=== PATIENT | female | born 2005 | race Two or more races ===

== ENCOUNTER 2024-10-17 16:01 | Observation (INO) | payer OTHER, SELFPAY ==
[2024-10-17 16:23] VITALS: BP 133/71; PULSE 89
--- NOTE | 2024-10-17 17:16 | PC.NURSE ---
Kavitha- RN at bedside updating pt with recent provider orders. Pt states she was finally able to feel movements at this time. Pt given 2 grapes juices and regis crackers.
--- NOTE | 2024-10-17 17:17 | PC.NURSE ---
1639- RN at bedside. Audible movement noted; pt denies feeling movements but acknowledges hearing movements audibly. RN reviews FHR/UC assessment with patient for reassurance. Pt given Count the Kicks handout.
--- NOTE | 2024-10-17 17:31 | US_ITS ---
[address] [address] Patient Name: RONAK LORA MRN: [id number] date: 2005 Sex: F Assigned Patient Location: [facility] Current Patient Location: Accession/Order Number: [id number] Exam Date: 10/17/2024 17:38 Report Date: 10/17/2024 18:49 At the request of: EDIE CURRY Procedure: US OB placenta EXAM: US OB placenta HISTORY: Decreased Movement COMPARISON: None. TECHNIQUE: Grayscale OB ultrasound. FINDINGS: A single alive intrauterine . presentation is transverse. heart rate measures 147 bpm. Multiple gross body movements seen during examination. The amniotic fluid is normal with the largest fluid pocket measures 4.9 cm. SAHIL: 15.8 cm. There is posterior placenta. (Grade 0). JOE: 01/24/2025 US/US OB placenta IMPRESSION: Single alive and active fetus as described above. Electronically authenticated by: EDI DUMONT Date: 10/17/2024 18:49
--- NOTE | 2024-10-17 18:06 | PC.NURSE ---
Per US tech placenta WNLs and movements noted throughout US procedure.
--- NOTE | 2024-10-17 18:08 | PC.NURSE ---
1800-D/C instructions given at this time. Pt verbalizes understanding.
== END 2024-10-17 18:05 | disposition home or self-care (01) ==
PROVIDERS: Admitting Provider Midwife; Visit Provider Midwife
DX: O36.8120 Decreased fetal movements, second trimester, not applicable or unspecified (principal); Z3A.25 25 weeks gestation of pregnancy
CPT/HCPCS: 59025; 76815; G0378; G0379

== ENCOUNTER 2024-12-25 21:39 | Observation (INO) | payer OTHER, SELFPAY ==
--- OUTSIDE RECORDS SUMMARY | 2024-12-25 21:43 | XMS_ITS | CCD ---
Author Organization [facility] Care Team Providers Care Spooling 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 Name Role Phone NO FAMILY, PHYSICIAN Primary Care Provider Unava ilable SANE, . Emergency Provider Unavailable NO FAMILY, PHYSICIAN Primary Care Provider Unava ilable Bullimore, POWER TRUCK DRIVER-BC Felisha E Emergency Provider Jose A Moralez DO Unavailable [phone] AMINAH WRIGHT Attending Unavailable NO PCP, NO PCP Primary Care Unavailable NO FAMILY, PHYSICIAN Primary Care Provider Unava ilable DO Oj Navarrete Emergency Provider [phone] MOUNIKA RICE Attending Unavaila ble NO PCP, NO PCP Primary Care Unavailable NO PCP, NO PCP Primary Care Unavailable JUDAH MCDONOUGH Attending Unavailable JOS LANDIS Attending Unavailable JOS LANDIS Referring Unavailable NO PCP, NO PCP Primary Care Unavailable NO PCP, NO PCP Primary Care Unavailable NISSA WICK Attending Unavailable Unallocated Rosy INGRAM Provider Primary Care Provi jose a UnallocatRosy hart MD Provider Primary Care Provi jose a NO FAMILY, PHYSICIAN Primary Care Provider Unava ilRishabh Agarwal PA-C Emergency Provider [phone] Anali POWER TRUCK DRIVER-BC, Felisha E Emergency Provider Ailyn Murrell Attending Unavailable Provider, None Primary Care Unavailable Monty Lee Attending Unavailable Monty Lee Admitting Unavailable Provider, None Primary Care Unavailable Vee Yang DO Attending Provider Tirso Mancilla MD Attending Provider NO FAMILY, PHYSICIAN Primary Care Provider Unava Rishabh Rain PA-C Emergency Provider [phone] Luciano Cooper MD Attending Provider NO FAMILY, PHYSICIAN Primary Care Unavailable Trey, Vee Attending Unavailable Trey, Vee Admitting Unavailable NO FAMILY, PHYSICIAN Primary Care Unavailable Tirso Mancilla Admitting Unavailable Tirso Mancilla Attending Unavailable NO FAMILY, PHYSICIAN Primary Care Unavailable Luciano Cooper Admitting Unavailable Luciano Cooper Attending Unavailable NO FAMILY, PHYSICIAN Primary Care Unavailable Oj Navarrete M Admitting Unavailable Oj Navarrete M Attending Unavailable NO FAMILY, PHYSICIAN Primary Care Unavailable Rishabh Quinteros Admitting Unavailable Rishabh Quinteros Attending Unavailable NO FAMILY, PHYSICIAN Primary Care Unavailable Bullimore, Felisha E Admitting Unavailable Bullimore, Felisha E Attending Unavailable NO FAMILY, PHYSICIAN Primary Care Unavailable Rishabh Quinteros Admitting Unavailable Rishabh Quinteros Attending Unavailable NO FAMILY, PHYSICIAN Primary Care Unavailable Tudaniel, Oj M Admitting Unavailable Tupa, Oj M Attending Unavailable NO FAMILY, PHYSICIAN Primary Care Unavailable Rinkes, Vee Admitting Unavailable Rinviviane, Vee Attending Unavailable FLORO, EDIE L Attending Unavailable FLORO, EDIE L Referring Unavailable FLORO, EDIE L Attending Unavailable FLORO, EDIE L Attending Unavailable FLORO, EDIE L Referring Unavailable FLORO, EDIE L Attending Unavailable FLORO, EDIE L Attending Unavailable FLORO, EDIE L Referring Unavailable FLORO, EDIE L Attending Unavailable FLORO, EDIE L Attending Unavailable FLORO, EDIE L Attending Unavailable FLORO, EDIE L Referring Unavailable FLORO, EDIE L Attending Unavailable FLORO, EDIE L Attending Unavailable FLORO, EDIE L Attending Unavailable NO FAMILY, PHYSICIAN Primary Care Provider Unava ilable Vee Yang DO Attending Provider Tirso Mancilla MD Attending Provider Rishabh Quinteros PA-C Emergency Provider [phone] Luciano Cooper MD Attending Provider Medications Current Medications Medication Drug Class(es) Dates Sig (Normalized) Sig (Original) docusate sodium 100 mg oral capsule (6 sources) Start: 11-19-2024 End: 02-27-2025 take 1 capsule by mouth in the morning docusate sodium (Colace) 100 MG capsule Indications: Iron deficiency anemia, unspecified iron deficiency anemia type Take 1 capsule (100 mg) by mouth in the morning and 1 capsule (100 mg) before bedtime. 60 capsule 3 11/19/2024 02/27/2025 Active ferrous sulfate 325 mg delayed release oral tablet (6 sources) Start: 11-19-2024 End: 11-19-2025 take 1 tablet by mouth in the morning ferrous sulfate (Fe Tabs) 325 (65 Fe) MG EC tablet Indications: Iron deficiency anemia, unspecified iron deficiency anemia type Take 1 tablet (325 mg) by mouth in the morning and at noon Do not crush, chew, or split. 60 tablet 11 11/19/2024 11/19/2025 Active Mv-Min No.83-Kynkd-Cuk-He rb293 (Alive Daily Support ) 180 mcg-25 mg- 25 mg tablet,chewable (4 sources) Start: 10-07-2024 take 1 tablet by mouth once daily Mv-Min No.47-Jbvht-Mnu-Her b293 (Alive Daily Support ) 180 mcg-25 mg- 25 mg tablet,chewable Active 1 TAB PO Daily October 07, 2024 1:00am Start: 10-07-2024 take 1 tablet by orly th once daily Mv-Min No.66-Akess-Feh-Optq319 (Alive Daily Support ) 180 mcg-25 mg- 25 mg tablet,chewable Active 1 TAB PO Daily October 07, 2024 12:00am Start: 10-07-2024 take 1 tablet by orly th once Mv-Min No.84-Qihli-Hcw-Nmcz625 (Alive Daily Support ) 180 mcg-25 mg- 25 mg tablet,chewable Active TAB PO October 07, 2024 12:00am ondansetron 4 mg disintegrating oral tablet (3 sources) Serotonin-3 Receptor Antagonist Start: 11-18-2024 take 1 tablet by mouth four times daily as needed for nausea and vomiting Ondansetron 4 mg tablet,disintegrating Active 4 MG PO Four times daily as needed for nausea and vomiting November 18, 2024 1:00am MV & Min w/FA-DHA ( Gummies) 0.18-25 MG chewable tablet (11 sources) MV & Mi n w/FA-DHA ( Gummies) 0.18-25 MG chewable tablet Chew Active MV-Min-Fe Fum-FA-DHA ( 1 PO) (17 sources) MV-Min- Fe Fum-FA-DHA ( 1 PO) Take 1 tablet by mouth Daily Active Completed/Discontinued Medications Medication Drug Class(es) Dates Sig (Normalized) Sig (Original) doxycycline monohydrate 100 mg oral tablet (19 sources) Tetracycline-clas s Drug Start: 07-29-2022 End: 05-26-2024 take 1 tablet by mouth twice daily Doxycycline Monohydrate 100 mg tablet Discontinued 100 MG PO Twice daily 14 June 05, 2023 4:27pm May 26, 2024 9:30pm metFORMIN hydrochloride 500 mg oral tablet (11 sources) Biguanide Start: 04-06-2024 End: 04-06-2025 take 1 tablet by mouth twice daily Metformin 500 mg tablet Discontinued 500 MG PO Twice daily May 26, 2024 12:00am October 04, 2024 5:55pm miconazole nitrate 20 mg/ml vaginal cream (5 sources) Azole Antifungal Start: 08-28-2024 End: 10-04-2024 Miconazole Nitrate (Miconazole-7) 2 % cream Discontinued 1 APPLICATOR VAGINAL Daily at bedtime 45 7 August 28, 2024 1:00am October 04, 2024 5:55pm Problems Active Problems Problem Classification Problem Date Documented Date Episodic/Chronic Fever of unknown origin (20 sources) Fever; Translations: [Fever, unspecified] Onset: 04-01-2024 05-30-2021 Episodic Comment on above: Problem List clean-u p per request of Phys. EHR Cmte Hemorrhage during ; abruptio placenta; placenta previa (15 sources) Bleeding from female genital tract during ; Translations: [Antepartum hemorrhage, unspecified, unspecified trimester] Onset: 05-31-2024 05-29-2024 Episodic Menstrual disorders (20 sources) Dysmenorrhea; Translations: [Dysmenorrhea, unspecified] Onset: 04-01-2024 04-01-2024 Chronic Nausea and vomiting (3 sources) Nausea and vomiting; Translations: [Nausea with vomiting, unspecified] 11-18-2024 Episodic Other complications of (4 sources) Finding related to ; Translations: [ related conditions, unspecified, second trimester] 08-12-2024 Episodic Other complications of (6 sources) Complication of , childbirth and/or the puerperium; Translations: [Other specified related conditions, unspecified trimester] 08-24-2024 Episodic Other complications of (1 source) Decreased movements, third trimester, not applicable or unspecified; Translations: [Decreased movements, third trimester, not applicable or unspecified] Onset: 12-03-2024 Episodic Other complications of (1 source) Vomiting of , unspecified; Translations: [Vomiting of , unspecified] Onset: 11-18-2024 Episodic Other complications of (1 source) Decreased movements, second trimester, not applicable or unspecified; Translations: [Decreased movements, second trimester, not applicable or unspecified] Onset: 10-07-2024 Episodic Other complications of (1 source) Decreased movements, unspecified trimester, not applicable or unspecified; Translations: [Decreased movements, unspecified trimester, not applicable or unspecified] Onset: 10-04-2024 Episodic Other ear and sense organ disorders (1 source) Impacted cerumen in right ear; Translations: [Impacted cerumen, right ear] 11-02-2023 Episodic Other female genital disorders (11 sources) Vaginal bleeding; Translations: [Abnormal uterine and vaginal bleeding, unspecified] Onset: 05-31-2024 08-24-2020 Chronic Comment on above: Problem List clean-u p per request of Phys. EHR Cmte Other female genital disorders (20 sources) Vaginal discharge; Translations: [Other specified noninflammatory disorders of vagina] Onset: 04-01-2024 07-29-2022 Episodic Comment on above: Problem List clean-u p per request of Phys. EHR Cmte Other female genital disorders (5 sources) Pruritus of vagina; Translations: [Other specified noninflammatory disorders of vagina] 08-28-2024 Episodic Other injuries and conditions due to external causes (20 sources) Foreign body in upper respiratory tract; Translations: [Food in pharynx causing other injury, initial encounter] Onset: 04-01-2024 05-20-2019 Episodic Comment on above: Problem List clean-u p per request of Phys. EHR Cmte Other and delivery including normal (14 sources) Second trimester ; Translations: [Encounter for supervision of normal first , second trimester] 08-12-2024 Episodic Other screening for suspected conditions (not mental disorders or infectious disease) (4 sources) Patient encounter status; Translations: [Encounter for screening for diseases of the blood and blood-forming organs and certain disorders involving the immune mechanism] 10-28-2024 Episodic Substance-related disorders (20 sources) Nicotine dependence; Translations: [Nicotine dependence, unspecified, uncomplicated] Onset: 04-01-2024 04-01-2024 Chronic Unclassified (1 source) Medical Problem Onset: 05-21-2024 Unclassified (1 source) screening Onset: 05-21-2024 Unclassified (20 sources) OB Reminders Onset: 06-01-2024 06-01-2024 Viral infection (20 sources) Disease caused by 2019-nCoV; Translations: [COVID-19] Onset: 04-01-2024 05-30-2021 Episodic Comment on above: Problem List clean-u p per request of Phys. EHR Cmte Past or Other Problems Problem Classification Problem Date Documented Date Episodic/Chronic Abdominal pain (2 sources) Abdominal pain; Translations: [Unspecified abdominal pain] Onset: 06-29-2024 Episodic Other complications of (1 source) Spotting complicating , first trimester; Translations: [Spotting complicating , first trimester] Onset: 05-28-2024 Episodic Other complications of (1 source) Spotting complicating , unspecified trimester; Translations: [Spotting complicating , unspecified trimester] Onset: 05-26-2024 Episodic Other female genital disorders (1 source) Other specified noninflammatory disorders of vagina; Translations: [Other specified noninflammatory disorders of vagina] Onset: 08-28-2024 Episodic Other nutritional; endocrine; and metabolic disorders (20 sources) Overweight in adulthood with body mass index of 25 or more but less than 30; Translations: [Body mass index (BMI) 27.0-27.9, adult] Onset: 04-01-2024 04-01-2024 Episodic Residual codes; unclassified (2 sources) Less than 8 weeks gestation of ; Translations: [Less than 8 weeks gestation of ] Onset: 05-21-2024 Episodic Results Test Name Value Interpretation Reference Range Facility Amphetamine Screen Ql (U)Ord ered By: HARITHA Cooper on 12-24-2024 Amphetamines Ql (U) Amphetamines screen Negativ e [facility] Appearance of UrineOrdered B y: HARITHA Cooper on 12-24-2024 Appearance (U) Urine appearance Clear [facility] Barbiturates [Presence] in U rine by Screen methodOrdered By: HARITHA Cooper on 12-24-2024 Barbiturates Screen Ql (U) Barbiturates [Presence] in Urine by Screen method Negative [facility] Benzodiazepines Screen Ql (U )Ordered By: HARITHA Cooper on 12-24-2024 Benzodiazepines Ql (U) Benzodiazepines [Presence] in Urine by Screen method Negative [facility] Benzoylecgonine [Presence] i n Urine by Screen methodOrdered By: HARITHA Cooper on 12-24-2024 Benzoylecgonine Screen Ql (U) Benzoylecgonine [Presence] in Urine by Screen method Negative [facility] Bilirubin Test strip Ql (U)O rdered By: HARITHA Cooper on 12-24-2024 Bilirubin Ql (U) Bilirubin.total [Presence] in Urine by Test strip Negative [facility] Color Auto (U)Ordered By: MD MAAME Cooper on 12-24-2024 Color (U) Color of Urine by Auto Yellow [facility] Glucose [Mass/volume] in Uri ne by Test stripOrdered By: HARITHA Cooper on 12-24-2024 Glucose Test strip (U) [Mass/Vol] Glucose [Mass/volume] in Urine by Test strip Normal [facility] Hemoglobin Test strip Ql (U) Ordered By: HARITHA Cooper on 12-24-2024 Hemoglobin Ql (U) Hemoglobin [Presence] in Urine by Test strip Negative [facility] Ketones Test strip Ql (U)Ord ered By: HARITHA Cooper on 12-24-2024 Ketones Ql (U) Ketones [Presence] in Urine by Test strip Negative [facility] Leukocyte esterase [Presence ] in Urine by Test stripOrdered By: HARITHA Cooper on 12-24-2024 Leukocyte esterase Test strip Ql (U) Leukocyte esterase [Presence] in Urine by Test strip Negative [facility] Nitrite Test strip Ql (U)Ord ered By: HARITHA Cooper on 12-24-2024 Nitrite Ql (U) Nitrite [Presence] in Urine by Test strip Negative [facility] Opiates [Presence] in Urine by Screen methodOrdered By: HARITHA Cooper on 12-24-2024 Opiates Screen Ql (U) Opiates [Presence] in Urine by Screen method Negative [facility] Phencyclidine Screen Ql (U)O rdered By: HARITHA Cooper on 12-24-2024 Phencyclidine Ql (U) Phencyclidine [Presence] in Urine by Screen method Negative [facility] Comment on above: These are unconfirme d results and should not be used for legal purposes. Drug Cut-Off Concentration: AMPH 1000 ng/mL NIKOS 200 ng/mL JOSETTE 200 ng/mL COCM 300 ng/mL OP 300 ng/mL PCP 25 ng/mL Protein Test strip (U) [Mass /Vol]Ordered By: HARITHA Cooper on 12-24-2024 Protein (U) [Mass/Vol] Protein [Mass/volume] in Urine by Test strip Negative [facility] Specific gravity Test strip (U) [Rel density]Ordered By: HARITHA Cooper on 12-24-2024 Specific gravity (U) [Rel density] Specific gravity of Urine by Test strip 1.001-1.030 [facility] Urobilinogen Test strip (U) [Mass/Vol]Ordered By: HARITHA Cooper on 12-24-2024 Urobilinogen (U) [Mass/Vol] Urobilinogen [Mass/volume] in Urine by Test strip Normal [facility] pH Test strip (U)Ordered By: HARITHA Cooper on 12-24-2024 pH (U) pH of Urine by Test strip 5.0-9.0 [facility] Appearance of UrineOrdered B y: HARITHA Cooper on 12-03-2024 Appearance (U) Urine appearance Abnormal Clear [facility] Bacteria [Presence] in Urine by AutomatedOrdered By: HARITHA Cooper on 12-03-2024 Bacteria Auto Ql (U) Bacteria [Presence] in Urine by Automated None Seen [facility] Bilirubin Test strip Ql (U)O rdered By: HARITHA Cooper on 12-03-2024 Bilirubin Ql (U) Bilirubin.total [Presence] in Urine by Test strip Negative [facility] Color Auto (U)Ordered By: MD MAAME Cooper on 12-03-2024 Color (U) Color of Urine by Auto Yellow [facility] Dipstick and Microscopicon 0 12-03-2024 Appearance (U) Cloudy Critically abnormal Clear [facility] Comment on above: Order Comment: Name Collection Type:: Clean-Voided Midstream Performed By: #### U HCG, UA #### [facility] [address] [place] [address] [place] Bacteria,Urine Rare Normal None Seen [facility] Comment on above: Order Comment: Name Collection Type:: Clean-Voided Midstream Performed By: #### U HCG, UA #### [facility] [address] [place] [address] [place] Bilirubin,Urine Negative Normal Negative [facility] Comment on above: Order Comment: Name Collection Type:: Clean-Voided Midstream Performed By: #### U HCG, UA #### [facility] [address] [place] [address] [place] Color (U) Light-Yellow Normal Yellow [facility] Comment on above: Order Comment: Name Collection Type:: Clean-Voided Midstream Performed By: #### U HCG, UA #### [facility] [address] [place] [id number] [place] Glucose Ql (U) Normal Normal Normal [facility] Comment on above: Order Comment: Name Collection Type:: Clean-Voided Midstream Performed By: #### U HCG, UA #### [facility] [address] [place] [id number] [place] Hyaline Casts,Urine 0-8 Normal 0-8 [facility] Comment on above: Order Comment: Name Collection Type:: Clean-Voided Midstream Performed By: #### U HCG, UA #### [facility] [address] Ketones Ql (U) Negative Normal Negative [facility] Comment on above: Order Comment: Name Collection Type:: Clean-Voided Midstream Performed By: #### U HCG, UA #### [address] Leukocyte esterase Test strip Ql (U) Negative Normal Negative [facility] Comment on above: Order Comment: Name Collection Type:: Clean-Voided Midstream Performed By: #### U HCG, UA #### [place] [address] [place] Mucus,Urine Rare Normal [facility] Comment on above: Order Comment: Name Collection Type:: Clean-Voided Midstream Result Comment: PERF ORMED BY: [place] [id number] PATHOLOGIST MANAGER PRIVATE CECILIA SHORT M.D. Performed By: #### U HCG, UA #### [place] [address] [place] Nitrite,Urine Negative Normal Negative [facility] Comment on above: Order Comment: Name Collection Type:: Clean-Voided Midstream Performed By: #### U HCG, UA #### [place] [address] [place] Occult Blood,Urine Negative Normal Negative [facility] Comment on above: Order Comment: Name Collection Type:: Clean-Voided Midstream Result Comment: PERF ORMED BY: [place] [address] PATHOLOGIST MANAGER PRIVATE CECILIA SHORT M.D. Performed By: #### U HCG, UA #### [place] [address] [place] pH (U) 6.5 [pH] Normal 5.0-9.0 [facility] Comment on above: Order Comment: Name Collection Type:: Clean-Voided Midstream Performed By: #### U HCG, UA #### [place] [address] [place] Protein,Urine Negative Normal Negative [facility] Comment on above: Order Comment: Name Collection Type:: Clean-Voided Midstream Performed By: #### U HCG, UA #### [place] [address] [place] RBC,Urine 1-2 Normal 0-4 [facility] Comment on above: Order Comment: Name Collection Type:: Clean-Voided Midstream Performed By: #### U HCG, UA #### [place] [address] [place] Specificy [place],Urine 1.011 Normal 1.001-1.030 [facility] Comment on above: Order Comment: Name Collection Type:: Clean-Voided Midstream Performed By: #### U HCG, UA #### [address] Squamous Epithelial Cell,Urine 20-49 High 0-2 [facility] Comment on above: Order Comment: Name Collection Type:: Clean-Voided Midstream Performed By: #### U HCG, UA #### [place] [address] [place] Urobilinogen,Urine Normal Normal Normal [facility] Comment on above: Order Comment: Name Collection Type:: Clean-Voided Midstream Performed By: #### U HCG, UA #### [place] [address] [place] WBC,Urine 3-4 Normal 0-4 [facility] Comment on above: Order Comment: Name Collection Type:: Clean-Voided Midstream Performed By: #### U HCG, UA #### [place] [address] [place] Epithelial cells.squamous [# /area] in Urine sediment by Automated countOrdered By: HARITHA Cooper on 12-03-2024 Epithelial cells.squamous Auto (Urine sed) [#/Area] Epithelial cells.squamous [#/area] in Urine sediment by Automated count High 0-2 [facility] Erythrocytes [#/area] in Uri ne sediment by Automated countOrdered By: HARITHA Cooper on 12-03-2024 RBC Auto (Urine sed) [#/Area] Erythrocytes [#/area] in Urine sediment by Automated count 0-4 [facility] Fibronectinon 12-03-19 25 Fibronectin Negative Normal Negative [facility] Comment on above: Order Comment: Name Collection Type:: Clean-Voided Midstream Result Comment: PERF ORMED BY: [place] [id number] PATHOLOGIST MANAGER PRIVATE CECILIA SHORT M.D. Performed By: #### U HCG, UA #### [address] fibronectin measuremen tOrdered By: HARITHA Cooper on 12-03-2024 Fibronectin. (Vag fld) [Mass/Vol] fibronectin Negative [facility] Fibronectin. Ql (Vag fl d)on 12-03-2024 FIBRONECTIN Negative Negative [facility] Comment patients 22 - 34 6/7 weeks prior to vaginal exam [facility] Glucose [Mass/volume] in Uri ne by Test stripOrdered By: HARITHA Cooper on 12-03-2024 Glucose Test strip (U) [Mass/Vol] Glucose [Mass/volume] in Urine by Test strip Normal [facility] Hemoglobin Test strip Ql (U) Ordered By: HARITHA Cooper on 12-03-2024 Hemoglobin Ql (U) Hemoglobin [Presence] in Urine by Test strip Negative [facility] Hyaline casts [#/area] in Ur ine sediment by Automated countOrdered By: HARITHA Cooper on 12-03-2024 Hyaline casts Auto (Urine sed) [#/Area] Hyaline casts [#/area] in Urine sediment by Automated count 0-8 [facility] Ketones Test strip Ql (U)Ord ered By: HARITHA Cooper on 12-03-2024 Ketones Ql (U) Ketones [Presence] in Urine by Test strip Negative [facility] Leukocyte esterase [Presence ] in Urine by Test stripOrdered By: HARITHA Cooper on 12-03-2024 Leukocyte esterase Test strip Ql (U) Leukocyte esterase [Presence] in Urine by Test strip Negative [facility] Leukocytes [#/area] in Urine sediment by Automated countOrdered By: HARITHA Cooper on 12-03-2024 WBC Auto (Urine sed) [#/Area] Leukocytes [#/area] in Urine sediment by Automated count 0-4 [facility] Mucus [Presence] in Urine by AutomatedOrdered By: HARITHA Cooper on 12-03-2024 Mucus Auto Ql (U) Mucus [Presence] in Urine by Automated [facility] Nitrite Test strip Ql (U)Ord ered By: HARITHA Cooper on 12-03-2024 Nitrite Ql (U) Nitrite [Presence] in Urine by Test strip Negative [facility] Protein Test strip (U) [Mass /Vol]Ordered By: HARITHA Cooper on 12-03-2024 Protein (U) [Mass/Vol] Protein [Mass/volume] in Urine by Test strip Negative [facility] Specific gravity Test strip (U) [Rel density]Ordered By: HARITHA Cooper on 12-03-2024 Specific gravity (U) [Rel density] Specific gravity of Urine by Test strip 1.001-1.030 [facility] US OB biophysical profileon 12-03-2024 US OB biophysical profile [facility] [place] [address] Ultrasound Report Signed Patient: Kisha Lora MR#: [id number] 55 : 2005 Acct:[id number] Age/Sex: 19 / F ADM Date: 12/03/24 Loc: Room: [address] [place] [address] Type: REG CLI Attending Dr: Luciano Cooper MD Ordering Provider: HARITHA Burdick Date of Service: 12/03/24 US/US OB biophysical profile: 32 wks, decreased movement Copies to: HARITHA Burdick Ultrasound of surgical biophysical profile HISTORY: Decreased movement. Failed prior biophysical profile Prior measurement obtained earlier today. There is adequate tone, gross body movement, breathing movement and amniotic fluid volume. heart rate are 4 9 bpm. Fetus in vertex presentation. Amniotic fluid index 12.34 cm. US/US OB biophysical profile IMPRESSION: Adequate ultrasound biophysical profile with score of 8 out of 8. Impression dictated by: Craig Hassan M.D.12/03/2024 3:10 PM Dictation Location: [facility] Tech: Ivette Thomson Transcribed By: WILLOW 12/03/24 1510 Dictated By: Craig Hassan DO 12/03/24 1509 Signed By: 12/03/24 1510 Normal [facility] US OB biophysical profile [facility] [place] [address] Ultrasound Report Signed Patient: Kisha Lora MR#: [id number] 57 : 2005 Acct:[id number] Age/Sex: 19 / F ADM Date: 12/03/24 Loc: Room: 5T9535-6 Type: REG CLI Attending Dr: Luciano Cooper MD Ordering Provider: Luciano Cooper MD-[facility] Date of Service: 12/03/24 US/US OB biophysical profile: Decreased movement Copies to: Luciano Cooper MD-[facility] Ultrasound obstetrical biophysical profile HISTORY: Decreased movement The average gestational age by ultrasound is 32 weeks 6 days. The estimated weight is 4 lbs. 8 oz. There is adequate tone, gross body movement, and amniotic fluid volume. The breathing movement is not adequate. The amniotic fluid index is 11.94 cm. The heart rate 143 bpm. The fetus is in vertex presentation. Suspected right hydrocele US/US OB biophysical profile IMPRESSION: Suboptimal biophysical profile with inadequate breathing movement. Total score 6 out of 8. Amniotic fluid index 11.9 cm. heart rate 143 bpm. Impression dictated by: Craig Hassan M.D.12/03/2024 1:04 PM Dictation Location: [facility] Tech: Jennifer David Transcribed By: WILLOW 12/03/24 1304 Dictated By: Craig Hassan DO 12/03/24 1256 Signed By: 12/03/24 1304 Normal [facility] Urinalysis complete panel (U )on 12-03-2024 Appearance (U) Cloudy Critically abnormal Clear [facility] BILIRUBIN,URINE Negative Negative [facility] Color (U) Light-Yellow Yellow [facility] Glucose Ql (U) Normal Normal [facility] Interpretation and review of laboratory results Abnormal [facility] Ketones Ql (U) Negative Negative [facility] Leukocyte esterase Test strip Ql (U) Negative Negative [facility] NITRITE,URINE Negative Negative [facility] OCCULT BLOOD,URINE Negative Negative [facility] pH (U) 6.5 [pH] 5.0 - 9.0 [facility] PROTEIN,URINE Negative Negative [facility] SPECIFICY GRAVITY,URINE 1.011 1.00 1 - 1.030 [facility] UROBILINOGEN,URINE Normal Normal [facility] Comment c/o urinary symptoms or increased blood pressure Name Collection Type:: Clean-Voided Midstream [facility] Urobilinogen Test strip (U) [Mass/Vol]Ordered By: HARITHA Cooper on 12-03-2024 Urobilinogen (U) [Mass/Vol] Urobilinogen [Mass/volume] in Urine by Test strip Normal [facility] pH Test strip (U)Ordered By: HARITHA Cooper on 12-03-2024 pH (U) pH of Urine by Test strip 5.0-9.0 [facility] US OB FOLLOW UP TRANSABDOMIN AL APPROACHon 11-25-2024 US OB FOLLOW UP TRANSABDOMINAL APPROACH EXAM: OB Ultrasound: REASON FOR EXAM: Routine growth. COMPARISON: 09/08/2024, 06/15/2024, 05/31/2024 TECHNIQUE: Grayscale and M-mode Doppler imaging is performed. FINDINGS: heart rate: 151 bpm SAHIL: 13.5 cm (39%) BPD: 8.1 cm (32.4 wk, 69%) HC: 28.8 cm (31.7 wk, 15%) AC: 27.6 cm (31.7 wk, 50%) FL: 6.2 cm (32.1 wk, 51%) GA for sonogram: 31.6 wk (47%) Cervix length: 5.1 cm JOE: 01/23/2025 Weight Estimate: Weight: 1857 gm / 4 lbs, 1 oz (1586 - 2128 gm) [place] Normal: 1872 gm (1554 - 2191 gm) [place] Wt%: 48% for 31.6 wks Age by LMP: 31w4d Age Prior US: 31w3d Age US Today: 32w0d JOE by LMP: 04/24/2025 JOE Prior US: 01/22/2025 JOE US Today: 01/20/2025 Gestation: Single Position: Cephalic Placental Location: Posterior fundal Placental Grade: I Heart Rate: 151 bpm Somatic Movement: Yes Cervical Length: 5.1 cm No appreciable anatomic abnormality of the observed and maternal structures. IMPRESSION: Single live intrauterine gestation as described, sonographically measuring 32 weeks, 0 days, fairly consistent with prior ultrasound evaluations and gestational age by LMP. No sonographically appreciable abnormality. Findings as detailed. Dictated and transcribed 11/25/2024/tm This report has been electronically signed and approved by the interpreting radiologist. Normal Not Available Alanine aminotransferase [En zymatic activity/volume] in Serum or PlasmaOrdered By: Rishabh Quinteros on 11-18-2024 ALT [Catalytic activity/Vol] Alanine aminotransferase [Enzymatic activity/volume] in Serum or Plasma 7-52 [facility] Albumin [Mass/volume] in Ser um or Plasma by Bromocresol green (BCG) dye binding methoOrdered By: Rishabh Quinteros on 11-18-2024 Albumin BCG dye [Mass/Vol] Albumin [Mass/volume] in Serum or Plasma by Bromocresol green (BCG) dye binding metho Low 3.5-5.7 [facility] Alkaline phosphatase [Enzyma tic activity/volume] in Serum or PlasmaOrdered By: Rishabh Quinteros on 11-18-2024 ALP [Catalytic activity/Vol] Alkaline phosphatase [Enzymatic activity/volume] in Serum or Plasma 34-104 [facility] Appearance of UrineOrdered B y: Rishabh Quinteros on 11-18-2024 Appearance (U) Urine appearance Abnormal Clear [facility] Aspartate aminotransferase [ Enzymatic activity/volume] in Serum or PlasmaOrdered By: Rishabh Quinteros on 11-18-2024 AST [Catalytic activity/Vol] Aspartate aminotransferase [Enzymatic activity/volume] in Serum or Plasma 13-39 [facility] Bacteria [Presence] in Urine by AutomatedOrdered By: Rishabh Quinteros on 11-18-2024 Bacteria Auto Ql (U) Bacteria [Presence] in Urine by Automated High None Seen [facility] Basophils Auto (Bld) [#/Vol] Ordered By: Rishabh Quinteros on 11-18-2024 Basophils (Bld) [#/Vol] Automated basoph il count 0.0-0.2 [facility] Basophils/100 WBC Auto (Bld) Ordered By: Rishabh Quinteros on 11-18-2024 Basophils/100 WBC (Bld) Automated basoph il % . [facility] Bilirubin Test strip Ql (U)O rdered By: Rishabh Quinteros on 11-18-2024 Bilirubin Ql (U) Bilirubin.total [Presence] in Urine by Test strip Negative [facility] Bilirubin.total [Mass/volume ] in Serum or PlasmaOrdered By: Rishabh Quinteros on 11-18-2024 Bilirubin [Mass/Vol] Bilirubin.total [Mass/volume] in Serum or Plasma 0.3-1.0 [facility] COVID Cepheid NegativeOrdere d By: Rishabh Quinteros on 11-18-2024 SARS-CoV-2 (COVID-19) Ab IA Ql COVID Cepheid Negative [facility] Comment on above: This is a duplicate Cepheid Xpert Xpress CoV-2/Flu/RSV Plus RNA by RT-PCR result to be used for statistical tracking purpose only. COVID-19 / Flu A/B / RSV PCR on 11-18-2024 SARS-CoV-2 (COVID-19) RNA ANGELY+probe Ql (Unsp spec) COVID-19 Cepheid Result Negative for SARS-CoV-2 RNA by RT-PCR Flu A Cepheid Result Negative for Flu A RNA by RT-PCR Flu B Cepheid Result Negative for Flu B RNA by RT-PCR RSV Cepheid Result Negative for RSV RNA by RT-PCR COVID19 Blank Space Reference: Negative COVID19 Blank Space Cepheid Disclaimer The Cepheid Xpert Xpress CoV-2/Flu/RSV Plus has Cepheid Disclaimer not been FDA cleared or approved; this test has Cepheid Disclaimer been authorized by FDA under an EUA for use by Cepheid Disclaimer authorized laboratories; this test has been Cepheid Disclaimer authorized only for the simultaneous qualitative Cepheid Disclaimer detection and differentiation of nucleic acids from Cepheid Disclaimer SARS-CoV-2, influenza A, influenza B, and Cepheid Disclaimer respiratory syncytial virus (RSV), and not for any Cepheid Disclaimer other viruses or pathogens; and this test is only Cepheid Disclaimer authorized for the duration of the declaration that Cepheid Disclaimer circumstances exist justifying the authorization of Cepheid Disclaimer emergency use of in vitro diagnostic tests for Cepheid Disclaimer detection and/or diagnosis of COVID-19 under Cepheid Disclaimer Section 564(b)(1) of the Act, 21 U.S.C. 360bbb- Cepheid Disclaimer 3(b)(1), unless the authorization is terminated or Cepheid Disclaimer revoked sooner. PERFORMED BY: [place] [id number] PATHOLOGIST MANAGER PRIVATE CECILIA SHORT M.D. Normal [facility] Comment on above: Performed By: #### U HCG, UA #### [address] Calcium [Mass/volume] in Ser um or PlasmaOrdered By: Rishabh Quinteros on 11-18-2024 Calcium [Mass/Vol] Calcium [Mass/volume] in Serum or Plasma 8.6-10.3 [facility] Carbon dioxide, total [Moles /volume] in Serum or PlasmaOrdered By: Rishabh Quinteros on 11-18-2024 CO2 [Moles/Vol] Carbon dioxide, total [Moles/volume] in Serum or Plasma 21.0-31.0 [facility] Cepheid COVID PCR Negativeon 11-18-2024 SARS-CoV-2 (COVID-19) RNA ANGELY+probe Ql (Unsp spec) Negative Normal Negative [facility] Comment on above: Result Comment: This is a duplicate Cepheid Xpert Xpress CoV-2/Flu/RSV Plus RNA by RT-PCR result to be used for statistical tracking purpose only. PERFORMED BY: [place] [id number] PATHOLOGIST MANAGER PRIVATE CECILIA SHORT M.D. Performed By: #### U HCG, UA #### [address] Chloride [Moles/volume] in S sissy or PlasmaOrdered By: Rishabh Quinteros on 11-18-2024 Chloride [Moles/Vol] Chloride [Moles/volume] in Serum or Plasma 98-107 [facility] Color Auto (U)Ordered By: Bipin Quinteros on 11-18-2024 Color (U) Color of Urine by Auto Yellow [facility] Complete Blood Count Auto Di ffon 11-18-2024 Basophils (Bld) [#/Vol] 0.1 10*3/uL Normal 0.0-0.2 [facility] Comment on above: Result Comment: PERF ORMED BY: [place] [address] PATHOLOGIST MANAGER PRIVATE CECILIA SHORT M.D. Performed By: #### C MP, LIPASE, CBC #### [address] Basophils/100 WBC (Bld) 0.7 % Normal . [place] [facility] Comment on above: Performed By: #### C MP, LIPASE, CBC #### [place] [address] [place] Eosinophils (Bld) [#/Vol] 0.3 10*3/uL Normal 0.0-0.45 [facility] Comment on above: Performed By: #### C MP, LIPASE, CBC #### [address] Eosinophils/100 WBC (Bld) 4.4 % Normal . [facility] Comment on above: Performed By: #### C MP, LIPASE, CBC #### [address] Erythrocyte distribution width (RBC) [Ratio] 13.3 % Normal 11.9-15.3 [facility] Comment on above: Performed By: #### C MP, LIPASE, CBC #### [address] Hematocrit (Bld) [Volume fraction] 30.4 % Low 34.0-46.4 [facility] Comment on above: Performed By: #### C MP, LIPASE, CBC #### [address] Hemoglobin (Bld) [Mass/Vol] 10.3 g/dL Low 11.8-15.4 [facility] Comment on above: Performed By: #### C MP, LIPASE, CBC #### [address] Lymphocytes (Bld) [#/Vol] 1.5 10*3/uL Normal 1.00-4.8 [facility] Comment on above: Performed By: #### C MP, LIPASE, CBC #### [address] Lymphocytes/100 WBC (Bld) 19.3 % Normal . [facility] Comment on above: Performed By: #### C MP, LIPASE, CBC #### [address] MCH (RBC) [Entitic mass] 30.7 pg Normal 24.7-34.3 [facility] Comment on above: Performed By: #### C MP, LIPASE, CBC #### [address] MCV (RBC) [Entitic vol] 90.2 fL Normal 80-100 [facility] Comment on above: Performed By: #### C MP, LIPASE, CBC #### [address] Mean Corpuscular HGB Conc 34.0 g/dL Normal 32.0-35.0 [facility] Comment on above: Performed By: #### C MP, LIPASE, CBC #### [address] Monocytes (Bld) [#/Vol] 0.5 10*3/uL Normal 0.0-0.8 [facility] Comment on above: Performed By: #### C MP, LIPASE, CBC #### [address] Monocytes/100 WBC (Bld) 18.40 % Normal 0.00-20.00 [facility] Comment on above: Performed By: #### C MP, LIPASE, CBC #### [address] Monocytes/100 WBC (Bld) 6.1 % Normal . [facility] Comment on above: Performed By: #### C MP, LIPASE, CBC #### [address] Neutrophils (Bld) [#/Vol] 5.4 10*3/uL Normal 1.8-7.7 [facility] Comment on above: Performed By: #### C MP, LIPASE, CBC #### [address] Neutrophils/100 WBC (Bld) 69.5 % Normal . [facility] Comment on above: Performed By: #### C MP, LIPASE, CBC #### [address] NRBC% 0.1 /100{WBC} Normal 0-0.5 [facility] Comment on above: Performed By: #### C MP, LIPASE, CBC #### [address] Platelet mean volume (Bld) [Entitic vol] 8.4 fL Normal 6.3-10.7 [facility] Comment on above: Performed By: #### C MP, LIPASE, CBC #### [address] Platelets (Bld) [#/Vol] 236 10*3/uL Normal 150-450 [facility] Comment on above: Performed By: #### C MP, LIPASE, CBC #### [address] RBC (Bld) [#/Vol] 3.37 10*6/uL Low 3.60-5.00 [facility] Comment on above: Performed By: #### C MP, LIPASE, CBC #### [address] WBC (Bld) [#/Vol] 7.8 10*3/uL Normal 3.8-11.6 [facility] Comment on above: Performed By: #### C MP, LIPASE, CBC #### [address] Comprehensive Metabolic Pane cali 11-18-2024 Albumin [Mass/Vol] 3.4 g/dL Low 3.5-5.7 [facility] Comment on above: Performed By: #### C MP, LIPASE, CBC #### [address] Albumin/Globulin [Mass ratio] 1.2 {ratio} Normal [facility] Comment on above: Performed By: #### C MP, LIPASE, CBC #### [address] ALP [Catalytic activity/Vol] 97 U/L Normal 34-104 [facility] Comment on above: Performed By: #### C MP, LIPASE, CBC #### [address] ALT [Catalytic activity/Vol] 9 U/L Normal 7-52 [facility] Comment on above: Performed By: #### C MP, LIPASE, CBC #### [address] Anion gap [Moles/Vol] 11.3 mmol/L Normal 6.0-15.0 [facility] Comment on above: Performed By: #### C MP, LIPASE, CBC #### [address] AST [Catalytic activity/Vol] 14 U/L Normal 13-39 [facility] Comment on above: Performed By: #### C MP, LIPASE, CBC #### [address] Bilirubin [Mass/Vol] 0.4 mg/dL Normal 0.3-1.0 [facility] Comment on above: Performed By: #### C MP, LIPASE, CBC #### [address] Calcium [Mass/Vol] 8.8 mg/dL Normal 8.6-10.3 [facility] Comment on above: Performed By: #### C MP, LIPASE, CBC #### [address] Chloride [Moles/Vol] 105 mmol/L Normal 98-107 [facility] Comment on above: Performed By: #### C MP, LIPASE, CBC #### [address] CO2 [Moles/Vol] 22.1 mmol/L Normal 21.0-31.0 [facility] Comment on above: Performed By: #### C MP, LIPASE, CBC #### [address] Creatinine [Mass/Vol] 0.45 mg/dL Low 0.60-1.20 [facility] Comment on above: Performed By: #### C MP, LIPASE, CBC #### [address] Creatinine Clr Calc Pharmacy 250.81 Normal [facility] Comment on above: Performed By: #### C MP, LIPASE, CBC #### [place] [address] [place] GFR/1.73 sq M.predicted MDRD (S/P/Bld) [Vol rate/Area] mL/min/{1.73_m2} Normal [facility] Comment on above: Performed By: #### C MP, LIPASE, CBC #### [address] Globulin (S) [Mass/Vol] 2.9 g/dL Normal [facility] Comment on above: Performed By: #### C MP, LIPASE, CBC #### [address] Glucose [Mass/Vol] 140 mg/dL High 70-100 [facility] Comment on above: Result Comment: [facility] Glucose Reference Range is dependent on time and content of last meal. Glucose of more than 200 mg/dL in a nonstressed, ambulatory subject supports the diagnosis of Diabetes Mellitus. ADA recommended reference range Performed By: #### C MP, LIPASE, CBC #### [address] Potassium [Moles/Vol] 3.4 mmol/L Low 3.5-5.1 [facility] Comment on above: Performed By: #### C MP, LIPASE, CBC #### [address] Protein [Mass/Vol] 6.3 g/dL Low 6.4-8.9 [facility] Comment on above: Performed By: #### C MP, LIPASE, CBC #### [address] Sodium [Moles/Vol] 135 mmol/L Low 136-145 [facility] Comment on above: Performed By: #### C MP, LIPASE, CBC #### [address] Urea nitrogen [Mass/Vol] 3 mg/dL Low 7-25 [facility] Comment on above: Performed By: #### C MP, LIPASE, CBC #### [address] Creatinine [Mass/volume] in Serum or PlasmaOrdered By: Rishabh Quinteros on 11-18-2024 Creatinine [Mass/Vol] Creatinine [Mass/volume] in Serum or Plasma Low 0.60-1.20 [facility] Dipstick and Microscopicon 0 11-18-2024 Appearance (U) Cloudy Critically abnormal Clear [facility] Comment on above: Order Comment: Name Collection Type:: Clean-Voided Midstream Performed By: #### U HCG, UA #### [address] Bacteria,Urine 2+ High None Seen [facility] Comment on above: Order Comment: Name Collection Type:: Clean-Voided Midstream Performed By: #### U HCG, UA #### [facility] [address] [place] [address] [place] Bilirubin,Urine Negative Normal Negative [facility] Comment on above: Order Comment: Name Collection Type:: Clean-Voided Midstream Performed By: #### U HCG, UA #### [facility] [address] [place] [address] [place] Color (U) Light-Yellow Normal Yellow [facility] Comment on above: Order Comment: Name Collection Type:: Clean-Voided Midstream Performed By: #### U HCG, UA #### [address] Glucose Ql (U) 100 mg/dL High Normal [facility] Comment on above: Order Comment: Name Collection Type:: Clean-Voided Midstream Performed By: #### U HCG, UA #### [place] [address] [place] Hyaline Casts,Urine None Normal 0-8 [facility] Comment on above: Order Comment: Name Collection Type:: Clean-Voided Midstream Performed By: #### U HCG, UA #### [place] [address] [place] Ketones Ql (U) Negative Normal Negative [facility] Comment on above: Order Comment: Name Collection Type:: Clean-Voided Midstream Performed By: #### U HCG, UA #### [place] [address] [place] Leukocyte esterase Test strip Ql (U) Negative Normal Negative [facility] Comment on above: Order Comment: Name Collection Type:: Clean-Voided Midstream Performed By: #### U HCG, UA #### [place] [address] [place] Mucus,Urine 1+ Critically abnormal [facility] Comment on above: Order Comment: Name Collection Type:: Clean-Voided Midstream Result Comment: PERF ORMED BY: [place] [address] PATHOLOGIST MANAGER PRIVATE CECILIA SHORT M.D. Performed By: #### U HCG, UA #### [place] [address] [place] Nitrite,Urine Negative Normal Negative [facility] Comment on above: Order Comment: Name Collection Type:: Clean-Voided Midstream Performed By: #### U HCG, UA #### [address] Occult Blood,Urine Negative Normal Negative [facility] Comment on above: Order Comment: Name Collection Type:: Clean-Voided Midstream Result Comment: PERF ORMED BY: [place] [id number] PATHOLOGIST MANAGER PRIVATE CECILIA SHORT M.D. Performed By: #### U HCG, UA #### [address] pH (U) 6.0 [pH] Normal 5.0-9.0 [facility] Comment on above: Order Comment: Name Collection Type:: Clean-Voided Midstream Performed By: #### U HCG, UA #### [place] [address] [place] Protein,Urine Negative Normal Negative [facility] Comment on above: Order Comment: Name Collection Type:: Clean-Voided Midstream Performed By: #### U HCG, UA #### [place] [address] [place] RBC,Urine 1 [HPF] Normal 0-4 [facility] Comment on above: Order Comment: Name Collection Type:: Clean-Voided Midstream Performed By: #### U HCG, UA #### [address] Specificy [place],Urine 1.010 Normal 1.001-1.030 [facility] Comment on above: Order Comment: Name Collection Type:: Clean-Voided Midstream Performed By: #### U HCG, UA #### [facility] [address] Squamous Epithelial Cell,Urine 10 [HPF] High 0-2 [facility] Comment on above: Order Comment: Name Collection Type:: Clean-Voided Midstream Performed By: #### U HCG, UA #### [facility] [address] Urobilinogen,Urine Normal Normal Normal [facility] Comment on above: Order Comment: Name Collection Type:: Clean-Voided Midstream Performed By: #### U HCG, UA #### [facility] [address] WBC,Urine 5 [HPF] High 0-4 [facility] Comment on above: Order Comment: Name Collection Type:: Clean-Voided Midstream Performed By: #### U HCG, UA #### [facility] [address] [place] [address] Eosinophils Auto (Bld) [#/Vo l]Ordered By: Rishabh Quinteros on 11-18-2024 Eosinophils (Bld) [#/Vol] Automated eosinophil count 0.0-0.45 [facility] Eosinophils/100 WBC Auto (Bl d)Ordered By: Rishabh Quinteros on 11-18-2024 Eosinophils/100 WBC (Bld) Automated eosinophil % . [facility] Epithelial cells.squamous [# /area] in Urine sediment by Automated countOrdered By: Rishabh Quinteros on 11-18-2024 Epithelial cells.squamous Auto (Urine sed) [#/Area] Epithelial cells.squamous [#/area] in Urine sediment by Automated count High 0-2 [facility] Erythrocyte distribution wid th Auto (RBC) [Ratio]Ordered By: Rishabh Quinteros on 11-18-2024 Erythrocyte distribution width (RBC) [Ratio] Erythrocyte distribution width [Ratio] by Automated count 11.9-15.3 [facility] Erythrocytes [#/area] in Uri ne sediment by Automated countOrdered By: Rishabh Quinteros on 11-18-2024 RBC Auto (Urine sed) [#/Area] Erythrocytes [#/area] in Urine sediment by Automated count 0-4 [facility] Globulin Calc (S) [Mass/Vol] Ordered By: Rishabh Quinteros on 11-18-2024 Globulin (S) [Mass/Vol] Serum globulin measurement by calculation (mass/volume) [facility] Glucose [Mass/volume] in Ser um or PlasmaOrdered By: Rishabh Quinteros on 11-18-2024 Glucose [Mass/Vol] Glucose [Mass/volume] in Serum or Plasma High 70-100 [facility] Comment on above: ADA recommended refe rence rangeRandom Glucose Reference Range is dependent on time and content of last meal. Glucose of more than 200 mg/dL in a nonstressed, ambulatory subject supports the diagnosis of Diabetes Mellitus. Glucose [Mass/volume] in Uri ne by Test stripOrdered By: Rishabh Quinteros on 11-18-2024 Glucose Test strip (U) [Mass/Vol] Glucose [Mass/volume] in Urine by Test strip High Normal [facility] Hematocrit Auto (Bld) [Volum e fraction]Ordered By: Rishabh Quinteros on 11-18-2024 Hematocrit (Bld) [Volume fraction] Hematocrit [Volume Fraction] of Blood by Automated count Low 34.0-46.4 [facility] Hemoglobin Test strip Ql (U) Ordered By: Rishabh Quinteros on 11-18-2024 Hemoglobin Ql (U) Hemoglobin [Presence] in Urine by Test strip Negative [facility] Hemoglobin [Mass/volume] in BloodOrdered By: Rishabh Quinteros 11-18-2024 Hemoglobin (Bld) [Mass/Vol] Hemoglobin [Mass/volume] in Blood Low 11.8-15.4 [facility] Hyaline casts [#/area] in Ur ine sediment by Automated countOrdered By: Rishabh Quinteros on 11-18-2024 Hyaline casts Auto (Urine sed) [#/Area] Hyaline casts [#/area] in Urine sediment by Automated count 0-8 [facility] Ketones Test strip Ql (U)Ord ered By: Rishabh Quinteros on 11-18-2024 Ketones Ql (U) Ketones [Presence] in Urine by Test strip Negative [facility] [facility] Leukocyte esterase [Presence ] in Urine by Test stripOrdered By: Rishabh Quinteros on 11-18-2024 Leukocyte esterase Test strip Ql (U) Leukocyte esterase [Presence] in Urine by Test strip Negative [facility] Leukocytes [#/area] in Urine sediment by Automated countOrdered By: Rishabh Quinteros on 11-18-2024 WBC Auto (Urine sed) [#/Area] Leukocytes [#/area] in Urine sediment by Automated count High 0-4 [facility] Leukocytes [#/volume] correc alphonso for nucleated erythrocytes in Blood by Automated counOrdered By: Rishabh Quinteros on 11-18-2024 WBC corrected for nucl RBC Auto (Bld) [#/Vol] Leukocytes [#/volume] corrected for nucleated erythrocytes in Blood by Automated coun 3.8-11.6 [facility] Lipaseon 11-18-2024 Lipase [Catalytic activity/Vol] 15.0 U/L Normal 11.0-82.0 [facility] Comment on above: Result Comment: PERF ORMED BY: [place] [id number] PATHOLOGIST MANAGER PRIVATE CECILIA SHORT M.D. Performed By: #### C MP, LIPASE, CBC #### [address] Lipase [Enzymatic activity/v olume] in Serum or PlasmaOrdered By: Rishabh Quinteros on 11-18-2024 Lipase [Catalytic activity/Vol] Lipase [Enzymatic activity/volume] in Serum or Plasma 11.0-82.0 [facility] Lymphocytes Auto (Bld) [#/Vo l]Ordered By: Rishabh Quinteros on 11-18-2024 Lymphocytes (Bld) [#/Vol] Lymphocytes [#/volume] in Blood by Automated count 1.00-4.8 [facility] Lymphocytes/100 WBC Auto (Bl d)Ordered By: Rishabh Quinteros on 11-18-2024 Lymphocytes/100 WBC (Bld) Lymphocytes/100 leukocytes in Blood by Automated count . [facility] MCH Auto (RBC) [Entitic mass ]Ordered By: Rishabh Quinteros on 11-18-2024 MCH (RBC) [Entitic mass] MCH [Entitic ma ss] by Automated count 24.7-34.3 [facility] MCHC Auto (RBC) [Mass/Vol]Or dered By: Rishabh Quinteros on 11-18-2024 MCHC (RBC) [Mass/Vol] MCHC [Mass/volume] by Automated count 32.0-35.0 [facility] MCV Auto (RBC) [Entitic vol] Ordered By: Rishabh Quinteros on 11-18-2024 MCV (RBC) [Entitic vol] MCV [Entitic volume] by Automated count 80-100 [facility] Monocyte distribution width [Entitic volume] in Blood by AutomatedOrdered By: Rishabh Quinteros on 11-18-2024 Monocyte distribution width Auto (Bld) [Entitic vol] Monocyte distribution width [Entitic volume] in Blood by Automated 0.00-20.00 [facility] Monocytes Auto (Bld) [#/Vol] Ordered By: Rishabh Quinteros on 11-18-2024 Monocytes (Bld) [#/Vol] Automated blood monocyte count 0.0-0.8 [facility] Monocytes/100 WBC Auto (Bld) Ordered By: Rishabh Quinteros on 11-18-2024 Monocytes/100 WBC (Bld) Automated monocy te % . [facility] Mucus [Presence] in Urine by AutomatedOrdered By: Rishabh Quinteros on 11-18-2024 Mucus Auto Ql (U) Mucus [Presence] in Urine by Automated Abnormal [facility] Neutrophils Auto (Bld) [#/Vo l]Ordered By: Rishabh Quinteros on 11-18-2024 Neutrophils (Bld) [#/Vol] Neutrophils [#/volume] in Blood by Automated count 1.8-7.7 [facility] Neutrophils/100 WBC Auto (Bl d)Ordered By: Rishabh Quinteros on 11-18-2024 Neutrophils/100 WBC (Bld) Automated neutrophil % . [facility] Nitrite Test strip Ql (U)Ord ered By: Rishabh Quinteros on 11-18-2024 Nitrite Ql (U) Nitrite [Presence] in Urine by Test strip Negative [facility] No Panel InformationOrdered By: Rishabh Quinteros on 11-18-2024 Estimated GFR (CKD-EPI) > 60.0 mL/Min [facility] Creatinine Clearance (Chem 250.81 [facility] Nucleated erythrocytes [Pres ence] in Blood by Automated countOrdered By: Rishabh Quinteros on 11-18-2024 Nucleated RBC Auto Ql (Bld) Nucleated erythrocytes [Presence] in Blood by Automated count 0-0.5 [facility] Platelet mean volume Auto (B ld) [Entitic vol]Ordered By: Rishabh Quinteros on 11-18-2024 Platelet mean volume (Bld) [Entitic vol] Platelet mean volume [Entitic volume] in Blood by Automated count 6.3-10.7 [facility] Platelets Auto (Bld) [#/Vol] Ordered By: Rishabh Quinteros on 11-18-2024 Platelets (Bld) [#/Vol] Platelets [#/volume] in Blood by Automated count 150-450 [facility] Potassium [Moles/volume] in Serum or PlasmaOrdered By: Rishabh Quinteros on 11-18-2024 Potassium [Moles/Vol] Potassium [Moles/volume] in Serum or Plasma Low 3.5-5.1 [facility] Protein Test strip (U) [Mass /Vol]Ordered By: Rishabh Quinteros on 11-18-2024 Protein (U) [Mass/Vol] Protein [Mass/volume] in Urine by Test strip Negative [facility] Protein [Mass/volume] in Ser um or PlasmaOrdered By: Rishabh Quinteros on 11-18-2024 Protein [Mass/Vol] Protein [Mass/volume] in Serum or Plasma Low 6.4-8.9 [facility] RBC Auto (Bld) [#/Vol]Ordere d By: Rishabh Quinteros on 11-18-2024 RBC (Bld) [#/Vol] Erythrocytes [#/volume] in Blood by Automated count Low 3.60-5.00 [facility] Respiratory specimen influen za A virus, influenza B virus, respiratory syncytical virOrdered By: Rishabh Quinteros on 11-18-2024 SARS-CoV-2 (COVID-19) RNA ANGELY+probe Ql (Unsp spec) Respiratory specimen influenza A virus, influenza B virus, respiratory syncytical vir [facility] SARS-CoV-2 (COVID-19) RNA ANGELY+probe Ql (Unsp spec) Respiratory specimen influenza A virus, influenza B virus, respiratory syncytical vir [facility] Serum or plasma albumin/glob ulin mass ratioOrdered By: Rishabh Quinteros on 11-18-2024 Albumin/Globulin [Mass ratio] Serum or plasma albumin/globulin mass ratio [facility] Serum or plasma anion gap de terminationOrdered By: Rishabh Quinteros on 11-18-2024 Anion gap [Moles/Vol] Serum or plasma anion gap determination 6.0-15.0 [facility] Sodium [Moles/volume] in Ser um or PlasmaOrdered By: Rishabh Quinteros on 11-18-2024 Sodium [Moles/Vol] Sodium [Moles/volume] in Serum or Plasma Low 136-145 [facility] Specific gravity Test strip (U) [Rel density]Ordered By: Rishabh Quinteros on 11-18-2024 Specific gravity (U) [Rel density] Specific gravity of Urine by Test strip 1.001-1.030 [facility] Urea nitrogen [Mass/volume] in Serum or PlasmaOrdered By: Rishabh Quinteros on 11-18-2024 Urea nitrogen [Mass/Vol] Urea nitrogen [Mass/volume] in Serum or Plasma Low 7-25 [facility] Urobilinogen Test strip (U) [Mass/Vol]Ordered By: Rishabh Quinteros on 11-18-2024 Urobilinogen (U) [Mass/Vol] Urobilinogen [Mass/volume] in Urine by Test strip Normal [facility] WBC Auto (Bld) [#/Vol]Ordere d By: Rishabh Quinteros on 11-18-2024 WBC (Bld) [#/Vol] Leukocytes [#/volume] in Blood by Automated count 3.8-11.6 [facility] pH Test strip (U)Ordered By: Rishabh Quinteros on 11-18-2024 pH (U) pH of Urine by Test strip 5.0-9.0 [facility] Appearance of UrineOrdered B y: Vee Yang on 11-08-2024 Appearance (U) Urine appearance Clear [facility] Bilirubin Test strip Ql (U)O rdered By: Vee Yang on 11-08-2024 Bilirubin Ql (U) Bilirubin.total [Presence] in Urine by Test strip Negative [facility] Color Auto (U)Ordered By: Salima Yang on 11-08-2024 Color (U) Color of Urine by Auto Yellow [facility] Glucose [Mass/volume] in Uri ne by Test stripOrdered By: Vee Yang on 11-08-2024 Glucose Test strip (U) [Mass/Vol] Glucose [Mass/volume] in Urine by Test strip Normal [facility] Hemoglobin Test strip Ql (U) Ordered By: Vee Yang on 11-08-2024 Hemoglobin Ql (U) Hemoglobin [Presence] in Urine by Test strip Negative [facility] Ketones Test strip Ql (U)Ord ered By: Vee Yang on 11-08-2024 Ketones Ql (U) Ketones [Presence] in Urine by Test strip Negative [facility] Leukocyte esterase [Presence ] in Urine by Test stripOrdered By: Vee Yang on 11-08-2024 Leukocyte esterase Test strip Ql (U) Leukocyte esterase [Presence] in Urine by Test strip Negative [facility] Nitrite Test strip Ql (U)Ord ered By: Vee Yang on 11-08-2024 Nitrite Ql (U) Nitrite [Presence] in Urine by Test strip Negative [facility] Protein Test strip (U) [Mass /Vol]Ordered By: Vee Yang on 11-08-2024 Protein (U) [Mass/Vol] Protein [Mass/volume] in Urine by Test strip Negative [facility] Specific gravity Test strip (U) [Rel density]Ordered By: Vee Yang on 11-08-2024 Specific gravity (U) [Rel density] Specific gravity of Urine by Test strip 1.001-1.030 [facility] Urinalysison 11-08-2024 Appearance (U) Clear Normal Clear [facility] Comment on above: Order Comment: Name Collection Type:: Voided Performed By: #### U A #### [place] [address] [place] Bilirubin,Urine Negative Normal Negative [facility] Comment on above: Order Comment: Name Collection Type:: Voided Performed By: #### U A #### [place] [address] [place] Color (U) Colorless Normal Yellow [facility] Comment on above: Order Comment: Name Collection Type:: Voided Performed By: #### U A #### [place] [address] [place] Glucose Ql (U) Normal Normal Normal [facility] Comment on above: Order Comment: Name Collection Type:: Voided Performed By: #### U A #### [address] Ketones Ql (U) Negative Normal Negative [facility] Comment on above: Order Comment: Name Collection Type:: Voided Performed By: #### U A #### [address] Leukocyte esterase Test strip Ql (U) Negative Normal Negative [facility] Comment on above: Order Comment: Name Collection Type:: Voided Performed By: #### U A #### [place] [address] [place] Nitrite,Urine Negative Normal Negative [facility] Comment on above: Order Comment: Name Collection Type:: Voided Performed By: #### U A #### [address] Occult Blood,Urine Negative Normal Negative [facility] Comment on above: Order Comment: Name Collection Type:: Voided Result Comment: PERF ORMED BY: [place] [address] PATHOLOGIST MANAGER PRIVATE CECILIA SHORT M.D. Performed By: #### U A #### [address] pH (U) 7.0 [pH] Normal 5.0-9.0 [facility] Comment on above: Order Comment: Name Collection Type:: Voided Performed By: #### U A #### [place] [address] [place] Protein,Urine Negative Normal Negative [facility] Comment on above: Order Comment: Name Collection Type:: Voided Performed By: #### U A #### [address] Specificy [place],Urine 1.009 Normal 1.001-1.030 [facility] Comment on above: Order Comment: Name Collection Type:: Voided Performed By: #### U A #### [facility] [address] [id number] [facility] Urobilinogen,Urine Normal Normal Normal [facility] Comment on above: Order Comment: Name Collection Type:: Voided Performed By: #### U A #### [facility] [address] [id number] [facility] Urinalysis, manual onlyon Appearance (U) Clear Clear [facility] BILIRUBIN,URINE Negative Negative [facility] Color (U) Colorless Yellow [facility] Glucose Ql (U) Normal Normal [facility] Ketones Ql (U) Negative Negative [facility] Leukocyte esterase Test strip Ql (U) Negative Negative [facility] NITRITE,URINE Negative Negative [facility] OCCULT BLOOD,URINE Negative Negative [facility] pH (U) 7 [pH] 5.0 - 9.0 [facility] PROTEIN,URINE Negative Negative [facility] SPECIFICY GRAVITY,URINE 1.009 1.00 1 - 1.030 [facility] UROBILINOGEN,URINE Normal Normal [facility] Name Collection Type:: Voided [facility] Urobilinogen Test strip (U) [Mass/Vol]Ordered By: Vee Yang on 11-08-2024 Urobilinogen (U) [Mass/Vol] Urobilinogen [Mass/volume] in Urine by Test strip Normal [facility] pH Test strip (U)Ordered By: Vee Yang on 11-08-2024 pH (U) pH of Urine by Test strip 5.0-9.0 [facility] Coding Summaryon 10-29-2024 Coding Summary HTMLBase 64 DefsewxiRPy1iJd+PGh lYWQ+ED5EEOAtY68nfW TbmL6nJ6XFHWmITzhdE NEWYIyAIjMjsmIgHD2l aXNjZXJu IC8+KT7oPQAhChomyTX zx7P1jAY6X25wyd1eXZ rmmLL2OQAwYtAutzlie 9bgqSc8IBaxCmhhIqGw NPLbyO49CZU1tF69Ur5 9yMRnrHBhf1dnqFt7Pc TuRQZkXVM7iBvyXRuyz 5CmTJAxQ89jeGLqt2N9 IGNvbGxhcHNlOyBlbXB 9oX2tDUzukzahb4bcls gvOrf4ow44aYPjb1B6f RM5F5MsecP5UQQorXLf GsbpsRZAaG4dseabu2f vhnzlBvKtUKTrYBh6JB i9PIVniEcfBcDbVX82L ZK9XKZfgnExE8QkFMNb tAwmOkM2h5B8Jj3QN4I SMdffY3BMPLPWLLeuqZ Q+QY22fw68Q1CsYlyuY fq5RXTbPJP6aFD1xR4x ARCpEJvsx5D1cEM1Z6J dtlQgdy3cr2uvJWApYE agB95qbDZeu5L4RFChk ZD0HNJpdXklNfAdkX19 Oyc+FRCgqElbb4JwHco tp5hkj9xzkFg6OielTC IrbsUfhXuiRUL6m4CnE c6zETFetHF2iGD3mI2y OfDsRuC4EFebQ413LbB mmIBiRqszP10lC7AlqB A+NIXpFnk8LOPsrScrJ Q3fJ5IeHNRvvxstjCDy kEjgZF0fXERmmvrlRJC rdP4uILEwD9m4OkDrXm K0XJyiF0MwUWVoaypaW z26vT2kClClFlN9LTei N3QrkzG8BAWowXPxDGn aYPX3Z04pt9C2OAFnLK TyTVU7mTX6oK7zlLwti jogbGVmdDsgdmVydGlj QVkfWBseE807IAQcdLu nPkNvZGluZyBEYXRlOi AgMDEvMTcvMjAyNTwvd GQ+AITkUEE4cDrgCXZy mMYpPFizRa0krWdwuYe yFW5fQHOrpektKHMgdU 5nNURfaYUefLadKR4nM NOttagfl420KnZlVDG8 EEJpwIUpA0SwmF7cDdJ wUZHeXDPtR6OkuWFcIK voQ330IZptEfZ3KHWaf aNcG2GwXGJubQnoQgA2 g8W7Yg0Gh0SkvgxiF2Q ocHDmXmWbCtmkFCm8E7 RkPjwvdHI+IG81CZYbM C10MVl9MLV8fDpvWRqo JRKpS0LscY8zQbEePKR kZGRkOyc+PHRhYmxlIH dpZHRoPScxMDAlJyBzd MdoAA0xCt5fXKZkSYPk vAadsCMqDvEoo4odBFL gDQhjPD8wbNqiJ0CbtZ S7HHLhb6f3Kb36E21jV 3JvdXA+DFBtuZW8nAJ5 hF8iKoYgSkU9OOoyA72 4PkUibDGjPwhfo0sxp4 xfyWa9WdO5YRYpzpBqk OauLNO7m4BhMj76D17x IHdpZHRoPSIxNSUiIHZ ezCvlqe7ggB4tLk1+PG PhsZR1sLT3aZ8sQfBpP pS8YHjxL661ArLeoWYr Dlzat3llo7uboVo9FrK cXLBkssVjeFdnKEB5b5 QdWg49D9JksCvxb0NmW zu0sf75jRKpt2G3qAU8 R9JcGQHfzabkvCAfhRm oMO7vZMYfcorsPVVhtB 8tYKIsC3r8YzOtCyC0G WucQ6OyckG5UCUrgJHd XDCdwZMMwH8ymnwgu4f begvwJfLlXXXrIHh5IX g4WMXuxLqnBiRsKBG8R wY9OUL0dSIavQ8vcQsl kcejnY7wMsl+JFL7pQC vfWTQLJ7bTaahsPU+PH JmXIQ6iCsqIGwiCMOdy C6hRALgY3y3MsTbTnE0 BOluG9YniwG3BTRlvHJ iHXTrzFLHuR4ojvnnl0 kytfvjGkNvETIaIDy8S Qw1ETBmsLhlKjYdPQO9 ZeO8ZYN3gWZcuL4cbAp hpwwxhZ8sHhy+QmlydG vmRWB6WKb3K1FnUke5O YTjbSfxTV0rhERvZMno Gx4jcMvitZunKF6nPNH nfshjq641AlFdl6rvUD HrpEZmVNaoULF8L72bx 2C2CIEqHCYiJBW1eHQ7 gR3waBcxqzcbzAFjpRh gdmVydGljYWwtYWxpZ2 40GPXkxJdjGnJaNIp9J 2JaJmp2MIOlcCtuOC0a dQBvEMocOf4teXdnkRm uTB6wEIJepzcfv213Vv Hdq1ejVBCvbHJpGWtoT RT9Z11rx9S5ZMJmIEZm IOQ0xZW3vL7vuCtmfsr gbGVmdDsgdmVydGljYW rfPKoyT564TYKicLcsO oIbyOc9G0FvSfx1OEMe iAleSA4zdXFxUZpxSw8 pjPbkeZejQM9hIEZijn aqf538BdXag2gaULXyc VLxRZghSBP1S19eq3U7 RABiYGPdHGN4mAD4xL5 hbGlnbjogbGVmdDsgdm GaeAsvQJbzDXqvD308M HRvcDsnPlBhdGllbnQg OMcxNKf0Y5XhIrxffSJ +MS84BWFhLI15gTJazX Mcz0gnsYd6PyVrWERqU UN0mLiqGXnqt5LqOLMb C12eyECvd0B1JTNwwOl qcKZhLcJvnVH7kY6bWI eheyoms1nvanpgEwkhb 4wyhu36xN35N96nWMdn ZHRoPSIzMCUiIHZhbGl jvc9wqX4iJm1+PGNvbC M1dFD4qE1cCMMiTjO4E SsjW551YyBauSFyMate i3wtq7kycZf5NqY3HXR rwnCmrOysILM0n5WcTj 66U82bKZutSWLdVXLgX JIkQJTemIpmud9guA1x Ii8+VIKzoEO9uEG4jU2 fNiTuIwV2NSfwO360Wg PkuJSgDgtuW42kI7Qtl XA+VMDnLiv1FJHifPkz EO3riLWnSOrkAp6bTQM 7CqAtVyGxHQhzB6WfCU KjqmtvxkywvJG0REGkP MEuzK32Qz3riFuzOWAt cLLDqW8lvhywh3rhfbr oVxNlGVGcYBq6ULm5VY LgkLfhOdRbDXD4AcI8Q AC4fVPfvF5bjOyaclgg jY0aO3ArAWXefvmdBi0 9kR4wUaHsTyL2VZgpJa c+HQUPXYLEOYmlIQ7YD SBMQVJFRTwvdGQ+PHRk TOC2hPehDXqzHAWhkX2 pJMEtA0n8PqTdHvN7PC epF8EcIXVctaqrCo65z I8vXyWkEpV3KVlvD0Ze agU1WSGuiENgSJwcYNE 5O83hu2B1IXVkFUInXT C1iZA6zU6kvWefdgtjr GVmdDsgdmVydGljYWwt YFtfB191ONLpoYxkJkB 3WfX7LlPzWHW0B0MxLa b3DWOskRerMG0auVAkR PkoLf4mkGjpyDliEX7y CYJfsqjiFVJveA4qLSF siUOexSbyDP0bEBMyhn fue090XoTiEOP5MSMmz HXjN4WxrK9wVaEbBMHg CBHzJ9TibBGsQNuhJ51 2HUeaLgK0DWJnbtAdU2 GuUWEfoJxjGaG5t7C0R w2aSCOHQRUknidkyBK+ SMPxLMF5nKjiIGpjEPJ jvJ2sDILeR7s0GnZeUq Z6UVddF2LtPUPtvefiZ x07zT2sCoBkDkA4IImf C5PhwfR7QUPpjGLvMVf fXDZ8J55bv2E5FXViRK RlOJX0xVR8rZ0evIokl jogbGVmdDsgdmVydGlj MQqiPKqzP104GHDrcFw nPkZFTUFMRTwvdGQ+PH CzBZV8zReoPPsnFIVtk G6hFDRyS2o8VyIbGhN9 YDxsU1CtKKAafpvsCr1 7zF0nFbMvTxU9DPviZ3 TdgvQ5YZPsaUPiKSfmD KU1W53te1P5SBAuWGLs GVW6gQI0lQ2ngMdpcrx gbGVmdDsgdmVydGljYW eyKDjcG903DKGnuCvcT aFaNDBuVJ7lsLvliVE+ ZO20ha91T8QjCvidOnl 9VQCiSMJ8xZB9sA0hAO VvVSedz5P0xEK9S2Iof fOyld2or4rdMLUaVAyl A76waTTis2Q4EBDxbQP 8YJJinBfmWcVgaX22El c+KTHwuFpgu2TyAolux 7ied6lzyRb5YwRxKOCx loRrvTatNIB7v1IiMs0 8Z33uYIszXTYbHNFzKT XlAXGxhIrveq8qkL1nW i8+IVQvrLE3gJE3nG2p VtCuHwI9UKboH263CeH zqMBxMflxz2ool8ugkQ w7NiIdQYPllcTapUvuH HS6c5YiAe71F7XqdWrz v0QrKou4nw24aTKms3P 9kKT6O5OgUIAjmoycuY VryUwdRS0mTQKixoizO NCyfE1bVEQeC1u3RiFf GzR2WMyrX3KvsgE8MCC dtXIeLWCxuXQCrS9qub kxe1irwouoMyIuQUUfM Bh7NUd6EWWwpZoyXiOl PLX0CyJ6BEC0bTMdyX0 wbXzhacdleZ9fLyv+UG x0r3vcmLMwKH4sbCI2Y P26VS99eAKmm0H8oTF3 B6GnIBDtqfwuhznseDZ 5IFXsMIEweJ05Xf3rkF hoZr9iHEMzTOQ1VPOcd PWcW5CigQ4vUsVyDQQe HBDmP6BayYGjZIznA52 4SHqoLdX1JKHfeoEpW7 ImVUNdlAicJiT8d9L4T n6GTK04KC92VX33lEJw c5C1vFU0X9HuGLWtwwk icscmiXF0JTZeZDFkaO 67Pg2umIneXg2bXELxO OG7WYYxqDIzS3JvtQ8j HnFtKMLmPKVmG1JdsEY fAHalN083NXqvLjS9DR QosrXnA9JhBAZdsPvtV rJ0h9I9Zb8WWj75LO67 EJ61gMLhj5K3zIX9T6E yMVOmsniqkdfkkIC5HO SjYFNjsQ06Kf0qwQgoQ f8cPGZwJCH3NFOcxELi E2XirE3dOyFcRBVrMWA dE1FytBBpIBtzD178NG tgOxS7UABtewVlH2HkI KDedSyzQlW1k5B3Cw4A SCebazo5A8HyRlzygKQ +UY42GJFeMP61hOBikL Gil4jgtVa1LeSoVBNiX CF3wOkyBOxbm6XdVNEw Y29 (more content not included)... [facility] Consent Formson 10-18-2024 Consent Forms [id number] [email or web address] Clinical Summary [facility] - Emergency Department [address] [place] [address] ED Clinical Summary PERSON INFORMATION Name: KISHA LORA Age: 19 Years Sex: FEMALE : 2005 MRN: Acct#: Visit Reason: Decreased movement; 26 X WEEKS BABY NOT MOVING Arrival: 10/17/2024 13:42:40 Discharge: 10/17/2024 15:10:00 LOS: 000 01:28 Check In: 10/17/2024 13:42:40 Checkout:10/17/2024 15:10:00 Address: [address] [place] [id number] PCP: Provider, None PROVIDER INFORMATION Provider Role Assigned Unassigned Ailyn Murrell MD ED Provider 10/17/2024 13:45:25 Betty RN, Erika Newman ED Nurse 10/17/2024 13:46:23 VITALS INFORMATION Vital Sign Triage Latest Temperature Tympanic Temperature Temporal Artery Pulse Rate O2 Sat 99 % 99 % Respiratory Rate 18 br/min 18 br/min Blood Pressure /66 mmHg /66 mmHg MEDICAL INFORMATION Medications Given: Allergy Information: No known allergies PHYSICIAN DOCUMENTATION DISCHARGE INFORMATION: Discharge Disposition: Discharge/Transfer to Another Hospital Discharge Location: PATIENT EDUCATION INFORMATION Instructions: Follow-Up: With: Address: When: None Provider [address] [place] [address] Within 3 to 5 days DIAGNOSIS: 1:Decreased movement in Patient Understands: Yes - Patient/family/primary care nurse practitioner verbalizes understanding of instructions given Comment: [facility] ED Note-Nursingon 10-17-2024 ED Note-Nursing Patient does not want to wait for transport to be here at 5pm, pt requesting to drive herself to [facility]. Dr. Murrell aware. [facility] ED Note-Nursing [facility] was contacted in regards to transfer for decreased movement. Patients provider is Cassie. Dr. Murrell spoke with her and the transfer was accepted. Arranging for transport currently. [facility] ED Patient Education Noteon 10-17-2024 ED Patient Education Note Education Materials [facility] ED Patient Summaryon 025 ED Patient Summary [facility] - Emergency Department [address] [place] [id number] PATIENT DISCHARGE INSTRUCTIONS Patient Information Name: KISHA LORA Age: 19 Years Date of : 2005 Reason For Visit: Decreased movement; 26 X WEEKS BABY NOT MOVING Arrival Time: 10/17/2024 13:42:40 Primary Care Physician: Provider, None Attending Physician: Ailyn Murrell MD Comment: Visit Diagnosis: Diagnoses This Visit Decreased movement ([id number]) Decreased movement in (O36.8190) The Pharmacy at [facility] is open Friday through Friday from 9A to 6P and Friday and Friday from 9A to 5P Prescription Information: If you have been given a prescription for narcotics, seek immediate medical attention if you have any difficulty breathing or any sudden status changes such as confusion and sleepiness. If you or anyone you know is experiencing suicidal thoughts, mental health, alcohol and/or drug addiction problems; contact the [facility] 05/05 Crisis Hotline -Text 8CIDU rs 937085. If you received any narcotics, sedation, or any other medication that causes drowsiness for the next 24 hours, unless otherwise directed: ? Do not drive a car. ? Do not operate machinery such as power tools, lawn mowers, drills, sewing machines, or stoves ? Avoid alcoholic beverages and drugs for allergies, nerves, or sleep ? Do not make important personal or business decisions or sign any legal documents With: Address: When: None Provider [address] [place] [id number] Within 3 to 5 days Medication Information: The exam and treatment you received today in the [facility] Emergency Department were for an urgent problem and are not intended as complete care. It is important for you to follow up with a doctor, nurse practitioner, or physician?s library serials assistant for ongoing care. If your symptoms become worse or you do not improve as expected and you are unable to reach your usual health care provider, you should return to the Emergency Department, we are available 24 hours a day. For those patients who have received Radiology results, the interpretation of your X-ray as given to you by our Emergency Department physician is only a preliminary report. The Radiologist will review your films and if there is a change in the diagnosis you will be notified by phone. Please make sure you have provided a working phone number so we can reach you if necessary. In the event that you had a lab culture while you were a patient in the Emergency Department, you will be notified by phone if there is a need to change your antibiotic. Please make sure you have provided a working phone number so we can reach you if necessary. [facility] Emergency Department has provided you with a complete list of medications post discharge. Please inform your pilot teacher/provider of your visit and for further instruction on these medications. Any specific questions regarding your chronic medications and dosages should be discussed with your primary care physician(s) and/or pharmacist. Medications to Continue That Have Not Changed Other Medications metFORMIN (metFORMIN 500 mg oral tablet) 1 tab(s) Oral (given by mouth) 2 times per day. Visit Information Allergies: Substance Reaction Symptoms Type Comments No known allergies Drug Vital Signs: Vitals and Measurements this Visit (last charted value for your 10/17/2024 visit) Vital Signs This Visit Temperature Oral: 36.9 DegC Heart Rate Monitored: 86 bpm Respiratory Rate: 18 br/min Systolic Blood Pressure: 127 mmHg Diastolic Blood Pressure: 66 mmHg SpO2: 99 % Oxygen Therapy: Room air Measurements This Visit Height/Length Measured: 175.2 cm Weight Measured: 82.0 kg Weight Dosin.000 kg Body Mass Index: 26.71 kg/m2 Problems List: Problem Onset Comments No Problems found Patient Education Viruses or Bacteria What?s got you sick? Antibiotics only treat bacterial infections. Viral illnesses cannot be treated with antibiotics. When an antibiotic is not prescribed, ask your healthcare professional for tips on how to relieve symptoms and feel better. Usual Cause Illness Viruses Bacteria Antibiotic Needed Cold/Runny Nose ? NO Bronchitis/Chest Cold (in otherwise healthy children and adults) ? NO Whooping Cough ? Yes Flu ? NO Strep Throat ? Yes Sore Throat (except strep) ? NO Fluid in the middle ear (otitis media with effusion) ? NO Urinary Tract Infection ? Yes Antibiotics Aren?t Always the Answer www.cdc.gov/getsmar t GET SMART Know When Antibiotics Work U.[place] Department of Health and Human Services Centers for Disease Control and Prevention June 2014 [facility] Transfer Noteon 10-17-2024 Transfer Note 1423 called melter supervisor open hearth furnace 1429 spoke with L&D triage charge nurse. Dr. Mortensen is available to see pt 1511 pt departed by private care [Electronically Signed on: 10/17/2024 15:46 EST] __ Brisendiamond Michaela P ER Hassan Cler [Verified on: 10/17/2024 15:46 EST] __ BrisenMichaela fields ER Hassan Cler [facility] US OB 14+ WEEKS ANATOMY SCAN on 09-08-2024 US OB 14+ WEEKS ANATOMY SCAN TITLE OF EXAM: US OB 14+ WEEKS ANATOMY SCAN REASON FOR EXAM: Anatomy scan TECHNIQUE: Grayscale, color, and spectral Doppler ultrasound evaluation of the pelvis. COMPARISON: Obstetric ultrasound 06/15/2024, 05/31/2024 FINDINGS: Measurements: Biparietal diameter 4.9 cm (20 weeks, 5 days) Head circumference 17.8 cm (20 weeks, 2 days) Abdominal circumference 15.1 cm (20 weeks, 2 days) Femur length 3.3 cm (20 weeks, 3 days) weight 349 g, 0 pounds 12 ounces (41%) heart rate 139 bpm Amniotic fluid index 13.9 cm (46%) Quadrants: 4.2 cm, 3.6 cm, 2.6 cm, and 3.5 cm Cervical length 5.7 cm Single live intrauterine male gestation in breech position, sonographic age 20 weeks, 3 days. Normal-appearing structures on the provided images including the brain, orbits, heart, stomach, kidneys, urinary bladder, extremity bones, diaphragm, and spine. movement was observed during image acquisition. Three-vessel umbilical cord without appreciable insertional abnormality. Posteriorly positioned placenta without appreciable previa on the provided images. IMPRESSION: 1. Single live intrauterine gestation sonographically 20 weeks, 3 days (age by LMP 20 weeks, 3 days). 2. No appreciable abnormality of the evaluated and maternal structures. DICTATED ON: 09/08/2024 10:38 AM This report has been electronically signed and approved by the interpreting radiologist. Normal Not Available Appearance of UrineOrdered B y: Felishatutu Briones on 08-28-2024 Appearance (U) Urine appearance Clear [facility] Bacteria [Presence] in Urine by AutomatedOrdered By: [facility] on 08-28-2024 Bacteria Auto Ql (U) Bacteria [Presence] in Urine by Automated None Seen [facility] Bilirubin Test strip Ql (U)O rdered By: [facility] on 08-28-2024 Bilirubin Ql (U) Bilirubin.total [Presence] in Urine by Test strip Negative [facility] Chlamydia trachomatis DNA [P resence] in Specimen by ANGELY with probe detectionOrdered By: [facility] on 08-28-2024 C. trachomatis DNA ANGELY+probe Ql (Unsp spec) Chlamydia trachomatis DNA [Presence] in Specimen by ANGELY with probe detection Negative [facility] Chlamydia/GC/Trich NAAon Chlamydia Trachomotis, ANGELY Negative Normal Negative [facility] Comment on above: Order Comment: Name Collection Type:: Clean-Voided Midstream Performed By: #### U HCG, UA #### [facility] [address] Neisseria Gonorrhoeae, ANGELY Negative Normal Negative [facility] Comment on above: Order Comment: Name Collection Type:: Clean-Voided Midstream Performed By: #### U HCG, UA #### [facility] [address] [place] [address] [place] Trichomonas ANGELY Negative Normal Negative [facility] Comment on above: Order Comment: Name Collection Type:: Clean-Voided Midstream Result Comment: Perf ormed at: =G - [facility] [address] [id number] Writing Center Director: Evie Luther MD, Phone: [phone] PERFORMED BY: [place] [id number] PATHOLOGIST MANAGER PRIVATE CECILIA SHORT M.D. Performed By: #### U HCG, UA #### [address] Color Auto (U)Ordered By: Samia Briones on 08-28-2024 Color (U) Color of Urine by Auto Yellow [facility] Dipstick and Microscopicon 1 10-28-2023 Appearance (U) Clear Normal Clear [facility] Comment on above: Order Comment: Name Collection Type:: Clean-Voided Midstream Performed By: #### A DDONUAPLUS #### [address] Bacteria,Urine Rare Normal None Seen [facility] Comment on above: Order Comment: Name Collection Type:: Clean-Voided Midstream Performed By: #### A DDONUAPLUS #### [place] [address] [place] Bilirubin,Urine Negative Normal Negative [facility] Comment on above: Order Comment: Name Collection Type:: Clean-Voided Midstream Performed By: #### A DDONUAPLUS #### [address] Color (U) Light-Yellow Normal Yellow [facility] Comment on above: Order Comment: Name Collection Type:: Clean-Voided Midstream Performed By: #### A DDONUAPLUS #### [place] [address] [place] Glucose Ql (U) 200 mg/dL High Normal [facility] Comment on above: Order Comment: Name Collection Type:: Clean-Voided Midstream Performed By: #### A DDONUAPLUS #### [place] [address] [place] Hyaline Casts,Urine None Normal 0-8 [facility] Comment on above: Order Comment: Name Collection Type:: Clean-Voided Midstream Performed By: #### A DDONUAPLUS #### [place] [address] [place] Ketones Ql (U) Negative Normal Negative [facility] Comment on above: Order Comment: Name Collection Type:: Clean-Voided Midstream Performed By: #### A DDONUAPLUS #### [address] Leukocyte esterase Test strip Ql (U) 1+ High Negative [facility] Comment on above: Order Comment: Name Collection Type:: Clean-Voided Midstream Performed By: #### A DDONUAPLUS #### [address] Mucus,Urine 1+ Critically abnormal [facility] Comment on above: Order Comment: Name Collection Type:: Clean-Voided Midstream Result Comment: PERF ORMED BY: [place] [address] PATHOLOGIST MANAGER PRIVATE CECILIA SHORT M.D. Performed By: #### A DDONUAPLUS #### [address] Nitrite,Urine Negative Normal Negative [facility] Comment on above: Order Comment: Name Collection Type:: Clean-Voided Midstream Performed By: #### A DDONUAPLUS #### [address] Occult Blood,Urine Negative Normal Negative [facility] Comment on above: Order Comment: Name Collection Type:: Clean-Voided Midstream Result Comment: PERF ORMED BY: [place] [address] PATHOLOGIST MANAGER PRIVATE CECILIA SHORT M.D. Performed By: #### A DDONUAPLUS #### [place] [address] [place] pH (U) 6.0 [pH] Normal 5.0-9.0 [facility] Comment on above: Order Comment: Name Collection Type:: Clean-Voided Midstream Performed By: #### A DDONUAPLUS #### [place] [address] [place] Protein,Urine Negative Normal Negative [facility] Comment on above: Order Comment: Name Collection Type:: Clean-Voided Midstream Performed By: #### A DDONUAPLUS #### [address] RBC,Urine 1 [HPF] Normal 0-4 [facility] Comment on above: Order Comment: Name Collection Type:: Clean-Voided Midstream Performed By: #### A DDONUAPLUS #### [address] Specificy [place],Urine 1.013 Normal 1.001-1.030 [facility] Comment on above: Order Comment: Name Collection Type:: Clean-Voided Midstream Performed By: #### A DDONUAPLUS #### [address] Squamous Epithelial Cell,Urine 5 [HPF] High 0-2 [facility] Comment on above: Order Comment: Name Collection Type:: Clean-Voided Midstream Performed By: #### A DDONUAPLUS #### [address] Urobilinogen,Urine Normal Normal Normal [facility] Comment on above: Order Comment: Name Collection Type:: Clean-Voided Midstream Performed By: #### A DDONUAPLUS #### [address] WBC,Urine 3 [HPF] Normal 0-4 [facility] Comment on above: Order Comment: Name Collection Type:: Clean-Voided Midstream Performed By: #### A DDONUAPLUS #### [place] [address] [place] Epithelial cells.squamous [# /area] in Urine sediment by Automated countOrdered By: Felisha Briones on 08-28-2024 Epithelial cells.squamous Auto (Urine sed) [#/Area] Epithelial cells.squamous [#/area] in Urine sediment by Automated count High 0-2 [facility] Erythrocytes [#/area] in Uri ne sediment by Automated countOrdered By: Felisha Briones on 08-28-2024 RBC Auto (Urine sed) [#/Area] Erythrocytes [#/area] in Urine sediment by Automated count 0-4 [facility] Fungal Smearon 08-28-2024 Fungal Smear Fungus Smear Results No Fungal Like Elements Seen Trichomonas Screen No Trichomonas Seen Trich Reference Reference range = None Seen PERFORMED BY: [place] [address] PATHOLOGIST MANAGER PRIVATE CECILIA SHORT M.D. Normal [facility] Comment on above: Performed By: #### U HCG, UA #### [address] Fungal smearOrdered By: Russel er Bullimore on 08-28-2024 Fungus identified Fungus stain Nom (Unsp spec) Fungal smear [facility] Glucose [Mass/volume] in Uri ne by Test stripOrdered By: Felisha Bullimore on 08-28-2024 Glucose Test strip (U) [Mass/Vol] Glucose [Mass/volume] in Urine by Test strip High Normal [facility] Hemoglobin Test strip Ql (U) Ordered By: Felisha Bullimore on 08-28-2024 Hemoglobin Ql (U) Hemoglobin [Presence] in Urine by Test strip Negative [facility] Hyaline casts [#/area] in Ur ine sediment by Automated countOrdered By: Felisha Bullimore on 08-28-2024 Hyaline casts Auto (Urine sed) [#/Area] Hyaline casts [#/area] in Urine sediment by Automated count 0-8 [facility] Ketones Test strip Ql (U)Ord ered By: Felisha Bullimore on 08-28-2024 Ketones Ql (U) Ketones [Presence] in Urine by Test strip Negative [facility] Leukocyte esterase [Presence ] in Urine by Test stripOrdered By: Felisha Bullimore on 08-28-2024 Leukocyte esterase Test strip Ql (U) Leukocyte esterase [Presence] in Urine by Test strip High Negative [facility] Leukocytes [#/area] in Urine sediment by Automated countOrdered By: Felisha Briones on 08-28-2024 WBC Auto (Urine sed) [#/Area] Leukocytes [#/area] in Urine sediment by Automated count 0-4 [facility] Mucus [Presence] in Urine by AutomatedOrdered By: Felisha Briones on 08-28-2024 Mucus Auto Ql (U) Mucus [Presence] in Urine by Automated Abnormal [facility] Neisseria gonorrhoeae DNA [P resence] in Specimen by ANGELY with probe detectionOrdered By: Felisha Briones on 08-28-2024 N. gonorrhoeae DNA ANGELY+probe Ql (Unsp spec) Neisseria gonorrhoeae DNA [Presence] in Specimen by ANGELY with probe detection Negative [facility] Nitrite Test strip Ql (U)Ord ered By: Felisha Briones on 08-28-2024 Nitrite Ql (U) Nitrite [Presence] in Urine by Test strip Negative [facility] Protein Test strip (U) [Mass /Vol]Ordered By: Felisha Briones on 08-28-2024 Protein (U) [Mass/Vol] Protein [Mass/volume] in Urine by Test strip Negative [facility] Specific gravity Test strip (U) [Rel density]Ordered By: Felisha Briones on 08-28-2024 Specific gravity (U) [Rel density] Specific gravity of Urine by Test strip 1.001-1.030 [facility] Trichomonas vaginalis DNA [P resence] in Specimen by ANGELY with probe detectionOrdered By: Felisha Briones on 08-28-2024 T. vaginalis DNA ANGELY+probe Ql (Unsp spec) Trichomonas vaginalis DNA [Presence] in Specimen by ANGELY with probe detection Negative [facility] Comment on above: Performed at: =[address] [id number] Director: Evie Luther MD, Phone: [phone] Trichomonas vaginalis detect ion by wet preparationOrdered By: Felisha Briones on 08-28-2024 T. vaginalis Wet prep Ql (Unsp spec) Trichomonas vaginalis detection by wet preparation [facility] Urobilinogen Test strip (U) [Mass/Vol]Ordered By: Felisha Briones on 08-28-2024 Urobilinogen (U) [Mass/Vol] Urobilinogen [Mass/volume] in Urine by Test strip Normal [facility] pH Test strip (U)Ordered By: Felisha Briones on 08-28-2024 pH (U) pH of Urine by Test strip 5.0-9.0 [facility] Appearance of UrineOrdered B y: Rishabh Quinteros on 08-24-2024 Appearance (U) Urine appearance Clear [facility] Bilirubin Test strip Ql (U)O rdered By: Rishabh Quinteros on 08-24-2024 Bilirubin Ql (U) Bilirubin.total [Presence] in Urine by Test strip Negative [facility] Color Auto (U)Ordered By: Bipin Quinteros on 08-24-2024 Color (U) Color of Urine by Auto Yellow [facility] Glucose [Mass/volume] in Uri ne by Test stripOrdered By: Rishabh Quinteros on 08-24-2024 Glucose Test strip (U) [Mass/Vol] Glucose [Mass/volume] in Urine by Test strip High Normal [facility] Hemoglobin Test strip Ql (U) Ordered By: Rishabh Quinteros on 08-24-2024 Hemoglobin Ql (U) Hemoglobin [Presence] in Urine by Test strip Negative [facility] Ketones Test strip Ql (U)Ord ered By: Rishabh Quinteros on 08-24-2024 Ketones Ql (U) Ketones [Presence] in Urine by Test strip Negative [facility] Leukocyte esterase [Presence ] in Urine by Test stripOrdered By: Rishabh Quinteros on 08-24-2024 Leukocyte esterase Test strip Ql (U) Leukocyte esterase [Presence] in Urine by Test strip Negative [facility] Nitrite Test strip Ql (U)Ord ered By: Rishabh Quinteros on 08-24-2024 Nitrite Ql (U) Nitrite [Presence] in Urine by Test strip Negative [facility] Protein Test strip (U) [Mass /Vol]Ordered By: Rishabh Quinteros on 08-24-2024 Protein (U) [Mass/Vol] Protein [Mass/volume] in Urine by Test strip Negative [facility] Specific gravity Test strip (U) [Rel density]Ordered By: Rishabh Quinteros on 08-24-2024 Specific gravity (U) [Rel density] Specific gravity of Urine by Test strip 1.001-1.030 [facility] Urinalysison 08-24-2024 Appearance (U) Clear Normal Clear [facility] Comment on above: Order Comment: Name Collection Type:: Clean-Voided Midstream Performed By: #### U A #### [place] [address] [place] Bilirubin,Urine Negative Normal Negative [facility] Comment on above: Order Comment: Name Collection Type:: Clean-Voided Midstream Performed By: #### U A #### [place] [address] [place] Color (U) Light-Yellow Normal Yellow [facility] Comment on above: Order Comment: Name Collection Type:: Clean-Voided Midstream Performed By: #### U A #### [place] [address] [place] Glucose Ql (U) 200 mg/dL High Normal [facility] Comment on above: Order Comment: Name Collection Type:: Clean-Voided Midstream Performed By: #### U A #### [place] [address] [place] Ketones Ql (U) Negative Normal Negative [facility] Comment on above: Order Comment: Name Collection Type:: Clean-Voided Midstream Performed By: #### U A #### [place] [address] [place] Leukocyte esterase Test strip Ql (U) Negative Normal Negative [facility] Comment on above: Order Comment: Name Collection Type:: Clean-Voided Midstream Performed By: #### U A #### [place] [address] [place] Nitrite,Urine Negative Normal Negative [facility] Comment on above: Order Comment: Name Collection Type:: Clean-Voided Midstream Performed By: #### U A #### [place] [id number] [place] Occult Blood,Urine Negative Normal Negative [facility] Comment on above: Order Comment: Name Collection Type:: Clean-Voided Midstream Result Comment: PERF ORMED BY: [place] [address] PATHOLOGIST MANAGER PRIVATE DALE DUMONT M.D. Performed By: #### U A #### [address] pH (U) 6.0 [pH] Normal 5.0-9.0 [facility] Comment on above: Order Comment: Name Collection Type:: Clean-Voided Midstream Performed By: #### U A #### [address] Protein,Urine Negative Normal Negative [facility] Comment on above: Order Comment: Name Collection Type:: Clean-Voided Midstream Performed By: #### U A #### [address] Specificy [place],Urine 1.015 Normal 1.001-1.030 [facility] Comment on above: Order Comment: Name Collection Type:: Clean-Voided Midstream Performed By: #### U A #### [address] Urobilinogen,Urine Normal Normal Normal [facility] Comment on above: Order Comment: Name Collection Type:: Clean-Voided Midstream Performed By: #### U A #### [address] Urobilinogen Test strip (U) [Mass/Vol]Ordered By: Rishabh Quinteros on 08-24-2024 Urobilinogen (U) [Mass/Vol] Urobilinogen [Mass/volume] in Urine by Test strip Normal [facility] pH Test strip (U)Ordered By: Rishabh Quinteros on 08-24-2024 pH (U) pH of Urine by Test strip 5.0-9.0 [facility] HCG ( test) Ql (U)o n 06-30-2024 Beta HCG ( test) Ql (U) Positive Abnormal NEG [facility] Comment on above: Performed By: #### 2 106-3 #### [facility] ([id number]) [address] [place] [address] URN MACROSCOPIC NURon 2023 BILIRUBIN MICHAEL Negative Normal NEG [facility] Comment on above: Performed By: #### N UM #### [facility] ([id number]) [address] [place] [address] [place] [address] BLOOD/HGB MICHAEL Negative Normal NEG [facility] Comment on above: Performed By: #### N UM #### [facility] ([id number]) [address] [place] [address] GLUCOSE MICHAEL Negative Normal NEG [facility] Comment on above: Performed By: #### N UM #### [facility] ([id number]) [address] [place] [address] [place] [address] KETONES MICHAEL Negative Normal NEG [facility] Comment on above: Performed By: #### N UM #### [facility] ([id number]) [address] [place] [address] [place] [address] LEUKOCYTE ESTERASE MICHAEL Negative Normal NEG [facility] Comment on above: Performed By: #### N UM #### [facility] ([id number]) [address] [place] [address] [place] [address] NITRITE MICHAEL Negative Normal NEG [facility] Comment on above: Performed By: #### N UM #### [facility] ([id number]) [address] [place] [address] PH MICHAEL 7.0 Normal 5.0-8.5 [facility] Comment on above: Performed By: #### N UM #### [facility] ([id number]) [address] [place] [address] PROTEIN MICHAEL Negative Normal NEG [facility] Comment on above: Performed By: #### N UM #### [facility] ([id number]) [address] [place] [address] SPECIFIC GRAVITY MICHAEL 1.020 Normal 1.003-1.035 [facility] Comment on above: Performed By: #### N UM #### [facility] ([id number]) [address] [place] [address] UROBILINOGEN MICHAEL 0.2 eu/dL Normal <1.1 [facility] Comment on above: Performed By: #### N UM #### [facility] ([id number]) [address] [place] [address] US OB < 14 WEEKS EARLYon US OB < 14 WEEKS EARLY TITLE OF EXAM: OB Ultrasound: REASON FOR EXAM: Dating. TECHNIQUE: Grayscale imaging is performed. Measurements: heart rate: 179 bpm Sac: 4.3 cm CRL: 1.9 cm GA for sonogram: 8.4 wk (07.8-09.1) Cervix Length: 4.2 cm JOE: 01/23/2025 CLINICAL SUMMARY: A single intrauterine is noted. heart is observed with a heart rate of 179 BPM. Tech notes: Question resolving bleed 3.3 x 1.6 x 0.5 cm IMPRESSION: 1. LMP is accurate. Single living IUP age 8.3 weeks. 2. Small anterior subchorionic hemorrhage. Dictated and transcribed 06/16/24/dpd This report has been electronically signed and approved by the interpreting radiologist. Electronically Signed Ashutosh Chavis M.D. 2024-06-16 21:54:52 Normal Not Available Coding Summaryon 06-03-2024 Coding Summary HTMLBase 64 VabljjhqWZh2bQf+PGh lYWQ+RA5HRTZeD89gjB AliA3aS3VOXWyFKriyP FNMTGhEKpIraaIiRE5p aXNjZXJu IC8+SG0dIVVvMndvlHU zh1G2xMN0R48dlf3zVO pxrMY6UIMlWtNkkrulg 6nmnFg5VNreZrwkYfYz DUUnvA31NAJ6uO02Zu2 3gWUexUFbe0lpxZf6Kh TgOCXlDQS0zVrmPCplc 5KdXUGqD96lqZRuv4F1 IGNvbGxhcHNlOyBlbXB 5vC8dJQbwjjgyo5pguk gzWce8sy96sGXda7T7m SN3W3ZqkoQ7KUQldTRq CmruiVQZaY1frlfyd7b lrzfuUwZwGUMpTBh4NN n8OKFzmXwfPhCpMW70D BN1ORNzrpTdN6BpVMDp hGpcXvY5u6J6Hn6ZW9E JHlrhY0JLKQQQQIshcZ Q+WB34kh20T5HpFnaaV dm1BAJzVJW4tTA9uM9o KDVjKRizl1R5bLV6E5N qlyPjsr2wy1uaDJTzSP whJ53hjBCnq4S9UFPlu QS3VCVbjOlsXvQveG58 Oyc+TNAwxIqjt8WdZmp nt8qgl7qqlHd3IxzqHL AcfzYpiWzpJVE5j1MzG z6mEKFznIL7nDD3wO0i BcQfIrM3IAreW473PrQ ngJDmWigyV10mZ2BguB A+WHWcQox5LMRloUgxD K9wI8RtBDMagujmuCMr jLgcMA3hKCHdotlpDVO zrC0kBDSoN5b1PaKzXx U0VHqsV6OjNIKcigzjE g82yB3kOsDoKjU3QNfj C5DmljK5CJLjdAVfPSm wPDM4L95ka0T0WLNdZV QsYZU2xRN9lG7mnJeff jogbGVmdDsgdmVydGlj KDmqCPluA696WHSzhIb nPkNvZGluZyBEYXRlOi AgMDgvMjIvMjAyNDwvd GQ+FQDuSMT5fVpoYWSe dGTfIKflZr3glHmbbDd hFC4sURKuhldkZWAmiI 2pZSYwbKWmqCurSA6dK CMjhnoqt275WgQrEXC5 RIGzyWQoY5NrxH9qRyA lCDCpFAYaG1VdfGWcIX eoT166OOfxWwJ5RNOgm zZtF7XcZYVhcIpqIoB1 q6M2Ja1Gn3GbpbgyB0Q jlMQiJmKiJhpyMJz2X5 RkPjwvdHI+NT08GKUxK E24OYe0NCN4kQruJAyb WBKlU8EbdQ5mKhToJBP kZGRkOyc+PHRhYmxlIH dpZHRoPScxMDAlJyBzd XrkMW4dNa5nQJKcZLKj iVvbbIGyVdHxx6dlMDU yHXkcES3lvIjbA3LzqQ S6OUFly4w7Al89U51kJ 3JvdXA+GBNkaKD0gMG5 yK2uHkYsBoX7ZSooG15 5PoUjsFMxKcgms6ira6 mitXh6FdI7ULYxpsZqx CxeGKH8n8XxWa76K56y IHdpZHRoPSIxNSUiIHZ ghTxugm6jzL3hYj4+PG EfyZD4hRH1pU0tIzEcJ lK5OPlxG202GpLvaUYh Joxmr7ijf2pvgFu6QqR jUPVazkCxgAwvQKB1b7 YuPx59J9WlgBjpz8DeN vy3iv11gMYod1V4nBE6 J0JrNYHwezwjhAMqiZj tYC6fCQOyhvhbZCMveH 0wQHNjN1k7YiVjUgY1B RleY8TfsiN8HMBjkREo IHPkcSUGhK3rmocae7h hkicqXxPjSRDaGMh7CF w1HFWsfAgnWoNzHBO6D jY5MQB9wQQqmZ9qwPxe gmgipC8zTlh+YFD6qUY yeTSOLL8gRyrjkVZ+PH TtTUJ4fZbiNAxnGOUbj Z1lAWTuZ5r7PdPfVdM4 QRbyL8KhnuL1MSXroXH fUFLjcHSTkM4dkbwli3 uxffufVhWvHKLrBUh9O Xt7MPPuxLynHsRpBRK4 HhR4XPZ3iJQdeF6xsUy rupoznM8gHlg+QmlydG scHHN5JRv6B8LsDyb3B LXmwEqaKR8fgCIvDPkv Rm5jbMcthIpnOG3mHRL fcczlr913IqFfl2lhHW XtyJWvWQmrGDL1L69xb 9K8NGQbJQOcMKV1wBM7 zP7jcQkubnogyNWvsSg gdmVydGljYWwtYWxpZ2 69EAGopVjiVzXdIWw5I 5ZhJqw1IQYdiCewGM3k tUHfXVhiIy2kiQmhpWc gMY8rBNKlwffwj385Hl Ker1nnUHTjxVVnKTgfV SR3T77of3F2CBYlUSMw WOZ5hJE6sG1tkVeziyj gbGVmdDsgdmVydGljYW zqRPqhJ571TWPdoXueT aIuhOf2C9UqMva0NGPx lPfxFT9roIUfVHvzZn1 ifKtknWyvTO7wAWNlnm vvd726ElPqa4wbDAVak RTjHOplJLB7O71we4J2 BABeFGItTPU4uIH6qE4 hbGlnbjogbGVmdDsgdm GppRepXUwgRMdpR677M HRvcDsnPlBhdGllbnQg AMrfVMc1G8MdVstynHK +WG68EAImJU95hPCliR Rvw7hfwIa4ZqSxGVFxE PI1kDpfKHzwq9MhEAKu I55baHCsh8M5NEFvbKj ktXMoSdMmrPU5oV6cED vfmdsut8olkrlqArhpv 9dvpz07qH84Z22pEKgn ZHRoPSIzMCUiIHZhbGl uiy2spV4sAq7+PGNvbC X0uSV3tY4nLMCiOjN3V VkvN957GsJjkFCfTktx q0sgy5rixGv9MtM2JDU vpkYayDlpAEG5q4DyCz 85O94kQQooSJMrHDTpA AAqYACxcQuucj0nqC6x Ii8+IRYxgFE0sRG1nB0 aGkFpBuW8EApnY990Pq GbaTHrAcpkC84qN6Mge XA+DYHcGyl7SRUfjMxk GC6suMOuRNigWv5jKJK 5OzFaKxKxNCipO4VkTS JgzmfcooqhqSC6XOTfR HIqhA92Dt8gtCndHFXb kUHHfH0tcdhfo2ehmyy xFmSnKIDsTMc3BWq5KW DnzMsiFhTeGOH3KsC2C PZ7oGEvaB1orElowrfr mX1sX0TmEUPhqxsqIz6 8uJ5nUaIuCgR9QUsbTr c+VBHSEFNHVOamUD7AJ SBMQVJFRTwvdGQ+PHRk PYK1wZlzURjfUNSnbL2 aMIZrJ3i6ZlEvHaM0XL gjK3HiNNAzggyhDl87q O3tGcLtCkN5SMlcX2Kw eoF2MEPxxAQpVNblREV 0K28gh7S6QMFjVTIgKU F1rPR3aR1vgJruyclyi GVmdDsgdmVydGljYWwt MTzsA172CANhmOzkCeO 0LnQ9EpWlJSA4X4KwCk n8IGSapHppOO9vxYFbF PpvWr9ofPfigStoBB9a YUXvjeqcUUIzuG9iEAO hrNHoaGxiDY3eGUQxtp jzr340JqLdNQC1ZAIfw ZAvM1HvwB5oXhRvWIOq FYTcF9YedMMmOHhaJ89 8DYelRgQ6QFUlytLnJ5 VhXFYjhCshOoL7v9J8B h9xAXETHFPajhaufRM+ KQNmESQ8kVdxLRodSXE giV9lHQMlT9e0ToFeZb M0NVvvW8ZiGKEmnyqmS s15tB6rAsZgEhG5EDdk P9PxngI1CWMocIFdZWd cDPJ1E40ul0N6ICIcGO FwRUV1eQH8qD6nuIsso jogbGVmdDsgdmVydGlj IQemEFspD885NGWkpIf nPkZFTUFMRTwvdGQ+PH IpWJL6nJthEDmzJZWal H7kOROhC9h8IsRgYjW0 KUiiV3KpUDIwvfbqHv5 6kO8vBnVyRmM4PNebX6 EawzO0RDBdbPJyPYjgM HD8L67yl4G0LMYiWEXi NPQ3yLC7zL8pcUzqchf gbGVmdDsgdmVydGljYW teDBroT854MQCcnGseH uUqNAHtPC7boLnoxLQ+ PI10ge83X4EqOeafHhm 6RMRsLNY1oOR5pO1lTD SyLIqat6V2oXK9C3Alw kKesm1ob2yxOXUkIDdj I18bdRZmp2S7FYPtwRG 1FBTuhCzhMvZouG56Ni c+PYYtzFtqg6FvKhvpy 1foi5desIb8ZfKiNAHm vxZxhFkgPMI6y7PmFf4 5V72kXBhtWANqCWAaOR JoACJmxCtwdy1phM9sM i8+GDQigTO5lLG8kQ6v EtAySvC5MFdcK468HgD ttZWfOimco2ker7tkyE q5YvKvVKCjuhUgbYuaJ TY4w7VcUa40T2YnzSxh l3JlRbc9ju08tNIbj5B 6fXQ1I7NaCFKxrgiynZ AtxRfyVZ5tDARdiugjH EQmaP7yTLGcJ5t3XwWr HvU7TDziV2YsqaT8MBF ekPXnERFwoUTNfP2zgq xah4jtfkmyFhPyJGHhR Cz5CRw5WEBgcJqcLeYs LWZ8HdV4OBI2sIGdmN3 lsKpbyflnqF0jFnn+UG d0i7vfkMKfIK3swBP9L M98FF14bNKwq0L0tIZ1 G1GuVCWtuyhbuaweiLO 0WAInIDXewC98Fe7xzP jhDg1qZQRcTGY9TSRdm BIkA2ObuW7iJaRqIZWi YPMaE1AikVKmEVypZ83 5JTbyKyT1SOQyiiFhL3 OyAHFezVhfXvC8r7H2W i7MSY48BH75PX38pRAg c3P8kBU2X3LnNWYirkp fxikkeSN3EFQePBIhrF 60Np2vkAfqCr9vGIPmZ QR8JRObqNRrI1CtpB3f NlErBBYqKSKgM3DhjBI zQYgtJ507HBswTuN9WU XhuiWxU1TuWGGqfNcfK yN6t5T1Nq5LOo66IU22 AX97sIPol0L5bBJ6A8T rGNJyluwxogulnXY0HC LyWKHwaB82Du8vyFyuY b6mXEWrABW7TGKmjMIr J4IdxS6sVhAnUHAgMJX aG6JygTYoAWipK927GD cyRcU6BOZmuyAkQ5BlZ PIbgDerAaD7r4G6Bb8K DXgkqvp1G4FdLhsloRY +GJ45WEInMS76lDKsvY Zln0cguTm7HnHvVWKoO WY8dNjdBRwpl8GvWUEc Y29 (more content not included)... [facility] CBC AND AUTO DIFFon 08-19-20 24 ABSOLUTE BASOPHIL 0.0 X10E9/L Normal 0.0-0.2 [facility] Comment on above: Performed By: #### Valentín VALLES, #### [facility] ([id number]) [address] [place] [address] 23864 ABSOLUTE NEUTROPHIL 5.1 X10E9/L Normal 1.5-6.6 [facility] Comment on above: Performed By: #### Valentín VALLES, #### [facility] ([id number]) [address] [place] [address] 29480 Basophils/100 WBC (Bld) 0.6 % Normal [facility] Comment on above: Performed By: #### Valentín VALLES, #### [facility] ([id number]) [address] [place] [address] 99225 Eosinophils (Bld) [#/Vol] 0.2 10*3/uL Normal 0.0-0.4 [facility] Comment on above: Performed By: #### Valentín VALLES, #### [facility] ([id number]) [address] [place] [address] 82095 Eosinophils/100 WBC (Bld) 2.0 % Normal [facility] Comment on above: Performed By: #### Valentín VALLES, #### [facility] ([id number]) [address] [place] [address] 89476 Erythrocyte distribution width (RBC) [Ratio] 12.3 % Normal 11.5-15.0 [facility] Comment on above: Performed By: #### Valentín VALLES, #### [facility] ([id number]) [address] [place] [address] 48557 Hematocrit (Bld) [Volume fraction] 39.2 % Normal 35-47 [facility] Comment on above: Performed By: #### Valentín VALLES, #### [facility] ([id number]) [address] [place] [address] 77698 Hemoglobin (Bld) [Mass/Vol] 13.8 g/dL Normal 11.7-15.5 [facility] Comment on above: Performed By: #### Valentín VALLES, #### [facility] ([id number]) [address] [place] [address] 94763 Lymphocytes (Bld) [#/Vol] 2.0 10*3/uL Normal 1.0-3.5 [facility] Comment on above: Performed By: #### Valentín VALLES, #### [facility] ([id number]) [address] [place] [address] 38787 Lymphocytes/100 WBC (Bld) 25.9 % Normal [facility] Comment on above: Performed By: #### Valentín VALLES, #### [facility] ([id number]) [address] [place] [address] 95131 MCH (RBC) [Entitic mass] 32.6 pg Normal 27-34 [facility] Comment on above: Performed By: #### Valentín VALLES, #### [facility] ([id number]) [address] [place] [address] 18361 MCHC (RBC) [Mass/Vol] 35.3 g/dL Normal 32-36 [facility] Comment on above: Performed By: #### Valentín VALLES, #### [facility] ([id number]) [address] [place] [address] 72410 MCV (RBC) [Entitic vol] 93 fL Normal 80-100 [facility] Comment on above: Performed By: #### Valentín VALLES, #### [facility] ([id number]) [address] [place] [address] 82600 Monocytes (Bld) [#/Vol] 0.5 10*3/uL Normal 0-0.9 [facility] Comment on above: Performed By: #### Valentín VALLES, #### [facility] ([id number]) [address] [place] [address] 53785 Monocytes/100 WBC (Bld) 6.0 % Normal [facility] Comment on above: Performed By: #### Valentín VALLES, #### [facility] ([id number]) [address] [place] [address] 37566 Neutrophils/100 WBC (Bld) 65.5 % Normal [facility] Comment on above: Performed By: #### Valentín VALLES, #### [facility] ([id number]) [address] [place] [address] 68126 Platelet mean volume (Bld) [Entitic vol] 8.1 fL Normal 7-12 [facility] Comment on above: Performed By: #### Valentín VALLES, #### [facility] ([id number]) [address] [place] [address] 86702 Platelets (Bld) [#/Vol] 304 10*3/uL Normal 150-450 [facility] Comment on above: Performed By: #### Valentín VALLES, #### [facility] ([id number]) [address] [place] [address] [place] [address] RBC COUNT 4.23 X10E12/L Normal 3.80-5.20 [facility] Comment on above: Performed By: #### Valentín VALLES, #### [facility] ([id number]) [address] [place] [address] 90168 WBC (Bld) [#/Vol] 7.8 10*3/uL Normal 4.0-11.0 [facility] Comment on above: Performed By: #### Valentín VALLES, 28977-5 #### [facility] ([id number]) [address] [place] [address] 64062 HCG.beta subunit IA 3rd IS Q non 05-31-2024 [place] [address] m[IU]/mL Normal P [facility] Comment on above: Result Comment: NEW REFERENCE RANGE WEEKS (SINCE LMP) MIU/mL 3 WEEKS 5 - 50 4 WEEKS 5 - 426 5 WEEKS 18 - 7,340 6 WEEKS 1,080 - 56,500 7-8 WEEKS 7,650 - 229,000 9-12 WEEKS 25,700 - 288,000 13-16 WEEKS 13,300 - 254,000 17-24 WEEKS 4,060 - 165,400 25-40 WEEKS 3,640 - 117,000 MALES AND NON- FEMALES - <5 MIU/mL This test has been FDA approved for use in only. Elevated levels are not necessarily diagnostic for trophoblastic or nontrophoblastic neoplasms. Performed By: #### C REENA, 59411-0 #### [facility] ([id number]) [address] [place] [address] 77528 US PREG LESS THAN 14 WKS WIT H TRANSVAGINALon 05-31-2024 US PREG LESS THAN 14 WKS WITH TRANSVAGINAL US PREG LESS THAN 14 WKS WITH TRANSVAGINAL US PREG LESS THAN 14 WKS WITH TRANSVAGINAL CLINICAL INDICATION: Vaginal bleeding FINDINGS: Transvaginal and limited transabdominal ultrasound of the pelvis. UTERUS AND GESTATIONAL SAC: Intrauterine gestation: Single. Gestational sac: Intrauterine. Yolk sac: 0.3 cm Cumings-rump length (CRL): 0.4 cm heart motion: 125 bpm. Subchorionic hemorrhage: 3.6 cm, less than one third circumference of the gestational sac. OVARIES: Normal morphology. Right ovary: 4.1 x 2.5 x 3.0 cm. Normal color flow. Left ovary: 2.5 x 3.0 x 4.2 cm. Normal color flow. FREE FLUID: Small volume simple appearing free fluid. IMPRESSION: Single, live intrauterine with estimated gestational age 6 weeks 1 days, JOE 01/23/2025. heart rate measures 125bpm. Subchorionic hemorrhage, less than one third circumference of the gestational sac. Normal sonographic appearance of the ovaries. 5 Finalized by Elias Rojas on 05/31/2024 3:24 PM Normal [facility] Chlamydia/GC Amplificationon 05-29-2024 Chlamydia Trachomotis, ANGELY Negative Normal Negative [facility] Comment on above: Order Comment: SOURC E OF SPECIMEN: Genital Performed By: #### H CGQNT #### [address] Neisseria Gonorrhoeae, ANGELY Negative Normal Negative [facility] Comment on above: Order Comment: SOURC E OF SPECIMEN: Genital Result Comment: Perf ormed at: =G - [facility] [address] [id number] Writing Center Director: Evie Luther MD, Phone: [phone] PERFORMED BY: [place] [address] PATHOLOGIST MANAGER PRIVATE DALE DUMONT M.D. Performed By: #### H CGQNT #### [place] [id number] [facility] Fungal Smearon 05-29-2024 Fungal Smear Fungus Smear Results No Yeast Like Elements Seen Trichomonas Screen No Trichomonas Seen Trich Reference Reference range = None Seen PERFORMED BY: [place] [address] PATHOLOGIST MANAGER PRIVATE DALE DUMONT M.D. Normal [facility] Comment on above: Performed By: #### H CGQNT #### [place] [id number] [facility] Genital Cultureon 05-29-2024 Genital Culture Genital Results Light Normal Urogenital Kassidy 2 Days No More GC Specimen not tested for Neisseria gonorrheae PERFORMED BY: [place] [address] PATHOLOGIST MANAGER PRIVATE DALE Wahl [facility] Comment on above: Performed By: #### H CGQNT #### [address] Trichomonas vaginalis detect ion by wet preparationOrdered By: Oj Navarrete on 05-29-2024 T. vaginalis Wet prep Ql (Unsp spec) [facility] US OB transvaginalon 024 OB transvaginal [facility] [place] [address] [place] [address] Ultrasound Report Signed Patient: Kisha Lora MR#: [id number] 57 : 2005 Acct:[id number] Age/Sex: 19 / F ADM Date: 05/28/24 Loc: ER Room: Type: [facility] ER Attending Dr: Ordering Provider: Oj Navarrete DO Date of Service: 05/28/24 US/US OB <= 14 weeks fetus: OB/Uterine Contractions ([id number]) US/US OB transvaginal: spotting Copies to: Oj Navarrete DO US OB <= 14 weeks fetus, US OB transvaginal 05/28/2024 11:14 PM SIGNS AND SYMPTOMS: Increased spotting COMPARISON: None. TECHNIQUE: Limited pelvic ultrasound using transvesical sonography. FINDINGS: An early intrauterine is identified. The visualized yolk sac measures 0.21 cm. The visualized pole has an estimated gestational age of 5 weeks and 6 days by crown-rump length which measures 2.15 mm . A heart rate is identified at 146 bpm. A normal amount of amniotic fluid is present. There is a anechoic collection adjacent to the gestational sac measuring 0.7 x 0.4 x 1.2 cm in greatest dimension. This may represent subchorionic or implantation hemorrhage. Pelvic survey reveals no gross abnormalities. US/US OB <= 14 weeks fetus IMPRESSION: Single live IUP with an estimated gestational age of 5 weeks and 6 days with an estimated date of delivery of 01/22/2025 and normal heart rate. There is a anechoic collection adjacent to the gestational sac measuring 0.7 x 0.4 x 1.2 cm in greatest dimension. This may represent subchorionic or implantation hemorrhage. Impression dictated by: Blake Montague M.D.05/29/2024 6:48 PM Dictation Location: [place] [address] Tech: Emily Kessler Transcribed By: WILLOW 05/29/241847 Dictated By: Blake Montague II, MD 05/29/241845 Signed By: 05/29/241847 Normal [facility] Bacteria [Presence] in Urine by AutomatedOrdered By: Oj Navarrete on 05-28-2024 Bacteria Auto Ql (U) Rare [HPF] None Seen [facility] Bilirubin Test strip Ql (U)O rdered By: Oj Navarrete on 05-28-2024 Bilirubin Ql (U) Negative Negative [facility] Choriogonadotropin.beta subu nit [Units/volume] in Serum or PlasmaOrdered By: Oj Navarrete on 05-28-2024 [place] [address].00 m[IU]/mL [facility] Comment on above: Approximate Approxim ate hCG Gestational Age Range (mIU/ml) (weeks)0.2-1 5-50 1-2 50-500 2-3 100-5,000 3-4 500-10,000 4-5 1,000-50,000 5-6 10,000-100,000 6-8 15,000-200,000 8-12 10,000-100,000 Color of Urine by AutoOrdere d By: Oj Navarrete on 05-28-2024 Color (U) Colorless Normal Yellow [facility] Comment on above: Order Comment: Name Collection Type:: Clean-Voided Midstream Performed By: #### A DDONUAPLUS #### [address] Dipstick and Microscopicon 0 05-28-2024 Bacteria,Urine Rare Normal None Seen [facility] Comment on above: Order Comment: Name Collection Type:: Clean-Voided Midstream Performed By: #### A DDONUAPLUS #### [facility] [address] [place] [address] [place] Bilirubin,Urine Negative Normal Negative [facility] Comment on above: Order Comment: Name Collection Type:: Clean-Voided Midstream Performed By: #### A DDONUAPLUS #### [facility] [address] [place] [id number] [place] Glucose Ql (U) Normal Normal Normal [facility] Comment on above: Order Comment: Name Collection Type:: Clean-Voided Midstream Performed By: #### A DDONUAPLUS #### [facility] [address] [place] [address] [place] Hyaline Casts,Urine None Normal 0-8 [facility] Comment on above: Order Comment: Name Collection Type:: Clean-Voided Midstream Performed By: #### A DDONUAPLUS #### [place] [address] [place] Mucus,Urine Rare Normal [facility] Comment on above: Order Comment: Name Collection Type:: Clean-Voided Midstream Result Comment: PERF ORMED BY: [place] [address] PATHOLOGIST MANAGER PRIVATE DALE DUMONT M.D. Performed By: #### A DDONUAPLUS #### [place] [id number] [place] Nitrite,Urine Negative Normal Negative [facility] Comment on above: Order Comment: Name Collection Type:: Clean-Voided Midstream Performed By: #### A DDONUAPLUS #### [place] [id number] [place] Occult Blood,Urine 2+ High Negative [facility] Comment on above: Order Comment: Name Collection Type:: Clean-Voided Midstream Result Comment: PERF ORMED BY: [place] [address] PATHOLOGIST MANAGER PRIVATE DALE DUMONT M.D. Performed By: #### A DDONUAPLUS #### [place] [id number] [place] Protein,Urine Negative Normal Negative [facility] Comment on above: Order Comment: Name Collection Type:: Clean-Voided Midstream Performed By: #### A DDONUAPLUS #### [place] [address] [place] RBC,Urine 3-4 Normal 0-4 [facility] Comment on above: Order Comment: Name Collection Type:: Clean-Voided Midstream Performed By: #### A DDONUAPLUS #### [address] Specificy [place],Urine 1.009 Normal 1.001-1.030 [facility] Comment on above: Order Comment: Name Collection Type:: Clean-Voided Midstream Performed By: #### A DDONUAPLUS #### [address] Squamous Epithelial Cell,Urine 1-2 Normal 0-2 [facility] Comment on above: Order Comment: Name Collection Type:: Clean-Voided Midstream Performed By: #### A DDONUAPLUS #### [address] Urobilinogen,Urine Normal Normal Normal [facility] Comment on above: Order Comment: Name Collection Type:: Clean-Voided Midstream Performed By: #### A DDONUAPLUS #### [place] [address] [place] WBC,Urine 1-2 Normal 0-4 [facility] Comment on above: Order Comment: Name Collection Type:: Clean-Voided Midstream Performed By: #### A DDONUAPLUS #### [address] Epithelial cells.squamous [# /area] in Urine sediment by Automated countOrdered By: Oj Navarrete on 05-28-2024 Epithelial cells.squamous Auto (Urine sed) [#/Area] 1-2 [HPF] 0-2 [facility] Erythrocytes [#/area] in Uri ne sediment by Automated countOrdered By: Oj Navarrete on 05-28-2024 RBC Auto (Urine sed) [#/Area] 3-4 [HPF] 0-4 [facility] Glucose [Mass/volume] in Uri ne by Test stripOrdered By: Oj Navarrete on 05-28-2024 Glucose Test strip (U) [Mass/Vol] Normal mg/dL Normal [facility] HCG,Quantitativeon HCG,Quantitative 87944.00 m[iU]/mL Normal T [facility] Comment on above: Result Comment: Appr oximate Approximate hCG Gestational Age Range (mIU/ml) (weeks) 0.2-1 5-50 1-2 50-500 2-3 100-5,000 3-4 500-10,000 4-5 1,000-50,000 5-6 10,000-100,000 6-8 15,000-200,000 8-12 10,000-100,000 PERFORMED BY: [place] [address] PATHOLOGIST MANAGER PRIVATE DALE DUMONT M.D. Performed By: #### H CGQNT #### [facility] [address] [place] [address] Hemoglobin Test strip Ql (U) Ordered By: Oj Navarrete on 05-28-2024 Hemoglobin Ql (U) 2+ High Negative [facility] Hyaline casts [#/area] in Ur ine sediment by Automated countOrdered By: Oj Navarrete on 05-28-2024 Hyaline casts Auto (Urine sed) [#/Area] None [LPF] 0-8 [facility] Ketones [Presence] in Urine by Test stripOrdered By: Oj Navarrete on 05-28-2024 Ketones Ql (U) Trace High Negative [facility] Comment on above: Order Comment: Name Collection Type:: Clean-Voided Midstream Performed By: #### A DDONUAPLUS #### [facility] [address] [place] [address] [place] Leukocyte esterase [Presence ] in Urine by Test stripOrdered By: Oj Navarrete on 05-28-2024 Leukocyte esterase Test strip Ql (U) Negative Normal Negative [facility] Comment on above: Order Comment: Name Collection Type:: Clean-Voided Midstream Performed By: #### A DDONUAPLUS #### [facility] [address] [place] [address] Leukocytes [#/area] in Urine sediment by Automated countOrdered By: Oj Navarrete on 05-28-2024 WBC Auto (Urine sed) [#/Area] 1-2 [HPF] 0-4 [facility] Mucus [Presence] in Urine by AutomatedOrdered By: Oj Navarrete on 05-28-2024 Mucus Auto Ql (U) Rare [LPF] [facility] Nitrite Test strip Ql (U)Ord ered By: Oj Navarrete on 05-28-2024 Nitrite Ql (U) Negative Negative [facility] Protein Test strip (U) [Mass /Vol]Ordered By: Oj Navarrete on 05-28-2024 Protein (U) [Mass/Vol] Negative Negative [facility] Specific gravity Test strip (U) [Rel density]Ordered By: Oj Navarrete on 05-28-2024 Specific gravity (U) [Rel density] 1.009 1.001-1.030 [facility] Urine appearanceOrdered By: Oj Navarrete on 05-28-2024 Appearance (U) Clear Normal Clear [facility] Comment on above: Order Comment: Name Collection Type:: Clean-Voided Midstream Performed By: #### A DDONUAPLUS #### [address] Urobilinogen Test strip (U) [Mass/Vol]Ordered By: Oj Navarrete on 05-28-2024 Urobilinogen (U) [Mass/Vol] Normal mg/dL Normal [facility] pH of Urine by Test stripOrd ered By: Oj Navarrete on 05-28-2024 pH (U) 5.5 [pH] Normal 5.0-9.0 [facility] Comment on above: Order Comment: Name Collection Type:: Clean-Voided Midstream Performed By: #### A DDONUAPLUS #### [address] ABORhon 05-27-2024 ABO and Rh group Nom (Bld) Hx Check: Not Found Anti-A: 0 Anti-B: 0 Anti-D: 4+ DCon: NT A1: 4+ B: 4+ ABORh Interp: O POS Invalid Interpretation Code [facility] Comment on above: Performed By: #### 1 [id number], [id number], [id number] ####[facility] (DEFAULT)[address] [place] [id number] ABORh Retypeon 05-27-2024 ABO and Rh group Nom (Bld) Ordered by Discern. Anti-A: 0 Anti-B: 0 Anti-D: 4+ DCon: NT A1: 4+ B: 4+ ABORh Retype: O POS Invalid Interpretation Code [facility] Comment on above: Performed By: #### 1 [id number], [id number], [id number] ####[facility] (DEFAULT)[address] [place] [address] 34708 Discharge Noteon 05-27-2024 Discharge Note Patient given discharge instructions and verbalized understanding. Pt informed to call JUNIOR BRAND MANAGER regarding repeat labs. Pt ambulated out of unit. [Electronically Signed on: 05/27/2024 01:54 EDT] __ Asia Martinez RN [Verified on: 05/27/2024 01:54 EDT] __ Asia Martinez RN Normal [facility] ED Clinical Summaryon 2023 ED Clinical Summary [facility] - Emergency Department [address] [place] [address] ED Clinical Summary PERSON INFORMATION Name: KISHA LORA Age: 19 Years Sex: FEMALE : 2005 MRN: Acct#: Visit Reason: Vaginal bleeding - < 20 wks ; VAGINAL BLEEDING/6 WEEKS PREGNAT Arrival: 05/27/2024 00:19:45 Discharge: 05/27/2024 01:52:00 LOS: 000 01:33 Check In: 05/27/2024 00:19:45 Checkout:05/27/2024 01:52:00 Address: [address] [place], [place] [id number] PCP: Provider, None PROVIDER INFORMATION Provider Role Assigned Unassigned Emilie Connelly DENTAL BILLER Nurse 05/27/2024 00:29:18 Monty Lee MD ED Provider 05/27/2024 01:37:17 VITALS INFORMATION Vital Sign Triage Latest Temperature Tympanic Temperature Temporal Artery Pulse Rate 78 bpm 78 bpm O2 Sat 98 % 98 % Respiratory Rate 16 br/min 16 br/min Blood Pressure /84 mmHg /84 mmHg MEDICAL INFORMATION Medications Given: Allergy Information: No known allergies PHYSICIAN DOCUMENTATION DISCHARGE INFORMATION: Discharge Disposition: Home Discharge Location: Home PATIENT EDUCATION INFORMATION Instructions: Vaginal Bleeding During , First Trimester Follow-Up: With: Address: When: Follow up with specialist Within 3 to 5 days Comments: Follow-up with your JUNIOR BRAND MANAGER for repeat quantitative beta hCG and further evaluation of your threatened miscarriage DIAGNOSIS: 1:Threatened miscarriage Patient Understands: Yes - Patient/family/primary care nurse practitioner verbalizes understanding of instructions given Comment: Normal [facility] ED Patient Summaryon 024 ED Patient Summary [facility] - Emergency Department [address] [place] [address] PATIENT DISCHARGE INSTRUCTIONS Patient Information Name: KISHA LORA Age: 19 Years Date of : 2005 Reason For Visit: Vaginal bleeding - < 20 wks ; VAGINAL BLEEDING/6 WEEKS PREGNAT Arrival Time: 05/27/2024 00:19:45 Primary Care Physician: Provider, None Attending Physician: Monty Lee MD Comment: Visit Diagnosis: Diagnoses This Visit Threatened miscarriage (O20.0) Vaginal bleeding - < 20 wks ([id number]) The Pharmacy at [facility] is open Friday through Friday from 9A to 6P and Friday and Friday from 9A to 5P Prescription Information: If you have been given a prescription for narcotics, seek immediate medical attention if you have any difficulty breathing or any sudden status changes such as confusion and sleepiness. If you or anyone you know is experiencing suicidal thoughts, mental health, alcohol and/or drug addiction problems; contact the [facility] 05/05 Crisis Hotline -Text 4HRRE ax 605458. If you received any narcotics, sedation, or any other medication that causes drowsiness for the next 24 hours, unless otherwise directed: ? Do not drive a car. ? Do not operate machinery such as power tools, lawn mowers, drills, sewing machines, or stoves ? Avoid alcoholic beverages and drugs for allergies, nerves, or sleep ? Do not make important personal or business decisions or sign any legal documents With: Address: When: Follow up with specialist Within 3 to 5 days Comments: Follow-up with your JUNIOR BRAND MANAGER for repeat quantitative beta hCG and further evaluation of your threatened miscarriage Medication Information: The exam and treatment you received today in the [facility] Emergency Department were for an urgent problem and are not intended as complete care. It is important for you to follow up with a doctor, nurse practitioner, or physician?s library serials assistant for ongoing care. If your symptoms become worse or you do not improve as expected and you are unable to reach your usual health care provider, you should return to the Emergency Department, we are available 24 hours a day. For those patients who have received Radiology results, the interpretation of your X-ray as given to you by our Emergency Department physician is only a preliminary report. The Radiologist will review your films and if there is a change in the diagnosis you will be notified by phone. Please make sure you have provided a working phone number so we can reach you if necessary. In the event that you had a lab culture while you were a patient in the Emergency Department, you will be notified by phone if there is a need to change your antibiotic. Please make sure you have provided a working phone number so we can reach you if necessary. [facility] Emergency Department has provided you with a complete list of medications post discharge. Please inform your pilot teacher/provider of your visit and for further instruction on these medications. Any specific questions regarding your chronic medications and dosages should be discussed with your primary care physician(s) and/or pharmacist. Additional medications on your home medication list not specifically addressed. Please contact the ordering physician if you have questions about these medications. metFORMIN (metFORMIN 500 mg oral tablet) 1 tab(s) Oral (given by mouth) 2 times per day. Visit Information Allergies: Substance Reaction Symptoms Type Comments No known allergies Drug Vital Signs: Vitals and Measurements this Visit (last charted value for your 05/27/2024 visit) Vital Signs This Visit Temperature Oral: 36.8 DegC Peripheral Pulse Rate: 78 bpm Respiratory Rate: 16 br/min Systolic Blood Pressure: 134 mmHg Diastolic Blood Pressure: 84 mmHg SpO2: 98 % Oxygen Therapy: Room air Measurements This Visit Height/Length Measured: 172.72 cm Weight Measured: 81.65 kg Weight Dosin.650 kg Body Mass Index: 27.37 kg/m2 Problems List: Problem Onset Comments No Problems found Patient Education Vaginal Bleeding During , First Trimester Follow-up with your JUNIOR BRAND MANAGER for further evaluation of your threatened miscarriage. Return to the emergency department for any worsening symptoms A small amount of bleeding from the vagina, or spotting, is common during early . Some bleeding may be related to the , and some may not. In many cases, the bleeding is normal and is not a problem. However, bleeding can also be a sign of something serious. Normal things that may cause bleeding during the first trimester: ? Implantation of the fertilized egg in the lining of the uterus. ? Rapid changes in blood vessels. This is caused by changes that are happening to the body during . ? Sex. ? Pelvic exams. (more content not included)... Normal [facility] Extra Ehsan 05-27-2024 Tube Collected Yes Invalid Interpretation Code [facility] Comment on above: Performed By: #### 1 [id number], [id number] ####[facility] (DEFAULT)[address] [place] [address] Test Urine 1on U Preg Positive Normal [facility] Comment on above: Performed By: #### 3 [id number] #### [facility] (DEFAULT) [address] [place] [address] U Preg Internal Control Pass [facility] Comment on above: Performed By: #### 3 [id number] #### [facility] (DEFAULT) [address] [place] [address] 66946 RhIG.on 05-27-2024 RhIG. No. Vials RhI RhIG Candidate?: No Date to Give: [id number] RhIG Status: NA [facility] Comment on above: Performed By: #### 1 [id number], [id number] ####[facility] (DEFAULT)[address] [place] [address] UA Cyfxz7vt 05-27-2024 UA Amorph. Few [facility] Comment on above: Order Comment: Urina lysis Microscopic order added on by Discern Expert Rules system. Performed By: #### 1 [id number], [id number] ####[facility] (DEFAULT)[address] [place] [address] UA Bacteria None [facility] Comment on above: Order Comment: Urina lysis Microscopic order added on by K[employer] Expert Rules system. Performed By: #### 1 [id number], [id number] ####[facility] (DEFAULT)[address] [place] [address] UA Mucous Trace [facility] Comment on above: Order Comment: Urina lysis Microscopic order added on by [employer] Expert Rules system. Performed By: #### 1 [id number], [id number] ####[facility] (DEFAULT)[address] [place] [address] UA RBC None Seen [facility] Comment on above: Order Comment: Urina lysis Microscopic order added on by [employer] Expert Rules system. Performed By: #### 1 [id number], [id number] ####[facility] (DEFAULT)[address] [place] [address] UA Squam Epi Few [facility] Comment on above: Order Comment: Urina lysis Microscopic order added on by [employer] Expert Rules system. Performed By: #### 1 [id number], [id number] ####[facility] (DEFAULT)[address] [place] [address] UA WBC 0-2 [facility] Comment on above: Order Comment: Urina lysis Microscopic order added on by [employer] Expert Rules system. Performed By: #### 1 [id number], [id number] ####[facility] (DEFAULT)[address] [place] [address] 18973 UA w Culture if Ind Standard on 05-27-2024 Breakpoint UA [facility] Comment on above: Performed By: #### 1 [id number], [id number] ####[facility] (DEFAULT)[address] [place] [address]30 Color (U) Yellow [facility] Comment on above: Performed By: #### 1 [id number], [id number] ####[facility] (DEFAULT)[address] [place] [address] 58257 Culture? Not Indicated Invalid Interpretation Code [facility] Comment on above: Result Comment: Resu lt created by rule GL_MAGR_ADD_UA_CULT Result created by rule GL_MAGR_ADD_UA_CULT Result created by rule GL_MAGR_ADD_UA_CULT1 Performed By: #### 1 [id number], [id number] ####[facility] (DEFAULT)[address] [place] [address] 86403 Glucose (U) [Mass/Vol] Negative [facility] Comment on above: Performed By: #### 1 [id number], [id number] ####[facility] (DEFAULT)[address] [place] [address] 88829 Ketones Ql (U) Negative [facility] Comment on above: Performed By: #### 1 [id number], [id number] ####[facility] (DEFAULT)[address] [place] [address] 12284 Micro? Indicated Invalid Interpretation Code [facility] Comment on above: Result Comment: Resu lt created by rule GL_MAGR_ADD_UA_MICRO Performed By: #### 1 [id number], [id number] ####[facility] (DEFAULT)[address] [place] [address] 76072 UA Bilirubin Negative [facility] Comment on above: Performed By: #### 1 [id number], [id number] ####[facility] (DEFAULT)[address] [place] [address] 75069 UA Blood Negative Normal [facility] Comment on above: Performed By: #### 1 [id number], [id number] ####[facility] (DEFAULT)[address] [place] [address] 26954 UA Clarity SL CLOUDY Abnormal CLEAR [facility] Comment on above: Performed By: #### 1 [id number], [id number] ####[facility] (DEFAULT)[address] [place] [address] 38455 UA Leuk Est Negative Normal NEGATIVE [facility] Comment on above: Performed By: #### 1 [id number], [id number] ####[facility] (DEFAULT)[address] [place] [address] 87743 UA Nitrite Negative Normal NEGATIVE [facility] Comment on above: Performed By: #### 1 [id number], [id number] ####[facility] (DEFAULT)[address] [place] [address] UA pH 7.0 Normal 5-[address] [facility] Comment on above: Performed By: #### 1 [id number], [id number] ####[facility] (DEFAULT)[address] [place] [address] UA Protein Negative Normal NEGATIVE [facility] Comment on above: Performed By: #### 1 [id number], [id number] ####[facility] (DEFAULT)[address] [place] [address] UA Spec Grav 1.020 Normal 1.001-1.[address] [facility] Comment on above: Performed By: #### 1 [id number], [id number] ####[facility] (DEFAULT)[address] [place] [address] 77838 UA Urobilinogen 0.2 mg/dL Normal 0.2-1.[address] [facility] Comment on above: Performed By: #### 1 [id number], [id number] ####[facility] (DEFAULT)[address] [place] [address] Urine Source Clean Catch Normal [facility] Comment on above: Performed By: #### 1 [id number], [id number] ####[facility] (DEFAULT)[address] [place] [address] hCG Quantitativeon 4 hCG Quantitative 58406.0 mIU/mL High 0.0-0.6 [facility] Comment on above: Result Comment: Post -Menopausal Reference Range is: 0.1-11.6 mIU/mL Performed By: #### 1 [id number], [id number] ####[facility] (DEFAULT)[address] [place] [address] Bilirubin Test strip Ql (U)O rdered By: PROVIDER TEMP on 05-26-2024 Bilirubin Ql (U) Negative Negative [facility] Color of Urine by AutoOrdere d By: PROVIDER TEMP on 05-26-2024 Color (U) Colorless Normal Yellow [facility] Comment on above: Order Comment: Name Collection Type:: Clean-Voided Midstream Performed By: #### U HCG, UA #### [facility] [address] [id number] [place] Glucose [Mass/volume] in Uri ne by Test stripOrdered By: PROVIDER TEMP on 05-26-2024 Glucose Test strip (U) [Mass/Vol] Normal mg/dL Normal [facility] HCG ( test) IA.rapi d Ql (U)Ordered By: PROVIDER TEMP on 05-26-2024 HCG ( test) Ql (U) Positive [facility] HCG,Urineon 05-26-2024 Beta HCG ( test) Ql (U) Positive High [facility] Comment on above: Order Comment: Name Collection Type:: Clean-Voided Midstream Result Comment: PERF ORMED BY: [facility] [address] [place] [address] PATHOLOGIST MANAGER PRIVATE DALE DUMONT M.D. Performed By: #### U HCG, UA #### [facility] [address] [place] [address] [place] Hemoglobin Test strip Ql (U) Ordered By: PROVIDER TEMP on 05-26-2024 Hemoglobin Ql (U) Negative Negative [facility] Ketones [Presence] in Urine by Test stripOrdered By: PROVIDER TEMP on 05-26-2024 Ketones Ql (U) Negative Normal Negative [facility] Comment on above: Order Comment: Name Collection Type:: Clean-Voided Midstream Performed By: #### U HCG, UA #### [facility] [address] [place] [address] [place] Leukocyte esterase [Presence ] in Urine by Test stripOrdered By: PROVIDER TEMP on 05-26-2024 Leukocyte esterase Test strip Ql (U) Negative Normal Negative [facility] Comment on above: Order Comment: Name Collection Type:: Clean-Voided Midstream Performed By: #### U HCG, UA #### [facility] [address] [place] [address] [place] Nitrite Test strip Ql (U)Ord ered By: PROVIDER TEMP on 05-26-2024 Nitrite Ql (U) Negative Negative [facility] Protein Test strip (U) [Mass /Vol]Ordered By: PROVIDER TEMP on 05-26-2024 Protein (U) [Mass/Vol] Negative Negative [facility] Specific gravity Test strip (U) [Rel density]Ordered By: PROVIDER TEMP on 05-26-2024 Specific gravity (U) [Rel density] 1.005 1.001-1.030 [facility] Urinalysison 05-26-2024 Bilirubin,Urine Negative Normal Negative [facility] Comment on above: Order Comment: Name Collection Type:: Clean-Voided Midstream Performed By: #### U HCG, UA #### [place] [address] [place] Glucose Ql (U) Normal Normal Normal [facility] Comment on above: Order Comment: Name Collection Type:: Clean-Voided Midstream Performed By: #### U HCG, UA #### [place] [id number] [place] Nitrite,Urine Negative Normal Negative [facility] Comment on above: Order Comment: Name Collection Type:: Clean-Voided Midstream Performed By: #### U HCG, UA #### [place] [id number] [place] Occult Blood,Urine Negative Normal Negative [facility] Comment on above: Order Comment: Name Collection Type:: Clean-Voided Midstream Performed By: #### U HCG, UA #### [place] [id number] [place] Protein,Urine Negative Normal Negative [facility] Comment on above: Order Comment: Name Collection Type:: Clean-Voided Midstream Performed By: #### U HCG, UA #### [address] Specificy [place],Urine 1.005 Normal 1.001-1.030 [facility] Comment on above: Order Comment: Name Collection Type:: Clean-Voided Midstream Performed By: #### U HCG, UA #### [address] Urobilinogen,Urine Normal Normal Normal [facility] Comment on above: Order Comment: Name Collection Type:: Clean-Voided Midstream Performed By: #### U HCG, UA #### [address] Urine appearanceOrdered By: PROVIDER TEMP on 05-26-2024 Appearance (U) Clear Normal Clear [facility] Comment on above: Order Comment: Name Collection Type:: Clean-Voided Midstream Performed By: #### U HCG, UA #### [address] Urobilinogen Test strip (U) [Mass/Vol]Ordered By: PROVIDER TEMP on 05-26-2024 Urobilinogen (U) [Mass/Vol] Normal mg/dL Normal [facility] pH of Urine by Test stripOrd ered By: PROVIDER TEMP on 05-26-2024 pH (U) 5.5 [pH] Normal 5.0-9.0 [facility] Comment on above: Order Comment: Name Collection Type:: Clean-Voided Midstream Performed By: #### U HCG, UA #### [address] US PELVIS TRANSVAGINALon US PELVIS TRANSVAGINAL FINDINGS: Transvaginal sonographic examination performed. Anteverted uterus identified measuring 6.3 x 4.5 x 3.2 cm, and is normal in size, shape, and echogenicity. Endometrium normal measuring 4.4 mm. Right ovary normal in size, shape, and echogenicity measuring 3.4 x 2.3 x 2.2 cm, containing several follicles, largest measuring 9 x 7 x 6 mm. Left ovary normal in size, shape, and echogenicity measuring 3.4 x 3.3 x 3.2 cm, containing several follicles, largest measuring 1.6 x 1.4 x 1.0 cm. No free fluid. No adnexal masses. IMPRESSION: Negative pelvic ultrasound. ELECTRONICALLY SIGNED BY: Zeb Orozco MD Normal Not Available Automated erythrocytes count in urine sediment (number/area)Ordered By: Felisha Briones on 06-05-2023 RBC Auto (Urine sed) [#/Area] 0-1 [HPF] 0-4 [facility] Automated leukocytes count i n urine sediment (number/area)Ordered By: Felisha Briones on 06-05-2023 WBC Auto (Urine sed) [#/Area] 5-9 [HPF] 0-4 [facility] Automated urine hyaline cast s count (number/volume)Ordered By: Felisha Briones on 06-05-2023 Hyaline casts Auto (U) [#/Vol] None seen [LPF] 0-1 [facility] Bilirubin Test strip Ql (U)O rdered By: Felisha Briones on 06-05-2023 Bilirubin Ql (U) Negative Negative [facility] Casts typing in urine sedime nt by light microscopyOrdered By: Felisha Briones on 06-05-2023 Casts LM Nom (Urine sed) None seen [LPF] None S een [facility] Color Auto (U)Ordered By: Samia Briones on 06-05-2023 Color (U) Yellow Yellow [facility] Fungal cultureOrdered By: Samia Briones on 06-05-2023 Fungus identified Cx Nom (Unsp spec) [facility] HCG ( test) IA.rapi d Ql (U)Ordered By: Felisha Briones on 06-05-2023 HCG ( test) Ql (U) Negative [facility] Ketones Auto test strip (U) [Mass/Vol]Ordered By: Felisha Briones on 06-05-2023 Ketones (U) [Mass/Vol] Trace [facility] Nitrite Test strip Ql (U)Ord ered By: Felisha Briones on 06-05-2023 Nitrite Ql (U) Negative Negative [facility] Protein Auto test strip (U) [Mass/Vol]Ordered By: Felisha Briones on 06-05-2023 Protein (U) [Mass/Vol] 30 mg/dL Negative [facility] Specific gravity Auto test s trip (U) [Rel density]Ordered By: Felisha Briones on 06-05-2023 Specific gravity (U) [Rel density] 1.030 1.001-1.030 [facility] Squamous epithelial cells de tection in urine sediment by light microscopyOrdered By: Felisha Briones on 06-05-2023 Epithelial cells.squamous LM Ql (Urine sed) 10-19 [HPF] 0-2 [facility] Trichomonas vaginalis detect ion by wet preparationOrdered By: Felisha Briones on 06-05-2023 T. vaginalis Wet prep Ql (Unsp spec) [facility] Urine bacteria detection by automated methodOrdered By: Felisha Briones on 06-05-2023 Bacteria Auto Ql (U) 1+ None Seen [facility] Urine clarity by refractomet ry automatedOrdered By: Felisha Briones on 06-05-2023 Clarity Refractometry automated (U) Cloudy Clear [facility] Urine glucose measurement by automated test strip (mass/volume)Ordered By: Felisha Briones on 06-05-2023 Glucose Auto test strip (U) [Mass/Vol] Normal mg/dL Normal [facility] Urine hemoglobin detection b y automated test stripOrdered By: Felisha Briones on 06-05-2023 Hemoglobin Auto test strip Ql (U) Negative Negative [facility] Urine leukocyte esterase det ection by automated test stripOrdered By: Felisha Briones on 06-05-2023 Leukocyte esterase Auto test strip Ql (U) Negative Negative [facility] Urobilinogen Auto test strip (U) [Mass/Vol]Ordered By: Felisha Briones on 06-05-2023 Urobilinogen (U) [Mass/Vol] Normal mg/dL Normal [facility] pH Auto test strip (U)Ordere d By: Felisha Briones on 06-05-2023 pH (U) 6.0 [pH] 5.0-9.0 [facility] Consultation Noteon 05-31-20 Consultation Note [id number] E#1.00CD:127 [facility] Formson 11-03-2020 Forms [id number] 81#1.00CD:127 Normal [facility] Consenton 10-26-2020 Consent [id number] 322#1.00CD:127 [facility] Registrationon 10-26-2020 Registration [id number] 569#1.00CD:127 [facility] ED Note-Physicianon 08-24-20 ED Note-Physician [id number] F5#1.00CD:127 [facility] Formson 07-21-2020 Forms [id number] 09#1.00CD:127 [facility] Consenton 06-09-2020 Consent [id number] 8#1.00CD:127 [facility] Family Medicine Office/Clini c Noteon 06-09-2020 Family Medicine Office/Clinic Note Chief Complaint physical/ well child HPI Staff Kisha is a 15 year old female who presents for a physical/ well child exam. She has no chronic medical conditions and takes no daily medications. She has no concerns. She is due for meningitis vaccine today. History of Present Illness I have reviewed and verified the staff HPI to be accurate for this encounter. Review of Systems PHQ Score Initial Depression Screen Score: 0 Constitutional: no fever, no chills, no sweats, no weakness Respiratory: no shortness of breath, no cough, no orthopnea, no wheezing Cardiovascular: no chest pain, no palpitations, no edema Additional ROS info: Except as noted in the above Review of Systems and in the History of Present Illness all other systems have been reviewed and are negative or noncontributory. Physical Exam Vitals & Measurements T: 36.4 ?C (Temporal Artery) HR: 76(Peripheral) BP: 122/78 SpO2: 98% HT: 172 cm HT: 172.0 cm WT: 73.3 kg WT: 73.3 kg BMI: 24.78 General: alert, no acute distress Skin: warm, dry Head: no trauma, normocephalic Neck: Trachea midline, no adenopathy, no tenderness Eye: normal conjunctiva, sclera clear ENMT: TM's clear, oral mucosa moist, no pharyngeal erythema or exudate Cardiovascular: regular rate and rhythm, normal peripheral perfusion Respiratory: Lungs CTA, respirations non labored Chest wall: no deformity. Gastrointestinal: soft, non distended, no tenderness, no guarding. Back: No tenderness, Normal ROM, Normal alignment. Mild lumbar scoliosis Extremities: no deformity, no trauma Neurological: oriented x 4, LOC appropriate for age, CN II-XII intact, motor strength equal & normal bilaterally, sensation equal & normal bilaterally, speech normal Psychiatric: cooperative, affect appropriate for age, normal judgement, normal psychiatric thoughts. Assessment/Plan 1. Well child check (Z00.129: Encounter for routine child health examination without abnormal findings) Follow-up With When Contact Information Soto MARINELLI DO In 1 [address] [place] [address]- Additional Instructions: Problem List/Past Medical History Ongoing Well child check Historical No qualifying data Medications No active medications Allergies No Known Allergies Social History Alcohol - Denies Alcohol Use, 06/28/2019 Substance Abuse - Denies Substance Abuse, 06/28/2019 Tobacco Never (less than 100 in lifetime) Tobacco Use:. Never Smokeless Tobacco Use:., 06/28/2019 Family History Family history is negative Normal [facility] Comment on above: Result Comment: Elec tronically Signed By: Soto MARINELLI DO\.br\Date and Time Signed: 06/09/20 11:23 EDT Vital Signs Date Time Vital Sign Value Performing Clinician Facility 12-24-2024 15:18-0400 Respiratory rate 18 /min PHYSICIAN NO [facility] 12-24-2024 14:48-0400 Diastolic blood pressure 60 mm[Hg] PHYSICIAN NO [facility] 12-24-2024 14:48-0400 Heart rate 79 /min PHYSICIAN NO [facility] 12-24-2024 14:48-0400 Systolic blood pressure 123 mm[Hg] PHYSICIAN NO [facility] 12-24-2024 14:47-0400 SaO2% (BldA) [Mass fraction] 97 % PHYSICIAN NO [facility] 12-24-2024 14:08-0400 Body temperature 97.2 [degF] PHYSICIAN NO [facility] 12-24-2024 14:06-0400 Body height 172.72 cm PHYSICIAN NO [facility] 12-24-2024 14:06-0400 Body weight 102.51 kg PHYSICIAN NO [facility] 12-03-2024 15:24-0500 Diastolic blood pressure 60 mm[Hg] PHYSICIAN NO [facility] 12-03-2024 15:24-0500 Systolic blood pressure 125 mm[Hg] PHYSICIAN NO [facility] 12-03-2024 10:45-0500 Body temperature 97.6 [degF] PHYSICIAN NO [facility] 12-03-2024 10:45-0500 Respiratory rate 16 /min PHYSICIAN NO [facility] 12-03-2024 10:10-0500 Body height 172.72 cm PHYSICIAN NO [facility] 12-03-2024 10:10-0500 Body weight 90.71 kg PHYSICIAN NO [facility] 11-25-2024 13:24-0500 Body mass index (BMI) [Ratio] 35.54 kg/m2 Edie Mays CN Work Phone: [facility] 11-25-2024 13:24-0500 Body weight 105.23 kg Edie Taylorsavita CN Work Phone: [facility] 11-25-2024 13:24-0500 Diastolic blood pressure 80 mm[Hg] Edie Taylorsavita CNM Work Phone: [facility] 11-25-2024 13:24-0500 Systolic blood pressure 120 mm[Hg] Edie Mays CNM Work Phone: [facility] 11-18-2024 15:54-0500 Diastolic blood pressure 57 mm[Hg] PHYSICIAN NO [facility] 11-18-2024 15:54-0500 Heart rate 94 /min [facility] [facility] 11-18-2024 15:54-0500 Respiratory rate 18 /min PHYSICIAN NO [facility] 11-18-2024 15:54-0500 SaO2% (BldA) [Mass fraction] 99 % PHYSICIAN NO [facility] 11-18-2024 15:54-0500 Systolic blood pressure 121 mm[Hg] PHYSICIAN NO [facility] 11-18-2024 14:18-0500 Body height 172.72 cm PHYSICIAN NO [facility] 11-18-2024 14:18-0500 Body temperature 97.7 [degF] PHYSICIAN NO [facility] 11-18-2024 14:18-0500 Body weight 105 kg PHYSICIAN NO [facility] 11-08-2024 15:35-0500 Diastolic blood pressure 61 mm[Hg] PHYSICIAN NO [facility] 11-08-2024 15:35-0500 Heart rate 91 /min PHYSICIAN NO [facility] 11-08-2024 15:35-0500 Respiratory rate 16 /min PHYSICIAN NO [facility] 11-08-2024 15:35-0500 SaO2% (BldA) [Mass fraction] 97 % PHYSICIAN NO [facility] 11-08-2024 15:35-0500 Systolic blood pressure 131 mm[Hg] PHYSICIAN NO [facility] 11-08-2024 15:08-0500 Body height 172.72 cm PHYSICIAN NO [facility] 11-08-2024 15:08-0500 Body weight 99.79 kg PHYSICIAN NO [facility] 10-28-2024 13:41-0500 Body mass index (BMI) [Ratio] 33.7 kg/m2 Edie Mays CNM Work Phone: [facility] 10-28-2024 13:41-0500 Body weight 99.79 kg Edie Mays CNM Work Phone: [facility] 10-28-2024 13:41-0500 Diastolic blood pressure 80 mm[Hg] Edie Mays CNM Work Phone: [facility] 10-28-2024 13:41-0500 Systolic blood pressure 120 mm[Hg] Edie Mays CNM Work Phone: [facility] 10-07-2024 12:29-0500 Body height 172.72 cm PHYSICIAN NO [facility] 10-07-2024 12:29-0500 Body weight 93.44 kg PHYSICIAN NO [facility] 10-07-2024 12:27-0500 Body temperature 97.2 [degF] PHYSICIAN NO [facility] 10-07-2024 12:27-0500 Diastolic blood pressure 75 mm[Hg] PHYSICIAN NO [facility] 10-07-2024 12:27-0500 Heart rate 97 /min PHYSICIAN NO [facility] 10-07-2024 12:27-0500 Respiratory rate 18 /min PHYSICIAN NO [facility] 10-07-2024 12:27-0500 SaO2% (BldA) [Mass fraction] 98 % PHYSICIAN NO [facility] 10-07-2024 12:27-0500 Systolic blood pressure 134 mm[Hg] PHYSICIAN NO [facility] 10-04-2024 17:00-0500 Body height 172.72 cm PHYSICIAN NO [facility] 10-04-2024 17:00-0500 Body weight 93.44 kg PHYSICIAN NO [facility] 10-04-2024 16:30-0500 Body temperature 97.3 [degF] PHYSICIAN NO [facility] 10-04-2024 16:30-0500 Respiratory rate 18 /min PHYSICIAN NO [facility] 10-04-2024 16:30-0500 SaO2% (BldA) [Mass fraction] 96 % PHYSICIAN NO [facility] 09-30-2024 13:10-0500 Body mass index (BMI) [Ratio] 31.4 kg/m2 Edie Mays CNM Work Phone: [facility] 09-30-2024 13:10-0500 Body weight 92.99 kg Edie Mays CNM Work Phone: [facility] 09-30-2024 13:10-0500 Diastolic blood pressure 70 mm[Hg] Edie Tayloro CNM Work Phone: [facility] 09-30-2024 13:10-0500 Systolic blood pressure 120 mm[Hg] Edie Mays CNM Work Phone: [facility] 09-08-2024 10:48-0500 Diastolic blood pressure 80 mm[Hg] Edie Mays CNM Work Phone: [facility] 09-08-2024 10:48-0500 Systolic blood pressure 120 mm[Hg] Edie Tayloro CNM Work Phone: [facility] 08-28-2024 15:12-0500 Body height 20.32 cm PHYSICIAN NO [facility] 08-28-2024 15:12-0500 Body temperature 98.3 [degF] PHYSICIAN NO [facility] 08-28-2024 15:12-0500 Body weight 88.85 kg PHYSICIAN NO [facility] 08-28-2024 15:12-0500 Diastolic blood pressure 75 mm[Hg] PHYSICIAN NO [facility] 08-28-2024 15:12-0500 Heart rate 89 /min PHYSICIAN NO [facility] 08-28-2024 15:12-0500 Respiratory rate 20 /min PHYSICIAN NO [facility] 08-28-2024 15:12-0500 SaO2% (BldA) [Mass fraction] 98 % PHYSICIAN NO [facility] 08-28-2024 15:12-0500 Systolic blood pressure 136 mm[Hg] PHYSICIAN NO [facility] 08-24-2024 16:47-0500 Body height 172.72 cm PHYSICIAN NO [facility] 08-24-2024 16:47-0500 Body temperature 98.4 [degF] PHYSICIAN NO [facility] 08-24-2024 16:47-0500 Body weight 87 kg PHYSICIAN NO [facility] 08-24-2024 16:47-0500 Diastolic blood pressure 78 mm[Hg] PHYSICIAN NO [facility] 08-24-2024 16:47-0500 Heart rate 92 /min PHYSICIAN NO [facility] 08-24-2024 16:47-0500 Respiratory rate 16 /min PHYSICIAN NO [facility] 08-24-2024 16:47-0500 SaO2% (BldA) [Mass fraction] 98 % PHYSICIAN NO [facility] 08-24-2024 16:47-0500 Systolic blood pressure 140 mm[Hg] PHYSICIAN NO [facility] 08-12-2024 09:49-0400 Body mass index (BMI) [Ratio] 28.03 kg/m2 Edie Tayloro CNM Work Phone: [facility] 08-12-2024 09:49-0400 Body weight 83.01 kg Edie Tayloro CNM Work Phone: [facility] 08-12-2024 09:49-0400 Diastolic blood pressure 80 mm[Hg] Edie Josselino CNM Work Phone: [facility] 08-12-2024 09:49-0400 Systolic blood pressure 120 mm[Hg] Edie Floro CNM Work Phone: [facility] 07-13-2024 09:32-0400 Body mass index (BMI) [Ratio] 27.26 kg/m2 Edie Josselino CNM Work Phone: [facility] 07-13-2024 09:32-0400 Body weight 80.74 kg Edie Tayloro CNM Work Phone: [facility] 07-13-2024 09:32-0400 Diastolic blood pressure 70 mm[Hg] Edie Josselino CNM Work Phone: [facility] 07-13-2024 09:32-0400 Systolic blood pressure 112 mm[Hg] Edie Floro CNM Work Phone: [facility] 06-15-2024 09:29-0400 Body mass index (BMI) [Ratio] 27.57 kg/m2 Edie Floro CNM Work Phone: [facility] 06-15-2024 09:29-0400 Body weight 81.65 kg Edie Floro CNM Work Phone: [facility] 06-15-2024 09:29-0400 Diastolic blood pressure 70 mm[Hg] Edie Floro CNM Work Phone: [facility] 06-15-2024 09:29-0400 Systolic blood pressure 112 mm[Hg] Edie Floro CNM Work Phone: [facility] 06-01-2024 14:09-0400 Body mass index (BMI) [Ratio] 26.81 kg/m2 Edie Floro CNM Work Phone: [facility] 06-01-2024 14:09-0400 Body weight 79.38 kg Edie Floro CNM Work Phone: [facility] 06-01-2024 14:09-0400 Diastolic blood pressure 80 mm[Hg] Edie Floro CNM Work Phone: [facility] 06-01-2024 14:09-0400 Systolic blood pressure 120 mm[Hg] Edie Floro CNM Work Phone: [facility] 05-29-2024 02:39-0400 Diastolic blood pressure 57 mm[Hg] PHYSICIAN NO [facility] 05-29-2024 02:39-0400 Heart rate 70 /min PHYSICIAN NO [facility] 05-29-2024 02:39-0400 Respiratory rate 18 /min PHYSICIAN NO [facility] 05-29-2024 02:39-0400 SaO2% (BldA) [Mass fraction] 98 % PHYSICIAN NO [facility] 05-29-2024 02:39-0400 Systolic blood pressure 107 mm[Hg] PHYSICIAN NO [facility] 05-28-2024 21:43-0400 Body temperature 98.8 [degF] PHYSICIAN NO [facility] 05-28-2024 21:38-0400 Body height 172.72 cm PHYSICIAN NO [facility] 05-28-2024 21:38-0400 Body weight 80 kg PHYSICIAN NO [facility] 05-26-2024 21:36-0400 Body height 172.72 cm PHYSICIAN NO [facility] 05-26-2024 21:36-0400 Body temperature 99 [degF] PHYSICIAN NO [facility] 05-26-2024 21:36-0400 Body weight 81.5 kg PHYSICIAN NO [facility] 05-26-2024 21:36-0400 Diastolic blood pressure 81 mm[Hg] PHYSICIAN NO [facility] 05-26-2024 21:36-0400 Heart rate 86 /min PHYSICIAN NO [facility] 05-26-2024 21:36-0400 Respiratory rate 18 /min PHYSICIAN NO [facility] 05-26-2024 21:36-0400 SaO2% (BldA) [Mass fraction] 99 % PHYSICIAN NO [facility] 05-26-2024 21:36-0400 Systolic blood pressure 135 mm[Hg] PHYSICIAN NO [facility] 11-02-2023 11:12-0500 Body mass index (BMI) [Ratio] 27.3 kg/m2 Maria Luisa Kiepert DATABASE DEVELOPER Work Phone: [facility] 11-02-2023 11:12-0500 Body temperature 97.39 [degF] Maria Luisa Kiepert DATABASE DEVELOPER Work Phone: [facility] 11-02-2023 11:12-0500 Body weight 80.83 kg Maria Luisa Kiepert DATABASE DEVELOPER Work Phone: [facility] 11-02-2023 11:12-0500 Diastolic blood pressure 68 mm[Hg] Maria Luisa Kiepert DATABASE DEVELOPER Work Phone: [facility] 01-21-2024 11:12-0500 Heart rate 86 /min Maria Luisa Kiepert DATABASE DEVELOPER Work Phone: [facility] 11-02-2023 11:12-0500 Respiratory rate 18 /min Maria Luisa Kiepert DATABASE DEVELOPER Work Phone: [facility] 11-02-2023 11:12-0500 SaO2% (BldA) [Mass fraction] 98 % Maria Luisa Kiepert DATABASE DEVELOPER Work Phone: [facility] 11-02-2023 11:12-0500 Systolic blood pressure 112 mm[Hg] Maria Luisa Kiepert DATABASE DEVELOPER Work Phone: [facility] 06-05-2023 13:27-0400 Body height 175.26 cm PHYSICIAN NO [facility] 06-05-2023 13:27-0400 Body temperature 98.2 [degF] PHYSICIAN NO [facility] 06-05-2023 13:27-0400 Body weight 78.4 kg PHYSICIAN NO [facility] 06-05-2023 13:27-0400 Diastolic blood pressure 77 mm[Hg] PHYSICIAN NO [facility] 06-05-2023 13:27-0400 Heart rate 73 /min PHYSICIAN NO [facility] 06-05-2023 13:27-0400 Respiratory rate 18 /min PHYSICIAN NO [facility] 06-05-2023 13:27-0400 SaO2% (BldA) [Mass fraction] 97 % PHYSICIAN NO [facility] 06-05-2023 13:27-0400 Systolic blood pressure 124 mm[Hg] PHYSICIAN NO [facility] 11-12-2022 10:49-0500 Body height 172.72 cm PHYSICIAN NO [facility] 11-12-2022 10:49-0500 Body temperature 98.3 [degF] PHYSICIAN NO [facility] 11-12-2022 10:49-0500 Body weight 76.2 kg PHYSICIAN NO [facility] 11-12-2022 10:49-0500 Diastolic blood pressure 98 mm[Hg] PHYSICIAN NO [facility] 11-12-2022 10:49-0500 Heart rate 85 /min PHYSICIAN NO [facility] 11-12-2022 10:49-0500 Respiratory rate 18 /min PHYSICIAN NO [facility] 11-12-2022 10:49-0500 SaO2% (BldA) [Mass fraction] 99 % PHYSICIAN NO [facility] 11-12-2022 10:49-0500 Systolic blood pressure 144 mm[Hg] PHYSICIAN NO [facility] Encounters Encounter Date Encounter Type Care Provider Facility Start: 12-24-2024 End: 12-24-2024 ambulatory PHYSICIAN NO [facility] Work Phone: Start: 12-24-2024 End: 12-24-2024 Patient encounter procedure PHYSICIAN NO [facility] Labor - O/P Start: 12-09-2024 End: 12-09-2024 Bamboo flowsheet Edie L Floro CNM Work Phone: [facility] Start: 12-09-2024 End: 12-09-2024 Bamboo flowsheet Edie L Floro CNM Work Phone: [facility] Start: 12-09-2024 End: 12-09-2024 ambulatory EDIE L FLORO Not Available Start: 12-03-2024 End: 12-03-2024 External Result Encounter Luciano Cooper MD Work Phone: [facility] Unsolicited Start: 12-03-2024 End: 12-03-2024 External Result Encounter Luciano Cooper MD Work Phone: [facility] Unsolicited Start: 12-03-2024 End: 12-03-2024 Patient encounter procedure PHYSICIAN NO [facility] Labor - O/P Start: 12-03-2024 End: 12-03-2024 ambulatory PHYSICIAN NO [facility] Work Phone: Start: 11-25-2024 End: 11-25-2024 Bamboo flowsheet Edie L Floro CNM Work Phone: [facility] Start: 11-25-2024 End: 11-25-2024 Bamboo flowsheet Edie L Floro CNM Work Phone: [facility] Start: 11-25-2024 End: 11-25-2024 Office outpatient visit 15 minutes Edie Clarissa Tayloro CNM Work Phone: [facility] Comment on above: Encounter for prenat al care of first , third trimester (Primary Dx) Start: 11-25-2024 End: 11-25-2024 ambulatory EDIE Clarissa TAYLORO Not Available Start: 11-18-2024 End: 11-18-2024 Emergency department patient visit PHYSICIAN NO [facility] Work Phone: Start: 11-08-2024 End: 11-08-2024 Patient encounter procedure PHYSICIAN NO [facility] - O/P Start: 11-08-2024 End: 11-08-2024 ambulatory PHYSICIAN NO [facility] Work Phone: Start: 11-08-2024 End: 11-08-2024 External Result Encounter Vee E Rinkes DO Work Phone: [facility] Unsolicited Start: 11-08-2024 End: 11-08-2024 External Result Encounter Vee E Rinkes DO Work Phone: [facility] Unsolicited Start: 11-03-2024 End: 11-03-2024 Telephone encounter Edie Tayloro CNM Work Phone: [facility] Start: 10-29-2024 End: 10-29-2024 Telephone encounter [facility] Provider Unallocated Work Phone: [facility] Start: 10-28-2024 End: 10-28-2024 Bamboo flowsheet Edie L Floro CNM Work Phone: [facility] Start: 10-28-2024 End: 10-28-2024 Bamboo flowsheet Edie L Floro CNM Work Phone: [facility] Start: 10-28-2024 End: 10-28-2024 ambulatory EDIE L FLORO Not Available Start: 10-28-2024 End: 10-28-2024 Office outpatient visit 15 minutes Edie L Floro CNM Work Phone: [facility] Comment on above: Encounter for prenat al care of first , third trimester (Primary Dx); Screening for iron deficiency anemia; Screening for diabetes mellitus (DM); related condition in third trimester Start: 10-17-2024 Emergency department patient visit Ailyn Jocelyne [facility] Facility:[facility] Start: 10-07-2024 End: 10-07-2024 ambulatory PHYSICIAN NO FAMILY Facility:[facility] Start: 10-07-2024 End: 10-07-2024 Patient encounter procedure PHYSICIAN NO [facility] Labor - O/P Start: 10-04-2024 End: 10-04-2024 Patient encounter procedure PHYSICIAN NO [facility] Labor - O/P Start: 10-04-2024 End: 10-04-2024 ambulatory PHYSICIAN NO FAMILY Facility:[facility] Start: 09-30-2024 End: 09-30-2024 Bamboo flowsheet Edie L Floro CNM Work Phone: [facility] Start: 09-30-2024 End: 09-30-2024 Bamboo flowsheet Edie L Floro CNM Work Phone: [facility] Start: 09-30-2024 End: 09-30-2024 Office outpatient visit 15 minutes Edie L Floro CNM Work Phone: [facility] Comment on above: Encounter for prenat al care of first , second trimester (Primary Dx) Start: 09-30-2024 End: 09-30-2024 ambulatory EDIE L FLORO Not Available Start: 09-08-2024 End: 09-08-2024 Office outpatient visit 15 minutes Edie L Floro CNM Work Phone: [facility] Comment on above: Encounter for prenat al care of first , second trimester (Primary Dx) Start: 09-08-2024 End: 09-08-2024 ambulatory EDIE L FLORO Not Available Start: 08-28-2024 End: 08-28-2024 Emergency department patient visit PHYSICIAN NO [facility] Work Phone: Start: 08-24-2024 End: 08-24-2024 Emergency department patient visit PHYSICIAN NO [facility] Work Phone: Start: 08-19-2024 End: 08-19-2024 Telephone encounter Edie L Floro CNM Work Phone: [facility] Start: 08-12-2024 End: 08-12-2024 Bamboo flowsheet Edie L Floro CNM Work Phone: [facility] Start: 08-12-2024 End: 08-12-2024 Bamboo flowsheet Edie L Floro CNM Work Phone: [facility] Start: 08-12-2024 End: 08-12-2024 Office outpatient visit 15 minutes Edie L Floro CNM Work Phone: [facility] Comment on above: Encounter for prenat al care of first , second trimester (Primary Dx); related condition in second trimester Start: 08-12-2024 End: 08-12-2024 ambulatory EDIE L FLORO Not Available Start: 07-13-2024 End: 07-13-2024 Bamboo flowsheet Edie L Floro CNM Work Phone: [facility] Start: 07-13-2024 End: 07-13-2024 Bamboo flowsheet Edie L Floro CNM Work Phone: [facility] Start: 07-13-2024 End: 07-13-2024 ambulatory EDIE L FLORO Not Available Start: 07-13-2024 End: 07-13-2024 Office outpatient visit 15 minutes Edie L Floro CNM Work Phone: [facility] Comment on above: Encounter for prenat al care of first , first trimester (Primary Dx) Start: 06-29-2024 End: 06-30-2024 Emergency department patient visit NO PCP NO PCP [facility] Start: 06-15-2024 End: 06-15-2024 Office outpatient visit 15 minutes Edie L Floro CNM Work Phone: [facility] Comment on above: GA: 8w1d Start: 06-15-2024 End: 06-15-2024 ambulatory EDIE L FLORO Not Available Start: 06-01-2024 End: 06-01-2024 Bamboo flowsheet Edie L Floro CNM Work Phone: [facility] Start: 06-01-2024 End: 06-01-2024 Bamboo flowsheet Edie L Floro CNM Work Phone: [facility] Start: 06-01-2024 End: 06-01-2024 Office outpatient visit 15 minutes Edie L Floro CNM Work Phone: [facility] Comment on above: GA: 6w1d Start: 06-01-2024 End: 06-01-2024 ambulatory EDIE L FLORO Not Available Start: 05-31-2024 End: 06-01-2024 Emergency department patient visit JOS LANDIS [facility] Start: 05-28-2024 End: 05-29-2024 Emergency department patient visit PHYSICIAN NO [facility] Work Phone: Start: 05-27-2024 End: 05-27-2024 Emergency department patient visit Monty [facility] Facility:[facility] Start: 05-26-2024 End: 05-26-2024 Emergency department patient visit PHYSICIAN NO [facility] Work Phone: Start: 05-25-2024 ambulatory [facility] Start: 05-21-2024 End: 05-21-2024 Emergency department patient visit MOUNIKA RICE [facility] Start: 04-01-2024 End: 04-01-2024 ambulatory EDIE L FLORO Not Available Start: 12-19-2023 End: 12-19-2023 ambulatory EDIE L FLORO Not Available Start: 12-17-2023 End: 12-17-2023 ambulatory EDIE L FLORO Not Available Start: 11-02-2023 End: 11-02-2023 Office outpatient visit 25 minutes Maria Luisa Naranjo NP Work Phone: [facility] Comment on above: Impacted cerumen of right ear (Primary Dx) Start: 06-05-2023 End: 06-05-2023 Emergency department patient visit PHYSICIAN NO [facility] Work Phone: Start: 11-12-2022 End: 11-12-2022 Emergency department patient visit PHYSICIAN NO [facility] Work Phone: Procedures Date Procedure Procedure Detail Performing Clinician Start: 12-03-2024 Ultrasonography for antepartum monitoring of fetus PHYSICIAN NO FAMILY Start: 12-03-2024 Ultrasonography for antepartum monitoring of fetus PHYSICIAN NO FAMILY Start: 12-03-2024 Ftl fibronectin cerv icovag secretions semi-soo Luciano Cooper MD Work Phone: Start: 12-03-2024 Urnls dip stick/tabl et rgnt auto w/o microscopy Luciano Cooper MD Work Phone: Start: 11-18-2024 Viral nucleic acid assay PHYSICIAN NO FAMILY Start: 11-08-2024 Urnls dip stick/tabl et rgnt non-auto w/o micrscp Vee Yang DO Work Phone: Start: 08-28-2024 Determination of kimberly wth of fungi PHYSICIAN NO FAMILY Start: 08-28-2024 Trichomonas vaginali s detection PHYSICIAN NO FAMILY Start: 05-29-2024 Trichomonas vaginali s detection PHYSICIAN NO FAMILY Start: 06-05-2023 Mycology culture PHYSIC EDDIE NO FAMILY Start: 06-05-2023 Trichomonas vaginali s detection PHYSICIAN NO FAMILY Plan of Treatment Date Care Activity Detail Author Start: 12-24-2024 [facility] Start: 12-24-2024 Hospital admission [facility] Start: 12-24-2024 [facility] Start: 12-09-2024 End: 12-09-2024 Patient encounter procedure 12/09/2024 1:30 PM EST Routine [facility] [address] [place] [address] Edie Mays, CNM [address] [place] [address] [facility] Start: 12-03-2024 Hospital admission [facility] Start: 11-25-2024 End: 11-25-2024 Professional / ancillary services management 11/25/2024 2:00 PM EST Ancillary Procedure [facility] [address] [id number] [facility] Start: 11-25-2024 End: 11-25-2024 Patient encounter procedure [facility] Comment on above: Arrived Start: 11-08-2024 [facility] Start: 11-08-2024 Hospital admission [facility] Start: 10-28-2024 End: 10-28-2025 CBC panel - Blood by Automated count CBC Lab Routine Screening for iron deficiency anemia Expected: 10/28/2024 (Approximate), Expires: 10/28/2025 [facility] Comment on above: Expected: 10/28/2024 (Approximate), Expires: 10/28/2025 Start: 10-28-2024 End: 10-28-2025 GLUCOSE, GESTATIONAL SCREEN (50G)-135 CUTOFF GLUCOSE, GESTATIONAL SCREEN (50G)-135 CUTOFF Lab Routine Screening for diabetes mellitus (DM) Expected: 10/28/2024 (Approximate), Expires: 10/28/2025 [facility] Work Phone: Comment on above: Expected: 10/28/2024 (Approximate), Expires: 10/28/2025 Start: 10-28-2024 End: 10-28-2025 US for US OB follow up transabdominal approach Imaging Routine related condition in third trimester Expected: 10/28/2024, Expires: 10/28/2025 [facility] Comment on above: Expected: 10/28/2024 , Expires: 10/28/2025 Start: 10-28-2024 End: 10-28-2024 Patient encounter procedure 10/28/2024 1:30 PM EST Routine [facility] [address] [facility] [place] [id number] Edie Mays, CNM [address] [facility] [address] [facility] Start: 10-07-2024 [facility] Start: 10-04-2024 [facility] Start: 10-04-2024 Hospital admission [facility] Start: 09-30-2024 End: 09-30-2024 Patient encounter procedure 09/30/2024 1:30 PM EST Routine [facility] [address] [facility] [place] [address] Edie Mays, CNM [address] [place] [address] Arrived [facility] Comment on above: Arrived Start: 09-08-2024 End: 09-08-2024 Patient encounter procedure 09/08/2024 10:30 AM EST Routine [facility] [address] [facility] [place] [id number] Edie Mays, CNM [address] [facility] [address] [facility] Start: 09-08-2024 End: 09-08-2024 Professional / ancillary services management 09/08/2024 10:00 AM EST Ancillary Procedure [facility] [address] [place] [address] [facility] Start: 08-28-2024 [facility] Start: 08-12-2024 End: 08-12-2025 US for US OB 14+ weeks anatomy scan Imaging Routine related condition in second trimester Expected: 08/12/2024, Expires: 08/12/2025 [facility] Work Phone: Comment on above: Expected: 08/12/2024 , Expires: 08/12/2025 Start: 08-12-2024 End: 08-12-2024 Patient encounter procedure 08/12/2024 9:45 AM EDT Routine [facility] [address] [facility] [place] [id number] Edie Mays, CN [address] [facility] [place] [address] Arrived [facility] Comment on above: Arrived Start: 07-13-2024 End: 07-13-2024 Patient encounter procedure 07/13/2024 9:30 AM EDT Routine [facility] [address] [facility] [place] [id number] Edie Mays, CNM [address] [facility] [place] [address] [facility] Start: 07-06-2024 End: 07-06-2024 Patient encounter procedure 07/06/2024 1:30 PM EDT Office Visit [facility] [address] [facility] [place] [id number] Edie Mays, CN [address] [place] [address] [facility] Start: 06-15-2024 End: 06-15-2025 Bacteria identified in Urine by Culture Urine culture Microbiology Routine Encounter for care of first , first trimester Expected: 06/15/2024 (Approximate), Expires: 06/15/2025 [facility] Comment on above: Expected: 06/15/2024 (Approximate), Expires: 06/15/2025 Start: 06-15-2024 End: 06-15-2025 DRUG TOX MONITORIGN 6 W/ CONF,URINE DRUG TOX MONITORIGN 6 W/ CONF,URINE Lab Routine Encounter for care of first , first trimester Expected: 06/15/2024 (Approximate), Expires: 06/15/2025 [facility] Comment on above: Expected: 06/15/2024 (Approximate), Expires: 06/15/2025 Start: 06-15-2024 End: 06-15-2025 Neisseria gonorrhoeae DNA [Presence] in Cervical mucus by ANGELY with probe detection C. trachomatis / N. gonorrhoeae, DNA probe Lab Routine Encounter for care of first , first trimester Expected: 06/15/2024 (Approximate), Expires: 06/15/2025 [facility] Comment on above: Expected: 06/15/2024 (Approximate), Expires: 06/15/2025 Start: 06-15-2024 End: 06-15-2025 TSH W/REFLEX TO FT4 TSH W/REFLEX TO FT4 Lab Routine Encounter for care of first , first trimester Expected: 06/15/2024 (Approximate), Expires: 06/15/2025 [facility] Comment on above: Expected: 06/15/2024 (Approximate), Expires: 06/15/2025 Start: 06-15-2024 End: 06-15-2025 URINALYSIS MICROSCOPIC URINALYSIS MICROSCOPIC Lab Routine Encounter for care of first , first trimester Expected: 06/15/2024 (Approximate), Expires: 06/15/2025 [facility] Comment on above: Expected: 06/15/2024 (Approximate), Expires: 06/15/2025 Start: 06-15-2024 End: 06-15-2024 Professional / ancillary services management 06/15/2024 9:45 AM EDT Ancillary Procedure [facility] [address] [address] [facility] Start: 06-15-2024 End: 06-15-2024 ambulatory 06/15/2024 9:30 AM EDT Initial [facility] [address] [place] [address] Edie Mays, CN [address] [place] [address] [facility] Start: 06-13-2024 Influenza vaccination Influenza Vacc ine (#1) [facility] Start: 06-01-2024 End: 06-01-2024 ambulatory 06/01/2024 2:00 PM EDT Initial [facility] [address] [place] [id number] Edie Mays, CN [address] [place] [address] Arrived [facility] Comment on above: Arrived Start: 05-29-2024 Genital Culture Genital Culture [facility] Start: 05-29-2024 [facility] Start: 05-28-2024 Diagnostic ultrasoun d of gravid uterus [facility] Start: 05-28-2024 Transvaginal obstetr ic ultrasonography [facility] Start: 05-26-2024 [facility] Start: 11-27-2023 End: 11-27-2023 Patient encounter procedure 11/27/2023 10:15 AM EST Office Visit [facility] [address] [facility] [address] [place] [id number] Luciano Cooper MD [address] [place] [address] [facility] Start: 06-13-2023 Influenza vaccination Influenza Vacc ine (#1) [facility] Start: 06-05-2023 [facility] ABO/Rh ABO/Rh Lab Routi ne Encounter for care of first , first trimester Ordered: 06/15/2024 [facility] Comment on above: Ordered: 06/15/2024 Anion gap measurement [facility] Antibody screen Antibody screen Lab Routine Encounter for care of first , first trimester Ordered: 06/15/2024 [facility] Comment on above: Ordered: 06/15/2024 Bacteria identified in Genital specimen by Aerobe culture [facility] Basophils [#/volume] in Blood by Automated count [facility] Basophils/100 leukoc ytes in Blood by Automated count [facility] CBC panel - Blood by Automated count CBC Lab Routine Encounter for care of first , first trimester Ordered: 06/15/2024 [facility] Comment on above: Ordered: 06/15/2024 Chlamydia trachomati s DNA [Presence] in Unspecified specimen by ANGELY with probe detection [facility] Ear cerumen removal Ear cerumen removal Procedures Routine Impacted cerumen of right ear Ordered: 11/02/2023 [facility] Work Phone: Comment on above: Ordered: 11/02/2023 Eosinophils/100 leukocytes in Blood by Automated count [facility] Erythrocyte distribu tion width [Ratio] by Automated count [facility] Erythrocytes [#/volu me] in Blood [facility] Hematocrit [Volume Fraction] of Blood [facility] Hemoglobin [Mass/vol ume] in Blood [facility] Hemoglobin A1c/Hemoglobin.total in Blood Hemoglobin A1c Lab Routine Encounter for care of first , first trimester Ordered: 06/15/2024 [facility] Comment on above: Ordered: 06/15/2024 Hepatitis B virus burch rface Ag [Presence] in Serum or Plasma by Immunoassay Hepatitis B surface antigen Lab Routine Encounter for care of first , first trimester Ordered: 06/15/2024 [facility] Work Phone: Comment on above: Ordered: 06/15/2024 Hepatitis C virus Ab [Presence] in Serum or Plasma by Immunoassay Hepatitis C antibody Lab Routine Encounter for care of first , first trimester Ordered: 06/15/2024 [facility] Comment on above: Ordered: 06/15/2024 HIV-1/HIV-2 antigen/antibody combination immunoassay HIV-1 and HIV-2 antibodies Lab Routine Encounter for care of first , first trimester Ordered: 06/15/2024 [facility] Comment on above: Ordered: 06/15/2024 Leukocytes [#/volume ] corrected for nucleated erythrocytes in Blood by Automated coun [facility] Leukocytes [#/volume ] in Blood [facility] Lymphocytes [#/volum e] in Blood by Automated count [facility] Lymphocytes/100 leukocytes in Blood by Automated count [facility] MCH [Entitic mass] b y Automated count [facility] MCHC [Mass/volume] b y Automated count [facility] MCV [Entitic volume] by Automated count [facility] Monocytes [#/volume] in Blood by Automated count [facility] Monocytes/100 leukoc ytes in Blood by Automated count [facility] Neisseria gonorrhoea e DNA [Presence] in Unspecified specimen by ANGELY with probe detection [facility] Neutrophils [#/volum e] in Blood by Automated count [facility] Neutrophils/100 leukocytes in Blood by Automated count [facility] Nucleated erythrocyt es [Presence] in Blood by Automated count [facility] Patient Education [facility] Work Phone: Patient referral [facility] Work Phone: Platelet mean volume [Entitic volume] in Blood by Automated count [facility] Platelets [#/volume] in Blood [facility] Reagin Ab [Presence] in Serum by RPR RPR Lab Routine Encounter for care of first , first trimester Ordered: 06/15/2024 [facility] Comment on above: Ordered: 06/15/2024 Rubella antibody, IgG Rubella an tibody, IgG Lab Routine Encounter for care of first , first trimester Ordered: 06/15/2024 [facility] Comment on above: Ordered: 06/15/2024 Trichomonas vaginali s DNA [Presence] in Unspecified specimen by ANGELY with probe detection [facility] Payers Date Payer Category Payer Self-pay [id number] 2023 Medicaid [facility] MEDICAID [place] [id number] 2023-Present [address] [place] [address] [id number] 2023 Medicaid (Managed Care) [facility] [employer] [id number] 2023 Medicaid [id number] 2022 Medicaid [id number] 2003 Unknown [id number] 2.16840.1.403783.3.579.2. 1285 2003 Unknown [id number] 2.16840.1.002072.3.579.2. 1285 2003 Unknown [id number] 2.16840.1.733132.3.579.2. 1285 2003 Unknown [id number] 2.16840.1.858400.3.579.2. 1285 2003 Unknown [id number] 2.16840.1.147333.3.579.2. 1285 2003 Unknown [id number] 2.16840.1.624631.3.579.2. 2003 Unknown [id number] 2.16.840.1.690004.3.579.2. 2003 Unknown [id number] 2.16840.1.712531.3.579.2. 1258 2003 Unknown [id number] 2.16.840.1.389906.3.579.2. 1258 2003 Unknown [id number] 2.16.840.1.656543.3.579.2. 1258 2003 Unknown [id number] 2.16.840.1.929582.3.579.2. 1258 2003 Unknown [id number] 2.16.840.1.167336.3.579.2. 1258 2003 Unknown [id number] 2.16.840.1.475786.3.579.2. 1258 2003 Unknown [id number] 2.16.840.1.573062.3.579.2. 1258 2003 Unknown [id number] 2.16.840.1.976618.3.579.2. 1258 2003 Unknown [id number] 2.16.840.1.205109.3.579.2. 1258 2003 Unknown [id number] 2.16.840.1.711392.3.579.2. 1258 2003 Unknown [id number] 2.16.840.1.390807.3.579.2. 1258 2003 Unknown [id number] 2.16.840.1.806428.3.579.2. 1258 2003 Unknown [id number] 2.16.840.1.116203.3.579.2. 1258 2003 Unknown [id number] 2.16.840.1.356769.3.579.2. 1258 2003 Unknown [id number] 2.16.840.1.637819.3.579.2. 1258 Medicaid [id number] Medicaid [place] Medicaid [id number] Medicaid [facility] [id number] Unknown MMO [id number] Unknown [place] BC/BS [id number] Unknown Safe Program [id number] Unknown [id number] 2.16.840.1.251667.3.579.2. 531 Unknown [id number] 2.16.840.1.934831.3.579.2. 531 Unknown [id number] 2.16.840.1.948413.3.579.2. 531 Unknown [id number] 2.16.840.1.402744.3.579.2. 531 Unknown [id number] 2.16.840.1.232131.3.579.2. 531 Unknown [id number] 2.16.840.1.190009.3.579.2. 531 Unknown [id number] 2.16.840.1.317236.3.579.2. 531 Unknown [id number] 2.16.840.1.721224.3.579.2. 531 Unknown [id number] 2.16.840.1.429598.3.579.2. 531 Social History Date Type Detail Facility Start: 11-12-2022 End: 05-28-2024 Tobacco smoking status MNIS Smoker (finding) [facility] Start: 2005 Sex Assigned At Female F [facility] Start: 11-02-2023 End: 08-24-2024 Tobacco smoking status MNIS Never smoked tobacco [facility] Start: 11-02-2023 Tobacco use and exposure Smokeless tobacco non-user [facility] Start: 11-02-2023 End: 04-01-2024 Alcohol intake Lifetime non-drinker (finding) [facility] Start: 11-02-2023 End: 06-15-2024 History of Social function [facility] Start: 11-02-2023 End: 06-15-2024 Tobacco use panel [facility] Start: 2005 Sex Assigned At Not on file [facility] Start: 05-03-2024 [facility] Start: 06-01-2024 End: 06-15-2024 Alcoholic beverage intake Ex-drinker (finding) [facility] Start: 04-01-2024 Alcohol Comment caffeine: 3-4 cups caffine [facility] Start: 08-24-2024 End: 12-24-2024 Sex Female (finding) [facility] Start: 08-28-2024 End: 11-18-2024 Tobacco smoking status NHIS Ex-smoker (finding) [facility] Goals Date Patient Goal Desired Activity /State Personal health goal Clinical Notes 11-02-2023 to 12-03-2024 Edie Clarissa Mays CNM - 11/25/2024 1:30 PM ESTTelephone Encounter - Simona Martinez - 11/03/2024 12:22 PM ESTTelephone Encounter - Simona Martinez - 11/03/2024 12:22 PM EST Note Date & Type Note Facility 12-03-2024 Radiology Diagnostic study note [facility] [place] [address] Ultrasound Report Signed Patient: Kisha Lora MR#: [id number] : 2005 Acct:[id number] Age/Sex: 19 / F ADM Date: 5 Loc: Room: [address] [place] [address] Type: [facility] CL Attending Dr: Luciano Cooper MD Ordering Provider: HARITHA Burdick Date of Service: 12/03/24 US/US OB biophysical profile: 32 wks, decreased fetalmovement Copies to: Luciano Cooper MD-MARIA ES~ Ultrasound of surgical biophysical profile HISTORY: Decreased movement. Failed prior biophysical profile Prior measurement obtained earlier today. There is adequate tone, gross body movement, breathing movement and amniotic fluid volume. heart rate are 4 9 bpm. Fetus in vertex presentation. Amniotic fluid index 12.34 cm. US/US OB biophysical profile IMPRESSION: Adequate ultrasound biophysical profile with score of 8 out of 8. Impression dictated by: Craig Hassan M.D.12/03/2024 3:10 PM Dictation Location: [facility] Tech: Ivette Thomson Transcribed By: WILLOW 12/03/24 1510 Dictated By: Craig Hassan DO 12/03/24 1509 Signed By: 12/03/24 1510 [facility] 12-03-2024 Radiology Diagnostic study note [facility] Main [place] [id number] Ultrasound Report Signed Patient: Kisha Lora MR#: [id number] : 2005 Acct:[id number] Age/Sex: 19 / F ADM Date: 5 Loc: Room: [address] [place] [address] Type: REG CLI Attending Dr: Luciano Cooper MD Ordering Provider: Luciano Cooper MD-[facility] Date of Service: 12/03/24 US/US OB biophysical profile: Decreased movement Copies to: Luciano Cooper MD-[facility]~ Ultrasound obstetrical biophysical profile HISTORY: Decreased movement The average gestational age by ultrasound is 32 weeks 6 days. The estimated weight is 4 lbs. 8 oz. There is adequate tone, gross body movement,and amniotic fluid volume. The breathing movement is not adequate. The amniotic fluid index is 11.94 cm. The heart rate 143 bpm. The fetus is in vertex presentation. Suspected right hydrocele US/US OB biophysical profile IMPRESSION: Suboptimal biophysical profile with inadequate breathing movement. Total score 6 out of 8. Amniotic fluid index 11.9 cm. heart rate 143 bpm. Impression dictated by: Craig Hassan M.D.12/03/2024 1:04 PM Dictation Location: [place] [address] Tech: Jennifer David Transcribed By: WILLOW 12/03/24 1304 Dictated By: Craig Hassan DO 12/03/24 1256 Signed By: 12/03/24 1304 [facility] 11-25-2024 History of Presen t illness Narrative Subjective No chief complaint on file. Kisha Lora is a 19 y.o. at 31w3d with a working estimated date of delivery of 01/24/2025, by Last Menstrual Period who presents for a routine visit. She denies vaginal bleeding, leakage of fluid, decreased movements, or contractions. OB History Para Term AB Living 2 0 0 0 1 0 SAB IAB Ectopic Multiple Live Births 1 0 0 0 0 # Outcome Date GA Lbr Juan R/2nd Weight Sex Type Anes PTL Lv 2 Current 1 SAB 09/03/20 Her is complicated by: Objective Physical Exam weight: 232 lb Expected Total Weight Gain: 15 lb-25 lb Pregravid BMI: 26.80 BP: 120/80 Urine protein-negative Urine glucose-negative Assessment/Plan Diagnoses and all orders for this visit: Encounter for care of first , third trimester Continue vitamin. Labs reviewed. Expected mode of delivery Follow up in 1 week for a routine visit. documented in this encounter [facility] 11-03-2024 Telephone encounter Note Pt had a 1hour glucose test about a week ago and still has questions, please return call to [phone] [facility] 11-03-2024 Miscellaneous Notes Pt had a 1hour glucose test about a week ago and still has questions, please return call to [phone] documented in this encounter [facility] 10-29-2024 Telephone encounter Note Patient called and inquired about the lab results. Please give her a call back. [facility] 10-29-2024 Miscellaneous Notes Patient called and inquired about the lab results. Please give her a call back. documented in this encounter [facility] 10-28-2024 History of Presen t illness Narrative Subjective No chief complaint on file. Kisha Lora is a 19 y.o. at 27w3d with a working estimated date of delivery of 01/24/2025, by Last Menstrual Period who presents for a routine visit. She denies vaginal bleeding, leakage of fluid, decreased movements, or contractions. OB History Para Term AB Living 2 0 0 0 1 0 SAB IAB Ectopic Multiple Live Births 1 0 0 0 0 # Outcome Date GA Lbr Juan R/2nd Weight Sex Type Anes PTL Lv 2 Current 1 SAB 09/03/20 Her is complicated by: The following portions of the chart were reviewed this encounter and updated as appropriate: Objective Physical Exam weight: 220 lb Expected Total Weight Gain: 15 lb-25 lb Pregravid BMI: 26.80 Urine protein-negative Urine glucose-negative Labs: reviewed Imaging Assessment/Plan Diagnoses and all orders for this visit: Encounter for care of first , third trimester Screening for iron deficiency anemia - CBC; Future Screening for diabetes mellitus (DM) - GLUCOSE, GESTATIONAL SCREEN (50G)-135 CUTOFF; Future related condition in third trimester - US OB follow up transabdominal approach; Future Continue vitamin. Labs reviewed. Rhogam GTT done today Follow up in 2 weeks for a routine visit. documented in this encounter [facility] 09-30-2024 History of Presen t illness Narrative Subjective No chief complaint on file. Kisha Lora is a 19 y.o. at 23w3d with a working estimated date of delivery of 01/24/2025, by Last Menstrual Period who presents for a routine visit. She denies vaginal bleeding, leakage of fluid, decreased movements, or contractions. OB History Para Term AB Living 2 0 0 0 1 0 SAB IAB Ectopic Multiple Live Births 1 0 0 0 0 # Outcome Date GA Lbr Juan R/2nd Weight Sex Type Anes PTL Lv 2 Current 1 SAB 09/03/20 Her is complicated by: marijuana use The following portions of the chart were reviewed this encounter and updated as appropriate: Objective Physical Exam weight: 205 lb Expected Total Weight Gain: 15 lb-25 lb Pregravid BMI: 26.80 BP: 120/70 Urine protein-negative Urine glucose-negative Labs: reviewed Imaging Assessment/Plan Continue vitamin. Labs reviewed. Rhogam GTT . Follow up in 2 weeks for a routine visit. documented in this encounter [facility] 09-08-2024 History of Presen t illness Narrative Subjective No chief complaint on file. Kisha Lora is a 19 y.o. at 20w2d with a working estimated date of delivery of 01/24/2025, by Last Menstrual Period who presents for a routine visit. She denies vaginal bleeding, leakage of fluid, decreased movements, or contractions. OB History Para Term AB Living 2 0 0 0 1 0 SAB IAB Ectopic Multiple Live Births 1 0 0 0 0 # Outcome Date GA Lbr Juan R/2nd Weight Sex Type Anes PTL Lv 2 Current 1 SAB 09/03/20 Her is complicated by: The following portions of the chart were reviewed this encounter and updated as appropriate: Objective Physical Exam Expected Total Weight Gain: 15 lb-25 lb Pregravid BMI: 26.80 BP: 120/80 Urine protein-negative Urine glucose-negative Labs: reviewed Imaging Assessment/Plan Continue vitamin. Labs reviewed. Rhogam GTT . Follow up in 2 weeks for a routine visit. documented in this encounter [facility] 08-19-2024 Telephone encounter Note Yesterday patient started to have cramping and wondered if the baby was growning or kicking. She almost went to ER but did not. Pt left vm today and was afraid of it not being answered and called back. Pt would like to discuss this with Cassie or Marge to see what she should do. She is currently 17 weeks. The cramping was worse when she stood up and it started to go into her back, Pain lasted about a good 20 minutes stopping and going. No pains today. She hasn't had any bleeding or anything. [phone] [facility] 08-19-2024 Miscellaneous Notes Yesterday patient started to have cramping and wondered if the baby was growning or kicking. She almost went to ER but did not. Pt left vm today and was afraid of it not being answered and called back. Pt would like to discuss this with Cassie or Marge to see what she should do. She is currently 17 weeks. The cramping was worse when she stood up and it started to go into her back, Pain lasted about a good 20 minutes stopping and going. No pains today. She hasn't had any bleeding or anything. [phone] documented in this encounter [facility] 08-12-2024 History of Presen t illness Narrative Subjective No chief complaint on file. Kisha Lora is a 19 y.o. at 16w3d with a working estimated date of delivery of 01/24/2025, by Last Menstrual Period who presents for a routine visit. She denies vaginal bleeding, leakage of fluid, decreased movements, or contractions. OB History Para Term AB Living 2 0 0 0 1 0 SAB IAB Ectopic Multiple Live Births 1 0 0 0 0 # Outcome Date GA Lbr Juan R/2nd Weight Sex Type Anes PTL Lv 2 Current 1 SAB 09/03/20 Her is complicated by: situational stress with father of baby's mother The following portions of the chart were reviewed this encounter and updated as appropriate: Objective Physical Exam weight: 183 lb Expected Total Weight Gain: 15 lb-25 lb Pregravid BMI: 26.80 BP: 120/80 Urine protein Urine glucose Labs: reviewed Imaging Assessment/Plan Diagnoses and all orders for this visit: Encounter for care of first , second trimester related condition in second trimester - US OB 14+ weeks anatomy scan; Future Discussion with patient about the stress with her boyfriend's mother. She has told patient she is worthless, will never be anything, and her son should leave herl patient tearful. Discussion on this and offered counseling and at this time she denies. We discussed safe boundaries and reaction to nasty comments and how to handle them. Patient feels better talking about it and receiving positive feedback. Her boyfriend said he doesn't want her to worry about it. Continue vitamin. Labs reviewed. Rhogam GTT at 28 weeks Follow up in 2 weeks for a routine visit. documented in this encounter [facility] 07-13-2024 History of Presen t illness Narrative Subjective No chief complaint on file. Kisha Lora is a 19 y.o. at 12w1d with a working estimated date of delivery of 01/24/2025, by Last Menstrual Period who presents for a routine visit. She denies vaginal bleeding, leakage of fluid, decreased movements, and contractions. OB History Para Term AB Living 2 0 0 0 1 0 SAB IAB Ectopic Multiple Live Births 1 0 0 0 0 # Outcome Date GA Lbr Juan R/2nd Weight Sex Type Anes PTL Lv 2 Current 1 SAB 09/03/20 Her is complicated by: The following portions of the chart were reviewed this encounter and updated as appropriate: Objective Physical Exam weight: 178 lb, Pregravid BMI: 26.80 Expected Total Weight Gain: 15 lb-25 lb BP: 112/70 Labs Imaging Assessment/Plan Diagnoses and all orders for this visit: Encounter for care of first , first trimester Urine protein-negative Urine glucose-negative Discussion with patient regarding frequent trips to the ER. She is 12 weeks and has been to the ER 5 times. We did discuss the ER is for emergent reasons. I did eduate her to always call the office for reasons and I can help triage her, I can see her, and if it's after hours the answering service can help her or connect her with me if needed. She states I'm just nervous and need to make sure ever Continue vitamin. Labs reviewed. Order placed for anatomy scan at 20 weeks. Follow up in 4 weeks for a routine visit. documented in this encounter [facility] 06-15-2024 History of Presen t illness Narrative Subjective No chief complaint on file. Kisha Lora is a 19 y.o. at 8w1d with a working estimated date of delivery of 01/24/2025, by Last Menstrual Period who presents for a routine visit. She denies vaginal bleeding, leakage of fluid, decreased movements, and contractions. OB History Para Term AB Living 2 0 0 0 1 0 SAB IAB Ectopic Multiple Live Births 1 0 0 0 0 # Outcome Date GA Lbr Juan R/2nd Weight Sex Type Anes PTL Lv 2 Current 1 SAB 09/03/20 Her is complicated by: threatened ab, early bleeding The following portions of the chart were reviewed this encounter and updated as appropriate: Objective Physical Exam weight: 180 lb, Pregravid BMI: 26.80 Expected Total Weight Gain: 15 lb-25 lb Labs Imaging Assessment/Plan Diagnoses and all orders for this visit: Encounter for care of first , first trimester - Hepatitis B surface antigen - Rubella antibody, IgG - CBC - Antibody screen - RPR - Hemoglobin A1c - TSH W/REFLEX TO FT4; Future - HIV-1 and HIV-2 antibodies - ABO/Rh - DRUG TOX MONITORIGN 6 W/ CONF,URINE; Future - Hepatitis C antibody - Urine culture; Future - URINALYSIS MICROSCOPIC; Future - C. trachomatis / N. gonorrhoeae, DNA probe; Future Threatened First trimester bleeding Urine protein Urine glucose Continue vitamin. Labs reviewed. Order placed for anatomy scan at 20 weeks. Follow up in 4 weeks for a routine visit. documented in this encounter [facility] 06-01-2024 History of Presen t illness Narrative Subjective Kisha Lora is a 19 y.o. at 6w1d with a working estimated date of delivery of 01/24/2025, by Last Menstrual Period who presents for an initial visit. This is planned. Patient Care Team: [facility] Provider MD Kerry as PCP - General (Family Medicine) Jose A Moralez DO as PCP - [facility] OB History Para Term AB Living 2 0 0 0 1 0 SAB IAB Ectopic Multiple Live Births 1 0 0 0 0 # Outcome Date GA Lbr Juan R/2nd Weight Sex Type Anes PTL Lv 2 Current 1 SAB 09/03/20 Her is complicated by: threatened , early bleeding, subchorionic hemorrhage. Patient referred by Gynecology History Last Pap The following portions of the chart were reviewed this encounter and updated as appropriate: Review of Systems Objective Physical Exam weight: 175 lb Expected Total Weight Gain: Could not be calculated Pregravid BMI: Could not be calculated Urine protein Urine glucose Labs Assessment/Plan Diagnoses and all orders for this visit: Threatened in first trimester Patient states she is no longer having bright red bleeding, does notice a scant amount of dark brown blood. I called [facility] and got verbal report from RN in ER that patient's US showed HR 125 and no active bleeding noted. Will follow up with me in 2 weeks for repeat US and labs . documented in this encounter [facility] 05-27-2024 Note Education Materials Obstetrics and Gynecology Vaginal Bleeding During , First Trimester Follow-up with your JUNIOR BRAND MANAGER for further evaluation of your threatened miscarriage. Return to the emergency department for any worsening symptoms A small amount of bleeding from the vagina, or spotting, is common during early . Some bleeding may be related to the , and some may not. In many cases, the bleeding is normal and is not a problem. However, bleeding can also be a sign of something serious. Normal things that may cause bleeding during the first trimester: ? Implantation of the fertilized egg in the lining of the uterus. ? Rapid changes in blood vessels. This is caused by changes that are happening to the body during . ? Sex. ? Pelvic exams. Abnormal things that may cause bleeding during the first trimester include: ? Infection or inflammation of the cervix. ? Growths or polyps on the cervix. ? Miscarriage or threatened miscarriage. ? that is growing outside of the uterus (ectopic ). ? A fertilized egg that becomes a mass of tissue (molar ). Tell your health care provider right away if there is any bleeding from your vagina. Follow these instructions at home: Monitoring your bleeding Monitor your bleeding. ? Pay attention to any changes in your symptoms. Let your health care provider know about any concerns. ? Try to understand when the bleeding occurs. Does the bleeding start on its own, or does it start after something is done, such as sex or a pelvic exam? ? Use a diary to record the things you see about your bleeding, including: ? The kind of bleeding you are having. Does the bleeding start and stop irregularly, or is it a constant flow? ? The severity of your bleeding. Is the bleeding heavy or light? ? The number of pads you use each day, how often you change them, and how soaked they are. ? Tell your health care provider if you pass tissue. He or she may want to see it. Activity ? Follow instructions from your health care provider about limiting your activity. Ask what activities are safe for you. ? Do not have sex until your health care provider says that this is safe. ? If needed, make plans for someone to help with your regular activities. General instructions ? Take [id number] and prescription medicines only as told by your health care provider. ? Do not take aspirin because it can cause bleeding. ? Do not use tampons or douche. ? Keep all follow-up visits. This is important. Contact a health care provider if: ? You have vaginal bleeding during any part of your . ? You have cramps or labor pains. ? You have a fever or chills. Get help right away if: ? You have severe cramps in your back or abdomen. ? You pass large clots or a large amount of tissue from your vagina. ? Your bleeding increases. ? You feel light-headed or weak, or you faint. ? You are leaking fluid or have a gush of fluid from your vagina. Summary ? A small amount of bleeding from the vagina is common during early . ? Be sure to tell your health care provider about any vaginal bleeding right away. ? Try to understand when bleeding occurs. Does bleeding occur on its own, or does it occur after something is done, such as sex or pelvic exams? ? Keep all follow-up visits. This is important. This information is not intended to replace advice given to you by your health care provider. Make sure you discuss any questions you have with your health care provider. Document Revised: 06/21/2021 Document Reviewed: 06/21/2021 Elsevier Patient Education ? 2022 [employer] [facility] 11-02-2023 History of Presen t illness Narrative HPI: Historian of HPI: patient Kisha Lora is a 18 y.o. female who presents today to the Urgent Care with the following complaints and denials which have been present for 3 day(s) Its been clogged for a week but its gotten worse in the past 3 days. Its not painful its just a lot of pressure. Denies fever or chills C/O Denies Symptom Comments [] [x] Runny Nose [] [x] Difficulty Swallowing [] [x] Sore Throat [] [x] Cough [x] [] Ear pressure Right ear [] [x] Fever [] [x] Chills [] [x] Nasal Congestion [] [x] Myalgia [] [x] Sinus Pain [] [x] Sinus Pressure Additional Comments: pt has not taken any OTC medications ROS: A complete system ROS was performed and negative aside from the pertinent positives noted in the HPI and PE. Physical Exam Vitals and nursing note reviewed. Constitutional: Appearance: Normal appearance. HENT: Head: Normocephalic and atraumatic. Right Ear: There is impacted cerumen. Nose: Nose normal. Mouth/Throat: Mouth: Mucous membranes are moist. Eyes: Conjunctiva/sclera: Conjunctivae normal. Cardiovascular: Rate and Rhythm: Normal rate and regular rhythm. Pulses: Normal pulses. Heart sounds: Normal heart sounds. Pulmonary: Effort: Pulmonary effort is normal. Abdominal: General: Bowel sounds are normal. Palpations: Abdomen is soft. Musculoskeletal: Cervical back: Neck supple. Skin: General: Skin is warm and dry. Capillary Refill: Capillary refill takes less than 2 seconds. Neurological: Mental Status: She is alert. Psychiatric: Mood and Affect: Mood normal. 1. Impacted cerumen of right ear Ear lavaged successfully. Return to clinic as neededPatient ID: Kisha Lora is a 18 y.o. female. Patient ID: Kisha Lora is a 18 y.o. female. Procedures Right ear lavage successful. Warm water and peroxide used. Ear curette used. Pt tolerated well. documented in this encounter [facility] Healthcare Evaluation note No assessment inform ation available [facility] Work Phone: Evaluation note Diagnosis Impacted cerumen of right ear- Primary Impacted cerumen documented in this encounter [facility] HealthcareEvaluation note* Diagnosis Encounter for care of first , second trimester- Primary related condition in second trimester documented in this encounter [facility] HealthcareEvaluation note* Diagnosis Encounter for care of first , first trimester- Primary documented in this encounter [facility] HealthcareEvaluation note* Diagnosis Threatened in first trimester- Primary Threatened , unspecified as to episode of care documented in this encounter [facility] HealthcareEvaluation note* Diagnosis Encounter for care of first , first trimester- Primary Threatened First trimester bleeding Unspecified hemorrhage in early , antepartum documented in this encounter [facility] HealthcareEvaluation note* Diagnosis Encounter for care of first , second trimester- Primary documented in this encounter [facility] HealthcareEvaluation note* Diagnosis Encounter for care of first , third trimester- Primary Screening for iron deficiency anemia Screening for diabetes mellitus (DM) Screening for diabetes mellitus related condition in third trimester documented in this encounter [facility] HealthcareEvaluation note* Diagnosis Encounter for care of first , third trimester- Primary documented in this encounter [facility] HealthcareHospital Discharge instructions Additional Instructions Take the doxycycline twice a day for 7 days take with food and take until completely gone Your culture results should be back 3 to 4 days we usually call you with results but if you do not receive a call after for 5 days you may call [phone] for results No sexual activity for 2 weeks Always use a condom [facility] Discharge instructions Additional Instructions Apply the miconazole every night for 7 nights for the vaginal itching If your cultures come back positive we will call you to arrange treatment Follow-up with your JUNIOR BRAND MANAGER Return to the ER for abdominal pain cramping bleeding or any other concerns [facility] Work Phone: Summary Purpose Family History Relationship Condition Age at Onset Recorded Date/T issac Not Specified No pertinent family history Unknown Advance Directives Advance Directive Response Recorded Date/ Time Advance Directives No November 07, 2018 10:09pm Advance Directive Response Recorded Date/ Time Advance Directives No November 07, 2018 11:09pm Chief Complaint and Reason for Visit Chief Complaint personal Chief Complaint std check Chief Complaint 5wks; vag b leeding Chief Complaint 5wks; vag b leeding 6 weeks preg, spotting Chief Complaint Admit Date 18 wks IUP, cramps August 24, 2024 4:38pm Chief Complaint Admit Date 18 wks IUP, cramps August 24, 2024 4:38pm std check August 28, 2024 2:42pm Chief Complaint Admit Date 18 wks IUP, cramps August 24, 2024 4:38pm std check August 28, 2024 2:42pm 24 wks decreased movement October 04, 2024 3:59pm 26 wks, fell on stomach October 07, 2 024 11:34am 29 weeks preg November 08, 2024 2 :37pm Chief Complaint Admit Date 18 wks IUP, cramps August 24, 2024 4:38pm std check August 28, 2024 2:42pm 24 wks decreased movement October 04, 2024 3:59pm 26 wks, fell on stomach October 07, 2 024 11:34am 29 weeks preg November 08, 2024 2 :37pm vomiting, 30 wks preg November 18, 2024 2:14pm Chief Complaint Admit Date 24 wks decreased movement October 04, 2024 3:59pm 26 wks, fell on stomach October 07, 2 024 11:34am 29 weeks preg November 08, 2024 2 :37pm vomiting, 30 wks preg November 18, 2024 2:14pm IUP (Intrauterine ) December 032024 9:48am Chief Complaint Admit Date 24 wks decreased movement October 04, 2024 3:59pm 26 wks, fell on stomach October 07, 2 024 11:34am 29 weeks preg November 08, 2024 2 :37pm vomiting, 30 wks preg November 18, 2024 2:14pm IUP (Intrauterine ) December 032024 9:48am 35 weeks iup, cramping, nausea December 1:49pm Additional Source Comments INFORMATION SOURCE (unrecogn ized section and content) DATE CREATED AUTHOR 06/02/[address] [facility] DATE CREATED AUTHOR AUTHOR'S ORGANIZ ATION 05/26/2024 [facility] DATE CREATED AUTHOR AUTHOR'S ORGANIZ ATION 07/01/2024 [facility] DATE CREATED AUTHOR AUTHOR'S ORGANIZ ATION 11/01/2024 [facility] DATE CREATED AUTHOR AUTHOR'S ORGANIZ ATION 12/09/2024 [facility] DATE CREATED AUTHOR AUTHOR'S ORGANIZ ATION 12/13/2024 [facility] EPIC Care Teams (unrecognized sec tion and content) Team Status: Inactive Member Role Status Dates PHYSICIAN NO FAMILY Primary Care Provider Active . 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 Start Date End Date Jose A Moralez DO [address] [place] [address] [place] [id number] [facility] 04/12/23 Team Status: Inactive Member Role Status Dates PHYSICIAN NO FAMILY Primary Care Provider Active Start: May 26, 2024 End: May 26, 2024 Oj Navarrete DO Emergency Provider Active St art: May 26, 2024 End: May 26, 2024 Team Status: Inactive Member Role Status Dates PHYSICIAN NO FAMILY Primary Care Provider Active Start: May 28, 2024 End: May 29, 2024 Oj Navarrete DO Emergency Provider Active St art: May 28, 2024 End: May 29, 2024 Spooling 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 Relationship Specialty Start Date End Date Jose A Moralez DO [address] [place] [address] [place] [address] [facility] 04/12/23 Unallocated, Rosy Prince MD [address] [facility] [place] [address] PCP - General Family Medicine 11/27/23 Spooling 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 Relationship Specialty Start Date End Date Jose A Moralez DO [address] [address] PCP - [facility] 04/12/23 Unallocated, Rosy ProviderMD [address] [address] PCP - General Family Medicine 11/27/23 Spooling 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 Relationship Specialty Start Date End Date Jose A Moralez DO [address] [address] PCP - [facility] 04/12/23 Unallocated, Rosy ProviderMD [address] [place] [address] PCP - General Family Medicine 11/27/23 Spooling 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 Relationship Specialty Start Date End Date Jose A Moralez DO [address] [address] PCP - [facility] 04/12/23 Unallocated, Rosy ProviderMD [address] [place] [address] PCP - General Family Medicine 11/27/23 Team Status: Inactive Member Role Status Dates PHYSICIAN NO FAMILY Primary Care Provider Active Start: August 24, 2024 End: August 24, 2024 Rishabh Quinteros PA-C Emergency Provider Active Start: August 24, 2024 End: August 24, 2024 Team Status: Inactive Member Role Status Dates PHYSICIAN NO FAMILY Primary Care Provider Active Start: August 28, 2024 End: August 28, 2024 AVINASH Smith- Emergency Provider Active Start: August 28, 2024 End: August 28, 2024 Spooling 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 Relationship Specialty Start Date End Date Jose A Moralez DO [address] [place] [address] [place] [address] PCP - [facility] 04/12/23 Unallocated, Noms ProviderMD [address] [place] [address] PCP - General Family Medicine 11/27/23 Spooling 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 Relationship Specialty Start Date End Date Jose A Moralez DO [address] [place] [address] [place] [address] PCP - [facility] 04/12/23 Unallocated, Noms ProviderMD [address] [address] PCP - General Family Medicine 11/27/23 Spooling 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 Relationship Specialty Start Date End Date Jose A Moralez DO [address] [place] [address] [place] [address] PCP - [facility] 04/12/23 Unallocated, Noms ProviderMD [address] [place] [address] PCP - General Family Medicine 11/27/23 Spooling 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 Relationship Specialty Start Date End Date Jose A Moralez DO [address] [place] [address] [place] [address] PCP - [facility] 04/12/23 Unallocated, Noms ProviderMD [address] [address] PCP - General Family Medicine 11/27/23 Spooling 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 Relationship Specialty Start Date End Date Jose A Moralez DO [address] [place] [address] [place] [address] PCP - [facility] 04/12/23 Unallocated, Maria Es [place] [address] PCP - General Family Medicine 11/27/23 Spooling 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 Relationship Specialty Start Date End Date Jose A Moralez DO [address] [place] [address] PCP - [facility] 04/12/23 Unallocated, Maria Es [place] [address] PCP - General Family Medicine 11/27/23 Spooling 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 Relationship Specialty Start Date End Date Jose A Moralez DO [address] [place] [address] [place] [address] PCP - [facility] 04/12/23 Unallocated, MD Chapo [facility] [place] [address] PCP - General Family Medicine 11/27/23 Team Status: Inactive Member Role Status Dates PHYSICIAN NO FAMILY Primary Care Provider Active Start: October 04, 2024 End: October 04, 2024 Vee Yang DO Attending Provider Active S tart: October 04, 2024 End: October 04, 2024 Team Status: Inactive Member Role Status Dates PHYSICIAN NO FAMILY Primary Care Provider Active Start: October 07, 2024 End: October 07, 2024 Tirso Mancilla MD Attending Provider Active Star t: October 07, 2024 End: October 07, 2024 Team Status: Inactive Member Role Status Dates PHYSICIAN NO FAMILY Primary Care Provider Active Start: November 08, 2024 End: November 08, 2024 Vee Yang DO Attending Provider Active S tart: November 08, 2024 End: November 08, 2024 Team Status: Inactive Member Role Status Dates PHYSICIAN NO FAMILY Primary Care Provider Active Start: November 18, 2024 End: November 18, 2024 Rishabh Quinteros PA-C Emergency Provider Active Start: November 18, 2024 End: November 18, 2024 Spooling 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 Relationship Specialty Start Date End Date Jose A Moralez DO [address] [place] [address] [place] [address] PCP - [facility] 04/12/23 Unallocated, Noms Provider, [address] [place] [address] PCP - General [facility] 11/27/23 Spooling 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 Relationship Specialty Start Date End Date Jose A Moralez DO [address] [facility] [address] [place] [address] PCP - [facility] 04/12/23 Unallocated, Noms Provider, [address] [place] [address] PCP - General Family Medicine 11/27/23 Team Status: Inactive Member Role Status Dates PHYSICIAN NO FAMILY Primary Care Provider Active Start: December 03, 2024 End: December 03, 2024 Luciano Cooper MD Attending Provider Active St art: December 03, 2024 End: December 03, 2024 Team Status: Inactive Member Role Status Dates PHYSICIAN NO FAMILY Primary Care Provider Active Start: December 24, 2024 End: December 24, 2024 Luciano Cooper MD Attending Provider Active St art: December 24, 2024 End: December 24, 2024 Goals (unrecognized section and content) Goals may be documented in a n alternate sectionGoals may be documented in an alternate sectionGoals may be documented in an alternate sectionGoals may be documented in an alternate sectionGoals may be documented in an alternate sectionGoals may be documented in an alternate sectionGoals may be documented in an alternate sectionGoals may be documented in an alternate sectionGoals may be documented in an alternate sectionGoals may be documented in an alternate section FOR RECORDS PERTAINING TO PATIENTS WHO ARE OR HAVE BEEN ENROLLED IN A CHEMICAL DEPENDENCY/SUBSTANCEABUSE PROGRAM, SOME INFORMATION MAY BE OMITTED. This clinical summary was aggregated from multiple sources. Caution should be exercised in using it in the provision of clinical care. This summary normalizes information from multiple sources, and as a consequence, information in this document may materially change the coding, format and clinical context of patient data. In addition, data may be omitted in some cases. CLINICAL DECISIONS SHOULD BE BASED ON THE PRIMARY CLINICAL RECORDS. [facility] provides no warranty or guarantee of the accuracy or completeness of information in this document.
[2024-12-25 21:52] VITALS: BP 124/85; PULSE 100
[2024-12-25 22:06] LABS: Bilirubin Urine NEGATIVE (NEGATIVE); Blood Urine NEGATIVE (NEGATIVE); Clarity Urine CLEAR (CLEAR); Color Urine LT. YELLOW (YELLOW); Glucose Urine UA NEGATIVE (NEGATIVE); Ketones Urine TRACE mg/dL (NEGATIVE); Leukocyte Esterase Urine NEGATIVE (NEGATIVE); Nitrite Urine NEGATIVE (NEGATIVE); Protein Urine NEGATIVE (NEG/TRACE); Urine Microscopic Indicated NO; Urobilinogen Urine 0.2 EU/dL (0.2-1.0)
== END 2024-12-25 22:54 | disposition home or self-care (01) ==
PROVIDERS: Admitting Provider Obstetrics & Gynecology Gynecology; Visit Provider Obstetrics & Gynecology Gynecology
DX: O47.03 False labor before 37 completed weeks of gestation, third trimester (principal); Z3A.35 35 weeks gestation of pregnancy
CPT/HCPCS: 59025; 81003; G0378; G0379

== ENCOUNTER 2025-01-10 19:32 | Observation (INO) | payer OTHER, SELFPAY ==
[2025-01-10] VITALS (7 sets, daily range): BP systolic 113–145; BP diastolic 70–86; PULSE 69–84
--- OUTSIDE RECORDS SUMMARY | 2025-01-10 19:48 | XMS_ITS | CCD ---
Author Organization [facility] Care Team Providers Care Inverform 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 Name Role Phone NO FAMILY, PHYSICIAN Primary Care Provider Unava ilable SANE, . Emergency Provider Unavailable NO FAMILY, PHYSICIAN Primary Care Provider Unava ilable Bullimore, REHABILITATION PSYCHOLOGIST-BC Felisha E Emergency Provider Jose A Moralez DO Unavailable AMINAH WRIGHT Attending Unavailable NO PCP, NO PCP Primary Care Unavailable NO FAMILY, PHYSICIAN Primary Care Provider Unava ilable DO Oj Navarrete Emergency Provider [phone] MOUNIKA RICE Attending Unavaila ble NO PCP, NO PCP Primary Care Unavailable NO PCP, NO PCP Primary Care Unavailable JUDAH MCDONOUGH Attending Unavailable JOS LANDIS Attending Unavailable JOS LANDIS Referring Unavailable NO PCP, NO PCP Primary Care Unavailable NO PCP, NO PCP Primary Care Unavailable NISSA WICK Attending Unavailable Unallocated , Rosy Provider Primary Care Provi jose a UnallocatRosy hart MD Provider Primary Care Provi jose a NO FAMILY, PHYSICIAN Primary Care Provider Unava ilRishabh Agarwal PA-C Emergency Provider Bulldanilo REHABILITATION PSYCHOLOGIST-BC, Felisha E Emergency Provider Ailyn Murrell Attending Unavailable Provider, None Primary Care Unavailable Monty Lee Attending Unavailable Monty Lee Admitting Unavailable Provider, None Primary Care Unavailable Vee Yang DO Attending Provider Tirso Mancilla MD Attending Provider [phone] NO FAMILY, PHYSICIAN Primary Care Provider Unava ilRishabh Agarwal PA-C Emergency Provider [phone] Luciano Cooper MD Attending Provider [phone] NO FAMILY, PHYSICIAN Primary Care Provider Unava ilable Vee Yang DO Attending Provider Tirso Mancilla MD Attending Provider [phone] Rishabh Quinteros PA-C Emergency Provider Luciano Cooper MD Attending Provider Vee Yang Attending Unavailable Vee Yang Admitting Unavailable NO FAMILY, PHYSICIAN Primary Care Unavailable NO FAMILY, PHYSICIAN Primary Care Unavailable Rishabh Quinteros Admitting Unavailable Rishabh Quinteros Attending Unavailable NO FAMILY, PHYSICIAN Primary Care Unavailable Bulldanilo Felisha E Admitting Unavailable Russel Brioneser E Attending Unavailable NO FAMILY, PHYSICIAN Primary Care Unavailable Rishabh Quinteros Admitting Unavailable Rishabh Quinteros Attending Unavailable NO FAMILY, PHYSICIAN Primary Care Unavailable Oj Navarrete Admitting Unavailable Oj Navarrete Attending Unavailable NO FAMILY, PHYSICIAN Primary Care Unavailable Oj Navarrete M Admitting Unavailable Oj Navarrete Attending Unavailable Vee Yang Admitting Unavailable Vee Yang Attending Unavailable NO FAMILY, PHYSICIAN Primary Care Unavailable Tirso Mancilla Admitting Unavailable Tirso Mancilla Attending Unavailable NO FAMILY, PHYSICIAN Primary Care Unavailable NO FAMILY, PHYSICIAN Primary Care Unavailable Cooper, Penola P Admitting Unavailable CooperDavidola P Attending Unavailable NO FAMILY, PHYSICIAN Primary Care Unavailable Cooper, Penola P Admitting Unavailable Cooper, Penola P Attending Unavailable EDIE MAYS Attending Unavailable FLOROARIELE Clarissa Referring Unavailable FLORO, EDIE Romo Attending Unavailable FLOROEDITHEDIE Clarissa Referring Unavailable FLORO, EDIE Clarissa Attending Unavailable FLORO, EDIE Clarissa Attending Unavailable FLORO, EDIE L Attending Unavailable FLORO, EDIE L Referring Unavailable FLORO, EDIE Clarissa Attending Unavailable FLORO, EDIE L Attending Unavailable FLORO, EDIE L Attending Unavailable FLORO, EDIE L Referring Unavailable FLORO, EDIE L Attending Unavailable FLORO, EDIE Clarissa Attending Unavailable FLOROEDIE Attending Unavailable Medications Current Medications Medication Drug Class(es) Dates Sig (Normalized) Sig (Original) docusate sodium 100 mg oral capsule (12 sources) Start: 11-19-2024 End: 02-27-2025 take 1 capsule by mouth in the morning docusate sodium (Colace) 100 MG capsule Indications: Iron deficiency anemia, unspecified iron deficiency anemia type Take 1 capsule (100 mg) by mouth in the morning and 1 capsule (100 mg) before bedtime. 60 capsule 3 11/19/2024 02/27/2025 Active ferrous sulfate 325 mg delayed release oral tablet (12 sources) Start: 11-19-2024 End: 11-19-2025 take 1 tablet by mouth in the morning ferrous sulfate (Fe Tabs) 325 (65 Fe) MG EC tablet Indications: Iron deficiency anemia, unspecified iron deficiency anemia type Take 1 tablet (325 mg) by mouth in the morning and at noon Do not crush, chew, or split. 60 tablet 11 11/19/2024 11/19/2025 Active Mv-Min No.39-Mbkrs-Mjq-He [id number] (Alive Daily Support ) 180 mcg-25 mg- 25 mg tablet,chewable (4 sources) Start: 10-07-2024 take 1 tablet by mouth once daily Mv-Min No.63-Fikbs-Bsd-Her b293 (Alive Daily Support ) 180 mcg-25 mg- 25 mg tablet,chewable Active 1 TAB PO Daily October 07, 2024 1:00am Start: 10-07-2024 take 1 tablet by orly th once daily Mv-Min No.75-Iqyvl-Lqy-Sceg111 (Alive Daily Support ) 180 mcg-25 mg- 25 mg tablet,chewable Active 1 TAB PO Daily October 07, 2024 12:00am Start: 10-07-2024 take 1 tablet by orly th once Mv-Min No.63-Riyiw-Iqh-[id number] (Alive Daily Support ) 180 mcg-25 mg- [...] Chew Active MV-Min-Fe Fum-FA-DHA ( 1 PO) (20 sources) MV-Min- Fe Fum-FA-DHA ( 1 PO) [...] Problem Classification Problem Date Documented Date Episodic/Chronic Hemorrhage during ; abruptio placenta; placenta previa (17 sources) Bleeding from female genital tract during ; Translations: [Antepartum hemorrhage, unspecified, unspecified trimester] Onset: 05-31-2024 05-29-2024 Episodic Hypertension complicating ; childbirth and the puerperium (2 sources) Hypertension complicating ; Translations: [Unspecified maternal hypertension, third trimester] 01-10-2025 Chronic Menstrual disorders (20 sources) Dysmenorrhea; Translations: [Dysmenorrhea, unspecified] Onset: 04-01-2024 04-01-2024 Chronic Nausea and vomiting (3 sources) Nausea and vomiting; Translations: [Nausea with vomiting, unspecified] 11-18-2024 Episodic Other complications of (6 sources) Finding related to ; Translations: [ [...] noninflammatory disorders of vagina] 08-28-2024 Episodic Other and delivery including normal (16 sources) Second trimester ; Translations: [Encounter for [...] (20 sources) OB Reminders Onset: 06-01-2024 06-01-2024 Past or Other Problems Problem Classification Problem Date Documented Date Episodic/Chronic Abdominal pain (2 sources) Abdominal pain; Translations: [Unspecified abdominal pain] Onset: 06-29-2024 Episodic Fever of unknown origin (20 sources) Fever; Translations: [Fever, unspecified] Onset: 04-01-2024 05-30-2021 Episodic Comment on above: Problem List clean-u p per request of Phys. EHR Cmte Other complications of (1 source) Spotting complicating , first trimester; Translations: [Spotting complicating , first trimester] Onset: 05-28-2024 Episodic Other complications of (1 source) Spotting complicating , unspecified trimester; Translations: [Spotting complicating , unspecified trimester] Onset: 05-26-2024 Episodic Other female genital disorders (20 sources) Vaginal discharge; Translations: [Other specified noninflammatory disorders of vagina] Onset: 04-01-2024 07-29-2022 Episodic Comment on above: Problem List clean-u p per request of Phys. EHR Cmte Other female genital disorders (1 source) Other specified noninflammatory disorders of vagina; Translations: [Other specified noninflammatory disorders of vagina] Onset: 08-28-2024 Episodic Other injuries and conditions due to external causes (20 sources) Foreign body in upper respiratory tract; Translations: [Food in pharynx causing other injury, initial encounter] Onset: 04-01-2024 05-20-2019 Episodic Comment on above: Problem List clean-u p per request of Phys. EHR Cmte Other nutritional; endocrine; and metabolic disorders (20 sources) Overweight in adulthood with body mass index of 25 or more but less than 30; Translations: [Body mass index (BMI) 27.0-27.9, adult] Onset: 04-01-2024 04-01-2024 Episodic Residual codes; unclassified (2 sources) Less than 8 weeks gestation of ; Translations: [Less than 8 weeks gestation of ] Onset: 05-21-2024 Episodic Viral infection (20 sources) Disease caused by 2019-nCoV; Translations: [COVID-19] Onset: 04-01-2024 05-30-2021 Episodic Comment on above: Problem List clean-u p per request of Phys. EHR Cmte Results Test Name Value Interpretation Reference Range Facility US OB LIMITED 1+ FETUSESon 0 12-30-2024 US OB LIMITED 1+ FETUSES TITLE OF EXAM: OB Ultrasound: REASON FOR EXAM: Decreased movement. COMPARISON: 11/25/2024, 09/08/2024 TECHNIQUE: Grayscale and M-mode Doppler imaging is performed. FINDINGS: Measurements: heart rate: 136 bpm SAHIL: 12.2 cm (7.6-24.6) Cervix Length: 4.9 cm JOE: 01/23/2025 LMP: 04/18/2024 Age by LMP: 36 w 4 d JOE by LMP: 01/23/2025 Gestation: Single Position: Cephalic Placental Location: Fundal, left Placental Grade: 3 Heart Rate: 136 bpm Somatic Movement: Yes Cervical Length: 4.94 cm IMPRESSION: Limited exam for SHAIL and heart rate. measurements not obtained. Dictated and transcribed 12/31/24/dpd This report has been electronically signed and approved by the interpreting radiologist. Normal Not Available Amphetamine Screen Ql (U)Ord ered By: HARITHA Cooper on 12-24-2024 Amphetamines Ql (U) Amphetamines screen Negativ e [facility] Appearance of UrineOrdered B y: HARITHA Cooper on 12-24-2024 Appearance (U) Urine appearance Clear [facility] Barbiturates [Presence] in U rine by Screen methodOrdered By: HARITHA Cooper on 12-24-2024 Barbiturates Screen Ql (U) Barbiturates [Presence] in Urine by Screen method Negative [facility] Benzodiazepines Screen Ql (U )Ordered By: HARITHA Cooper on 12-24-2024 Benzodiazepines Ql (U) Benzodiazepines [Presence] in Urine by Screen method Negative [facility] Benzoylecgonine [Presence] i n Urine by Screen methodOrdered By: HARITHA Cooper on 12-24-2024 Benzoylecgonine Screen Ql (U) Benzoylecgonine [Presence] in Urine by Screen method Negative [facility] Bilirubin Test strip Ql (U)O rdered By: HARITHA Cooper on 12-24-2024 Bilirubin Ql (U) Bilirubin.total [Presence] in Urine by Test strip Negative [facility] Color Auto (U)Ordered By: MD MAAME Cooper on 12-24-2024 Color (U) Color of Urine by Auto Yellow [facility] Glucose [Mass/volume] in Uri ne by Test stripOrdered By: HARITHA Cooper on 12-24-2024 Glucose Test strip (U) [Mass/Vol] Glucose [Mass/volume] in Urine by Test strip Normal [facility] Hemoglobin Test strip Ql (U) Ordered By: HARITHA Cooper on 12-24-2024 Hemoglobin Ql (U) Hemoglobin [Presence] in Urine by Test strip Negative [facility] Ketones Test strip Ql (U)Ord ered By: HARITHA Cooper on 12-24-2024 Ketones Ql (U) Ketones [Presence] in Urine by Test strip Negative [facility] Leukocyte esterase [Presence ] in Urine by Test stripOrdered By: HARITHA Cooper on 12-24-2024 Leukocyte esterase Test strip Ql (U) Leukocyte esterase [Presence] in Urine by Test strip Negative [facility] Nitrite Test strip Ql (U)Ord ered By: HARITHA Cooper on 12-24-2024 Nitrite Ql (U) Nitrite [Presence] in Urine by Test strip Negative [facility] OB Urine Drug Screen (NO THC )on 12-24-2024 Amphetamine Screen,Urine Negative Normal Negative [facility] Comment on above: Order Comment: Comme nt s/s of acute impairment Performed By: #### O BUDS, UA #### [facility] [address] [place] [address] [place] Barbiturate Screen,Urine Negative Normal Negative [facility] Comment on above: Order Comment: Comme nt s/s of acute impairment Performed By: #### O BUDS, UA #### [facility] [address] [place] [address] [place] Benzodiazepines Screen,Urine Negative Normal Negative [facility] Comment on above: Order Comment: Comme nt s/s of acute impairment Performed By: #### O BUDS, UA #### [facility] [address] [place] [address] [place] Cocaine Screen,Urine Negative Normal Negative [facility] Comment on above: Order Comment: Comme nt s/s of acute impairment Performed By: #### O BUDS, UA #### [facility] [address] [place] [address] [place] Opiate Screen,Urine Negative Normal Negative [facility] Comment on above: Order Comment: Comme nt s/s of acute impairment Performed By: #### O BUDS, UA #### [facility] [address] [place] [address] [place] Phencyclidine Screen, Urine Negative Normal Negative [facility] Comment on above: Order Comment: Comme nt s/s of acute impairment Result Comment: Thes e are unconfirmed results and should not be used for legal purposes. Drug Cut-Off Concentration: AMPH 1000 ng/mL NIKOS 200 ng/mL JOSETTE 200 ng/mL COCM 300 ng/mL OP 300 ng/mL PCP 25 ng/mL PERFORMED BY: [place] [address] PATHOLOGIST FINANCIAL AID DIRECTOR CECILIA SHORT M.D. Performed By: #### O BUDS, UA #### [facility] [address] Opiates [Presence] in Urine by Screen methodOrdered By: HARITHA Cooper on 12-24-2024 Opiates Screen Ql (U) Opiates [Presence] in Urine by Screen method Negative [facility] Phencyclidine Screen Ql (U)O rdered By: HARITHA Cooper on 12-24-2024 Phencyclidine Ql (U) Phencyclidine [Presence] in Urine by Screen method Negative [facility] Comment on above: These are unconfirme d results and should not be used for legal purposes. Drug Cut-Off Concentration: AMPH 1000 ng/mL NIKOS 200 ng/mL JOSETTE 200 ng/mL COCM 300 ng/mL OP 300 ng/mL PCP 25 ng/mL Protein Test strip (U) [Mass /Vol]Ordered By: HARITHA Cooper on 12-24-2024 Protein (U) [Mass/Vol] Protein [Mass/volume] in Urine by Test strip Negative [facility] Specific gravity Test strip (U) [Rel density]Ordered By: HARITHA Cooper on 12-24-2024 Specific gravity (U) [Rel density] Specific gravity of Urine by Test strip 1.001-1.030 [facility] Urinalysison 12-24-2024 Appearance (U) Clear Normal Clear [facility] Comment on above: Order Comment: Comme nt c/o urinary symptoms or increased blood pressure Name Collection Type:: Clean-Voided Midstream Performed By: #### O BUDS, UA #### [place] [address] [place] Bilirubin,Urine Negative Normal Negative [facility] Comment on above: Order Comment: Comme nt c/o urinary symptoms or increased blood pressure Name Collection Type:: Clean-Voided Midstream Performed By: #### O BUDS, UA #### [place] [address] [place] Color (U) Light-Yellow Normal Yellow [facility] Comment on above: Order Comment: Comme nt c/o urinary symptoms or increased blood pressure Name Collection Type:: Clean-Voided Midstream Performed By: #### O BUDS, UA #### [place] [address] [place] Glucose Ql (U) Normal Normal Normal [facility] Comment on above: Order Comment: Comme nt c/o urinary symptoms or increased blood pressure Name Collection Type:: Clean-Voided Midstream Performed By: #### O BUDS, UA #### [place] [address] [place] Ketones Ql (U) Negative Normal Negative [facility] Comment on above: Order Comment: Comme nt c/o urinary symptoms or increased blood pressure Name Collection Type:: Clean-Voided Midstream Performed By: #### O BUDS, UA #### [place] [address] [place] Leukocyte esterase Test strip Ql (U) Negative Normal Negative [facility] Comment on above: Order Comment: Comme nt c/o urinary symptoms or increased blood pressure Name Collection Type:: Clean-Voided Midstream Performed By: #### O BUDS, UA #### [place] [address] [place] Nitrite,Urine Negative Normal Negative [facility] Comment on above: Order Comment: Comme nt c/o urinary symptoms or increased blood pressure Name Collection Type:: Clean-Voided Midstream Performed By: #### O BUDS, UA #### [place] [address] [place] Occult Blood,Urine Negative Normal Negative [facility] Comment on above: Order Comment: Comme nt c/o urinary symptoms or increased blood pressure Name Collection Type:: Clean-Voided Midstream Result Comment: PERF ORMED BY: [place] [address] PATHOLOGIST FINANCIAL AID DIRECTOR CECILIA SHORT M.D. Performed By: #### O BUDS, UA #### [place] [address] [place] pH (U) 7.0 [pH] Normal 5.0-9.0 [facility] Comment on above: Order Comment: Comme nt c/o urinary symptoms or increased blood pressure Name Collection Type:: Clean-Voided Midstream Performed By: #### O BUDS, UA #### [place] [address] [place] Protein,Urine Negative Normal Negative [facility] Comment on above: Order Comment: Comme nt c/o urinary symptoms or increased blood pressure Name Collection Type:: Clean-Voided Midstream Performed By: #### O BUDS, UA #### [place] [address] [place] Specificy [place],Urine 1.007 Normal 1.001-1.030 [facility] Comment on above: Order Comment: Comme nt c/o urinary symptoms or increased blood pressure Name Collection Type:: Clean-Voided Midstream Performed By: #### O BUDS, UA #### [address] [address] [place] Urobilinogen,Urine Normal Normal Normal [facility] Comment on above: Order Comment: Comme nt c/o urinary symptoms or increased blood pressure Name Collection Type:: Clean-Voided Midstream Performed By: #### O BUDS, UA #### [facility] [address] Urobilinogen Test strip (U) [Mass/Vol]Ordered By: HARITHA Cooper on 12-24-2024 Urobilinogen (U) [Mass/Vol] Urobilinogen [Mass/volume] in Urine by Test strip Normal [facility] pH Test strip (U)Ordered By: HARITHA Cooper on 12-24-2024 pH (U) pH of Urine by Test strip 5.0-9.0 [facility] Appearance of UrineOrdered B y: HARITHA Cooper on 12-03-2024 Appearance (U) Urine appearance Abnormal Clear [facility] Bacteria [Presence] in Urine by AutomatedOrdered By: HARITHA Cooper on 12-03-2024 Bacteria Auto Ql (U) Bacteria [Presence] in Urine by Automated None Seen [facility] Bilirubin Test strip Ql (U)O rdered By: HARITHA Cooper on 12-03-2024 Bilirubin Ql (U) Bilirubin.total [Presence] in Urine by Test strip Negative [facility] Color Auto (U)Ordered By: MD MAAME Cooper on 12-03-2024 Color (U) Color of Urine by Auto Yellow [facility] Dipstick and Microscopicon 0 12-03-2024 Appearance (U) Cloudy Critically abnormal Clear [facility] Comment on above: Order Comment: Comme nt c/o urinary symptoms or increased blood pressure Name Collection Type:: Clean-Voided Midstream Performed By: #### C MP, LIPASE, CBC #### [facility] [address] [place] [address] Bacteria,Urine Rare Normal None Seen [facility] Comment on above: Order Comment: Comme nt c/o urinary symptoms or increased blood pressure Name Collection Type:: Clean-Voided Midstream Performed By: #### C MP, LIPASE, CBC #### [facility] [address] [place] [address] [place] Bilirubin,Urine Negative Normal Negative [facility] Comment on above: Order Comment: Comme nt c/o urinary symptoms or increased blood pressure Name Collection Type:: Clean-Voided Midstream Performed By: #### C MP, LIPASE, CBC #### [facility] [address] [place] [address] [place] Color (U) Light-Yellow Normal Yellow [facility] Comment on above: Order Comment: Comme nt c/o urinary symptoms or increased blood pressure Name Collection Type:: Clean-Voided Midstream Performed By: #### C MP, LIPASE, CBC #### [address] Glucose Ql (U) Normal Normal Normal [facility] Comment on above: Order Comment: Comme nt c/o urinary symptoms or increased blood pressure Name Collection Type:: Clean-Voided Midstream Performed By: #### C MP, LIPASE, CBC #### [place] [address] [place] Hyaline Casts,Urine 0-8 Normal 0-8 [facility] Comment on above: Order Comment: Comme nt c/o urinary symptoms or increased blood pressure Name Collection Type:: Clean-Voided Midstream Performed By: #### C MP, LIPASE, CBC #### [address] Ketones Ql (U) Negative Normal Negative [facility] Comment on above: Order Comment: Comme nt c/o urinary symptoms or increased blood pressure Name Collection Type:: Clean-Voided Midstream Performed By: #### C MP, LIPASE, CBC #### [place] [address] [place] Leukocyte esterase Test strip Ql (U) Negative Normal Negative [facility] Comment on above: Order Comment: Comme nt c/o urinary symptoms or increased blood pressure Name Collection Type:: Clean-Voided Midstream Performed By: #### C MP, LIPASE, CBC #### [place] [id number] [place] Mucus,Urine Rare Normal [facility] Comment on above: Order Comment: Comme nt c/o urinary symptoms or increased blood pressure Name Collection Type:: Clean-Voided Midstream Result Comment: PERF ORMED BY: [place] [address] PATHOLOGIST FINANCIAL AID DIRECTOR CECILIA SHORT M.D. Performed By: #### C MP, LIPASE, CBC #### [address] Nitrite,Urine Negative Normal Negative [facility] Comment on above: Order Comment: Comme nt c/o urinary symptoms or increased blood pressure Name Collection Type:: Clean-Voided Midstream Performed By: #### C MP, LIPASE, CBC #### [address] Occult Blood,Urine Negative Normal Negative [facility] Comment on above: Order Comment: Comme nt c/o urinary symptoms or increased blood pressure Name Collection Type:: Clean-Voided Midstream Result Comment: PERF ORMED BY: [place] [address] PATHOLOGIST FINANCIAL AID DIRECTOR CECILIA SHORT M.D. Performed By: #### C MP, LIPASE, CBC #### [address] pH (U) 6.5 [pH] Normal 5.0-9.0 [facility] Comment on above: Order Comment: Comme nt c/o urinary symptoms or increased blood pressure Name Collection Type:: Clean-Voided Midstream Performed By: #### C MP, LIPASE, CBC #### [place] [address] [place] Protein,Urine Negative Normal Negative [facility] Comment on above: Order Comment: Comme nt c/o urinary symptoms or increased blood pressure Name Collection Type:: Clean-Voided Midstream Performed By: #### C MP, LIPASE, CBC #### [place] [address] [place] RBC,Urine 1-2 Normal 0-4 [facility] Comment on above: Order Comment: Comme nt c/o urinary symptoms or increased blood pressure Name Collection Type:: Clean-Voided Midstream Performed By: #### C MP, LIPASE, CBC #### [address] Specificy [place],Urine 1.011 Normal 1.001-1.030 [facility] Comment on above: Order Comment: Comme nt c/o urinary symptoms or increased blood pressure Name Collection Type:: Clean-Voided Midstream Performed By: #### C MP, LIPASE, CBC #### [address] Squamous Epithelial Cell,Urine 20-49 High 0-2 [facility] Comment on above: Order Comment: Comme nt c/o urinary symptoms or increased blood pressure Name Collection Type:: Clean-Voided Midstream Performed By: #### C MP, LIPASE, CBC #### [address] Urobilinogen,Urine Normal Normal Normal [facility] Comment on above: Order Comment: Comme nt c/o urinary symptoms or increased blood pressure Name Collection Type:: Clean-Voided Midstream Performed By: #### C MP, LIPASE, CBC #### [address] WBC,Urine 3-4 Normal 0-4 [facility] Comment on above: Order Comment: Comme nt c/o urinary symptoms or increased blood pressure Name Collection Type:: Clean-Voided Midstream Performed By: #### C MP, LIPASE, CBC #### [address] Epithelial cells.squamous [# /area] in Urine sediment by Automated countOrdered By: HARITHA Cooper on 12-03-2024 Epithelial cells.squamous Auto (Urine sed) [#/Area] Epithelial cells.squamous [#/area] in Urine sediment by Automated count High 0-2 [facility] Erythrocytes [#/area] in Uri ne sediment by Automated countOrdered By: HARITHA Cooper on 12-03-2024 RBC Auto (Urine sed) [#/Area] Erythrocytes [#/area] in Urine sediment by Automated count 0-4 [facility] Fibronectinon 12-03-19 25 Fibronectin Negative Normal Negative [facility] Comment on above: Order Comment: Comme nt patients 22 - 34 6/7 weeks prior to vaginal exam Result Comment: PERF ORMED BY: [place] [address] PATHOLOGIST FINANCIAL AID DIRECTOR CECILIA SHORT M.D. Performed By: #### C MP, LIPASE, CBC #### [address] fibronectin measuremen tOrdered By: HARITHA Cooper on 12-03-2024 Fibronectin. (Vag fld) [Mass/Vol] fibronectin Negative [facility] Fibronectin. Ql (Vag fl d)on 12-03-2024 FIBRONECTIN Negative Negative [facility] Comment patients 22 - 34 6/7 weeks prior to vaginal exam [facility] Glucose [Mass/volume] in Uri ne by Test stripOrdered By: HARITHA Cooper on 12-03-2024 Glucose Test strip (U) [Mass/Vol] Glucose [Mass/volume] in Urine by Test strip Normal [facility] Hemoglobin Test strip Ql (U) Ordered By: HARITHA Cooper on 12-03-2024 Hemoglobin Ql (U) Hemoglobin [Presence] in Urine by Test strip Negative [facility] Hyaline casts [#/area] in Ur ine sediment by Automated countOrdered By: HARITHA Cooper on 12-03-2024 Hyaline casts Auto (Urine sed) [#/Area] Hyaline casts [#/area] in Urine sediment by Automated count 0-8 [facility] Ketones Test strip Ql (U)Ord ered By: HARITHA Cooper on 12-03-2024 Ketones Ql (U) Ketones [Presence] in Urine by Test strip Negative [facility] Leukocyte esterase [Presence ] in Urine by Test stripOrdered By: HARITHA Cooper on 12-03-2024 Leukocyte esterase Test strip Ql (U) Leukocyte esterase [Presence] in Urine by Test strip Negative [facility] Leukocytes [#/area] in Urine sediment by Automated countOrdered By: HARITHA Cooper on 12-03-2024 WBC Auto (Urine sed) [#/Area] Leukocytes [#/area] in Urine sediment by Automated count 0-4 [facility] Mucus [Presence] in Urine by AutomatedOrdered By: HARITHA Cooper on 12-03-2024 Mucus Auto Ql (U) Mucus [Presence] in Urine by Automated [facility] Nitrite Test strip Ql (U)Ord ered By: HARITHA Cooper on 12-03-2024 Nitrite Ql (U) Nitrite [Presence] in Urine by Test strip Negative [facility] Protein Test strip (U) [Mass /Vol]Ordered By: HARITHA Cooper on 12-03-2024 Protein (U) [Mass/Vol] Protein [Mass/volume] in Urine by Test strip Negative [facility] Specific gravity Test strip (U) [Rel density]Ordered By: HARITHA Cooper on 12-03-2024 Specific gravity (U) [Rel density] Specific gravity of Urine by Test strip 1.001-1.030 [facility] US OB biophysical profileon 12-03-2024 US OB biophysical profile [facility] [place] [address] Ultrasound Report Signed Patient: Kisha Lora MR#: [id number] 55 : 2005 Acct:[id number] Age/Sex: 19 / F ADM Date: 12/03/24 Loc: Room: [address] [place] [address] Type: REG CLI Attending Dr: Luciano Cooper [...] Craig Hassan M.D.12/03/2024 3:10 PM Dictation Location: [employer] Tech: Ivette Thomson Transcribed By: WILLOW 12/03/24 1510 Dictated By: Craig Hassan DO 12/03/24 1509 Signed By: 12/03/24 1510 Normal [facility] US OB biophysical profile [facility] [place] [address] [address] Ultrasound Report Signed Patient: Kisha Lora MR#: [id number] 55 : 2005 Acct:[id number] Age/Sex: 19 / F ADM Date: 12/03/24 Loc: Room: [address] [place] [address] Type: REG CLI Attending Dr: Luciano Cooper [...] Craig Hassan M.D.12/03/2024 1:04 PM Dictation Location: [employer] Tech: Jennifer David Transcribed By: WILLOW 12/03/24 1304 Dictated By: Craig Hassan DO 12/03/24 1256 Signed By: 12/03/24 1304 Normal [facility] Urinalysis complete panel (U )on 12-03-2024 Appearance (U) Cloudy Critically abnormal Clear [facility] BILIRUBIN,URINE Negative Negative [facility] Color (U) Light-Yellow Yellow [facility] Glucose Ql (U) Normal Normal [facility] [...] blood pressure Name Collection Type:: Clean-Voided Midstream [facility] Urobilinogen Test strip (U) [Mass/Vol]Ordered By: HARITHA Cooper on 12-03-2024 Urobilinogen (U) [Mass/Vol] Urobilinogen [Mass/volume] in Urine by Test strip Normal [facility] pH Test strip (U)Ordered By: HARITHA Cooper on 12-03-2024 pH (U) pH of Urine by Test strip 5.0-9.0 [facility] US OB FOLLOW UP TRANSABDOMIN AL APPROACHon [...] [Enzymatic activity/volume] in Serum or Plasma 7-52 [facility] Albumin [Mass/volume] in Ser um or Plasma by Bromocresol green (BCG) dye binding methoOrdered By: Rishabh Quinteros on 11-18-2024 Albumin BCG dye [Mass/Vol] Albumin [Mass/volume] in Serum or Plasma by Bromocresol green (BCG) dye binding metho Low 3.5-5.7 [facility] Alkaline phosphatase [Enzyma tic activity/volume] in Serum or PlasmaOrdered By: Rishabh Quinteros on 11-18-2024 ALP [Catalytic activity/Vol] Alkaline phosphatase [Enzymatic activity/volume] in Serum or Plasma 34-104 [facility] Appearance of UrineOrdered B y: Rishabh Quinteros on 11-18-2024 Appearance (U) Urine appearance Abnormal Clear [facility] Aspartate aminotransferase [ Enzymatic activity/volume] in Serum or PlasmaOrdered By: Rishabh Quinteros on 11-18-2024 AST [Catalytic activity/Vol] Aspartate aminotransferase [Enzymatic activity/volume] in Serum or Plasma 13-39 [facility] Bacteria [Presence] in Urine by AutomatedOrdered By: Rishabh Quinteros on 11-18-2024 Bacteria Auto Ql (U) Bacteria [Presence] in Urine by Automated High None Seen [facility] Basophils Auto (Bld) [#/Vol] Ordered By: Rishabh Quinteros on 11-18-2024 Basophils (Bld) [#/Vol] Automated basoph il count 0.0-0.2 [facility] Basophils/100 WBC Auto (Bld) Ordered By: Rishabh Quinterso on 11-18-2024 Basophils/100 WBC (Bld) Automated basoph il % . [facility] Bilirubin Test strip Ql (U)O rdered By: Rishabh Quinteros on 11-18-2024 Bilirubin Ql (U) Bilirubin.total [Presence] in Urine by Test strip Negative [facility] Bilirubin.total [Mass/volume ] in Serum or PlasmaOrdered By: Rishabh Quinteros on 11-18-2024 Bilirubin [Mass/Vol] Bilirubin.total [Mass/volume] in Serum or Plasma 0.3-1.0 [facility] COVID Cepheid NegativeOrdere d By: Rishabh Quinteros on 11-18-2024 SARS-CoV-2 (COVID-19) Ab IA Ql COVID Cepheid Negative [facility] Comment on above: This is a duplicate [...] or Cepheid Disclaimer revoked sooner. PERFORMED BY: [place] [address] PATHOLOGIST FINANCIAL AID DIRECTOR CECILIA SHORT M.D. Normal [facility] Comment on above: Performed By: #### C MP, LIPASE, CBC #### [address] Calcium [Mass/volume] in Ser um or PlasmaOrdered By: Rishabh Quinteros on 11-18-2024 Calcium [Mass/Vol] Calcium [Mass/volume] in Serum or Plasma 8.6-10.3 [facility] Carbon dioxide, total [Moles /volume] in Serum or PlasmaOrdered By: Rishabh Quinteros on 11-18-2024 CO2 [Moles/Vol] Carbon dioxide, total [Moles/volume] in Serum or Plasma 21.0-31.0 [facility] Cepheid COVID PCR Negativeon 11-18-2024 SARS-CoV-2 (COVID-19) RNA ANGELY+probe Ql (Unsp spec) Negative Normal Negative [facility] Comment on above: Result Comment: This is a duplicate Cepheid Xpert Xpress CoV-2/Flu/RSV Plus RNA by RT-PCR result to be used for statistical tracking purpose only. PERFORMED BY: [place] [address] PATHOLOGIST FINANCIAL AID DIRECTOR CECILIA SHORT M.D. Performed By: #### C MP, LIPASE, CBC #### [address] Chloride [Moles/volume] in S sissy or PlasmaOrdered By: Rishabh Quinteros on 11-18-2024 Chloride [Moles/Vol] Chloride [Moles/volume] in Serum or Plasma 98-107 [facility] Color Auto (U)Ordered By: Bipin Quinteros on 11-18-2024 Color (U) Color of Urine by Auto Yellow [facility] Complete Blood Count Auto Di ffon 11-18-2024 Basophils (Bld) [#/Vol] 0.1 10*3/uL Normal 0.0-0.2 [facility] Comment on above: Result Comment: PERF ORMED BY: [place] [address] PATHOLOGIST FINANCIAL AID DIRECTOR CECILIA SHORT M.D. Performed By: #### C MP, LIPASE, CBC #### [address] Basophils/100 WBC (Bld) 0.7 % Normal . [facility] [place] [facility] Comment on above: Performed By: #### C MP, LIPASE, CBC #### [address] Eosinophils (Bld) [#/Vol] 0.3 10*3/uL Normal 0.0-0.45 [facility] Comment on above: Performed By: #### C MP, LIPASE, CBC #### [address] Eosinophils/100 WBC (Bld) 4.4 % Normal . [facility] Comment on above: Performed By: #### C MP, LIPASE, CBC #### [address] Erythrocyte distribution width (RBC) [Ratio] 13.3 % Normal 11.9-15.3 [facility] Comment on above: Performed By: #### C MP, LIPASE, CBC #### [address] Hematocrit (Bld) [Volume fraction] 30.4 % Low 34.0-46.4 [facility] Comment on above: Performed By: #### C MP, LIPASE, CBC #### [address] Hemoglobin (Bld) [Mass/Vol] 10.3 g/dL Low 11.8-15.4 [facility] Comment on above: Performed By: #### C MP, LIPASE, CBC #### [address] Lymphocytes (Bld) [#/Vol] 1.5 10*3/uL Normal 1.00-4.8 [facility] Comment on above: Performed By: #### C MP, LIPASE, CBC #### [address] Lymphocytes/100 WBC (Bld) 19.3 % Normal . [facility] Comment on above: Performed By: #### C MP, LIPASE, CBC #### [address] MCH (RBC) [Entitic mass] 30.7 pg Normal 24.7-34.3 [facility] Comment on above: Performed By: #### C MP, LIPASE, CBC #### [address] MCV (RBC) [Entitic vol] 90.2 fL Normal 80-100 [facility] Comment on above: Performed By: #### C MP, LIPASE, CBC #### [address] Mean Corpuscular HGB Conc 34.0 g/dL Normal 32.0-35.0 [facility] Comment on above: Performed By: #### C MP, LIPASE, CBC #### [address] [place] [address] [place] Monocytes (Bld) [#/Vol] 0.5 10*3/uL Normal 0.0-0.8 [facility] Comment on above: Performed By: #### C MP, LIPASE, CBC #### [facility] [address] [place] [address] [place] Monocytes/100 WBC (Bld) 18.40 % Normal 0.00-20.00 [facility] Comment on above: Performed By: #### C MP, LIPASE, CBC #### [facility] [address] [place] [address] [place] Monocytes/100 WBC (Bld) 6.1 % Normal . [facility] Comment on above: Performed By: #### C MP, LIPASE, CBC #### [facility] [address] [place] [address] [place] Neutrophils (Bld) [#/Vol] 5.4 10*3/uL Normal 1.8-7.7 [facility] Comment on above: Performed By: #### C MP, LIPASE, CBC #### [facility] [address] [place] [address] [place] Neutrophils/100 WBC (Bld) 69.5 % Normal . [facility] Comment on above: Performed By: #### C MP, LIPASE, CBC #### [facility] [address] [place] [address] [place] NRBC% 0.1 /100{WBC} Normal 0-0.5 [facility] Comment on above: Performed By: #### C MP, LIPASE, CBC #### [facility] [address] [place] [address] [place] Platelet mean volume (Bld) [Entitic vol] 8.4 fL Normal 6.3-10.7 [facility] Comment on above: Performed By: #### C MP, LIPASE, CBC #### [facility] [address] [place] [address] [place] Platelets (Bld) [#/Vol] 236 10*3/uL Normal 150-450 [facility] Comment on above: Performed By: #### C MP, LIPASE, CBC #### [address] RBC (Bld) [#/Vol] 3.37 10*6/uL Low 3.60-5.00 [facility] Comment on above: Performed By: #### C MP, LIPASE, CBC #### [address] WBC (Bld) [#/Vol] 7.8 10*3/uL Normal 3.8-11.6 [facility] Comment on above: Performed By: #### C MP, LIPASE, CBC #### [address] Comprehensive Metabolic Pane cali 11-18-2024 Albumin [Mass/Vol] 3.4 g/dL Low 3.5-5.7 [facility] Comment on above: Performed By: #### C MP, LIPASE, CBC #### [address] Albumin/Globulin [Mass ratio] 1.2 {ratio} Normal [facility] Comment on above: Performed By: #### C MP, LIPASE, CBC #### [address] ALP [Catalytic activity/Vol] 97 U/L Normal 34-104 [facility] Comment on above: Performed By: #### C MP, LIPASE, CBC #### [address] ALT [Catalytic activity/Vol] 9 U/L Normal 7-52 [facility] Comment on above: Performed By: #### C MP, LIPASE, CBC #### [address] Anion gap [Moles/Vol] 11.3 mmol/L Normal 6.0-15.0 [facility] Comment on above: Performed By: #### C MP, LIPASE, CBC #### [address] AST [Catalytic activity/Vol] 14 U/L Normal 13-39 [facility] Comment on above: Performed By: #### C MP, LIPASE, CBC #### [facility] [address] Bilirubin [Mass/Vol] 0.4 mg/dL Normal 0.3-1.0 [facility] Comment on above: Performed By: #### C MP, LIPASE, CBC #### [facility] [address] Calcium [Mass/Vol] 8.8 mg/dL Normal 8.6-10.3 [facility] Comment on above: Performed By: #### C MP, LIPASE, CBC #### [facility] [address] Chloride [Moles/Vol] 105 mmol/L Normal 98-107 [facility] Comment on above: Performed By: #### C MP, LIPASE, CBC #### [facility] [address] CO2 [Moles/Vol] 22.1 mmol/L Normal 21.0-31.0 [facility] Comment on above: Performed By: #### C MP, LIPASE, CBC #### [facility] [address] [place] [address] [place] Creatinine [Mass/Vol] 0.45 mg/dL Low 0.60-1.20 [facility] Comment on above: Performed By: #### C MP, LIPASE, CBC #### [facility] [address] [place] [address] [place] Creatinine Clr Calc Pharmacy 250.81 Normal [facility] Comment on above: Performed By: #### C MP, LIPASE, CBC #### [facility] [address] [place] [address] [place] GFR/1.73 sq M.predicted MDRD (S/P/Bld) [Vol rate/Area] mL/min/{1.73_m2} Normal [facility] Comment on above: Performed By: #### C MP, LIPASE, CBC #### [facility] [address] [place] [address] [place] Globulin (S) [Mass/Vol] 2.9 g/dL Normal [facility] Comment on above: Performed By: #### C MP, LIPASE, CBC #### [address] Glucose [Mass/Vol] 140 mg/dL High 70-100 [facility] Comment on above: Result Comment: [place] Glucose Reference Range is dependent on time and content of last meal. Glucose of more than 200 mg/dL in a nonstressed, ambulatory subject supports the diagnosis of Diabetes Mellitus. ADA recommended reference range Performed By: #### C MP, LIPASE, CBC #### [address] Potassium [Moles/Vol] 3.4 mmol/L Low 3.5-5.1 [facility] Comment on above: Performed By: #### C MP, LIPASE, CBC #### [address] Protein [Mass/Vol] 6.3 g/dL Low 6.4-8.9 [facility] Comment on above: Performed By: #### C MP, LIPASE, CBC #### [address] Sodium [Moles/Vol] 135 mmol/L Low 136-145 [facility] Comment on above: Performed By: #### C MP, LIPASE, CBC #### [address] Urea nitrogen [Mass/Vol] 3 mg/dL Low 7-25 [facility] Comment on above: Performed By: #### C MP, LIPASE, CBC #### [place] [address] [place] Creatinine [Mass/volume] in Serum or PlasmaOrdered By: Rishabh Quinteros on 11-18-2024 Creatinine [Mass/Vol] Creatinine [Mass/volume] in Serum or Plasma Low 0.60-1.20 [facility] Dipstick and Microscopicon 0 11-18-2024 Appearance (U) Cloudy Critically abnormal Clear [facility] Comment on above: Order Comment: Name Collection Type:: Clean-Voided Midstream Performed By: #### C MP, LIPASE, CBC #### [address] Bacteria,Urine 2+ High None Seen [facility] Comment on above: Order Comment: Name Collection Type:: Clean-Voided Midstream Performed By: #### C MP, LIPASE, CBC #### [address] Bilirubin,Urine Negative Normal Negative [facility] Comment on above: Order Comment: Name Collection Type:: Clean-Voided Midstream Performed By: #### C MP, LIPASE, CBC #### [address] Color (U) Light-Yellow Normal Yellow [facility] Comment on above: Order Comment: Name Collection Type:: Clean-Voided Midstream Performed By: #### C MP, LIPASE, CBC #### [address] Glucose Ql (U) 100 mg/dL High Normal [facility] Comment on above: Order Comment: Name Collection Type:: Clean-Voided Midstream Performed By: #### C MP, LIPASE, CBC #### [address] Hyaline Casts,Urine None Normal 0-8 [facility] Comment on above: Order Comment: Name Collection Type:: Clean-Voided Midstream Performed By: #### C MP, LIPASE, CBC #### [address] Ketones Ql (U) Negative Normal Negative [facility] Comment on above: Order Comment: Name Collection Type:: Clean-Voided Midstream Performed By: #### C MP, LIPASE, CBC #### [address] Leukocyte esterase Test strip Ql (U) Negative Normal Negative [facility] Comment on above: Order Comment: Name Collection Type:: Clean-Voided Midstream Performed By: #### C MP, LIPASE, CBC #### [address] Mucus,Urine 1+ Critically abnormal [facility] Comment on above: Order Comment: Name Collection Type:: Clean-Voided Midstream Result Comment: PERF ORMED BY: [place] [address] PATHOLOGIST FINANCIAL AID DIRECTOR CECILIA SHORT M.D. Performed By: #### C MP, LIPASE, CBC #### [place] [address] [place] Nitrite,Urine Negative Normal Negative [facility] Comment on above: Order Comment: Name Collection Type:: Clean-Voided Midstream Performed By: #### C MP, LIPASE, CBC #### [address] Occult Blood,Urine Negative Normal Negative [facility] Comment on above: Order Comment: Name Collection Type:: Clean-Voided Midstream Result Comment: PERF ORMED BY: [place] [address] PATHOLOGIST FINANCIAL AID DIRECTOR CECILIA SHORT M.D. Performed By: #### C MP, LIPASE, CBC #### [place] [address] [place] pH (U) 6.0 [pH] Normal 5.0-9.0 [facility] Comment on above: Order Comment: Name Collection Type:: Clean-Voided Midstream Performed By: #### C MP, LIPASE, CBC #### [place] [address] [place] Protein,Urine Negative Normal Negative [facility] Comment on above: Order Comment: Name Collection Type:: Clean-Voided Midstream Performed By: #### C MP, LIPASE, CBC #### [place] [address] [place] RBC,Urine 1 [HPF] Normal 0-4 [facility] Comment on above: Order Comment: Name Collection Type:: Clean-Voided Midstream Performed By: #### C MP, LIPASE, CBC #### [place] [address] [place] Specificy [place],Urine 1.010 Normal 1.001-1.030 [facility] Comment on above: Order Comment: Name Collection Type:: Clean-Voided Midstream Performed By: #### C MP, LIPASE, CBC #### [address] Squamous Epithelial Cell,Urine 10 [HPF] High 0-2 [facility] Comment on above: Order Comment: Name Collection Type:: Clean-Voided Midstream Performed By: #### C MP, LIPASE, CBC #### [address] Urobilinogen,Urine Normal Normal Normal [facility] Comment on above: Order Comment: Name Collection Type:: Clean-Voided Midstream Performed By: #### C MP, LIPASE, CBC #### [address] WBC,Urine 5 [HPF] High 0-4 [facility] Comment on above: Order Comment: Name Collection Type:: Clean-Voided Midstream Performed By: #### C MP, LIPASE, CBC #### [address] Eosinophils Auto (Bld) [#/Vo l]Ordered By: Rishabh Quinteros on 11-18-2024 Eosinophils (Bld) [#/Vol] Automated eosinophil count 0.0-0.45 [facility] Eosinophils/100 WBC Auto (Bl d)Ordered By: Rishabh Quinteros on 11-18-2024 Eosinophils/100 WBC (Bld) Automated eosinophil % . [facility] Epithelial cells.squamous [# /area] in Urine sediment by Automated countOrdered By: Rishabh Quinteros on 11-18-2024 Epithelial cells.squamous Auto (Urine sed) [#/Area] Epithelial cells.squamous [#/area] in Urine sediment by Automated count High 0-2 [facility] Erythrocyte distribution wid th Auto (RBC) [Ratio]Ordered By: Rishabh Quinteros on 11-18-2024 Erythrocyte distribution width (RBC) [Ratio] Erythrocyte distribution width [Ratio] by Automated count 11.9-15.3 [facility] Erythrocytes [#/area] in Uri ne sediment by Automated countOrdered By: Rishabh Quinteros on 11-18-2024 RBC Auto (Urine sed) [#/Area] Erythrocytes [#/area] in Urine sediment by Automated count 0-4 [facility] Globulin Calc (S) [Mass/Vol] Ordered By: Rishabh Quinteros on 11-18-2024 Globulin (S) [Mass/Vol] Serum globulin measurement by calculation (mass/volume) [facility] Glucose [Mass/volume] in Ser um or PlasmaOrdered By: Rishabh Quinteros on 11-18-2024 Glucose [Mass/Vol] Glucose [Mass/volume] in Serum or Plasma High 70-100 [facility] Comment on above: ADA recommended refe rence [...] in Urine by Test strip High Normal [facility] Hematocrit Auto (Bld) [Volum e fraction]Ordered By: Rishabh Quinteros on 11-18-2024 Hematocrit (Bld) [Volume fraction] Hematocrit [Volume Fraction] of Blood by Automated count Low 34.0-46.4 [facility] Hemoglobin Test strip Ql (U) Ordered By: Rishabh Quinteros on 11-18-2024 Hemoglobin Ql (U) Hemoglobin [Presence] in Urine by Test strip Negative [facility] Hemoglobin [Mass/volume] in BloodOrdered By: Rishabh Quinteros on 11-18-2024 Hemoglobin (Bld) [Mass/Vol] Hemoglobin [Mass/volume] in Blood Low 11.8-15.4 [facility] Hyaline casts [#/area] in Ur ine sediment by Automated countOrdered By: Rishabh Quinteros on 11-18-2024 Hyaline casts Auto (Urine sed) [#/Area] Hyaline casts [#/area] in Urine sediment by Automated count 0-8 [facility] Ketones Test strip Ql (U)Ord ered By: Rishabh Quinteros on 11-18-2024 Ketones Ql (U) Ketones [Presence] in Urine by Test strip Negative [facility] Leukocyte esterase [Presence ] in Urine by Test stripOrdered By: Rishabh Quinteros on 11-18-2024 Leukocyte esterase Test strip Ql (U) Leukocyte esterase [Presence] in Urine by Test strip Negative [facility] Leukocytes [#/area] in Urine sediment by Automated countOrdered By: Rishabh Quinteros on 11-18-2024 WBC Auto (Urine sed) [#/Area] Leukocytes [#/area] in Urine sediment by Automated count High 0-4 [facility] Leukocytes [#/volume] correc alphonso for nucleated erythrocytes in Blood by Automated counOrdered By: Rishabh Quinteros on 11-18-2024 WBC corrected for nucl RBC Auto (Bld) [#/Vol] Leukocytes [#/volume] corrected for nucleated erythrocytes in Blood by Automated coun 3.8-11.6 [facility] Lipaseon 11-18-2024 Lipase [Catalytic activity/Vol] 15.0 U/L Normal 11.0-82.0 [facility] Comment on above: Result Comment: PERF ORMED BY: [place] [address] PATHOLOGIST FINANCIAL AID DIRECTOR CECILIA SHORT M.D. Performed By: #### C MP, LIPASE, CBC #### [address] Lipase [Enzymatic activity/v olume] in Serum or PlasmaOrdered By: Rishabh Quinteros on 11-18-2024 Lipase [Catalytic activity/Vol] Lipase [Enzymatic activity/volume] in Serum or Plasma 11.0-82.0 [facility] Lymphocytes Auto (Bld) [#/Vo l]Ordered By: Rishabh Quinteros on 11-18-2024 Lymphocytes (Bld) [#/Vol] Lymphocytes [#/volume] in Blood by Automated count 1.00-4.8 [facility] Lymphocytes/100 WBC Auto (Bl d)Ordered By: Rishabh Quinteros on 11-18-2024 Lymphocytes/100 WBC (Bld) Lymphocytes/100 leukocytes in Blood by Automated count . [facility] MCH Auto (RBC) [Entitic mass ]Ordered By: Rishabh Quinteros on 11-18-2024 MCH (RBC) [Entitic mass] MCH [Entitic ma ss] by Automated count 24.7-34.3 [facility] MCHC Auto (RBC) [Mass/Vol]Or dered By: Rishabh Quinteros on 11-18-2024 MCHC (RBC) [Mass/Vol] MCHC [Mass/volume] by Automated count 32.0-35.0 [facility] MCV Auto (RBC) [Entitic vol] Ordered By: Rishabh Quinteros on 11-18-2024 MCV (RBC) [Entitic vol] MCV [Entitic volume] by Automated count 80-100 [facility] Monocyte distribution width [Entitic volume] in Blood by AutomatedOrdered By: Rishabh Quinteros on 11-18-2024 Monocyte distribution width Auto (Bld) [Entitic vol] Monocyte distribution width [Entitic volume] in Blood by Automated 0.00-20.00 [facility] Monocytes Auto (Bld) [#/Vol] Ordered By: Rishabh Quinteros on 11-18-2024 Monocytes (Bld) [#/Vol] Automated blood monocyte count 0.0-0.8 [facility] Monocytes/100 WBC Auto (Bld) Ordered By: Rishabh Quinteros on 11-18-2024 Monocytes/100 WBC (Bld) Automated monocy te % . [facility] Mucus [Presence] in Urine by AutomatedOrdered By: Rishabh Quinteros on 11-18-2024 Mucus Auto Ql (U) Mucus [Presence] in Urine by Automated Abnormal [facility] Neutrophils Auto (Bld) [#/Vo l]Ordered By: Rishabh Quinteros on 11-18-2024 Neutrophils (Bld) [#/Vol] Neutrophils [#/volume] in Blood by Automated count 1.8-7.7 [facility] Neutrophils/100 WBC Auto (Bl d)Ordered By: Rishabh Quinteros on 11-18-2024 Neutrophils/100 WBC (Bld) Automated neutrophil % . [facility] Nitrite Test strip Ql (U)Ord ered By: Rishabh Quinteros on 11-18-2024 Nitrite Ql (U) Nitrite [Presence] in Urine by Test strip Negative [facility] No Panel InformationOrdered By: Rishabh Quinteros on 11-18-2024 Estimated GFR (CKD-EPI) > 60.0 mL/Min [facility] Creatinine Clearance (Chem 250.81 [facility] Nucleated erythrocytes [Pres ence] in Blood by Automated countOrdered By: Rishabh Quinteros on 11-18-2024 Nucleated RBC Auto Ql (Bld) Nucleated erythrocytes [Presence] in Blood by Automated count 0-0.5 [facility] Platelet mean volume Auto (B ld) [Entitic vol]Ordered By: Rishabh Quinteros on 11-18-2024 Platelet mean volume (Bld) [Entitic vol] Platelet mean volume [Entitic volume] in Blood by Automated count 6.3-10.7 [facility] Platelets Auto (Bld) [#/Vol] Ordered By: Rishabh Quinteros on 11-18-2024 Platelets (Bld) [#/Vol] Platelets [#/volume] in Blood by Automated count 150-450 [facility] Potassium [Moles/volume] in Serum or PlasmaOrdered By: Rishabh Quinteros on 11-18-2024 Potassium [Moles/Vol] Potassium [Moles/volume] in Serum or Plasma Low 3.5-5.1 [facility] Protein Test strip (U) [Mass /Vol]Ordered By: Rishabh Quinteros on 11-18-2024 Protein (U) [Mass/Vol] Protein [Mass/volume] in Urine by Test strip Negative [facility] Protein [Mass/volume] in Ser um or PlasmaOrdered By: Rishabh Quinteros on 11-18-2024 Protein [Mass/Vol] Protein [Mass/volume] in Serum or Plasma Low 6.4-8.9 [facility] RBC Auto (Bld) [#/Vol]Ordere d By: Rishabh Quinteros on 11-18-2024 RBC (Bld) [#/Vol] Erythrocytes [#/volume] in Blood by Automated count Low 3.60-5.00 [facility] Respiratory specimen influen za A virus, influenza B virus, respiratory syncytical virOrdered By: Rishabh Quinteros on 11-18-2024 SARS-CoV-2 (COVID-19) RNA ANGELY+probe Ql (Unsp spec) Respiratory specimen influenza A virus, influenza B virus, respiratory syncytical vir [facility] SARS-CoV-2 (COVID-19) RNA ANGELY+probe Ql (Unsp spec) Respiratory specimen influenza A virus, influenza B virus, respiratory syncytical vir [facility] Serum or plasma albumin/glob ulin mass ratioOrdered By: Rishabh Quinteros on 11-18-2024 Albumin/Globulin [Mass ratio] Serum or plasma albumin/globulin mass ratio [facility] Serum or plasma anion gap de terminationOrdered By: Rishabh Quinteros on 11-18-2024 Anion gap [Moles/Vol] Serum or plasma anion gap determination 6.0-15.0 [facility] Sodium [Moles/volume] in Ser um or PlasmaOrdered By: Rishabh Quinteros on 11-18-2024 Sodium [Moles/Vol] Sodium [Moles/volume] in Serum or Plasma Low 136-145 [facility] Specific gravity Test strip (U) [Rel density]Ordered By: Rishabh Quinteros on 11-18-2024 Specific gravity (U) [Rel density] Specific gravity of Urine by Test strip 1.001-1.030 [facility] Urea nitrogen [Mass/volume] in Serum or PlasmaOrdered By: Rishabh Quinteros on 11-18-2024 Urea nitrogen [Mass/Vol] Urea nitrogen [Mass/volume] in Serum or Plasma Low 7-25 [facility] Urobilinogen Test strip (U) [Mass/Vol]Ordered By: Rishabh Quinteros on 11-18-2024 Urobilinogen (U) [Mass/Vol] Urobilinogen [Mass/volume] in Urine by Test strip Normal [facility] WBC Auto (Bld) [#/Vol]Ordere d By: Rishabh Quinteros on 11-18-2024 WBC (Bld) [#/Vol] Leukocytes [#/volume] in Blood by Automated count 3.8-11.6 [facility] pH Test strip (U)Ordered By: Rishabh Quinteros on 11-18-2024 pH (U) pH of Urine by Test strip 5.0-9.0 [facility] Appearance of UrineOrdered B y: Vee Yang on 11-08-2024 Appearance (U) Urine appearance Clear [facility] Bilirubin Test strip Ql (U)O rdered By: Vee Yang on 11-08-2024 Bilirubin Ql (U) Bilirubin.total [Presence] in Urine by Test strip Negative [facility] Color Auto (U)Ordered By: Salima casiano Trey on 11-08-2024 Color (U) Color of Urine by Auto Yellow [facility] Glucose [Mass/volume] in Uri ne by Test stripOrdered By: Vee Yang on 11-08-2024 Glucose Test strip (U) [Mass/Vol] Glucose [Mass/volume] in Urine by Test strip Normal [facility] Hemoglobin Test strip Ql (U) Ordered By: Vee Yang on 11-08-2024 Hemoglobin Ql (U) Hemoglobin [Presence] in Urine by Test strip Negative [facility] Ketones Test strip Ql (U)Ord ered By: Vee Yang on 11-08-2024 Ketones Ql (U) Ketones [Presence] in Urine by Test strip Negative [facility] Leukocyte esterase [Presence ] in Urine by Test stripOrdered By: Vee Yang on 11-08-2024 Leukocyte esterase Test strip Ql (U) Leukocyte esterase [Presence] in Urine by Test strip Negative [facility] Nitrite Test strip Ql (U)Ord ered By: Vee Yang on 11-08-2024 Nitrite Ql (U) Nitrite [Presence] in Urine by Test strip Negative [facility] Protein Test strip (U) [Mass /Vol]Ordered By: Vee Yang on 11-08-2024 Protein (U) [Mass/Vol] Protein [Mass/volume] in Urine by Test strip Negative [facility] Specific gravity Test strip (U) [Rel density]Ordered By: Vee Yang on 11-08-2024 Specific gravity (U) [Rel density] Specific gravity of Urine by Test strip 1.001-1.030 [facility] Urinalysison 11-08-2024 Appearance (U) Clear Normal Clear [facility] Comment on above: Order Comment: Name Collection Type:: Voided Performed By: #### C MP, LIPASE, CBC #### [facility] [address] [place] [address] [facility] Bilirubin,Urine Negative Normal Negative [facility] Comment on above: Order Comment: Name Collection Type:: Voided Performed By: #### C MP, LIPASE, CBC #### [facility] [address] [place] [address] Color (U) Colorless Normal Yellow [facility] Comment on above: Order Comment: Name Collection Type:: Voided Performed By: #### C MP, LIPASE, CBC #### [address] Glucose Ql (U) Normal Normal Normal [facility] Comment on above: Order Comment: Name Collection Type:: Voided Performed By: #### C MP, LIPASE, CBC #### [address] Ketones Ql (U) Negative Normal Negative [facility] Comment on above: Order Comment: Name Collection Type:: Voided Performed By: #### C MP, LIPASE, CBC #### [address] Leukocyte esterase Test strip Ql (U) Negative Normal Negative [facility] Comment on above: Order Comment: Name Collection Type:: Voided Performed By: #### C MP, LIPASE, CBC #### [address] Nitrite,Urine Negative Normal Negative [facility] Comment on above: Order Comment: Name Collection Type:: Voided Performed By: #### C MP, LIPASE, CBC #### [address] Occult Blood,Urine Negative Normal Negative [facility] Comment on above: Order Comment: Name Collection Type:: Voided Result Comment: PERF ORMED BY: [place] [address] PATHOLOGIST FINANCIAL AID DIRECTOR CECILIA SHORT M.D. Performed By: #### C MP, LIPASE, CBC #### [address] pH (U) 7.0 [pH] Normal 5.0-9.0 [facility] Comment on above: Order Comment: Name Collection Type:: Voided Performed By: #### C MP, LIPASE, CBC #### [place] [address] [place] Protein,Urine Negative Normal Negative [facility] Comment on above: Order Comment: Name Collection Type:: Voided Performed By: #### C MP, LIPASE, CBC #### [facility] [address] Specificy [place],Urine 1.009 Normal 1.001-1.030 [facility] Comment on above: Order Comment: Name Collection Type:: Voided Performed By: #### C MP, LIPASE, CBC #### [facility] [address] Urobilinogen,Urine Normal Normal Normal [facility] Comment on above: Order Comment: Name Collection Type:: Voided Performed By: #### C MP, LIPASE, CBC #### [facility] [address] Urinalysis, manual onlyon Appearance (U) Clear Clear [facility] BILIRUBIN,URINE Negative Negative [facility] Color (U) Colorless Yellow [facility] Glucose Ql (U) Normal Normal [facility] Healthcare Ketones Ql (U) Negative Negative [facility] Leukocyte esterase Test strip Ql (U) Negative Negative [facility] NITRITE,URINE Negative Negative [facility] OCCULT BLOOD,URINE Negative Negative [facility] pH (U) 7 [pH] 5.0 - 9.0 [facility] PROTEIN,URINE Negative Negative [facility] SPECIFICY GRAVITY,URINE 1.009 1.00 1 - 1.030 [facility] UROBILINOGEN,URINE Normal Normal [facility] Healthcare Name Collection Type:: Voided [facility] Urobilinogen Test strip (U) [Mass/Vol]Ordered By: Vee Yang on 11-08-2024 Urobilinogen (U) [Mass/Vol] Urobilinogen [Mass/volume] in Urine by Test strip Normal [facility] pH Test strip (U)Ordered By: Vee Yang on 11-08-2024 pH (U) pH of Urine by Test strip 5.0-9.0 [facility] Coding Summaryon 10-29-2024 Coding Summary HTMLBase 64 QltgobthFDe9oDc+PGh lYWQ+KQ7NYHHfF52tqY OhqM2gS3VTMBrJFoudC HPAKYuVImVmtxKeSL9f aXNjZXJu IC8+MK8lFQYmWgryfRB ph3F1aAK1L88dwx1hCU krfBJ3LDOwVkZyikfff 3pzxBn1RSypUcpaUyTx DNMjlI13UNV3rW86Kc2 3eGLgtKPhy4twuDp0Kh YoDHAnFSV8hRizTXxkr 3XkIVBfQ84cnRDwu9N0 IGNvbGxhcHNlOyBlbXB 8wZ2nSVnlrgtxf3efzd gzDgg0kh45vEPjl2H3x NL2V9WmwcK3WPKlkENy DvupmDLOwN0xlbzvc2k lcxpvHhLeTCRhGWg1GI n0WCUefTduEvCqKU03S BN0YPQsivQyM4UrEYFb dXazZaM3e0E9Ka3RR5P QBbkjT9MDOJIDESxyxI Q+LQ31ne79K0MfUexvX cn1WNUgNQK4jBP0tK2a IYGsYSawc3J0wBL1P3Z xcgEmoe6rg5uqNBHqFF fpD14sbYHqf2F2ZUUtc US0NCWckLlqMqZvpY01 Oyc+SFBwvPxjo1BfIcn rr1udx5ndgTa4PtfbYN HqzvXgtRlwCEU9h9RwN s7oQXFntHB9uUP1lF3l SpEoLkU8RVutG396NhR fcBAnEsubJ34sS6ThnC A+CZPwRwr8OWJhuNnzB G4vP8PfQZLewexcpDEb xHcaNO4iRBZoozomJJG xsC0rIBAqZ9n9NyBvMb F0XJekP7AiIYHivpigA m38rS8wGzJhIoB5JMwz J7FpjwW2WSHonEBcYHa dSIM8N33py0A5QNWxOH DfVFV4dTO2pM7xdMaid jogbGVmdDsgdmVydGlj FQzeLFliH539JPJyeEx nPkNvZGluZyBEYXRlOi AgMDEvMTcvMjAyNTwvd GQ+IYIcEOQ2mQtkPHGt aFOtDRawVs9zcWerpCe cIT0vBRSocyiuXIJscV 4sSXXpyCAyaTkaLU7lS VIgxynro224XaLzMKC9 MOMuuPOpH7IciB7tRyZ uUDAlJDXyM4MzwQGoPU suM794GAjfOdD6IRLlv rMyY9JrBUWgcYisSgP3 y2F7He9If8FiwltfM5G rxMQyFsHhEtgpZNo0X3 RkPjwvdHI+TI30CKHvA X06PKb3GMF1mMckUBhw YFZdR0MxjN0jTxIuHPY kZGRkOyc+PHRhYmxlIH dpZHRoPScxMDAlJyBzd FpqFY7fEy1fBXEvRTHp gGoseFHeKlBck0ueCQM kUYhtRE5qwWykH0XwzI J4OXRaw1d5Qs90L45yW 3JvdXA+GVWjqVW0lTA7 bI9sLzAxIuL9JJqwN60 2XtCfhDHvHolqm7ggo8 bjtEq7YuN2GRAikdFmo EnsRXP7l4HxHh00L73x IHdpZHRoPSIxNSUiIHZ hnAfzjf2jcB1ePu0+PG EnfKB9iFG5cO5fBcIzB eK8UDmnB359PuLjtAJr Rwttx6baz2jjsZy2BpB dKGEirdOtyNmkYNN7m2 JbPi68D1WmxWwch4KnU xq0nn23cPPsl8S5wET8 B3OrJUSeabypkBWooQy oGW4fKYDojwfbMGBuzA 1lACSiV9d6LfRlYxH1X RtrL1LucaY2NJGjrFTx UNWdbTEMnN1vwzirh8r znonuPpOqFYDpKJd5NX c2ILQzqAxlWwIvAHD1B cL2VAK5cXKxuM6zcWfl ermoiU1eJci+VKK4gRM ffXEZHM2zLlhdgON+PH LmTXH2mXqrZGcsEDFql F2iRZLzS9u8GmQrJqP1 BTnoD9UesiC7EMWlzZT iUDEwcYCVaI1lnodub2 dxkitsZyHfFDJpGRk2Y Ll0WWGchIixTbUgCMC9 IuY8NXT5aIXvuZ4zkBe wdiysiC9aJxo+QmlydG twZPP8XSx9O9VeExa9I NXvmYxtNY5pyAScIGxk Jx9kpKgleVyrKO7gOTQ rczhwl876EiSsk5eaHS DqrLBrXShsCBC0S19ut 3J2OKLhFCUbZXW9eZS7 gG7apVpqouirnXHndNn gdmVydGljYWwtYWxpZ2 00RZYstWahTrCqCJy8J 2EuSac2AHNqpYnsIL2n nSUyZQzxUw8avRqyrXa nTX1dVMTzqzhqu272Yx Jxw9vnAUEwyMKqEVcsZ EG7K50be1F4ZYPcTJPh XPY4gVF7jJ2shVnqean gbGVmdDsgdmVydGljYW ceNYvfD017MEIogOroZ tSppHk5Y5ChSyd0LIXm oGsrVN8ruCIdRPigYa1 wjGukgTxaKZ2hZMWmxz nin455GvLup1zsANUfv LMjFXdnFBK8K05hd3V7 EZPyFMKxXSJ4cUV3oI4 hbGlnbjogbGVmdDsgdm ZvmLudQVpsCOshT969M HRvcDsnPlBhdGllbnQg TEccIYe5E4UhIjlavSP +KO67AKDpPK58zGAnyH Xbq3ckbWc5EhOeWLSoT NA3xTosSIirb5YwJMKd A76nzRIiw4J3IQJqoQo wqRMlWbFmpGG8dA1vKT pxziqss1jdpghoVxgjd 2ridj19cT44C95oOTvb ZHRoPSIzMCUiIHZhbGl knq9gyO5mBw8+PGNvbC S6xZV5fU3vTZDdOxF2K VdeG339DsAtdJSnMboq f6cad9cywMh4QoJ1HKC pufDctVjoPMD8d5HgJp 72L06oHWfeTIDpIHTyX NFkTIGbdPpkna8phR2q Ii8+WFHliRB7aJC5fU2 mUgRsFbD4TXwhM351Bh RrlTEhJkbuN70zQ1Lig XA+TEYnQix9UPUiiTua FZ3rgKAzERsjRr3yAMY 7YpQxXaXePWgoR0VuAW HagmmjkbepuPZ1PYBdP KQawZ06Gi5ulWmaYJDz kHPZkO3vjdstf7dqbma sAfObDPSkGFg1TTr9FK PbfFiaWbDvKWA6YvV0R SJ3wQXfjH0ayYbzgevu rA4rR2NsRIPlmqvfEc7 2gW7uNcWxVzH2CNspNq c+FSVAZOPHSRceKB7OT SBMQVJFRTwvdGQ+PHRk FGJ1zBbcOHcjWVBvxK9 qRQIgH3h5SpOqIvU2BS uuY7GpTGSkilibJo19u J2aGvPjFqY2YYwqO6Jz jpK2TCLijDNlIQgsAES 3J72ce3G1GWOaMLLxRA W6jQJ5jO7ubSedjovje GVmdDsgdmVydGljYWwt EOjbO639NDEewKgwXrT 0QwI9CwUhQMC5H2PeKz v7PXNbaOpjEG7kbIJwA ZocIv5urHskaCeiSL1o RSPszcofVKVjjT8pZSL apSKpwKmxQY1pOSLdzc ttq883AyStQLI4KQOmd SHxL4GrkX4kGqLoNZDc BINkE0FmmBGnVSseR97 1NBlpNyC1XRJovcAjO1 CcRDUtrOtrQcA8f9N2Y j1hWGNAEVObonvsgOD+ CJEbWWV7kIaeFFybTUD fnC2nDQLqZ6a7PxWzFz F4GYagS0FnVOXenkktS g52yF1tPvVvTtA1EFnk A9IbzvF2FWLctUQqGCn fZPX9L26wx6N7GMSvEC FfFNO0oYZ1cI9feIwui jogbGVmdDsgdmVydGlj DCwhINvcL299VVBxeFv nPkZFTUFMRTwvdGQ+PH EkWTH8pWzcETyzCLYyv W0qPPKtP8u9JsGxTfC8 HAhyU8MbDZZdafsnDd9 2cB1kLqGyWkJ8TYtxX6 RvqeL5JWHglGXqJAdqJ BO0G75rr7S1VETwBYBp QXF2yDN2vL1daCdsxqt gbGVmdDsgdmVydGljYW xjHGrgZ748CVHriYisI vXoLRXgQS5zqKngfHW+ EX89sa57L9TySgemKen 6WOTzYON1pDZ3hD2oHN CkWLtzr1E0iFW8E7Lvw eFjdz2xk5mcOBHcUYad G35bkEWhw9S9BSShrKJ 5ZISrjIdfZjNlzZ19Us c+OLEmbEytz0TgIlmye 3eft6vvmXi1UmKwTDDp crZzkLzvALV7h8IuRw7 7Q90eYOpoFMSwUJMsGL IiAOCgiZmiji5myC7iL i8+OWPpoYR0eJG6dI3b OaXnRdH8VCxpS659OcU fnQVrVttjo0dqh1fjbC u0IqKsTQOzvxVisLltH OQ0s8MmJc60M0AanKiv g2BuWqv8rk44dQAzp0S 5wDD3F3IzLJWwcurjgB XhtGfySV1kNPIxfnmvI HZkuL6kKUFbN1i9AgTa ChW2MApxW7EspfX6KZN jyFJqRZWtdBZNjS9emk nqx0wiyzsxDdMwFLSjP Br2ZEo5IUJdqQysUjWe KPZ0CxI4SIY2sSCbtV9 giYozibrhfU2rQpe+UG y7k1ugtVTkFJ8roKI7Z Q69WP95kRVqe6P1yKX9 T2EbFVHmclgnqrdjfVH 3KWZgOIXyjO43Vz4kzX cmJv3qDVMwOHC9HNQnx XJiF5AfgT6zQxUhVGMe LZCzS7MaxZBnAVxhC41 9ZEveIdN7GIFeafKpF1 FzMVKjpGueEvP0o5P1U k2XNS90HX91QA30vGRo n6N7iAI6F6HaLJHxjnw mlmgpdUT2LXXnUZUuwM 80Oo4geDgoUd5hSGPhZ BB7XQEesUIvH0ZbrA6g MzSaDUSrJJDfY1SvfDB wNCqnZ511XNajWxJ9FZ BzdiReB1JrKSYzjOpzC fU7g5Y5Po5MRb74NV61 MI07xWExs2V0zUF8H8I aKWAeyucmbjacfOA1ON SlMTUdwT68Jk3nlCeeP x8iIFTqVFS4WCQamIWc X9RszD2bEzGwFQEqTEI oJ7DdfDWmSVvyU243TY bpMjG1QCPfgqLuX6AgK MLlyQlwNbD3w0P8Jf5B HQhpbon4N6DsKqnejNU +PN43JIYkUU10yKCukT Hgq2hwiOb9KdIiKZLfV QA3aNleJErrc5NsGUNk Y29 (more content not included)... [facility] Consent Formson 10-18-2024 Consent Forms [id number] [facility] ED Clinical Summaryon 2024 ED Clinical Summary [facility] - Emergency Department [address] [place] [address] ED Clinical Summary PERSON INFORMATION Name: KISHA LORA Age: 19 Years Sex: FEMALE : 2005 MRN: Acct#: Visit Reason: Decreased movement; 26 X WEEKS BABY NOT MOVING Arrival: 10/17/2024 13:42:40 Discharge: 10/17/2024 15:10:00 LOS: 000 01:28 Check In: 10/17/2024 13:42:40 Checkout:10/17/2024 15:10:00 Address: [address] [place] [address] PCP: Provider, None PROVIDER INFORMATION Provider Role [...] Instructions: Follow-Up: With: Address: When: None Provider [address] [place] [address] Within 3 to 5 days DIAGNOSIS: 1:Decreased movement in Patient Understands: Yes - Patient/family/animal caretaker verbalizes understanding of instructions given Comment: [facility] ED Note-Nursingon 10-17-2024 ED Note-Nursing Patient does not want to wait for transport to be here at 5pm, pt requesting to drive herself to [facility]. Dr. Murrell aware. [facility] ED Note-Nursing [facility] was contacted in regards to transfer for decreased movement. Patients provider is Edith. Dr. Murrell spoke with her and the transfer was accepted. Arranging for transport currently. [facility] ED Patient Education Noteon 10-17-2024 ED Patient Education Note Education Materials [facility] ED Patient Summaryon 025 ED Patient Summary [facility] - Emergency Department [address] [place] [address] PATIENT DISCHARGE INSTRUCTIONS Patient Information Name: KISHA LORA Age: 19 Years Date of : 2005 Reason For Visit: Decreased movement; 26 X WEEKS BABY NOT MOVING Arrival Time: 10/17/2024 13:42:40 Primary Care Physician: Provider, None Attending Physician: Ailyn Murrell MD Comment: Visit Diagnosis: Diagnoses This Visit Decreased movement ([id number]) Decreased movement in (O36.8190) The Pharmacy at [facility] is open Friday through Friday from 9A [...] alcohol and/or drug addiction problems; contact the [facility] 05/05 Crisis Hotline -Text 1BEJM nl [phone]. If you received any narcotics, sedation, or [...] legal documents With: Address: When: None Provider [address] [place] [address] Within 3 to 5 days Medication Information: The exam and treatment you received today in the [facility] Emergency Department were for an urgent problem and are not intended as complete care. It is important for you to follow up with a doctor, nurse practitioner, or physician?s circulation assistant for ongoing care. If your symptoms [...] so we can reach you if necessary. [facility] Emergency Department has provided you with a complete list of medications post discharge. Please inform your primary care sales representative/provider of your visit and for further instruction [...] for Disease Control and Prevention June 2014 [facility] Transfer Noteon 10-17-2024 Transfer Note 1423 called supervisor harvesting 1429 spoke with L&D triage charge nurse. Dr. Mortensen is available to see pt 1511 pt departed by private care [Electronically Signed on: 10/17/2024 15:46 EST] __ Michaela Venegas ER Hassan Cler [Verified on: 10/17/2024 15:46 EST] __ Michaela Venegas ER Hassan Cler [facility] US OB 14+ WEEKS ANATOMY SCAN on [...] Not Available Appearance of UrineOrdered B y: Felisha Briones on 08-28-2024 Appearance (U) Urine appearance Clear [facility] Bacteria [Presence] in Urine by AutomatedOrdered By: Felishatutu Aguirrekenya on 08-28-2024 Bacteria Auto Ql (U) Bacteria [Presence] in Urine by Automated None Seen [facility] Bilirubin Test strip Ql (U)O rdered By: Felishatutu Briones on 08-28-2024 Bilirubin Ql (U) Bilirubin.total [Presence] in Urine by Test strip Negative [facility] Chlamydia trachomatis DNA [P resence] in Specimen by ANGELY with probe detectionOrdered By: Felisha Anali on 08-28-2024 C. trachomatis DNA ANGELY+probe Ql (Unsp spec) Chlamydia trachomatis DNA [Presence] in Specimen by ANGELY with probe detection Negative [facility] Chlamydia/GC/Trich NAAon Chlamydia Trachomotis, ANGELY Negative Normal Negative [facility] Comment on above: Order Comment: SOURC E OF SPECIMEN: self swab Performed By: #### F S #### [address] #### [id number] #### [facility] , Neisseria Gonorrhoeae, ANGELY Negative Normal Negative [facility] Comment on above: Order Comment: SOURC E OF SPECIMEN: self swab Performed By: #### F S #### [place] [address] [place] #### GCCHLAMTRI #### [facility] , Trichomonas ANGELY Negative Normal Negative [facility] Comment on above: Order Comment: SOURC E OF SPECIMEN: self swab Result Comment: Perf ormed at: =G - [facility] [address] [id number] Lead Sql Developer: Evie Luther MD, Phone: [phone] PERFORMED BY: [place] [address] PATHOLOGIST FINANCIAL AID DIRECTOR CECILIA SHORT M.D. Performed By: #### F S #### [address] #### GCCHLAMTRI #### [facility] , Color Auto (U)Ordered By: Samia Briones on 08-28-2024 Color (U) Color of Urine by Auto Yellow [facility] Dipstick and Microscopicon 1 10-28-2023 Appearance (U) Clear Normal Clear [facility] Comment on above: Order Comment: Name Collection Type:: Clean-Voided Midstream Performed By: #### A DDONUAPLUS #### [address] Bacteria,Urine Rare Normal None Seen [facility] Comment on above: Order Comment: Name Collection Type:: Clean-Voided Midstream Performed By: #### A DDONUAPLUS #### [place] [address] [place] Bilirubin,Urine Negative Normal Negative [facility] Comment on above: Order Comment: Name Collection Type:: Clean-Voided Midstream Performed By: #### A DDONUAPLUS #### [address] Color (U) Light-Yellow Normal Yellow [facility] Comment on above: Order Comment: Name Collection Type:: Clean-Voided Midstream Performed By: #### A DDONUAPLUS #### [facility] [address] Glucose Ql (U) 200 mg/dL High Normal [facility] Comment on above: Order Comment: Name Collection Type:: Clean-Voided Midstream Performed By: #### A DDONUAPLUS #### [facility] [address] [place] [address] [place] Hyaline Casts,Urine None Normal 0-8 [facility] Comment on above: Order Comment: Name Collection Type:: Clean-Voided Midstream Performed By: #### A DDONUAPLUS #### [place] [address] [place] Ketones Ql (U) Negative Normal Negative [facility] Comment on above: Order Comment: Name Collection Type:: Clean-Voided Midstream Performed By: #### A DDONUAPLUS #### [place] [address] [place] Leukocyte esterase Test strip Ql (U) 1+ High Negative [facility] Comment on above: Order Comment: Name Collection Type:: Clean-Voided Midstream Performed By: #### A DDONUAPLUS #### [place] [address] [place] Mucus,Urine 1+ Critically abnormal [facility] Comment on above: Order Comment: Name Collection Type:: Clean-Voided Midstream Result Comment: PERF ORMED BY: [place] [address] PATHOLOGIST FINANCIAL AID DIRECTOR CECILIA SHORT M.D. Performed By: #### A DDONUAPLUS #### [place] [address] [place] Nitrite,Urine Negative Normal Negative [facility] Comment on above: Order Comment: Name Collection Type:: Clean-Voided Midstream Performed By: #### A DDONUAPLUS #### [place] [address] [place] Occult Blood,Urine Negative Normal Negative [facility] Comment on above: Order Comment: Name Collection Type:: Clean-Voided Midstream Result Comment: PERF ORMED BY: [place] [address] PATHOLOGIST FINANCIAL AID DIRECTOR CECILIA SHORT M.D. Performed By: #### A DDONUAPLUS #### [address] pH (U) 6.0 [pH] Normal 5.0-9.0 [facility] Comment on above: Order Comment: Name Collection Type:: Clean-Voided Midstream Performed By: #### A DDONUAPLUS #### [place] [address] [place] Protein,Urine Negative Normal Negative [facility] Comment on above: Order Comment: Name Collection Type:: Clean-Voided Midstream Performed By: #### A DDONUAPLUS #### [address] RBC,Urine 1 [HPF] Normal 0-4 [facility] Comment on above: Order Comment: Name Collection Type:: Clean-Voided Midstream Performed By: #### A DDONUAPLUS #### [place] [address] [place] Specificy [place],Urine 1.013 Normal 1.001-1.030 [facility] Comment on above: Order Comment: Name Collection Type:: Clean-Voided Midstream Performed By: #### A DDONUAPLUS #### [place] [address] [place] Squamous Epithelial Cell,Urine 5 [HPF] High 0-2 [facility] Comment on above: Order Comment: Name Collection Type:: Clean-Voided Midstream Performed By: #### A DDONUAPLUS #### [place] [address] [place] Urobilinogen,Urine Normal Normal Normal [facility] Comment on above: Order Comment: Name Collection Type:: Clean-Voided Midstream Performed By: #### A DDONUAPLUS #### [address] WBC,Urine 3 [HPF] Normal 0-4 [facility] Comment on above: Order Comment: Name Collection Type:: Clean-Voided Midstream Performed By: #### A DDONUAPLUS #### [address] Epithelial cells.squamous [# /area] in Urine sediment by Automated countOrdered By: Felisha Bullimore on 08-28-2024 Epithelial cells.squamous Auto (Urine sed) [#/Area] Epithelial cells.squamous [#/area] in Urine sediment by Automated count High 0-2 [facility] Erythrocytes [#/area] in Uri ne sediment by Automated countOrdered By: Felisha Bullimore on 08-28-2024 RBC Auto (Urine sed) [#/Area] Erythrocytes [#/area] in Urine sediment by Automated count 0-4 [facility] Fungal Smearon 08-28-2024 Fungal Smear Fungus Smear Results No Fungal Like Elements Seen Trichomonas Screen No Trichomonas Seen Trich Reference Reference range = None Seen PERFORMED BY: [place] [address] PATHOLOGIST FINANCIAL AID DIRECTOR CECILIA SHORT M.D. Normal [facility] Comment on above: Performed By: #### F S #### [facility] [address] [place] [address] #### GCCHLAMTRI #### [facility] , Fungal smearOrdered By: Russel er Bullimkenya on 08-28-2024 Fungus identified Fungus stain Nom (Unsp spec) Fungal smear [facility] Glucose [Mass/volume] in Uri ne by Test stripOrdered By: Felisha Bullimkenya on 08-28-2024 Glucose Test strip (U) [Mass/Vol] Glucose [Mass/volume] in Urine by Test strip High Normal [facility] Hemoglobin Test strip Ql (U) Ordered By: Felisha Bullimore on 08-28-2024 Hemoglobin Ql (U) Hemoglobin [Presence] in Urine by Test strip Negative [facility] Hyaline casts [#/area] in Ur ine sediment by Automated countOrdered By: Felisha Terezaore on 08-28-2024 Hyaline casts Auto (Urine sed) [#/Area] Hyaline casts [#/area] in Urine sediment by Automated count 0-8 [facility] Ketones Test strip Ql (U)Ord ered By: Felisha Timothyimore on 08-28-2024 Ketones Ql (U) Ketones [Presence] in Urine by Test strip Negative [facility] Leukocyte esterase [Presence ] in Urine by Test stripOrdered By: Felisha Briones on 08-28-2024 Leukocyte esterase Test strip Ql (U) Leukocyte esterase [Presence] in Urine by Test strip High Negative [facility] Leukocytes [#/area] in Urine sediment by Automated countOrdered By: Felisha Briones on 08-28-2024 WBC Auto (Urine sed) [#/Area] Leukocytes [#/area] in Urine sediment by Automated count 0-4 [facility] Mucus [Presence] in Urine by AutomatedOrdered By: Felisha Briones on 08-28-2024 Mucus Auto Ql (U) Mucus [Presence] in Urine by Automated Abnormal [facility] Neisseria gonorrhoeae DNA [P resence] in Specimen by ANGELY with probe detectionOrdered By: Felisha Aguirredanilo on 08-28-2024 N. gonorrhoeae DNA ANGELY+probe Ql (Unsp spec) Neisseria gonorrhoeae DNA [Presence] in Specimen by ANGELY with probe detection Negative [facility] Nitrite Test strip Ql (U)Ord ered By: Felisha Aguirredanilo on 08-28-2024 Nitrite Ql (U) Nitrite [Presence] in Urine by Test strip Negative [facility] Protein Test strip (U) [Mass /Vol]Ordered By: Felisha Starksore on 08-28-2024 Protein (U) [Mass/Vol] Protein [Mass/volume] in Urine by Test strip Negative [facility] Specific gravity Test strip (U) [Rel density]Ordered By: Felishatutu Aguirrevannaore on 08-28-2024 Specific gravity (U) [Rel density] Specific gravity of Urine by Test strip 1.001-1.030 [facility] Trichomonas vaginalis DNA [P resence] in Specimen by ANGELY with probe detectionOrdered By: Felisha Briones on 08-28-2024 T. vaginalis DNA ANGELY+probe Ql (Unsp spec) Trichomonas vaginalis DNA [Presence] in Specimen by ANGELY with probe detection Negative [facility] Comment on above: Performed at: =[address] [id number] Director: Evie Luther MD, Phone: [phone] Trichomonas vaginalis detect ion by wet preparationOrdered By: Felisha Briones on 08-28-2024 T. vaginalis Wet prep Ql (Unsp spec) Trichomonas vaginalis detection by wet preparation [facility] Urobilinogen Test strip (U) [Mass/Vol]Ordered By: Felisha Briones on 08-28-2024 Urobilinogen (U) [Mass/Vol] Urobilinogen [Mass/volume] in Urine by Test strip Normal [facility] pH Test strip (U)Ordered By: Felisha Briones on 08-28-2024 pH (U) pH of Urine by Test strip 5.0-9.0 [facility] Appearance of UrineOrdered B y: Rishabh Quinteros on 08-24-2024 Appearance (U) Urine appearance Clear [facility] Bilirubin Test strip Ql (U)O rdered By: Rishabh Quinteros on 08-24-2024 Bilirubin Ql (U) Bilirubin.total [Presence] in Urine by Test strip Negative [facility] Color Auto (U)Ordered By: Bipin Quinteros on 08-24-2024 Color (U) Color of Urine by Auto Yellow [facility] Glucose [Mass/volume] in Uri ne by Test stripOrdered By: Rishabh Quinteros on 08-24-2024 Glucose Test strip (U) [Mass/Vol] Glucose [Mass/volume] in Urine by Test strip High Normal [facility] Hemoglobin Test strip Ql (U) Ordered By: Rishabh Quinteros on 08-24-2024 Hemoglobin Ql (U) Hemoglobin [Presence] in Urine by Test strip Negative [facility] Ketones Test strip Ql (U)Ord ered By: Rishabh Quinteros on 08-24-2024 Ketones Ql (U) Ketones [Presence] in Urine by Test strip Negative [facility] Leukocyte esterase [Presence ] in Urine by Test stripOrdered By: Rishabh Quinteros on 08-24-2024 Leukocyte esterase Test strip Ql (U) Leukocyte esterase [Presence] in Urine by Test strip Negative [facility] Nitrite Test strip Ql (U)Ord ered By: Rishabh Quinteros on 08-24-2024 Nitrite Ql (U) Nitrite [Presence] in Urine by Test strip Negative [facility] Protein Test strip (U) [Mass /Vol]Ordered By: Rishabh Quinteros on 08-24-2024 Protein (U) [Mass/Vol] Protein [Mass/volume] in Urine by Test strip Negative [facility] Specific gravity Test strip (U) [Rel density]Ordered By: Rishabh Quinteros on 08-24-2024 Specific gravity (U) [Rel density] Specific gravity of Urine by Test strip 1.001-1.030 [facility] Urinalysison 08-24-2024 Appearance (U) Clear Normal Clear [facility] Comment on above: Order Comment: Name Collection Type:: Clean-Voided Midstream Performed By: #### U A #### [facility] [address] [place] [address] [place] Bilirubin,Urine Negative Normal Negative [facility] Comment on above: Order Comment: Name Collection Type:: Clean-Voided Midstream Performed By: #### U A #### [facility] [address] [place] [id number] [place] Color (U) Light-Yellow Normal Yellow [facility] Comment on above: Order Comment: Name Collection Type:: Clean-Voided Midstream Performed By: #### U A #### [facility] [address] [place] [id number] [place] Glucose Ql (U) 200 mg/dL High Normal [facility] Comment on above: Order Comment: Name Collection Type:: Clean-Voided Midstream Performed By: #### U A #### [facility] [address] [place] [id number] [place] Ketones Ql (U) Negative Normal Negative [facility] Comment on above: Order Comment: Name Collection Type:: Clean-Voided Midstream Performed By: #### U A #### [address] Leukocyte esterase Test strip Ql (U) Negative Normal Negative [facility] Comment on above: Order Comment: Name Collection Type:: Clean-Voided Midstream Performed By: #### U A #### [address] Nitrite,Urine Negative Normal Negative [facility] Comment on above: Order Comment: Name Collection Type:: Clean-Voided Midstream Performed By: #### U A #### [address] Occult Blood,Urine Negative Normal Negative [facility] Comment on above: Order Comment: Name Collection Type:: Clean-Voided Midstream Result Comment: PERF ORMED BY: [place] [address] PATHOLOGIST FINANCIAL AID DIRECTOR DALE DUMONT M.D. Performed By: #### U A #### [address] pH (U) 6.0 [pH] Normal 5.0-9.0 [facility] Comment on above: Order Comment: Name Collection Type:: Clean-Voided Midstream Performed By: #### U A #### [address] Protein,Urine Negative Normal Negative [facility] Comment on above: Order Comment: Name Collection Type:: Clean-Voided Midstream Performed By: #### U A #### [place] [address] [place] Specificy [place],Urine 1.015 Normal 1.001-1.030 [facility] Comment on above: Order Comment: Name Collection Type:: Clean-Voided Midstream Performed By: #### U A #### [address] Urobilinogen,Urine Normal Normal Normal [facility] Comment on above: Order Comment: Name Collection Type:: Clean-Voided Midstream Performed By: #### U A #### [facility] [address] Urobilinogen Test strip (U) [Mass/Vol]Ordered By: Rishabh Quinteros on 08-24-2024 Urobilinogen (U) [Mass/Vol] Urobilinogen [Mass/volume] in Urine by Test strip Normal [facility] pH Test strip (U)Ordered By: Rishabh Quinteros on 08-24-2024 pH (U) pH of Urine by Test strip 5.0-9.0 [facility] HCG ( test) Ql (U)o n 06-30-2024 Beta HCG ( test) Ql (U) Positive Abnormal NEG [facility] Comment on above: Performed By: #### 2 106-3 #### [facility] ([id number]) [address] [place] [address] URN MACROSCOPIC NURon 2023 BILIRUBIN MICHAEL Negative Normal [facility] Comment on above: Performed By: #### N UM #### [facility] ([id number]) [address] [place] [address] BLOOD/HGB MICHAEL Negative Normal NEG [facility] Comment on above: Performed By: #### N UM #### [facility] ([id number]) [address] [place] [address] GLUCOSE MICHAEL Negative Normal NEG [facility] Comment on above: Performed By: #### N UM #### [facility] ([id number]) [address] [place] [address] KETONES MICHAEL Negative Normal NEG [facility] Comment on above: Performed By: #### N UM #### [facility] ([id number]) [address] [place] [address] [place] [address] LEUKOCYTE ESTERASE MICHAEL Negative Normal NEG [facility] Comment on above: Performed By: #### N UM #### [facility] ([id number]) [address] [place] [address] NITRITE MICHAEL Negative Normal NEG [facility] Comment on above: Performed By: #### N UM #### [facility] ([id number]) [address] [place] [address] PH MICHAEL 7.0 Normal 5.0-8.5 [facility] Comment on above: Performed By: #### N UM #### [facility] ([id number]) [address] [place] [address] 29675 PROTEIN MICHAEL Negative Normal NEG [facility] Comment on above: Performed By: #### N UM #### [facility] ([id number]) [address] [place] [address] SPECIFIC GRAVITY MICHAEL 1.020 Normal 1.003-1.035 [facility] Comment on above: Performed By: #### N UM #### [facility] ([id number]) [address] [place] [address] UROBILINOGEN MICHAEL 0.2 eu/dL Normal <1.1 [facility] Comment on above: Performed By: #### N UM #### [facility] ([id number]) [address] [place] [address] 36887 US OB < 14 WEEKS EARLYon US [...] Small anterior subchorionic hemorrhage. Dictated and transcribed 06/16/24/ramya This report has been electronically signed and approved by the interpreting radiologist. Electronically Signed Ashutosh Chavis M.D. 2024-06-16 21:54:52 Normal Not Available Coding Summaryon 06-03-2024 Coding Summary HTMLBase 64 ZqdjgetkARq6oSy+PGh lYWQ+QI5NFOHtI34vhD MwzO3cT7KWJXeSNagyW TANJIgRKiZymlPcEV1b aXNjZXJu IC8+CY8dNDGaJisotMD bk4D2kRT1M46swn1yCY zlpPU0IYFePqQmcdxlk 4wphPb4FUfcZhxhSkXp LIVlnX89UPU1sE05Ky6 4xVZbkAAiz6nwsKt4On WkMZXpTKP6bMvbYJmji 5RrKVFmO95daCYhn8D1 IGNvbGxhcHNlOyBlbXB 6jR0rYJurukcny9mpfx uzWij3cz47lYSjs2Q0c WZ8H0HokdH3LKXdkILp RiyqcLHKfF3qbftlt7p mebbiJuPmVYCfHYo8HQ k0RSOlbLabIwTbPM55E PS3ZBRaigGtY8OkZOAn cPtlDyU3v5A5Pb4DQ9V ZOzmcR6JDMWQTCUhaeM Q+UJ71ql54O4JeQzuxH an3PCIqOUL7oHV9hE2t HTZtJJhdc2P4lGX0C7V bmzKphk9ld7jcQJTtEF qlC76qhNIpu8T8MSPvu FI3WEJkaNhqIiLekX41 Oyc+GHHadMrfn9XaVct bk9bxf7wwwWn4DanqEL KztrHmbOpbLUZ0o7SfL f7kUVGimXY9sIC8pA1f YeKjLkZ3HXlsZ655LiG lwAZvTzpeQ86wQ7QqfK A+ORTwCvk9TVRtqRozK W4vL3IaYJOrepmttBGl lJueYJ1gSOCruqkkARP dpV7tETFoH5y4OiWdCz G8ZUvrB0FcGNVkzxvgG c95nQ7hMhYoAbN9JPhm E7AhygR8LVZbzUGhTOb oYOQ5I69rm0P7BGCqSN JrVIC7cLX4hY8rvLjas jogbGVmdDsgdmVydGlj PRwwIVjdO738RQOkiWf nPkNvZGluZyBEYXRlOi AgMDgvMjIvMjAyNDwvd GQ+IEUtZFS7oNqcVRQl jXNiBSlfZy3jsDpksOs oFP5wRPVrcnfbDJNqzB 5jPXVboDXklBdzHM8hI WXphqltu682WrCtOEV8 TXQdfURnS4OtqK9hQgD fJVGzNTLaP4ZjqBTqLM raX708XRabYvL4UEQby uVvA6EyKVWbnLjhPpG9 e8G4La0Mz9ItvjtmV7V abNQfMcInBcstRWt2O6 RkPjwvdHI+FX01EGIzK H12HKo3AMQ3aGdsFFxn FBFcE5UqpH0wRkMjCWA kZGRkOyc+PHRhYmxlIH dpZHRoPScxMDAlJyBzd TuwGM6nFw6pLGAlIEOb lEggpJBxTcDhp5gkBBD wTZuqOA1cxAwgB1PkmB X7CQBnz5j8Te05K83aG 3JvdXA+GUWplBP6fPT1 fT1dPnMvFdW2KPdxX64 0AoTaiVMwUumug1bve2 czvLp7UdA6FEJthfVrn RhhBXR5j0WaWv48X33j IHdpZHRoPSIxNSUiIHZ ktMyhye1xfB6oCf9+PG KfjMU7lNT2cT3uWoSrB kV8APevV687ErLyzJDg Gosbx8qno1ldlWp5KiZ xBBIhacLnsHtfRXN2h7 ZhMm76V8IdyZojm9CgJ br6ui33iDLln7G3cZH4 B7TrFWWxuikzuONmgPv qHM9fCFBodxlkDRMdeN 1oLEWyX3g5XnDqZkD0I GmuS4FsodL8VBGsaPTy CGFyiQGFiZ6xzsxsv7x pjpxaLsWiVSViTBu9WP b8AYWwiHoxPrDoRNQ2J eY1MSQ3cSJivQ2suTdr cqeavU0rLup+SWU1gHE ddLSXVH5iSaqtfBU+PH YdALC1hVwbSIraEPRmv E3iQEViW2u3DwDyDdA0 HGfpF6EkaoK2SVWnvZO fRWFusNPMaJ6qsikea8 vhsfusUpPlULEjGTg1C Xb8LZXlpPczYwYmNHS0 AeW9FBF1wDAgyH7lmCr mkeecbX4hCbg+QmlydG boSCP1QVi7H8JgFub3A RThaAvsEM5piHBgAGvh Br8pbHocaSmfQU8lZAP stplts018WsYbu8dzPS DxjDOkUPhhWVN9S44wg 5Z8DFLwCAInESX6oWB4 uS5qkBqrfkcjnLOqgOv gdmVydGljYWwtYWxpZ2 23AFUruYptCeCtEZx5F 0ReTqo8PCQmrXxbNJ8g nJXbUMbjAm2jzXhxcXg sBT4tWUZhnjqyo453Kz Qdy8jrMIAuzDUfTUzxJ EJ8N95rj0J6LSLbGAUf YFH5dCP5sS6dbXoyqyc gbGVmdDsgdmVydGljYW utIIzwE752FQKwmVdcM jOnvPf9Z4XgHqs3JSWp fFbtDT2xpFIeYPvfFm2 kuUsyqLnxLP6rBLRbxg gbi336EzFfn7hjYCTqf VHfYZcoNWX1G42ap5X1 IWSlLJUqEUY7kZE3yG1 hbGlnbjogbGVmdDsgdm DzsKbzTTadZTfaJ981K HRvcDsnPlBhdGllbnQg EAnbTIn1F8TdRohbwKU +JS26OZFnUO05iWYnkV Nyr8bzxKk5HvSeJEEuR TO6uZobXArww1VkLPBt S80qaOXpp7U1SFSewYr khCHhDzWaoKI8hK3fUW nttahoa2efxnbgYrvct 9umdh51rY11B22eDWzz ZHRoPSIzMCUiIHZhbGl gat6joT8eGt1+PGNvbC I8pPQ4uL3aEGGoPeB1Q UmtD535QyXwwGWjXnje g6svb4oupJi2BxD7WVQ pgzPyqSmjLAN2c5VtSu 03D55lRPctSPWuLASqV VMoYVAepLtclw9xgM1b Ii8+VIVxpLD8cBM5tU0 eRlVgBaA8EOlbW866Nw GfrYXxAxmfQ31xO4Fwd XA+UUWgVsa6LBWdkZqo NU7xpLAbCIflHn1lKSN 4SeKxWgOyPZofI0ErRA WzbukpzwdnmZA5PXBaQ KXlaM57Se8reDyaOQUm lLKGdL0gqntfa7gilzb gCnDfTMVzPEe4DYm0CI TxeTvmYvOqFMJ7DxC0Y YL1iBJuzS7jnUhzwxey sJ5dD9DqVOLtlzvxWj6 7lK2dJnYrJwN9CBqjKz c+VSGBPSVWYJzxLR3NG SBMQVJFRTwvdGQ+PHRk TPE7bFrsTEeuNUYnfW2 rDXYpM9t3ApXfQpS8IK pcA4OtEWZolmjuSa02m Q8nShIyBxQ2MEzyF7Wx iaI6QKRbgBNmKFtgTOB 2P16kn9A4ALJkKDTfPM Z5pAB5bX8hxRjlylzum GVmdDsgdmVydGljYWwt ACcrP885PEMyeJuzKsF 0OlJ0DoFoOFY4V2NvWe e9JFCmzYbcTY8saJMmJ JtqLt0puAvxpDssCZ6q NRQcycpaAFRzzM6zSMM zkRDvdFraFI7rQOOaug ijb553WcOyNHI8GADdq TDbH7MdxM6bUmKcTTXk QHIiV4AnzHKiYNzpI52 0KSooUkC9KNMtioKvF2 HyJKBviNvkUrU2y9Z9D c2rMUUQMYBnvnbgnCD+ XWCtCFG7qXdgTYvrGRS sfE2bRRJsE3j6LtZxRs N3EToeB6ZgAKDyrwlcM l40qS6uVdPqLjU6KSmx E9SicnA9YRDvfDCiKAy gZJZ9Z82lh8F6EMKoLE TqZSB0vJD4dF9hdHzpc jogbGVmdDsgdmVydGlj KGiuFEpyI397NMGgjSg nPkZFTUFMRTwvdGQ+PH CfYZR9dBrrEOgePTHvu C2qVZDyW4e7HtYdAxF0 EBirK2GaWZAhvkfkCz2 9hW4pEbClBwH7KIrjL5 WykpS8RQUmeNVhZFflZ TI5K34wd5X8NXSxBRPw GTY9nID1cO9yfGqvawx gbGVmdDsgdmVydGljYW gdAPlcS144MVJsfZhfN nSgQNBsSM4dxIhyvUG+ IP76lb38Y0BlXoazDay 0SHLlMLN3rKB2iI4fPD YlUYokp3Z5tFM9K2Gbk oNupl4bx4fzCDHlFRzz Y34fgUXbz2X7HWNjkHD 7GWJttVjwPjBydN11He c+CDAuyJkns2TmUbrok 6rnu0eurQx7ReQiATWm ldYihUyvXCS0y2YoXk1 1C57wOGpzCOIwCGSqDY ChFVKtgBwqdd5uoW5zK i8+ETNwzEW2zYZ9dU4o DvExYmX2QJcxS683DsN baOTxFbpri2evv1uoiF n0OaBcIHFfgxCdxKeiU YT7f2BrEu51C1TsiFsp a3CyIlv8lk74uLLco8S 3xXY0O6WrWRCwnymabS DzrHqjAO3mQAXiyyioJ COduG8dPBHqW4w5JjHa VhD2DUvpX8GidyI0PPH pvLDiGJTibOOXdX5onl wjl5dopjhoAaWnXAOkT Ii9SUu1NZLdoJjrAiYi MWX7LsQ9YJQ3qYOfvY4 dkEcxveyadW9jSlw+UG d3c0pctHAyBC5tqYN5D N06MC60uAYkv4F4qUH3 D3HpSHXxmpxazsfzjGB 5DMVjQIYkgK27Jr7skT ucAm0mQHQiYTH6DFEqs QApW6TenM3jHgXgHLJz HIPmF2MjlMLbTLpxM20 1JTspUbU7XLNwwvLbW4 GbRCIbyUdcKhE1a8W3Q s7XWN44EX14DO13tRVi c0Y1hBM0G1RxACAtmyx uxfhnuIZ3WXNvIMJceM 18Vt7mxUntNi5zOXBwD TL2BRZkiTKtS2XkoY0g KzGwIMTxRJWcB0FunMN iOQydY140RZwzRtJ2AS EnvvKcS1TmEHEyiVqbJ zI5c6W8Ob5ISu86EU08 JS75jWWgm0Q5gYX2Q0A gSZNhvzostafkjWJ0HX OyXLGifW04Xk3adTkdI e4aWPCjPKO4OHPvbBFp C2YilX5lMuTeGHKxRUF iC3WmfZGwRNyaX673LN dsZiJ1OERgbaJrW5LsC GRscIplUoP5l9U6Lw7A GJjrzjm8N9AvUfumcRF +UI74TURjXB24fWMgyR Qsx6ljlJd7AjSdWSHoC GE1iCncMLxaq3QgMIBx Y29 (more content not included)... Normal [facility] CBC AND AUTO DIFFon 05-31-20 24 ABSOLUTE BASOPHIL 0.0 X10E9/L Normal 0.0-0.2 [facility] Comment on above: Performed By: #### Valentín VALLES, #### [facility] ([id number]) [address] [place] [address] [id number] ABSOLUTE NEUTROPHIL 5.1 X10E9/L Normal 1.5-6.6 [facility] Comment on above: Performed By: #### Valentín VALLES, #### [facility] ([id number]) [address] [place] [address] [id number] Basophils/100 WBC (Bld) 0.6 % Normal [facility] Comment on above: Performed By: #### Valentín VALLES, #### [facility] ([id number]) [address] [place] [address] [id number] Eosinophils (Bld) [#/Vol] 0.2 10*3/uL Normal 0.0-0.4 [facility] Comment on above: Performed By: #### Valentín VALLES, #### [facility] ([id number]) [address] [place] [address] [id number] Eosinophils/100 WBC (Bld) 2.0 % Normal [facility] Comment on above: Performed By: #### Valentín VALLES, #### [facility] ([id number]) [address] [place] [address] [id number] Erythrocyte distribution width (RBC) [Ratio] 12.3 % Normal 11.5-15.0 [facility] Comment on above: Performed By: #### Valentín VALLES, #### [facility] ([id number]) [address] [place] [address] [id number] Hematocrit (Bld) [Volume fraction] 39.2 % Normal 35-47 [facility] Comment on above: Performed By: #### Valentín VALLES, #### [facility] ([id number]) [address] [place] [address] [address] Hemoglobin (Bld) [Mass/Vol] 13.8 g/dL Normal 11.7-15.5 [facility] Comment on above: Performed By: #### Valentín VALLES, #### [facility] ([id number]) [address] [place] [address]892 Lymphocytes (Bld) [#/Vol] 2.0 10*3/uL Normal 1.0-3.5 [facility] Comment on above: Performed By: #### Valentín VALLES, #### [facility] ([id number]) [address] [place] [address] 74349 Lymphocytes/100 WBC (Bld) 25.9 % Normal [facility] Comment on above: Performed By: #### Valentín VALLES, #### [facility] ([id number]) [address] [place] [address] 86580 MCH (RBC) [Entitic mass] 32.6 pg Normal 27-34 [facility] Comment on above: Performed By: #### Valentín VALLES, #### [facility] ([id number]) [address] [place] [address] [place] [address] MCHC (RBC) [Mass/Vol] 35.3 g/dL Normal 32-36 [facility] Comment on above: Performed By: #### Valentín VALLES, #### [facility] ([id number]) [address] [place] [address] 84925 MCV (RBC) [Entitic vol] 93 fL Normal 80-100 [facility] Comment on above: Performed By: #### Valentín VALLES, #### [facility] ([id number]) [address] [place] [address] 74894 Monocytes (Bld) [#/Vol] 0.5 10*3/uL Normal 0-0.9 [facility] Comment on above: Performed By: #### Valentín VALLES, #### [facility] ([id number]) [address] [place] [address] 82893 Monocytes/100 WBC (Bld) 6.0 % Normal [facility] Comment on above: Performed By: #### Valentín VALLES, #### [facility] ([id number]) [address] [place] [address] 93970 Neutrophils/100 WBC (Bld) 65.5 % Normal [facility] Comment on above: Performed By: #### Valentín VALLES, #### [facility] ([id number]) [address] [place] [address] [place] [address] Platelet mean volume (Bld) [Entitic vol] 8.1 fL Normal 7-12 [facility] Comment on above: Performed By: #### Valentín VALLES, #### [facility] ([id number]) [address] [place] [address] 79152 Platelets (Bld) [#/Vol] 304 10*3/uL Normal 150-450 [facility] Comment on above: Performed By: #### Valentín VALLES, #### [facility] ([id number]) [address] [place] [address] 16177 RBC COUNT 4.23 X10E12/L Normal 3.80-5.20 [facility] Comment on above: Performed By: #### Valentín VALLES, #### [facility] ([id number]) [address] [place], [place] [address] WBC (Bld) [#/Vol] 7.8 10*3/uL Normal 4.0-11.0 [facility] Comment on above: Performed By: #### Valentín VALLES, #### [facility] ([id number]) [address] [place] [address] 50296 HCG.beta subunit IA 3rd IS Q non 05-31-2024 [place] [address] m[IU]/mL Normal [facility] Comment on above: Result Comment: NEW REFERENCE [...] trophoblastic or nontrophoblastic neoplasms. Performed By: #### Valentín VALLES, #### [facility] ([id number]) [address] [place] [address] 94348 US PREG LESS THAN 14 WKS WIT H TRANSVAGINALon 08-19-2024 US PREG LESS THAN 14 WKS WITH TRANSVAGINAL US PREG LESS THAN 14 WKS WITH TRANSVAGINAL US PREG LESS THAN 14 WKS WITH TRANSVAGINAL CLINICAL INDICATION: Vaginal bleeding FINDINGS: Transvaginal and limited transabdominal ultrasound of the pelvis. UTERUS AND GESTATIONAL SAC: Intrauterine gestation: Single. Gestational sac: Intrauterine. Yolk sac: 0.3 cm Hanahan-rump length (CRL): 0.4 cm heart motion: 125 [...] Elias Rojas on 05/31/2024 3:24 PM Normal [facility] Chlamydia/GC Amplificationon 05-29-2024 Chlamydia Trachomotis, ANGELY Negative Normal Negative [facility] Comment on above: Order Comment: SOURC E OF SPECIMEN: Genital Performed By: #### C MP, LIPASE, CBC #### [address] Neisseria Gonorrhoeae, ANGELY Negative Normal Negative [facility] Comment on above: Order Comment: SOURC E OF SPECIMEN: Genital Result Comment: Perf ormed at: =G - [facility] [id number] Lead Sql Developer: Evie Luther MD, Phone: [phone] PERFORMED BY: [place] [address] PATHOLOGIST FINANCIAL AID DIRECTOR DALE DUMONT M.D. Performed By: #### C MP, LIPASE, CBC #### [address] Fungal Smearon 05-29-2024 Fungal Smear Fungus Smear Results No Yeast Like Elements Seen Trichomonas Screen No Trichomonas Seen Trich Reference Reference range = None Seen PERFORMED BY: [place] [address] PATHOLOGIST FINANCIAL AID DIRECTOR DALE DUMONT M.D. Normal [facility] Comment on above: Performed By: #### C MP, LIPASE, CBC #### [place] [id number] [facility] Genital Cultureon 05-29-2024 Genital Culture Genital Results Light Normal Urogenital Kassidy 2 Days No More GC Specimen not tested for Neisseria gonorrheae PERFORMED BY: [place] [address] PATHOLOGIST FINANCIAL AID DIRECTOR DALE DUMONT M.D. Normal [facility] Comment on above: Performed By: #### C MP, LIPASE, CBC #### [place] [id number] [facility] Trichomonas vaginalis detect ion by wet preparationOrdered By: Oj Navarrete on 05-29-2024 T. vaginalis Wet prep Ql (Unsp spec) [facility] US OB transvaginalon 024 US OB transvaginal [facility] [place] [address] Ultrasound Report Signed Patient: Kisha Lora MR#: [id number] 57 : 2005 Acct:[id number] Age/Sex: 19 / F ADM Date: 05/28/24 Loc: ER Room: Type: [facility] ER Attending Dr: Ordering Provider: Oj Navarrete DO Date of Service: 05/28/24 US/US OB <= 14 weeks fetus: OB/Uterine Contractions ([id number]) US/US OB transvaginal: spotting Copies to: Oj [...] Blake Montague M.D.05/29/2024 6:48 PM Dictation Location: [place] [address] Tech: Emilyamando Huanger Transcribed By: WILLOW 05/29/241847 Dictated By: Blake Montague II, MD 05/29/241845 Signed By: 05/29/241847 Normal [facility] Bacteria [Presence] in Urine by AutomatedOrdered By: Oj Navarrete on 05-28-2024 Bacteria Auto Ql (U) Rare [HPF] None Seen [facility] Bilirubin Test strip Ql (U)O rdered By: Oj Navarrete on 05-28-2024 Bilirubin Ql (U) Negative Negative [facility] Choriogonadotropin.beta subu nit [Units/volume] in Serum or PlasmaOrdered By: Oj Navarrete on 05-28-2024 [place] [address].00 m[IU]/mL [facility] Comment on above: Approximate Approxim ate hCG Gestational Age Range (mIU/ml) (weeks)0.2-1 5-50 1-2 50-500 2-3 100-5,000 3-4 500-10,000 4-5 1,000-50,000 5-6 10,000-100,000 6-8 15,000-200,000 8-12 10,000-100,000 Color of Urine by AutoOrdere d By: Oj Navarrete on 05-28-2024 Color (U) Colorless Normal Yellow [facility] Comment on above: Order Comment: Name Collection Type:: Clean-Voided Midstream Performed By: #### A DDONUAPLUS #### [place] [address] [place] Dipstick and Microscopicon 0 05-28-2024 Bacteria,Urine Rare Normal None Seen [facility] Comment on above: Order Comment: Name Collection Type:: Clean-Voided Midstream Performed By: #### A DDONUAPLUS #### [place] [address] [place] Bilirubin,Urine Negative Normal Negative [facility] Comment on above: Order Comment: Name Collection Type:: Clean-Voided Midstream Performed By: #### A DDONUAPLUS #### [place] [address] [place] Glucose Ql (U) Normal Normal Normal [facility] Comment on above: Order Comment: Name Collection Type:: Clean-Voided Midstream Performed By: #### A DDONUAPLUS #### [place] [address] [place] Hyaline Casts,Urine None Normal 0-8 [facility] Comment on above: Order Comment: Name Collection Type:: Clean-Voided Midstream Performed By: #### A DDONUAPLUS #### [place] [address] [place] Mucus,Urine Rare Normal [facility] Comment on above: Order Comment: Name Collection Type:: Clean-Voided Midstream Result Comment: PERF ORMED BY: [place] [address] PATHOLOGIST FINANCIAL AID DIRECTOR DALE DUMONT M.D. Performed By: #### A DDONUAPLUS #### [address] [address] [place] Nitrite,Urine Negative Normal Negative [facility] Comment on above: Order Comment: Name Collection Type:: Clean-Voided Midstream Performed By: #### A DDONUAPLUS #### [address] Occult Blood,Urine 2+ High Negative [facility] Comment on above: Order Comment: Name Collection Type:: Clean-Voided Midstream Result Comment: PERF ORMED BY: [place] [address] PATHOLOGIST FINANCIAL AID DIRECTOR DALE DUMONT M.D. Performed By: #### A DDONUAPLUS #### [place] [address] [place] Protein,Urine Negative Normal Negative [facility] Comment on above: Order Comment: Name Collection Type:: Clean-Voided Midstream Performed By: #### A DDONUAPLUS #### [address] RBC,Urine 3-4 Normal 0-4 [facility] Comment on above: Order Comment: Name Collection Type:: Clean-Voided Midstream Performed By: #### A DDONUAPLUS #### [address] Specificy [place],Urine 1.009 Normal 1.001-1.030 [facility] Comment on above: Order Comment: Name Collection Type:: Clean-Voided Midstream Performed By: #### A DDONUAPLUS #### [address] Squamous Epithelial Cell,Urine 1-2 Normal 0-2 [facility] Comment on above: Order Comment: Name Collection Type:: Clean-Voided Midstream Performed By: #### A DDONUAPLUS #### [address] Urobilinogen,Urine Normal Normal Normal [facility] Comment on above: Order Comment: Name Collection Type:: Clean-Voided Midstream Performed By: #### A DDONUAPLUS #### [facility] [address] [place] [address] WBC,Urine 1-2 Normal 0-4 [facility] Comment on above: Order Comment: Name Collection Type:: Clean-Voided Midstream Performed By: #### A DDONUAPLUS #### [address] Epithelial cells.squamous [# /area] in Urine sediment by Automated countOrdered By: Oj Navarrete on 05-28-2024 Epithelial cells.squamous Auto (Urine sed) [#/Area] 1-2 [HPF] 0-2 [facility] Erythrocytes [#/area] in Uri ne sediment by Automated countOrdered By: Oj Navarrete on 05-28-2024 RBC Auto (Urine sed) [#/Area] 3-4 [HPF] 0-4 [facility] Glucose [Mass/volume] in Uri ne by Test stripOrdered By: Oj Navarrete on 05-28-2024 Glucose Test strip (U) [Mass/Vol] Normal mg/dL Normal [facility] HCG,Quantitativeon HCG,Quantitative 61002.00 m[iU]/mL Normal [facility] Comment on above: Result Comment: Appr oximate Approximate hCG Gestational Age Range (mIU/ml) (weeks) 0.2-1 5-50 1-2 50-500 2-3 100-5,000 3-4 500-10,000 4-5 1,000-50,000 5-6 10,000-100,000 6-8 15,000-200,000 8-12 10,000-100,000 PERFORMED BY: [place] [address] PATHOLOGIST FINANCIAL AID DIRECTOR DALE DUMONT M.D. Performed By: #### C MP, LIPASE, CBC #### [facility] [address] [place] [address] Hemoglobin Test strip Ql (U) Ordered By: Oj Navarrete on 05-28-2024 Hemoglobin Ql (U) 2+ High Negative [facility] Hyaline casts [#/area] in Ur ine sediment by Automated countOrdered By: Oj Navarrete on 05-28-2024 Hyaline casts Auto (Urine sed) [#/Area] None [LPF] 0-8 [facility] Ketones [Presence] in Urine by Test stripOrdered By: Oj Navarrete on 05-28-2024 Ketones Ql (U) Trace High Negative [facility] Comment on above: Order Comment: Name Collection Type:: Clean-Voided Midstream Performed By: #### A DDONUAPLUS #### [address] Leukocyte esterase [Presence ] in Urine by Test stripOrdered By: Oj Navarrete on 05-28-2024 Leukocyte esterase Test strip Ql (U) Negative Normal Negative [facility] Comment on above: Order Comment: Name Collection Type:: Clean-Voided Midstream Performed By: #### A DDONUAPLUS #### [place] [address] [place] Leukocytes [#/area] in Urine sediment by Automated countOrdered By: Oj Navarrete on 05-28-2024 WBC Auto (Urine sed) [#/Area] 1-2 [HPF] 0-4 [facility] Mucus [Presence] in Urine by AutomatedOrdered By: Oj Navarrete on 05-28-2024 Mucus Auto Ql (U) Rare [LPF] [facility] Nitrite Test strip Ql (U)Ord ered By: Oj Navarrete on 05-28-2024 Nitrite Ql (U) Negative Negative [facility] Protein Test strip (U) [Mass /Vol]Ordered By: Oj Navarrete on 05-28-2024 Protein (U) [Mass/Vol] Negative Negative [facility] Specific gravity Test strip (U) [Rel density]Ordered By: Oj Navarrete on 05-28-2024 Specific gravity (U) [Rel density] 1.009 1.001-1.030 [facility] Urine appearanceOrdered By: Oj Navarrete on 05-28-2024 Appearance (U) Clear Normal Clear [facility] Comment on above: Order Comment: Name Collection Type:: Clean-Voided Midstream Performed By: #### A DDONUAPLUS #### [address] [place] [address] [facility] Urobilinogen Test strip (U) [Mass/Vol]Ordered By: Oj Navarrete on 05-28-2024 Urobilinogen (U) [Mass/Vol] Normal mg/dL Normal [facility] pH of Urine by Test stripOrd ered By: Oj Navarrete on 05-28-2024 pH (U) 5.5 [pH] Normal 5.0-9.0 [facility] Comment on above: Order Comment: Name Collection Type:: Clean-Voided Midstream Performed By: #### A DDONUAPLUS #### [facility] [address] [place] [id number] [facility] ABORhon 05-27-2024 ABO and Rh group Nom (d) Hx Check: Not Found Anti-A: 0 Anti-B: 0 Anti-D: 4+ DCon: NT A1: 4+ B: 4+ ABORh Interp: O POS Invalid Interpretation Code [facility] Comment on above: Performed By: #### 1 [id number], [id number], [id number] #### (DEFAULT)[address] [place] [address] ABORh Retypeon 05-27-2024 ABO and Rh group Nom (Bld) Ordered by Discern. Anti-A: 0 Anti-B: 0 Anti-D: 4+ DCon: NT A1: 4+ B: 4+ ABORh Retype: O POS Invalid Interpretation Code [facility] Comment on above: Performed By: #### 1 [id number], [id number], [id number] #### (DEFAULT)[address] [place] [address] Discharge Noteon 05-27-2024 Discharge Note Patient given discharge instructions and verbalized understanding. Pt informed to call BUSINESS PROGRAMMER regarding repeat labs. Pt ambulated out of unit. [Electronically Signed on: 05/27/2024 01:54 EDT] __ Asia Martinez RN [Verified on: 05/27/2024 01:54 EDT] __ Asia Martinez RN [facility] ED Clinical Summaryon 2023 ED Clinical Summary [facility] Emergency Department [address] [place] [id number] ED Clinical Summary PERSON INFORMATION Name: KISHA LORA Age: 19 Years Sex: FEMALE : 2005 MRN: Acct#: Visit Reason: Vaginal bleeding - < 20 wks ; VAGINAL BLEEDING/6 WEEKS PREGNAT Arrival: 05/27/2024 00:19:45 Discharge: 05/27/2024 01:52:00 LOS: 000 01:33 Check In: 05/27/2024 00:19:45 Checkout:05/27/2024 01:52:00 Address: [address] [place], [place] [id number] PCP: Provider, None PROVIDER INFORMATION Provider Role Assigned Unassigned Emilie Connelly RN ED Nurse 05/27/2024 00:29:18 Monty Lee MD ED [...] to 5 days Comments: Follow-up with your BUSINESS PROGRAMMER for repeat quantitative beta hCG and further evaluation of your threatened miscarriage DIAGNOSIS: 1:Threatened miscarriage Patient Understands: Yes - Patient/family/animal caretaker verbalizes understanding of instructions given Comment: [facility] ED Patient Summaryon 024 ED Patient Summary [facility] Emergency Department [address] [place] [address] PATIENT DISCHARGE INSTRUCTIONS Patient Information Name: KISHA LORA Age: 19 Years Date of : 2005 Reason For Visit: Vaginal bleeding - < 20 wks ; VAGINAL BLEEDING/6 WEEKS PREGNAT Arrival Time: 05/27/2024 00:19:45 Primary Care Physician: Provider, None Attending Physician: Monty Lee MD Comment: Visit Diagnosis: Diagnoses This Visit Threatened miscarriage (O20.0) Vaginal bleeding - < 20 wks ([id number]) The Pharmacy at [facility] is open Friday through Friday from 9A [...] alcohol and/or drug addiction problems; contact the [facility] 05/05 Crisis Hotline -Text 5AFRH ni [phone]. If you received any narcotics, sedation, or [...] to 5 days Comments: Follow-up with your BUSINESS PROGRAMMER for repeat quantitative beta hCG and further evaluation of your threatened miscarriage Medication Information: The exam and treatment you received today in the [facility] Emergency Department were for an urgent problem and are not intended as complete care. It is important for you to follow up with a doctor, nurse practitioner, or physician?s circulation assistant for ongoing care. If your symptoms [...] so we can reach you if necessary. [facility] has provided you with a complete list of medications post discharge. Please inform your primary care sales representative/provider of your visit and for further instruction [...] During , First Trimester Follow-up with your BUSINESS PROGRAMMER for further evaluation of your threatened miscarriage. [...] Pelvic exams. (more content not included)... Normal [facility] Extra [place] 05-27-2024 Tube Collected Yes Invalid Interpretation Code [facility] Comment on above: Performed By: #### 1 [id number], [id number] #### (DEFAULT)[address] [place] [address] Test Urine 1on U Preg Positive [facility] Comment on above: Performed By: #### 3 [id number] #### (DEFAULT) [address] [place] [address] U Preg Internal Control Pass [facility] Comment on above: Performed By: #### 3 [id number] #### (DEFAULT) [address] [place] [address] RhIG.on 05-27-2024 RhIG. No. Vials RhI RhIG Candidate?: No Date to Give: 20240527 RhIG Status: NA [facility] Comment on above: Performed By: #### 1 [id number], [id number], [id number] #### (DEFAULT)[address] [place] [address] UA Bymww9qt 05-27-2024 UA Amorph. Few Normal [facility] Comment on above: Order Comment: Urina lysis Microscopic order added on by [employer] Expert Rules system. Performed By: #### 1 [id number], [id number] #### (DEFAULT)[address] [place] [address]1205 UA Bacteria None [facility] Comment on above: Order Comment: Urina lysis Microscopic order added on by [employer] Expert Rules system. Performed By: #### 1 [id number], [id number] #### (DEFAULT)[address] [place] [address]39 UA Mucous Trace Normal [facility] Comment on above: Order Comment: Urina lysis Microscopic order added on by [employer] Expert Rules system. Performed By: #### 1 [id number], [id number] #### (DEFAULT)[address] [place] [address] UA RBC None Seen [facility] Comment on above: Order Comment: Urina lysis Microscopic order added on by [employer] Expert Rules system. Performed By: #### 1 [id number], [id number] #### (DEFAULT)[address] [place] [address] UA Squam Epi Few [facility] Comment on above: Order Comment: Urina lysis Microscopic order added on by [employer] Expert Rules system. Performed By: #### 1 [id number], [id number] #### (DEFAULT)[address] [place] [address] UA WBC 0-2 [facility] Comment on above: Order Comment: Urina lysis Microscopic order added on by [employer] Expert Rules system. Performed By: #### 1 [id number], [id number] #### (DEFAULT)[address] [place] [address] UA w Culture if Ind Standard on 05-27-2024 Breakpoint UA [facility] Comment on above: Performed By: #### 1 [id number], [id number] #### (DEFAULT)[address] [place] [address] Color (U) Yellow [facility] Comment on above: Performed By: #### 1 [id number], [id number] #### (DEFAULT)[address] [place] [address] Culture? Not Indicated Invalid Interpretation Code [facility] Comment on above: Result Comment: Resu lt created by rule GL_MAGR_ADD_UA_CULT Result created by rule GL_MAGR_ADD_UA_CULT Result created by rule GL_MAGR_ADD_UA_CULT1 Performed By: #### 1 [id number], [id number] #### (DEFAULT)[address] [place] [address] Glucose (U) [Mass/Vol] Negative [facility] Comment on above: Performed By: #### 1 [id number], [id number] #### (DEFAULT)[address] [place] [address] Ketones Ql (U) Negative [facility] Comment on above: Performed By: #### 1 [id number], [id number] #### (DEFAULT)[address] [place] [address] Micro? Indicated Invalid Interpretation Code [facility] Comment on above: Result Comment: Resu lt created by rule GL_MAGR_ADD_UA_MICRO Performed By: #### 1 [id number], [id number] #### (DEFAULT)[address] [place] [address] UA Bilirubin Negative Normal [facility] Comment on above: Performed By: #### 1 [id number], [id number] #### (DEFAULT)[address] [place] [address] 764[address] UA Blood Negative Normal NEGATIVE [facility] Comment on above: Performed By: #### 1 [id number], [id number] #### (DEFAULT)[address] [place] [address] UA Clarity SL CLOUDY Abnormal CLEAR [facility] Comment on above: Performed By: #### 1 [id number], [id number] #### (DEFAULT)[address] [place] [address] 26424 UA Leuk Est Negative Normal NEGATIVE [facility] Comment on above: Performed By: #### 1 [id number], [id number] #### (DEFAULT)[address] [place] [address]14 UA Nitrite Negative Normal NEGATIVE [facility] Comment on above: Performed By: #### 1 [id number], [id number] #### (DEFAULT)[address] [place] [address] 30952 UA pH 7.0 Normal 5-8 [facility] Comment on above: Performed By: #### 1 [id number], [id number] #### (DEFAULT)[address] [place] [address]170 UA Protein Negative Normal NEGATIVE [facility] Comment on above: Performed By: #### 1 [id number], [id number] #### (DEFAULT)[address] [place] [address]47[address] UA Spec Grav 1.020 Normal 1.001-1.035 [facility] Comment on above: Performed By: #### 1 [id number], [id number] #### (DEFAULT)[address] [place] [address] UA Urobilinogen 0.2 mg/dL Normal 0.2-1.0 [facility] Comment on above: Performed By: #### 1 [id number], [id number] #### (DEFAULT)[address] [place] [address] Urine Source Clean Catch Normal [facility] Comment on above: Performed By: #### 1 [id number], [id number] #### (DEFAULT)[address] [place] [address] hCG Quantitativeon hCG Quantitative 49690.0 mIU/mL High 0.0-0.6 [facility] Comment on above: Result Comment: Post -Menopausal Reference Range is: 0.1-11.6 mIU/mL Performed By: #### 1 [id number], [id number] #### (DEFAULT)[address] [place] [address] Bilirubin Test strip Ql (U)O rdered By: PROVIDER TEMP on 05-26-2024 Bilirubin Ql (U) Negative Negative [facility] Color of Urine by AutoOrdere d By: PROVIDER TEMP on 05-26-2024 Color (U) Colorless Normal Yellow [facility] Comment on above: Order Comment: Name Collection Type:: Clean-Voided Midstream Performed By: #### C MP, LIPASE, CBC #### [address] Glucose [Mass/volume] in Uri ne by Test stripOrdered By: PROVIDER TEMP on 05-26-2024 Glucose Test strip (U) [Mass/Vol] Normal mg/dL Normal [facility] HCG ( test) IA.rapi d Ql (U)Ordered By: PROVIDER TEMP on 05-26-2024 HCG ( test) Ql (U) Positive [facility] HCG,Urineon 05-26-2024 Beta HCG ( test) Ql (U) Positive High [facility] Comment on above: Order Comment: Name Collection Type:: Clean-Voided Midstream Result Comment: PERF ORMED BY: [place] [address] PATHOLOGIST FINANCIAL AID DIRECTOR DALE DUMONT M.D. Performed By: #### C MP, LIPASE, CBC #### [facility] [address] [place] [address] Hemoglobin Test strip Ql (U) Ordered By: PROVIDER TEMP on 05-26-2024 Hemoglobin Ql (U) Negative Negative [facility] Ketones [Presence] in Urine by Test stripOrdered By: PROVIDER TEMP on 05-26-2024 Ketones Ql (U) Negative Normal Negative [facility] Comment on above: Order Comment: Name Collection Type:: Clean-Voided Midstream Performed By: #### C MP, LIPASE, CBC #### [address] Leukocyte esterase [Presence ] in Urine by Test stripOrdered By: PROVIDER TEMP on 05-26-2024 Leukocyte esterase Test strip Ql (U) Negative Normal Negative [facility] Comment on above: Order Comment: Name Collection Type:: Clean-Voided Midstream Performed By: #### C MP, LIPASE, CBC #### [facility] [address] [place] [address] [place] Nitrite Test strip Ql (U)Ord ered By: PROVIDER TEMP on 05-26-2024 Nitrite Ql (U) Negative Negative [facility] Protein Test strip (U) [Mass /Vol]Ordered By: PROVIDER TEMP on 05-26-2024 Protein (U) [Mass/Vol] Negative Negative [facility] Specific gravity Test strip (U) [Rel density]Ordered By: PROVIDER TEMP on 05-26-2024 Specific gravity (U) [Rel density] 1.005 1.001-1.030 [facility] Urinalysison 05-26-2024 Bilirubin,Urine Negative Normal Negative [facility] Comment on above: Order Comment: Name Collection Type:: Clean-Voided Midstream Performed By: #### C MP, LIPASE, CBC #### [facility] [address] [place] [address] [place] Glucose Ql (U) Normal Normal Normal [facility] Comment on above: Order Comment: Name Collection Type:: Clean-Voided Midstream Performed By: #### C MP, LIPASE, CBC #### [address] Nitrite,Urine Negative Normal Negative [facility] Comment on above: Order Comment: Name Collection Type:: Clean-Voided Midstream Performed By: #### C MP, LIPASE, CBC #### [address] Occult Blood,Urine Negative Normal Negative [facility] Comment on above: Order Comment: Name Collection Type:: Clean-Voided Midstream Performed By: #### C MP, LIPASE, CBC #### [address] Protein,Urine Negative Normal Negative [facility] Comment on above: Order Comment: Name Collection Type:: Clean-Voided Midstream Performed By: #### C MP, LIPASE, CBC #### [address] Specificy [place],Urine 1.005 Normal 1.001-1.030 [facility] Comment on above: Order Comment: Name Collection Type:: Clean-Voided Midstream Performed By: #### C MP, LIPASE, CBC #### [address] Urobilinogen,Urine Normal Normal Normal [facility] Comment on above: Order Comment: Name Collection Type:: Clean-Voided Midstream Performed By: #### C MP, LIPASE, CBC #### [address] Urine appearanceOrdered By: PROVIDER TEMP on 05-26-2024 Appearance (U) Clear Normal Clear [facility] Comment on above: Order Comment: Name Collection Type:: Clean-Voided Midstream Performed By: #### C MP, LIPASE, CBC #### [address] Urobilinogen Test strip (U) [Mass/Vol]Ordered By: PROVIDER TEMP on 05-26-2024 Urobilinogen (U) [Mass/Vol] Normal mg/dL Normal [facility] pH of Urine by Test stripOrd ered By: PROVIDER TEMP on 05-26-2024 pH (U) 5.5 [pH] Normal 5.0-9.0 [facility] Comment on above: Order Comment: Name Collection Type:: Clean-Voided Midstream Performed By: #### C MP, LIPASE, CBC #### [facility] [address] Automated erythrocytes count in urine sediment (number/area)Ordered By: Felisha Briones on 06-05-2023 RBC Auto (Urine sed) [#/Area] 0-1 [HPF] 0-4 [facility] Automated leukocytes count i n urine sediment (number/area)Ordered By: Felisha Briones on 06-05-2023 WBC Auto (Urine sed) [#/Area] 5-9 [HPF] 0-4 [facility] Automated urine hyaline cast s count (number/volume)Ordered By: Felisha Briones on 06-05-2023 Hyaline casts Auto (U) [#/Vol] None seen [LPF] 0-1 [facility] Bilirubin Test strip Ql (U)O rdered By: Felisha Briones on 06-05-2023 Bilirubin Ql (U) Negative Negative [facility] Casts typing in urine sedime nt by light microscopyOrdered By: Felisha Briones on 06-05-2023 Casts LM Nom (Urine sed) None seen [LPF] None S een [facility] Color Auto (U)Ordered By: Samia Briones on 06-05-2023 Color (U) Yellow Yellow [facility] Fungal cultureOrdered By: Samia Briones on 06-05-2023 Fungus identified Cx Nom (Unsp spec) [facility] HCG ( test) IA.rapi d Ql (U)Ordered By: Felisha Briones on 06-05-2023 HCG ( test) Ql (U) Negative [facility] Ketones Auto test strip (U) [Mass/Vol]Ordered By: Felisha Briones on 06-05-2023 Ketones (U) [Mass/Vol] Trace Negative [facility] Nitrite Test strip Ql (U)Ord ered By: Felisha Briones on 06-05-2023 Nitrite Ql (U) Negative Negative [facility] Protein Auto test strip (U) [Mass/Vol]Ordered By: Felisha Briones on 06-05-2023 Protein (U) [Mass/Vol] 30 mg/dL Negative [facility] Specific gravity Auto test s trip (U) [Rel density]Ordered By: Felisha Briones on 06-05-2023 Specific gravity (U) [Rel density] 1.030 1.001-1.030 [facility] Squamous epithelial cells de tection in urine sediment by light microscopyOrdered By: Felisha Briones on 06-05-2023 Epithelial cells.squamous LM Ql (Urine sed) 10-19 [HPF] 0-2 [facility] Trichomonas vaginalis detect ion by wet preparationOrdered By: Felisha Briones on 06-05-2023 T. vaginalis Wet prep Ql (Unsp spec) [facility] Urine bacteria detection by automated methodOrdered By: Felisha Briones on 06-05-2023 Bacteria Auto Ql (U) 1+ None Seen [facility] Urine clarity by refractomet ry automatedOrdered By: Felisha Briones on 06-05-2023 Clarity Refractometry automated (U) Cloudy Clear [facility] Urine glucose measurement by automated test strip (mass/volume)Ordered By: Felisha Briones on 06-05-2023 Glucose Auto test strip (U) [Mass/Vol] Normal mg/dL Normal [facility] Urine hemoglobin detection b y automated test stripOrdered By: Felisha Briones on 06-05-2023 Hemoglobin Auto test strip Ql (U) Negative Negative [facility] Urine leukocyte esterase det ection by automated test stripOrdered By: Felihsa Briones on 06-05-2023 Leukocyte esterase Auto test strip Ql (U) Negative Negative [facility] Urobilinogen Auto test strip (U) [Mass/Vol]Ordered By: Felisha Briones on 06-05-2023 Urobilinogen (U) [Mass/Vol] Normal mg/dL Normal [facility] pH Auto test strip (U)Ordere d By: Felisha Briones on 06-05-2023 pH (U) 6.0 [pH] 5.0-9.0 [facility] Consultation Noteon 05-31-20 Consultation Note [id number] E#1.00CD:127 Normal [facility] Formson 11-03-2020 Forms [id number]#1.00CD:[address] [facility] Consenton 10-26-2020 Consent [id number]#1.00CD:[address] [facility] Registrationon 10-26-2020 Registration [id number]#1.00CD:[address] [facility] ED Note-Physicianon 08-24-20 ED Note-Physician [id number]#1.00CD:[address] [facility] Formson 07-21-2020 Forms [id number] 09#1.00CD:[address] [facility] [place] 06-09-2020 Consent [id number] 8#1.00CD:[address] [facility] Family Medicine Office/Clini c Noteon 06-09-2020 [...] DO In 1 year [address] [place] [id number]- Additional Instructions: Problem List/Past Medical History Ongoing Well child check Historical No qualifying data Medications No active medications Allergies No Known Allergies Social History Alcohol - Denies Alcohol Use, 06/28/2019 Substance Abuse - Denies Substance Abuse, 06/28/2019 Tobacco Never (less than 100 in lifetime) Tobacco Use:. Never Smokeless Tobacco Use:., 06/28/2019 Family History Family history is negative Normal [facility] Comment on above: Result Comment: Elec tronically Signed By: Soto MARINELLI DO\.br\Date and Time Signed: 06/09/20 11:23 EDT Vital Signs Date Time Vital Sign Value Performing Clinician Facility 01-10-2025 16:19-0400 Body mass index (BMI) [Ratio] 37.99 kg/m2 Edie Floro CNM Work Phone: [facility] 01-10-2025 16:19-0400 Body weight 112.49 kg Edie Schwabo CNM Work Phone: [facility] 01-10-2025 16:19-0400 Diastolic blood pressure 100 mm[Hg] Edie Josselino CNM Work Phone: [facility] Comment on above: repeat 156/102 01-10-2025 16:19-0400 Systolic blood pressure 150 mm[Hg] Edie Schwabo CNM Work Phone: [facility] Comment on above: repeat 156/102 01-03-2025 13:13-0400 Body mass index (BMI) [Ratio] 37.22 kg/m2 Edie Schwabo CNM Work Phone: [facility] 01-03-2025 13:13-0400 Body weight 110.22 kg Edie Schwabo CNM Work Phone: [facility] 01-03-2025 13:13-0400 Diastolic blood pressure 80 mm[Hg] Edie Schwabo CNM Work Phone: [facility] 01-03-2025 13:13-0400 Systolic blood pressure 118 mm[Hg] Edie Schwabo CNM Work Phone: [facility] 12-24-2024 15:18-0400 Respiratory rate 18 /min PHYSICIAN [facility] 12-24-2024 14:48-0400 Diastolic blood pressure 60 mm[Hg] PHYSICIAN [facility] 12-24-2024 14:48-0400 Heart rate 79 /min PHYSICIAN [facility] 12-24-2024 14:48-0400 Systolic blood pressure 123 mm[Hg] PHYSICIAN [facility] 12-24-2024 14:47-0400 SaO2% (BldA) [Mass fraction] 97 % PHYSICIAN [facility] 12-24-2024 14:08-0400 Body temperature 97.2 [degF] PHYSICIAN [facility] 12-24-2024 14:06-0400 Body height 172.72 cm PHYSICIAN NO [facility] 12-24-2024 14:06-0400 Body weight 102.51 kg PHYSICIAN NO [facility] 12-03-2024 15:24-0500 Diastolic blood pressure 60 mm[Hg] PHYSICIAN NO [facility] 12-03-2024 15:24-0500 Systolic blood pressure 125 mm[Hg] PHYSICIAN NO [facility] 12-03-2024 10:45-0500 Body temperature 97.6 [degF] PHYSICIAN NO [facility] 12-03-2024 10:45-0500 Respiratory rate 16 /min PHYSICIAN NO [facility] 12-03-2024 10:10-0500 Body height 172.72 cm PHYSICIAN NO [facility] 12-03-2024 10:10-0500 Body weight 90.71 kg PHYSICIAN NO [facility] 11-25-2024 13:24-0500 Body mass index (BMI) [Ratio] 35.54 kg/m2 Edie Mays CN Work Phone: [facility] 11-25-2024 13:24-0500 Body weight 105.23 kg Edie Mays CN Work Phone: [facility] 11-25-2024 13:24-0500 Diastolic blood pressure 80 mm[Hg] Edie Mays CN Work Phone: [facility] 11-25-2024 13:24-0500 Systolic blood pressure 120 mm[Hg] Edie Mays CN Work Phone: [facility] 11-18-2024 15:54-0500 Diastolic blood pressure 57 mm[Hg] PHYSICIAN NO [facility] 11-18-2024 15:54-0500 Heart rate 94 /min PHYSICIAN NO [facility] 11-18-2024 15:54-0500 Respiratory rate 18 /min PHYSICIAN NO [facility] 11-18-2024 15:54-0500 SaO2% (BldA) [Mass fraction] 99 % PHYSICIAN NO [facility] 11-18-2024 15:54-0500 Systolic blood pressure 121 mm[Hg] PHYSICIAN NO [facility] 11-18-2024 14:18-0500 Body height 172.72 cm PHYSICIAN NO [facility] 11-18-2024 14:18-0500 Body temperature 97.7 [degF] PHYSICIAN NO [facility] 11-18-2024 14:18-0500 Body weight 105 kg PHYSICIAN NO [facility] 11-08-2024 15:35-0500 Diastolic blood pressure 61 mm[Hg] PHYSICIAN NO [facility] 11-08-2024 15:35-0500 Heart rate 91 /min PHYSICIAN NO [facility] 11-08-2024 15:35-0500 Respiratory rate 16 /min PHYSICIAN NO [facility] 11-08-2024 15:35-0500 SaO2% (BldA) [Mass fraction] 97 % PHYSICIAN NO [facility] 11-08-2024 15:35-0500 Systolic blood pressure 131 mm[Hg] PHYSICIAN NO [facility] 11-08-2024 15:08-0500 Body height 172.72 cm PHYSICIAN NO [facility] 11-08-2024 15:08-0500 Body weight 99.79 kg PHYSICIAN NO [facility] 10-28-2024 13:41-0500 Body mass index (BMI) [Ratio] 33.7 kg/m2 Edie Schwabo CN Work Phone: [facility] 10-28-2024 13:41-0500 Body weight 99.79 kg [facility] Work Phone: [facility] 10-28-2024 13:41-0500 Diastolic blood pressure 80 mm[Hg] Edie [facility] Work Phone: [facility] 10-28-2024 13:41-0500 Systolic blood pressure 120 mm[Hg] Edie [facility] Work Phone: [facility] 10-07-2024 12:29-0500 Body height 172.72 cm PHYSICIAN NO [facility] 10-07-2024 12:29-0500 Body weight 93.44 kg PHYSICIAN NO [facility] 10-07-2024 12:27-0500 Body temperature 97.2 [degF] PHYSICIAN NO [facility] 10-07-2024 12:27-0500 Diastolic blood pressure 75 mm[Hg] PHYSICIAN NO [facility] 10-07-2024 12:27-0500 Heart rate 97 /min PHYSICIAN NO [facility] 10-07-2024 12:27-0500 Respiratory rate 18 /min PHYSICIAN NO [facility] 10-07-2024 12:27-0500 SaO2% (BldA) [Mass fraction] 98 % PHYSICIAN NO [facility] 10-07-2024 12:27-0500 Systolic blood pressure 134 mm[Hg] PHYSICIAN NO [facility] 10-04-2024 17:00-0500 Body height 172.72 cm PHYSICIAN NO [facility] 10-04-2024 17:00-0500 Body weight 93.44 kg PHYSICIAN NO [facility] 10-04-2024 16:30-0500 Body temperature 97.3 [degF] PHYSICIAN NO [facility] 10-04-2024 16:30-0500 Respiratory rate 18 /min PHYSICIAN NO [facility] 10-04-2024 16:30-0500 SaO2% (BldA) [Mass fraction] 96 % PHYSICIAN NO [facility] 09-30-2024 13:10-0500 Body mass index (BMI) [Ratio] 31.4 kg/m2 Edie Mays CN Work Phone: [facility] 09-30-2024 13:10-0500 Body weight 92.99 kg Edie Mays CN Work Phone: [facility] 09-30-2024 13:10-0500 Diastolic blood pressure 70 mm[Hg] Edie Josselino CN Work Phone: [facility] 09-30-2024 13:10-0500 Systolic blood pressure 120 mm[Hg] Edie Schwabo CN Work Phone: [facility] 09-08-2024 10:48-0500 Diastolic blood pressure 80 mm[Hg] Edie Floro CNM Work Phone: [facility] 09-08-2024 10:48-0500 Systolic blood pressure 120 mm[Hg] Edie Mays CNM Work Phone: [facility] 08-28-2024 15:12-0500 Body height 20.32 cm PHYSICIAN NO [facility] 08-28-2024 15:12-0500 Body temperature 98.3 [degF] PHYSICIAN NO [facility] 08-28-2024 15:12-0500 Body weight 88.85 kg PHYSICIAN NO [facility] 08-28-2024 15:12-0500 Diastolic blood pressure 75 mm[Hg] PHYSICIAN NO [facility] 08-28-2024 15:12-0500 Heart rate 89 /min PHYSICIAN NO [facility] 08-28-2024 15:12-0500 Respiratory rate 20 /min PHYSICIAN NO [facility] 08-28-2024 15:12-0500 SaO2% (BldA) [Mass fraction] 98 % PHYSICIAN NO [facility] 08-28-2024 15:12-0500 Systolic blood pressure 136 mm[Hg] PHYSICIAN NO [facility] 08-24-2024 16:47-0500 Body height 172.72 cm PHYSICIAN NO [facility] 08-24-2024 16:47-0500 Body temperature 98.4 [degF] PHYSICIAN NO [facility] 08-24-2024 16:47-0500 Body weight 87 kg PHYSICIAN NO [facility] 08-24-2024 16:47-0500 Diastolic blood pressure 78 mm[Hg] PHYSICIAN NO [facility] 08-24-2024 16:47-0500 Heart rate 92 /min PHYSICIAN NO [facility] 08-24-2024 16:47-0500 Respiratory rate 16 /min PHYSICIAN NO [facility] 08-24-2024 16:47-0500 SaO2% (BldA) [Mass fraction] 98 % PHYSICIAN NO [facility] 08-24-2024 16:47-0500 Systolic blood pressure 140 mm[Hg] PHYSICIAN NO [facility] 08-12-2024 09:49-0400 Body mass index (BMI) [Ratio] 28.03 kg/m2 Edie Floro CNM Work Phone: [facility] 08-12-2024 09:49-0400 Body weight 83.01 kg Edie Floro CNM Work Phone: [facility] 08-12-2024 09:49-0400 Diastolic blood pressure 80 mm[Hg] Edie Floro CNM Work Phone: [facility] 08-12-2024 09:49-0400 Systolic blood pressure 120 mm[Hg] Edie Floro CNM Work Phone: [facility] 07-13-2024 09:32-0400 Body mass index (BMI) [Ratio] 27.26 kg/m2 Edie Floro CNM Work Phone: [facility] 07-13-2024 09:32-0400 Body weight 80.74 kg Edie Floro CNM Work Phone: [facility] 07-13-2024 09:32-0400 Diastolic blood pressure 70 mm[Hg] Edie Floro [...] mass index (BMI) [Ratio] 26.81 kg/m2 Edie Mays CNM Work Phone: [facility] 06-01-2024 14:09-0400 Body weight 79.38 kg Edie ULLOAM Work Phone: [facility] 06-01-2024 14:09-0400 Diastolic blood pressure 80 mm[Hg] Edie ULLOAM Work Phone: [facility] 06-01-2024 14:09-0400 Systolic blood pressure 120 mm[Hg] Edie ULLOAM Work Phone: [facility] 05-29-2024 02:39-0400 Diastolic blood pressure 57 mm[Hg] PHYSICIAN NO [facility] 05-29-2024 02:39-0400 Heart rate 70 /min PHYSICIAN NO [facility] 05-29-2024 02:39-0400 Respiratory rate 18 /min PHYSICIAN NO [facility] 05-29-2024 02:39-0400 SaO2% (BldA) [Mass fraction] 98 % PHYSICIAN NO [facility] 05-29-2024 02:39-0400 Systolic blood pressure 107 mm[Hg] PHYSICIAN [facility] 05-28-2024 21:43-0400 Body temperature 98.8 [degF] PHYSICIAN NO [facility] 05-28-2024 21:38-0400 Body height 172.72 cm PHYSICIAN [facility] 05-28-2024 21:38-0400 Body weight 80 kg PHYSICIAN [facility] 05-26-2024 21:36-0400 Body height 172.72 cm PHYSICIAN [facility] 05-26-2024 21:36-0400 Body temperature 99 [degF] PHYSICIAN [facility] 05-26-2024 21:36-0400 Body weight 81.5 kg PHYSICIAN [facility] 05-26-2024 21:36-0400 Diastolic blood pressure 81 mm[Hg] PHYSICIAN [facility] 05-26-2024 21:36-0400 Heart rate 86 /min PHYSICIAN NO [facility] 05-26-2024 21:36-0400 Respiratory rate 18 /min PHYSICIAN NO [facility] 05-26-2024 21:36-0400 SaO2% (BldA) [Mass fraction] 99 % PHYSICIAN NO [facility] 05-26-2024 21:36-0400 Systolic blood pressure 135 mm[Hg] PHYSICIAN [facility] 11-02-2023 11:12-0500 Body mass index (BMI) [Ratio] 27.3 kg/m2 Maria Luisa Kiepert PHOTO PRINTER Work Phone: [facility] 11-02-2023 11:12-0500 Body temperature 97.39 [degF] Maria Luisa Kiepert PHOTO PRINTER Work Phone: [facility] 11-02-2023 11:12-0500 Body weight 80.83 kg Maria Luisa Kiepert PHOTO PRINTER Work Phone: [facility] 11-02-2023 11:12-0500 Diastolic blood pressure 68 mm[Hg] Maria Luisa Kiepert PHOTO PRINTER Work Phone: [facility] 11-02-2023 11:12-0500 Heart rate 86 /min Maria Luisa Kiepert PHOTO PRINTER Work Phone: [facility] 11-02-2023 11:12-0500 Respiratory rate 18 /min Maria Luisa Kiepert PHOTO PRINTER Work Phone: [facility] 11-02-2023 11:12-0500 SaO2% (BldA) [Mass fraction] 98 % Maria Luisa Kiepert PHOTO PRINTER Work Phone: [facility] 11-02-2023 11:12-0500 Systolic blood pressure 112 mm[Hg] Maria Luisa Kiepert PHOTO PRINTER Work Phone: [facility] 06-05-2023 13:27-0400 Body height 175.26 cm PHYSICIAN [facility] 06-05-2023 13:27-0400 Body temperature 98.2 [degF] PHYSICIAN [facility] 06-05-2023 13:27-0400 Body weight 78.4 kg PHYSICIAN NO [facility] 06-05-2023 13:27-0400 Diastolic blood pressure 77 mm[Hg] PHYSICIAN NO [facility] 06-05-2023 13:27-0400 Heart rate 73 /min PHYSICIAN NO [facility] 06-05-2023 13:27-0400 Respiratory rate 18 /min PHYSICIAN NO [facility] 06-05-2023 13:27-0400 SaO2% (BldA) [Mass fraction] 97 % PHYSICIAN NO [facility] 06-05-2023 13:27-0400 Systolic blood pressure 124 mm[Hg] PHYSICIAN NO [facility] 11-12-2022 10:49-0500 Body height 172.72 cm PHYSICIAN NO [facility] 11-12-2022 10:49-0500 Body temperature 98.3 [degF] PHYSICIAN NO [facility] 11-12-2022 10:49-0500 Body weight 76.2 kg PHYSICIAN NO [facility] 11-12-2022 10:49-0500 Diastolic blood pressure 98 mm[Hg] PHYSICIAN NO [facility] 11-12-2022 10:49-0500 Heart rate 85 /min PHYSICIAN NO [facility] 11-12-2022 10:49-0500 Respiratory rate 18 /min PHYSICIAN NO [facility] 11-12-2022 10:49-0500 SaO2% (BldA) [Mass fraction] 99 % PHYSICIAN NO [facility] 11-12-2022 10:49-0500 Systolic blood pressure 144 mm[Hg] PHYSICIAN NO [facility] Encounters Encounter Date Encounter Type Care Provider Facility Start: 01-10-2025 End: 01-10-2025 Office outpatient visit 15 minutes Edie Mays CNM Work Phone: [facility] Comment on above: related co ndition in third trimester (Primary Dx); Elevated blood pressure affecting in third trimester, antepartum Start: 01-10-2025 End: 01-10-2025 Bamboo flowsheet Edie Mays CNM Work Phone: [facility] Start: 01-10-2025 End: 01-10-2025 Bamboo flowsheet Edie L Floro CNM Work Phone: [facility] Start: 01-03-2025 End: 01-03-2025 Office outpatient visit 15 minutes Edie L Floro CNM Work Phone: [facility] Comment on above: Encounter for prenat al care of first , third trimester (Primary Dx); First trimester bleeding Start: 01-03-2025 End: 01-03-2025 ambulatory EDIE L FLORO Not Available Start: 12-30-2024 End: 12-30-2024 ambulatory EDIE L FLORO Not Available Start: 12-30-2024 End: 12-30-2024 Bamboo flowsheet Edie L Floro CNM Work Phone: [facility] Start: 12-30-2024 End: 12-30-2024 Bamboo flowsheet Edie L Floro CNM Work Phone: [facility] Start: 12-24-2024 End: 12-24-2024 Patient encounter procedure PHYSICIAN NO [facility]3 [facility] Labor - O/P Start: 12-24-2024 End: 12-24-2024 ambulatory PHYSICIAN [facility] Work Phone: Start: 12-09-2024 End: 12-09-2024 Bamboo flowsheet Edie [...] End: 12-03-2024 Patient encounter procedure PHYSICIAN NO [facility]3 [facility] Labor - O/P Start: 12-03-2024 End: 12-03-2024 ambulatory PHYSICIAN NO [facility] Work Phone: Start: 11-25-2024 End: 11-25-2024 Bamboo flowsheet Edie L Floro CNM Work Phone: [facility] Start: 11-25-2024 End: 11-25-2024 Bamboo flowsheet Edie L Floro CNM Work Phone: [facility] Start: 11-25-2024 End: 11-25-2024 Office outpatient visit 15 minutes Edie L Floro CNM Work Phone: [facility] Comment on above: Encounter for prenat al care of first , third trimester (Primary Dx) Start: 11-25-2024 End: 11-25-2024 ambulatory EDIE L FLORO Not Available Start: 11-18-2024 End: 11-18-2024 Emergency department patient visit PHYSICIAN NO [facility] C[facility]-Emergency Room Work Phone: Start: 11-08-2024 End: 11-08-2024 Patient encounter procedure PHYSICIAN NO [facility]3 [facility] Labor - O/P Start: 11-08-2024 End: 11-08-2024 ambulatory PHYSICIAN NO [facility] Work Phone: Start: 11-08-2024 End: 11-08-2024 External Result Encounter Vee Yang DO Work Phone: [facility] Unsolicited Start: 11-08-2024 End: 11-08-2024 External Result Encounter Vee Browerkes DO Work Phone: [facility] Unsolicited Start: 11-03-2024 End: 11-03-2024 Telephone encounter Edie L Floro CNM Work [...] Start: 10-17-2024 Emergency department patient visit Ailyn Murrell Facility:[facility] Start: 10-07-2024 End: 10-07-2024 ambulatory Tirso Mancilla Facility:[facility] Start: 10-07-2024 End: 10-07-2024 Patient encounter procedure PHYSICIAN NO [facility]3 [facility] Labor - O/P Start: 10-04-2024 End: 10-04-2024 Patient encounter procedure PHYSICIAN NO [facility]3 [facility] Labor - O/P Start: 10-04-2024 End: 10-04-2024 ambulatory Vee Yang Facility:[facility] Start: 09-30-2024 End: 09-30-2024 Bamboo flowsheet Edie L Floro CNM Work Phone: [facility] Start: 09-30-2024 End: 09-30-2024 Bamboo flowsheet Edie L Floro CNM Work Phone: [facility] Start: 09-30-2024 End: 09-30-2024 Office outpatient visit 15 minutes Edie L Josselino CNM Work Phone: [facility] Comment [...] 08-28-2024 Emergency department patient visit PHYSICIAN NO [facility]-Emergency Room Work Phone: Start: 08-24-2024 End: 08-24-2024 Emergency department patient visit PHYSICIAN NO [facility]-Emergency Room Work Phone: Start: 08-19-2024 End: 08-19-2024 Telephone encounter Edie Clarissa Schwabo CNM Work Phone: [facility] Start: [...] department patient visit NO PCP NO PCP [facility] Start: 06-15-2024 End: 06-15-2024 Office outpatient visit [...] 06-01-2024 Emergency department patient visit JOS LANDIS [facility] Start: 05-28-2024 End: 05-29-2024 Emergency department patient visit PHYSICIAN NO [facility] Ctr-Emergency Room Work Phone: Start: 05-27-2024 End: 05-27-2024 Emergency department patient visit Monty Lee Facility:[facility] Start: 05-26-2024 End: 05-26-2024 Emergency department patient visit PHYSICIAN NO [facility]-Emergency Room Work Phone: Start: 05-25-2024 ambulatory AMINAH Newman [facility] Start: 05-21-2024 End: 05-21-2024 Emergency department patient visit MOUNIKA Paula CHAMORRORuben [facility] Start: 04-01-2024 End: 04-01-2024 ambulatory EDIE MAYS Not Available Start: 11-02-2023 End: 11-02-2023 Office outpatient visit 25 minutes Maria Luisa Naranjo NP Work Phone: [facility] Comment on above: Impacted cerumen of right ear (Primary Dx) Start: 06-05-2023 End: 06-05-2023 Emergency department patient visit PHYSICIAN NO [facility]gency Room Work Phone: Start: 11-12-2022 End: 11-12-2022 Emergency department patient visit PHYSICIAN NO [facility]gency [facility] Work Phone: Procedures Date Procedure [...] Treatment Date Care Activity Detail Author Start: 01-17-2025 End: 01-17-2025 Patient encounter procedure 01/17/2025 2:30 PM EDT Routine [facility] [address] [place] [address] Edie Mays, ARTEMIO [address] [place] [address] [facility] Start: 01-10-2025 End: 01-10-2025 Patient encounter procedure [facility] Comment on above: Arrived Start: 01-10-2025 End: 01-10-2026 for [facility] Work Phone: Comment on above: Expected: 01/10/2025 , Expires: 01/10/2026 Start: 12-30-2024 End: 12-30-2024 Patient encounter procedure 12/30/2024 1:30 PM EDT Routine [facility] [address] [place] [address] Edie Mays [address] [address] Arrived [facility] Comment on above: Arrived Start: 12-24-2024 [facility] Start: 12-24-2024 Hospital admission [facility] Start: 12-24-2024 [facility] Start: 12-09-2024 End: 12-09-2024 Patient encounter procedure 12/09/2024 1:30 PM EST Routine [facility] [address] [place] [phone] Edie Mays, CNM [address] [place], [place] [id number] [facility] Start: 12-03-2024 Hospital admission [facility] Start: 11-25-2024 End: 11-25-2024 Professional / ancillary services management 11/25/2024 2:00 PM EST Ancillary Procedure [facility] [address] [phone] [facility] Start: 11-25-2024 End: 11-25-2024 Patient encounter procedure [facility] Comment on above: Arrived Start: 11-08-2024 [facility] Start: 11-08-2024 Hospital admission [facility] Start: 10-28-2024 End: 10-28-2025 CBC panel - Blood by Automated count CBC Lab Routine Screening for iron deficiency anemia Expected: 10/28/2024 (Approximate), Expires: 10/28/2025 [facility] Comment on above: Expected: 10/28/2024 (Approximate), Expires: 10/28/2025 Start: 10-28-2024 End: 10-28-2025 GLUCOSE, GESTATIONAL SCREEN (50G)-135 CUTOFF GLUCOSE, GESTATIONAL SCREEN (50G)-135 CUTOFF Lab Routine Screening for diabetes mellitus (DM) Expected: 10/28/2024 (Approximate), Expires: 10/28/2025 [facility] Work Phone: Comment on above: Expected: 10/28/2024 (Approximate), Expires: 10/28/2025 Start: 10-28-2024 End: 10-28-2025 US for US OB follow up transabdominal approach Imaging Routine related condition in third trimester Expected: 10/28/2024, Expires: 10/28/2025 [facility] Comment on above: Expected: 10/28/2024 , Expires: 10/28/2025 Start: 10-28-2024 End: 10-28-2024 Patient encounter procedure 10/28/2024 1:30 PM EST Routine [facility] [address] [place] [address] Edie Mays, CNM [address] [facility] [place] [address] [facility] Start: 10-07-2024 [facility] Start: 10-04-2024 [facility] Start: 10-04-2024 Hospital admission [facility] Start: 09-30-2024 End: 09-30-2024 Patient encounter procedure 09/30/2024 1:30 PM EST Routine [facility] [address] [facility] [place] [phone] Edie Mays, CNM [address] [facility] [place] [address] Arrived [facility] Comment on above: Arrived Start: 09-08-2024 End: 09-08-2024 Patient encounter procedure 09/08/2024 10:30 AM EST Routine [facility] [address] [facility] [place] [phone] Edie Mays, CNM [address] [facility] [place] [address] [facility] Start: 09-08-2024 End: 09-08-2024 Professional / ancillary services management 09/08/2024 10:00 AM EST Ancillary Procedure [facility] [address] [place] [address] [facility] Start: 08-28-2024 [facility] Start: 08-12-2024 End: 08-12-2025 US for US OB 14+ weeks anatomy scan Imaging Routine related condition in second trimester Expected: 08/12/2024, Expires: 08/12/2025 [facility] Work Phone: Comment on above: Expected: 08/12/2024 , Expires: 08/12/2025 Start: 08-12-2024 End: 08-12-2024 Patient encounter procedure 08/12/2024 9:45 AM EDT Routine [facility] [address] [place] [phone] Edie Mays, CNM [address] [place] [address] Arrived [facility] Comment on above: Arrived Start: 07-13-2024 End: 07-13-2024 Patient encounter procedure 07/13/2024 9:30 AM EDT Routine [facility] [address] [place] [address] Edie Mays, CNM [address] [place] [address] [facility] Start: 07-06-2024 End: 07-06-2024 Patient encounter procedure 07/06/2024 1:30 PM EDT Office Visit [facility] [address] [place] [phone] Edie Mays, CNM [address] [place] [address] [facility] Start: 06-15-2024 End: 06-15-2025 [...] first trimester Expected: 06/15/2024 (Approximate), Expires: 06/15/2025 [facility] Comment on above: Expected: 06/15/2024 (Approximate), Expires: 06/15/2025 Start: 06-15-2024 End: 06-15-2025 TSH W/REFLEX TO FT4 TSH W/REFLEX TO FT4 Lab Routine Encounter for care of first , first trimester Expected: 06/15/2024 (Approximate), Expires: 06/15/2025 [facility] Comment on above: Expected: 06/15/2024 (Approximate), Expires: 06/15/2025 Start: 06-15-2024 End: 06-15-2025 URINALYSIS MICROSCOPIC URINALYSIS MICROSCOPIC Lab Routine Encounter for care of first , first trimester Expected: 06/15/2024 (Approximate), Expires: 06/15/2025 [facility] Comment on above: Expected: 06/15/2024 (Approximate), Expires: 06/15/2025 Start: 06-15-2024 End: 06-15-2024 Professional / ancillary services management 06/15/2024 9:45 AM EDT Ancillary Procedure [facility] [address] [phone] [facility] Start: 06-15-2024 End: 06-15-2024 ambulatory 06/15/2024 9:30 AM EDT Initial [facility] [address] [place] [phone] Edie Mays, ARTEMIO [address] [place] [address] [facility] Start: 06-13-2024 Influenza vaccination Influenza Vacc ine (#1) [facility] Start: 06-01-2024 End: 06-01-2024 ambulatory 06/01/2024 2:00 PM EDT Initial [facility] [address] [place] [phone] Tabatha Edie L, ARTEMIOM [address] [place] [address] Arrived [facility] Comment on above: Arrived Start: 05-29-2024 Genital Culture Genital Culture [facility] Start: 05-29-2024 [facility] Start: 05-28-2024 Diagnostic ultrasoun d of gravid uterus [facility] Start: 05-28-2024 Transvaginal obstetr ic ultrasonography [facility] Start: 05-26-2024 [facility] Start: 11-27-2023 End: 11-27-2023 Patient encounter procedure 11/27/2023 10:15 AM EST Office Visit [facility] [address] [place] [phone] Luciano Cooper MD [address] [place] [address] [facility] Start: 06-13-2023 Influenza vaccination Influenza Vacc ine (#1) [facility] Start: 06-05-2023 [facility] ABO/Rh ABO/Rh Lab Routi ne Encounter for care of first , first trimester Ordered: 06/15/2024 [facility] Comment on above: Ordered: 06/15/2024 [facility] Antibody screen Antibody screen Lab Routine Encounter for care of first , first trimester Ordered: 06/15/2024 [facility] Comment on above: Ordered: 06/15/2024 Bacteria identified in Genital specimen by Aerobe culture [facility] Basophils [#/volume] in Blood by Automated count [facility] Basophils/100 leukoc ytes in Blood by Automated count [facility] CBC panel - Blood by Automated count CBC Lab Routine Encounter for care of first , first trimester Ordered: 06/15/2024 [facility] Comment on above: Ordered: 06/15/2024 Chlamydia trachomati s DNA [Presence] in Unspecified specimen by ANGELY with probe detection [facility] Ear cerumen removal Ear cerumen removal Procedures Routine Impacted cerumen of right ear Ordered: 11/02/2023 [facility] [employer] Work Phone: Comment on above: Ordered: 11/02/2023 Eosinophils/100 leukocytes in Blood by Automated count [facility] Erythrocyte distribu tion width [Ratio] by Automated count [facility] Erythrocytes [#/volu me] in Blood [facility] Hematocrit [Volume Fraction] of Blood [facility] Hemoglobin [Mass/vol ume] in Blood [facility] Hemoglobin A1c/Hemoglobin.total in Blood Hemoglobin A1c Lab Routine Encounter for care of first , first trimester Ordered: 06/15/2024 [facility] [employer] Comment on above: Ordered: 06/15/2024 Hepatitis B virus burch rface Ag [Presence] in Serum or Plasma by Immunoassay Hepatitis B surface antigen Lab Routine Encounter for care of first , first trimester Ordered: 06/15/2024 [facility] [employer] Work Phone: Comment on above: Ordered: 06/15/2024 Hepatitis C virus Ab [Presence] in Serum or Plasma by Immunoassay Hepatitis C antibody Lab Routine Encounter for care of first , first trimester Ordered: 06/15/2024 [facility] [employer] Comment on above: Ordered: 06/15/2024 HIV-1/HIV-2 antigen/antibody combination immunoassay HIV-1 and HIV-2 antibodies Lab Routine Encounter for care of first , first trimester Ordered: 06/15/2024 [facility] [employer] Comment on above: Ordered: 06/15/2024 Leukocytes [#/volume ] corrected for nucleated erythrocytes in Blood by Automated coun [facility] Leukocytes [#/volume ] in Blood [facility] Lymphocytes [#/volum e] in Blood by Automated count [facility] Lymphocytes/100 leukocytes in Blood by Automated count [facility] MCH [Entitic mass] b y Automated count [facility] MCHC [Mass/volume] b y Automated count [facility] MCV [Entitic volume] by Automated count [facility] Monocytes [#/volume] in Blood by Automated count [facility] Monocytes/100 leukoc ytes in Blood by Automated count [facility] Neisseria gonorrhoea e DNA [Presence] in Unspecified specimen by ANGELY with probe detection [facility] Neutrophils [#/volum e] in Blood by Automated count [facility] Neutrophils/100 leukocytes in Blood by Automated count [facility] Nucleated erythrocyt es [Presence] in Blood by Automated count [facility] Patient Education [facility] Work Phone: Patient referral [facility] Work Phone: Platelet mean volume [Entitic volume] in Blood by Automated count [facility] Platelets [#/volume] in Blood [facility] Reagin Ab [Presence] in Serum by RPR [...] Unspecified specimen by ANGELY with probe detection [facility] Payers Date Payer Category Payer Self-pay [id number] 2023 Medicaid [employer] [place] [id number] 2023-Present [address] [place] [id number] 2023 Medicaid (Managed Care) [employer] [id number] 2023 Medicaid [id number] 2022 Medicaid [id number] 2003 Unknown [id number] 2.16.840.1.981476.3.579.2. 1285 2003 Unknown [id number] 2.16.840.1.294703.3.579.2. 1285 2003 Unknown [id number] 2.16.840.1.653726.3.579.2. 1285 2003 Unknown [id number] 2.16.840.1.333580.3.579.2. 1285 2003 Unknown [id number] 2.16.840.1.153363.3.579.2. 1285 2003 Unknown [id number] 2.16.840.1.658762.3.579.2. 2003 Unknown [id number] 2.16.840.1.645971.3.579.2. 2003 Unknown [id number] 2.16.840.1.056515.3.579.2. 1258 2003 Unknown [id number] 2.16.840.1.643109.3.579.2. 1258 2003 Unknown [id number] 2.16.840.1.837622.3.579.2. 1258 2003 Unknown [id number] 2.16.840.1.941402.3.579.2. 1258 2003 Unknown [id number] 2.16.840.1.145222.3.579.2. 1258 2003 Unknown [id number] 2.16.840.1.021845.3.579.2. 1258 2003 Unknown [id number] 2.16.840.1.451700.3.579.2. 1258 2003 Unknown [id number] 2.0.1.540546.3.579.2. 1258 2003 Unknown [id number] 2.0.1.017981.3.579.2. 1258 2003 Unknown [id number] 2.0.1.526684.3.579.2. 1258 2003 Unknown [id number] .1.713015.3.579.2. 1258 2003 Unknown [id number] 2.0.1.111834.3.579.2. 1258 2003 Unknown [id number] .1.199244.3.579.2. 1258 2003 Unknown [id number] 2.1.715375.3.579.2. 1258 2003 Unknown [id number] .1.750555.3.579.2. 1258 Medicaid [id number] Medicaid [place] Medicaid [id number] Medicaid [facility] [id number] Unknown MMO [id number] Unknown [place] BC/BS [id number] Unknown Safe Program [id number] Unknown [id number] 11.28.830.1.681128.3.579.2. 531 Unknown [id number] .1.643866.3.579.2. 531 Unknown [id number] 2.16.840.1.025208.3.579.2. 531 Unknown [id number] 2.16.840.1.804856.3.579.2. 531 Unknown [id number] 2.16.840.1.138465.3.579.2. 531 Unknown [id number] 2.16.840.1.352087.3.579.2. 531 Unknown [id number] 2.16.840.1.340248.3.579.2. 531 Unknown [id number] 2.16.840.1.725619.3.579.2. 531 Unknown [id number] 2.16.840.1.714707.3.579.2. 531 Unknown [id number] 2.16.840.1.244700.3.579.2. 531 Social History Date Type Detail Facility Start: 11-12-2022 End: 05-28-2024 Tobacco smoking status INIS Smoker (finding) [facility] Start: 2005 Sex Assigned At Female F [facility] Start: 11-02-2023 End: 08-24-2024 Tobacco smoking status [facility] Never smoked tobacco [facility] Start: 11-02-2023 Tobacco use and exposure Smokeless tobacco non-user [facility] Start: 11-02-2023 End: 04-01-2024 Alcohol intake Lifetime non-drinker (finding) [facility] Start: 11-02-2023 End: 01-03-2025 History of Social function [facility] Start: 11-02-2023 End: 01-03-2025 Tobacco use panel [facility] Start: 2005 Sex Assigned At Not on file [facility] Start: 05-03-2024 [facility] Start: 06-01-2024 End: 06-15-2024 Alcoholic beverage intake Ex-drinker (finding) [facility] Start: 04-01-2024 Alcohol Comment caffeine: 3-4 cups caffine [facility] Start: 08-24-2024 End: 12-24-2024 Sex Female (finding) [facility] Start: 08-28-2024 End: 11-18-2024 Tobacco smoking status NHIS Ex-smoker (finding) [facility] Goals Date Patient Goal Desired Activity /State Personal health goal Clinical Notes 11-02-2023 to 01-10-2025 Edie Mays CNM - 01/10/2025 4:15 PM EDTEdie Mays CNM - 01/03/2025 1:15 PM EDTEdie Mays CNM - 11/25/2024 1:30 PM ESTTelephone Encounter - Simona Martinez - 11/03/2024 12:22 PM EST Note Date & Type Note Facility 01-10-2025 History of Presen t illness Narrative Subjective No chief complaint on file. Kisha Lora is a 19 y.o. at 38w0d with a working estimated date of delivery [...] 1 SAB 09/03/20 Her is complicated by: increased weight gain, Elevated blood pressure Objective Physical Exam weight: 248 lb Expected Total Weight Gain: 15 lb-25 lb Pregravid BMI: 26.80 BP: (!) 150/100 Urine protein-negative Urine glucose-negative Assessment/Plan Diagnoses and all orders for this visit: related condition in third trimester - US OB follow up transabdominal approach; Future Elevated blood pressure affecting in third trimester, antepartum To hospital from office to evaluate and work up for blood pressure Continue vitamin. Labs reviewed. GBS negative Expected mode of delivery Follow up in 1 week for a routine visit. documented in this encounter [facility] 01-03-2025 History of Presen t illness Narrative Subjective No chief complaint on file. Kisha Lora is a 19 y.o. at 37w0d with a working estimated date of delivery [...] is complicated by: Objective Physical Exam weight: 243 lb Expected Total Weight Gain: 15 lb-25 lb Pregravid BMI: 26.80 BP: 118/80 Urine protein-negative Urine glucose-negative Assessment/Plan Diagnoses and all orders for this visit: Encounter for care of first , third trimester First trimester bleeding Patient doing well, she went to [facility] one time each for contractions and she wasn't sure if she was in labor. Both times she was observed and then sent home. Today we discussed true labor vs false labor and the difference. I also educated her how she can tell the difference. I did encourage her to always go to the hospital for evaluation if she is unsure. PVU She is also interested in an elective induction of labor. I then educated patient on elective induction, favorable cervix and risks/benefits of induction. Patient desires to have an induction scheduled. History Exam Assessment & Plan Continue vitamin. Labs reviewed. GBS taken. Expected mode of delivery Follow up in 1 week for a routine visit. documented in this encounter [facility] 12-03-2024 Radiology Diagnostic study note [facility] Main [place] [address] [place] [address] Ultrasound Report Signed Patient: Kisha Lora MR#: [id number] : 2005 Acct:[id number] Age/Sex: 19 / F ADM Date: 5 Loc: 3E Room: [address] [place] [address] Type: REG CLI Attending Dr: Luciano Cooper MD Ordering Provider: Luciano Cooper MD-[facility] Date of Service: 12/03/24 US/US OB biophysical profile: 32 wks, decreased fetalmovement Copies to: ELHAM BurdickS~ Ultrasound of surgical biophysical profile HISTORY: Decreased [...] Craig Hassan M.D.12/03/2024 3:10 PM Dictation Location: [id number] Tech: Ivette Thomson Transcribed By: WILLOW 12/03/24 1510 Dictated By: Craig Hassan DO 12/03/24 1509 Signed By: 12/03/24 1510 [facility] 12-03-2024 Radiology Diagnostic study note [facility] Main [place] [address] [place] [address] Ultrasound Report Signed Patient: Kisha Lora MR#: [id number] : 2005 Acct:[id number] Age/Sex: 19 / F ADM Date: 5 Loc: Room: [address] [place] [address] Type: REG CLI Attending Dr: Luciano Cooper MD Ordering Provider: HARITHA [place] Date of Service: 12/03/24 US/US OB biophysical profile: Decreased movement Copies to: ELHAM BurdickS~ Ultrasound obstetrical biophysical profile HISTORY: Decreased movement [...] Craig Hassan M.D.12/03/2024 1:04 PM Dictation Location: [place] [address] Tech: Jennifer David Transcribed By: WILLOW 12/03/24 1304 Dictated By: Craig Hassan DO 12/03/24 1256 Signed By: 12/03/24 1304 [facility] 11-25-2024 History of Presen t illness Narrative [...] still has questions, please return call to [phone] [facility] 11-03-2024 Miscellaneous Notes Pt had a 1hour glucose test about a week ago and still has questions, please return call to [phone] documented in this encounter [facility] 10-29-2024 [...] Pt would like to discuss this with Edith or Marge to see what she should do. She is currently 17 weeks. The cramping was worse when she stood up and it started to go into her back, Pain lasted about a good 20 minutes stopping and going. No pains today. She hasn't had any bleeding or anything. [phone] [facility] 08-19-2024 Miscellaneous Notes Yesterday patient started to have cramping and wondered if the baby was growning or kicking. She almost went to ER but did not. Pt left vm today and was afraid of it not being answered and called back. Pt would like to discuss this with Edith or Marge to see what she should do. She is currently 17 weeks. The cramping was worse when she stood up and it started to go into her back, Pain lasted about a good 20 minutes stopping and going. No pains today. She hasn't had any bleeding or anything. [phone] documented in this encounter [facility] 08-12-2024 [...] visit. This is planned. Patient Care Team: [facility] Provider MD Kerry as PCP - General (Family Medicine) Jose A Moralez DO as PCP - Ghazala Trujillo [facility] OB History Para Term AB Living 2 [...] During , First Trimester Follow-up with your BUSINESS PROGRAMMER for further evaluation of your threatened miscarriage. [...] your regular activities. General instructions ? Take [id number] and prescription medicines only as told by [...] provider. Document Revised: 06/21/2021 Document Reviewed: 06/21/2021 [employer] Patient Education ? 2022 [place]. [facility] 11-02-2023 History of Presen t illness Narrative [...] Pt tolerated well. documented in this encounter [facility] Healthcare Evaluation note No assessment inform ation available [facility] Work Phone: Evaluation note Diagnosis Impacted cerumen of right ear- Primary Impacted cerumen documented [facility] encounter [facility] Diagnosis Encounter for care of first , second trimester- Primary related condition in second trimester documented [facility] this encounter [facility] Diagnosis Encounter for care of first , first trimester- Primary documented in this encounter [facility]* Diagnosis Threatened in first trimester- Primary Threatened , unspecified as to episode of care documented [facility] Diagnosis Encounter for care of first , first trimester- Primary Threatened First trimester bleeding Unspecified hemorrhage in early , antepartum [facility] Diagnosis Encounter for care of first , second trimester- Primary documented in [facility] Diagnosis Encounter for care of first , third trimester- Primary Screening for iron deficiency anemia Screening for diabetes mellitus (DM) Screening for diabetes mellitus related condition in third trimester documented [facility] Diagnosis Encounter for care of first , third trimester- Primary documented in this encounter [facility] Diagnosis Encounter for care of first , third trimester- Primary First trimester bleeding Unspecified hemorrhage in early , antepartum documented in this encounter [facility]* Diagnosis related condition in third trimester- Primary Elevated blood pressure affecting in third trimester, antepartum [facility] Additional Instructions Take the doxycycline twice a day for 7 days take with food and take until completely gone Your culture results should be back 3 to 4 days we usually call you with results but if you do not receive a call after for 5 days you may call [phone] for results No sexual activity for 2 weeks Always use a condom [facility]: Hospital Discharge instructions Additional Instructions Apply the miconazole every night for 7 nights for the vaginal itching If your cultures come back positive we will call you to arrange treatment Follow-up with your BUSINESS PROGRAMMER Return to the ER for abdominal pain cramping bleeding or any other concerns [facility] Work Phone: Summary Purpose Family History Relationship [...] section and content) DATE CREATED AUTHOR 06/02/2021 [facility] DATE CREATED AUTHOR AUTHOR'S ORGANIZ ATION 05/26/2024 [facility] DATE CREATED AUTHOR AUTHOR'S ORGANIZ ATION 07/01/2024 [facility] DATE CREATED AUTHOR AUTHOR'S ORGANIZ ATION 11/01/2024 [facility] DATE CREATED AUTHOR AUTHOR'S ORGANIZ ATION 01/01/2025 [facility] DATE CREATED AUTHOR AUTHOR'S ORGANIZ ATION 01/08/2025 [facility] Care Teams (unrecognized sec tion and content) Team Status: Inactive Member Role Status Dates PHYSICIAN NO FAMILY Primary Care Provider Active Cadence TROTTER Emergency Provider Active Team Status: Active Member Role Status Dates PHYSICIAN NO FAMILY Primary Care Provider Active Team Status: Inactive Member Role Status Dates PHYSICIAN NO FAMILY Primary Care Provider Active AVINASH Smith-KAROLINA Emergency Provider Active Inverform 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 Relationship Specialty Start Date End Date Jose A Moralez DO [address] [place] [address] PCP - [facility] 04/12/23 Team Status: Inactive Member Role Status Dates PHYSICIAN NO FAMILY Primary Care Provider Active Start: May 26, 2024 End: May 26, 2024 Oj Navarrete , DO Emergency Provider Active St art: May 26, 2024 End: May 26, 2024 Team Status: Inactive Member Role Status Dates PHYSICIAN NO FAMILY Primary Care Provider Active Start: May 28, 2024 End: May 29, 2024 Oj Navarrete , DO Emergency Provider Active St art: May 28, 2024 End: May 29, 2024 Inverform 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 Relationship Specialty Start Date End Date Jose A Moralez DO [address] [facility] [address] [place] [address] PCP - [facility] 04/12/23 Unallocated, Rosy Pricne MD [address] [place] [address] PCP - General Family Medicine 11/27/23 Inverform 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 Relationship Specialty Start Date End Date Jose A Moralez DO [address] [facility] [address] [place] [address] PCP - [facility] 04/12/23 Unallocated, Rosy Prince MD [address] [place] [address] [place] [address] PCP - General Family [facility] 11/27/23 Inverform 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 Relationship Specialty Start Date End Date Jose A Moralez DO [address] [facility] [address] [place] [address] PCP - [facility] 04/12/23 Unallocated, Rosy Prince MD [facility] [place] [address] PCP - General Family Medicine 11/27/23 Inverform 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 Relationship Specialty Start Date End Date Jose A Moralez DO [address] [facility] [address] [place] [address] PCP - [facility] 04/12/23 Unallocated, Rosy ProviderMD [facility] [place] [address] PCP - General Family Medicine 11/27/23 Team [...] August 28, 2024 End: August 28, 2024 Felisha Briones [facility] Emergency Provider Active Start: August 28, 2024 End: August 28, 2024 Inverform 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 Relationship Specialty Start Date End Date Jose A Moralez DO [address] [place] [address] [place] [address] PCP - [facility] 04/12/23 Unallocated, Rosy ProviderMD [facility] [place] [address] PCP - General Family Medicine 11/27/23 Inverform 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 Relationship Specialty Start Date End Date Jose A Moralez DO [address] [facility] [address] [place] [address] PCP - [facility] 04/12/23 Unallocated, Rosy ProviderMD [address] [place] [address] PCP - General Family Medicine 11/27/23 Inverform 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 Relationship Specialty Start Date End Date Jose A Moralez DO [address] [facility] [address] [place] [address] PCP - [facility] 04/12/23 Unallocated, Noms Provider, [address] [place] [address] PCP - General Family Medicine 11/27/23 Inverform 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 Relationship Specialty Start Date End Date Jose A Moralez, [address] [facility] [address] [place] [address] PCP - [facility] 04/12/23 Unallocated, Noms ProviderMD [address] [place] [address] PCP - General Family Medicine 11/27/23 Inverform 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 Relationship Specialty Start Date End Date Jose A Moralez DO [address] [facility] [address] [place] [address] PCP - [facility] 04/12/23 Unallocated, Noms Provider, [address] [place] [address] PCP - General Family Medicine 11/27/23 Inverform 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 Relationship Specialty Start Date End Date Jose A Moralez DO [address] [place] [address] [place] [address] PCP - [facility] 04/12/23 Unallocated, Noms ProviderMD [address] [place] [address] [place] [address] PCP - General Family Medicine 11/27/23 Inverform 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 Relationship Specialty Start Date End Date Jose A Moralez DO [address] [facility] [address] [place] [address] PCP - [facility] 04/12/23 Unallocated, MD Chapo Graham [facility] [address] PCP - General Family Medicine 11/27/23 Team [...] November 18, 2024 End: November 18, 2024 Inverform 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 Relationship Specialty Start Date End Date Jose A Moralez DO [address] [place] [address] PCP - [facility] 04/12/23 Unallocated, [place] [address] PCP - General Family Medicine 11/27/23 Inverform 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 Relationship Specialty Start Date End Date Jose A Moralez DO [address] [place] [address] PCP - [facility] 04/12/23 Unallocated, [place] [address] PCP - General Family Medicine 11/27/23 Team [...] December 24, 2024 End: December 24, 2024 Inverform 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 Relationship Specialty Start Date End Date Jose A Moralez DO [address] [facility] [address] [place] [address] PCP - [facility] 04/12/23 Unallocated, Rosy Prince MD [address] [place] [address] PCP - General Family Medicine 11/27/23 Inverform 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 Relationship Specialty Start Date End Date Jose A Moralez DO [address] [facility] [address] [place] [address] PCP - [facility] 04/12/23 Unallocated, [place] [address] [place] [address] PCP - General Family Medicine 11/27/23 Goals (unrecognized section and content) Goals may [...] BE BASED ON THE PRIMARY CLINICAL RECORDS. [facility] [place], [facility]. provides no warranty or guarantee of the accuracy or completeness of information in this document.
[2025-01-10 20:15] LABS: Hematocrit 33.6 % (36.0-48.0); Hemoglobin 11.4 g/dL (12.0-16.0); Mean Corpuscular Hemoglobin 29.8 pg (26.7-34.0); Red Blood Count 3.82 10^6/uL (4.20-5.40); White Blood Count 10.3 10^3/uL (4.0-11.0)
[2025-01-10 20:16] LABS: Basophils Absolute Auto 0.1 10^3/uL (0.0-0.1); Basophils Percent Auto 0.5 % (0.2-2.0); Eosinophils Absolute Auto 0.4 10^3/uL (0.0-0.7); Eosinophils Percent Auto 4.2 % (0.9-7.0); Immature Granulocytes Abs Auto 0.05 10^3/uL (0.00-0.03); Immature Granulocytes Pct Auto 0.5 % (0.0-0.5); Lymphocytes Absolute Auto 1.6 10^3/uL (1.2-3.8); Lymphocytes Percent Auto 15.3 % (20.5-60.0); Mean Corpuscular HGB Conc 33.9 g/dL (29.9-35.2); Mean Platelet Volume 10.8 fL (9.5-13.5); Monocytes Absolute Auto 0.6 10^3/uL (0.3-0.8); Monocytes Percent Auto 5.3 % (1.7-12.0); Neutrophils Absolute Auto 7.6 10^3/uL (1.4-6.5); Neutrophils Percent Auto 74.2 % (43.0-75.0); Platelet Count 219 10^3/uL (150-450); Red Cell Distribution Width 14.7 % (11.0-15.0)
[2025-01-10 20:34] LABS: Bilirubin Urine NEGATIVE (NEGATIVE); Blood Urine NEGATIVE (NEGATIVE); Clarity Urine CLEAR (CLEAR); Color Urine LT. YELLOW (YELLOW); Glucose Urine UA NEGATIVE (NEGATIVE); Ketones Urine NEGATIVE (NEGATIVE); Leukocyte Esterase Urine NEGATIVE (NEGATIVE); Nitrite Urine NEGATIVE (NEGATIVE); Protein Urine NEGATIVE (NEG/TRACE); Specific Gravity Urine <=1.005 (1.005-1.025); Urine Microscopic Indicated NO; Urobilinogen Urine 0.2 EU/dL (0.2-1.0); pH Urine 6.5 (5.0-9.0)
[2025-01-10 20:40] LABS: Alanine Aminotransferase 16 U/L (14-59); Albumin Globulin Ratio 0.6; Albumin Level 2.3 g/dL (3.4-5.0); Alkaline Phosphatase 146 U/L (46-116); Anion Gap 17.4; Aspartate Amino Transferase 18 U/L (15-37); BUN Creatinine Ratio 6.9; Bilirubin Total 0.3 mg/dL (0.2-1.0); Calcium 8.8 mg/dL (8.5-10.1); Carbon Dioxide 19.7 mmol/L (21.0-32.0); Chloride 101 mmol/L (98-107); Estimated GFR (African America >60 (>=60 mL/min/1.73m^2); Estimated GFR (Non-African Ame >60 (>=60 mL/min/1.73m^2); Globulin 3.9 g/dL; Glucose 145 mg/dL (74-106); Lactate Dehydrogenase 178 U/L (81-234); Potassium 3.1 mmol/L (3.5-5.1); Sodium 135 mmol/L (136-145); Total Protein 6.2 g/dL (6.4-8.2)
[2025-01-10 20:41] LABS: Creatinine Urine Random 25.05 mg/dL (20.00-300.00)
[2025-01-10 20:44] LABS: Protein Creatinine Ratio Urine 0.24; Total Protein Urine Random <6.0 mg/dL (<=11.9)
[2025-01-10 20:50] LABS: Fibrinogen 382 mg/dL (200-400)
== END 2025-01-10 22:30 | disposition home or self-care (01) ==
LOC: FBC 19:33
PROVIDERS: Admitting Provider Midwife; Visit Provider Midwife
DX: O16.3 Unspecified maternal hypertension, third trimester (principal); Z3A.38 38 weeks gestation of pregnancy
CPT/HCPCS: 36415; 59025; 80053; 81003; 82570; 83615; 84156; 85025; 85384; G0378; G0379

== ENCOUNTER 2025-01-12 16:53 | Observation (INO) | payer OTHER, SELFPAY ==
[2025-01-12] VITALS (7 sets, daily range): BP systolic 113–148; BP diastolic 53–96; PULSE 72–101
--- OUTSIDE RECORDS SUMMARY | 2025-01-12 17:09 | XMS_ITS | CCD ---
Author Organization [facility] Care Team Providers Care Fence Installer Name Role Phone NO FAMILY, PHYSICIAN Primary Care Provider Unava ilable SANE, . Emergency Provider Unavailable NO FAMILY, PHYSICIAN Primary Care Provider Unava ilable Bullimore, SENIOR SOFTWARE MANAGER-BC Felisha E Emergency Provider [phone] Jose A Moralez DO Unavailable [phone] AMINAH WRIGHT Attending Unavailable NO PCP, NO PCP Primary Care Unavailable NO FAMILY, PHYSICIAN Primary Care Provider Unava ilable DO Oj Navarrete Emergency Provider [phone] MOUNIKA RICE Attending Unavaila ble NO PCP, [...] Unava ilRishabh Agarwal PA-C Emergency Provider Bulldanilo SENIOR SOFTWARE MANAGER-BC, Felisha E Emergency Provider [phone] Ailyn Murrell Attending Unavailable Provider, None Primary Care Unavailable Monty Lee Attending Unavailable Monty Lee Admitting Unavailable Provider, None Primary Care Unavailable Vee Yang DO Attending Provider Tirso Mancilla MD Attending Provider [phone] NO FAMILY, PHYSICIAN Primary Care Provider Unava ilRishabh Agarwal PA-C Emergency Provider [phone] Luciano Cooper MD Attending Provider NO FAMILY, PHYSICIAN Primary Care Provider Unava ilable Vee Yang DO Attending Provider [phone] Tirso Mancilla MD Attending Provider Rishabh Quinteros PA-C Emergency Provider [phone] Luciano Cooper MD Attending Provider [phone] Vee Yang Attending Unavailable Vee Yang Admitting Unavailable NO FAMILY, PHYSICIAN Primary Care Unavailable NO FAMILY, PHYSICIAN Primary Care Unavailable Rishabh Quinteros Admitting Unavailable Rishabh Quinteros Attending Unavailable NO FAMILY, PHYSICIAN Primary Care Unavailable Bullvannaore Felisha E Admitting Unavailable Bullvannaore, Felisha E Attending Unavailable NO FAMILY, PHYSICIAN Primary Care Unavailable Rishabh Quinteros Admitting Unavailable Rishabh Quinteros Attending Unavailable NO FAMILY, PHYSICIAN Primary Care Unavailable Oj Navarrete M Admitting Unavailable Oj Navarrete Attending Unavailable NO FAMILY, PHYSICIAN Primary Care Unavailable Jessika Navarreterick M Admitting Unavailable Oj Navarrete M Attending Unavailable Vee Yang Admitting Unavailable Vee Yang Attending Unavailable NO FAMILY, PHYSICIAN Primary Care Unavailable Tirso Mancilla Admitting Unavailable Tirso Mancilla Attending Unavailable NO FAMILY, PHYSICIAN Primary Care Unavailable NO FAMILY, PHYSICIAN Primary Care Unavailable Cooper, Penola P Admitting Unavailable Cooper, Penola P Attending Unavailable NO FAMILY, PHYSICIAN Primary Care Unavailable Cooper, Penola P Admitting Unavailable Cooper, Penola P Attending Unavailable NO FAMILY, PHYSICIAN Primary Care Provider Unava ilable Vee Yang DO Attending Provider Tirso Mancilla MD Attending Provider EDIE MAYS Attending Unavailable FLOROEDITHEDIE Clarissa Referring Unavailable FLOROEDIE Attending Unavailable FLORO, EDIE Clarissa Referring Unavailable FLORO, EDIE Romo Attending Unavailable FLOROEDITHEDIE L Attending Unavailable FLORO, EDIE L Attending Unavailable FLORO, EDIE Clarissa Attending Unavailable FLORO, EDIE L Referring Unavailable FLORO, EDIE L Attending Unavailable FLORO, EDIE L Attending Unavailable FLORO, EDIE L Attending Unavailable FLORO, EDIE L Referring Unavailable FLORO, EDIE L Referring Unavailable FLORO, EDIE L Attending Unavailable EDIE MAYS Attending Unavailable EDIE MAYS Attending Unavailable Medications Current Medications Medication Drug Class(es) Dates Sig (Normalized) Sig (Original) docusate sodium 100 mg oral capsule (15 sources) Start: 11-19-2024 End: 02-27-2025 take 1 capsule by mouth in the morning docusate sodium (Colace) 100 MG capsule Indications: Iron deficiency anemia, unspecified iron deficiency anemia type Take 1 capsule (100 mg) by mouth in the morning and 1 capsule (100 mg) before bedtime. 60 capsule 3 11/19/2024 02/27/2025 Active ferrous sulfate 325 mg delayed release oral tablet (15 sources) Start: 11-19-2024 End: 11-19-2025 take 1 tablet by mouth in the morning ferrous sulfate (Fe Tabs) 325 (65 Fe) MG EC tablet Indications: Iron deficiency anemia, unspecified iron deficiency anemia type Take 1 tablet (325 mg) by mouth in the morning and at noon Do not crush, chew, or split. 60 tablet 11 11/19/2024 11/19/2025 Active Mv-Min No.00-Djqai-Pvu-He [id number] (Alive Daily Support ) 180 mcg-25 mg- 25 mg tablet,chewable (5 sources) Start: 10-07-2024 take 1 tablet by mouth once daily Mv-Min No.00-Udouw-Xxp-Her b293 (Alive Daily Support ) 180 mcg-25 mg- 25 mg tablet,chewable Active 1 TAB PO Daily October 07, 2024 1:00am Start: 10-07-2024 take 1 tablet by orly th once daily Mv-Min No.39-Cyzth-Sjl-[id number] (Alive Daily Support ) 180 mcg-25 mg- 25 mg tablet,chewable Active 1 TAB PO Daily October 07, 2024 12:00am Start: 10-07-2024 take 1 tablet by orly th once Mv-Min No.52-Livje-Huv-[id number] (Alive Daily Support ) 180 mcg-25 mg- 25 mg tablet,chewable Active TAB PO October 07, 2024 12:00am MV & Min w/FA-DHA ( Gummies) 0.18-25 MG chewable tablet (11 sources) MV & Mi n w/FA-DHA ( Gummies) 0.18-25 MG chewable tablet Chew Active MV-Min-Fe Fum-FA-DH A ( 1 PO) (20 sources) MV-Min- Fe Fum-FA-DHA ( 1 PO) Take 1 tablet by mouth Daily Active Completed/Discontinued Medications Medication Drug Class(es) Dates Sig (Normalized) Sig (Original) doxycycline monohydrate 100 mg oral tablet (20 sources) Tetracycline-clas s Drug Start: 07-29-2022 End: 05-26-2024 take 1 tablet by mouth twice daily Doxycycline Monohydrate 100 mg tablet Discontinued 100 MG PO Twice daily 14 June 05, 2023 4:27pm May 26, 2024 9:30pm metFORMIN hydrochloride 500 mg oral tablet (12 sources) Biguanide Start: 04-06-2024 End: 04-06-2025 take 1 tablet by mouth twice daily Metformin 500 mg tablet Discontinued 500 MG PO Twice daily May 26, 2024 12:00am October 04, 2024 5:55pm miconazole nitrate 20 mg/ml vaginal cream (6 sources) Azole Antifungal Start: 08-28-2024 End: 10-04-2024 Miconazole Nitrate (Miconazole-7) 2 % cream Discontinued 1 APPLICATOR VAGINAL Daily at bedtime 45 7 August 28, 2024 1:00am October 04, 2024 5:55pm ondansetron 4 mg disintegrating oral tablet (4 sources) Serotonin-3 Receptor Antagonist Start: 11-18-2024 End: 01-11-2025 take 1 tablet by mouth four times daily as needed for nausea and vomiting Ondansetron 4 mg tablet,disintegrat ing Discontinued 4 MG PO Four times daily as needed for nausea and vomiting November 18, 2024 1:00am January 11, 2025 5:35pm Problems Active Problems Problem Classification Problem Date Documented Date Episodic/Chronic Hemorrhage during ; abruptio placenta; placenta previa (18 sources) Bleeding from female genital tract during ; Translations: [Antepartum hemorrhage, unspecified, unspecified trimester] Onset: 05-31-2024 05-29-2024 Episodic Hypertension complicating ; childbirth and the puerperium (2 sources) Hypertension complicating ; Translations: [Unspecified maternal hypertension, third trimester] 01-10-2025 Chronic Menstrual disorders (20 sources) Dysmenorrhea; Translations: [Dysmenorrhea, unspecified] Onset: 04-01-2024 04-01-2024 Chronic Nausea and vomiting (4 sources) Nausea and vomiting; Translations: [Nausea with vomiting, unspecified] 11-18-2024 Episodic Other complications of (6 sources) Finding related to ; Translations: [ related conditions, unspecified, second trimester] 08-12-2024 Episodic Other complications of (7 sources) Complication of , childbirth and/or the [...] ear] 11-02-2023 Episodic Other female genital disorders (12 sources) Vaginal bleeding; Translations: [Abnormal uterine and vaginal bleeding, unspecified] Onset: 05-31-2024 08-24-2020 Chronic Comment on above: Problem List clean-u p per request of Phys. EHR Cmte Other female genital disorders (6 sources) Pruritus of vagina; Translations: [Other specified [...] Test Name Value Interpretation Reference Range Facility Appearance of UrineOrdered B y: TIRSO MANCILLA on 01-11-2025 Appearance (U) Urine appearance Clear [facility] Bilirubin Test strip Ql (U)O rdered By: TIRSO MANCILLA on 01-11-2025 Bilirubin Ql (U) Bilirubin.total [Presence] in Urine by Test strip Negative [facility] Color Auto (U)Ordered By: ANGELICA MANCILLA on 01-11-2025 Color (U) Color of Urine by Auto Yellow [facility] Glucose [Mass/volume] in Uri ne by Test stripOrdered By: TIRSO MANCILLA on 01-11-2025 Glucose Test strip (U) [Mass/Vol] Glucose [Mass/volume] in Urine by Test strip Normal [facility] Hemoglobin Test strip Ql (U) Ordered By: TIRSO MANCILLA on 01-11-2025 Hemoglobin Ql (U) Hemoglobin [Presence] in Urine by Test strip Negative [facility] Ketones Test strip Ql (U)Ord ered By: TIRSO MANCILLA on 01-11-2025 Ketones Ql (U) Ketones [Presence] in Urine by Test strip Negative [facility] Leukocyte esterase [Presence ] in Urine by Test stripOrdered By: TIRSO MANCILLA on 01-11-2025 Leukocyte esterase Test strip Ql (U) Leukocyte esterase [Presence] in Urine by Test strip Negative [facility] Nitrite Test strip Ql (U)Ord ered By: TIRSO MANCILLA on 01-11-2025 Nitrite Ql (U) Nitrite [Presence] in Urine by Test strip Negative [facility] Protein Test strip (U) [Mass /Vol]Ordered By: TIRSO MANCILLA on 01-11-2025 Protein (U) [Mass/Vol] Protein [Mass/volume] in Urine by Test strip Negative [facility] Specific gravity Test strip (U) [Rel density]Ordered By: TIRSO MANCILLA on 01-11-2025 Specific gravity (U) [Rel density] Specific gravity of Urine by Test strip 1.001-1.030 [facility] Urinalysis, manual onlyon Appearance (U) Clear Clear [facility] BILIRUBIN,URINE Negative Negative [facility] Color (U) Colorless Yellow [facility] Glucose Ql (U) Normal Normal [facility] Ketones Ql (U) Negative Negative [facility] Leukocyte esterase Test strip Ql (U) Negative Negative [facility] NITRITE,URINE Negative Negative [facility] OCCULT BLOOD,URINE Negative Negative [facility] pH (U) 6.5 [pH] 5.0 - 9.0 [facility] PROTEIN,URINE Negative Negative [facility] SPECIFICY GRAVITY,URINE 1.004 1.00 1 - 1.030 [facility] UROBILINOGEN,URINE Normal Normal [facility] Comment c/o urinary symptoms or increased blood pressure Name Collection Type:: Clean-Voided Midstream [facility] Urobilinogen Test strip (U) [Mass/Vol]Ordered By: TIRSO MANCILLA on 01-11-2025 Urobilinogen (U) [Mass/Vol] Urobilinogen [Mass/volume] in Urine by Test strip Normal [facility] pH Test strip (U)Ordered By: TIRSO MANCILLA on 01-11-2025 pH (U) pH of Urine by Test strip 5.0-9.0 [facility] ALL CBC WITH AUTO DIFFon BASOPHILS ABSOLUTE AUTO 0.1 N [facility] Basophils/100 WBC (Bld) 0.5 % 0.2 - 2.0 % [facility] Eosinophils/100 WBC (Bld) 4.2 % 0.9 - 7.0 % [facility] Erythrocyte distribution width (RBC) [Ratio] 14.7 % 11.0 - 15.0 % [facility] Hematocrit (Bld) [Volume fraction] 33.6 % Low 36.0 - 48.0 % [facility] Hemoglobin (Bld) [Mass/Vol] 11.4 g/dL Low 12.0 - 16.0 g/dL [facility] IMMATURE GRANULOCYTES ABS AUTO 0.05 High [facility] Immature granulocytes/100 WBC (Bld) 0.5 % 0.0 - 0.5 % [facility] Interpretation and review of laboratory results Abnormal [facility] LYMPHOCYTES ABSOLUTE AUTO 1.6 [facility] Lymphocytes/100 WBC (Bld) 15.3 % Low 20.5 - 60.0 % [facility] MCH (RBC) [Entitic mass] 29.8 pg 26. 7 - 34.0 pg [facility] MCHC (RBC) [Mass/Vol] 33.9 g/dL 29.9 - 35.2 g/dL [facility] MCV (RBC) [Entitic vol] 88 fL 81.0 - 99.0 fL [facility] MONOCYTES ABSOLUTE AUTO 0.6 N [facility] Monocytes/100 WBC (Bld) 5.3 % 1.7 - 12.0 % [facility] NEUTROPHILS ABSOLUTE AUTO 7.6 High [facility] Neutrophils/100 WBC (Bld) 74.2 % 43.0 - 75.0 % [facility] Platelet mean volume (Bld) [Entitic vol] 10.8 fL 9.5 - 13.5 fL [facility] TBH EO # 0.4 [facility] PLT 219 [facility] TB RBC 3.82 Low [facility] WBC 10.3 [facility] US OB FOLLOW UP TRANSABDOMIN AL APPROACHon 01-10-2025 US OB FOLLOW UP TRANSABDOMINAL APPROACH TITLE OF EXAM: OB Ultrasound: REASON FOR EXAM: Pre-eclampsia. COMPARISON: 12/30/2024 TECHNIQUE: Grayscale and M-mode Doppler imaging is performed. FINDINGS: heart rate: 138 bpm SAHIL: 6.2 cm (7.3-23.5) BPD: 8.7 cm HC: 31.7 cm AC: 34.3 cm FL: 7.4 cm GA for sonogram: 36.5 wk (34.2-38.8) Cervix length: 4.3 cm JOE: 01/23/2025 Weight Estimate: Weight: 3211 gm / 7 lbs, 1 oz (3268-0373 gm) [place] Normal: 3299 gm ( 9328-6050 gm) [place] Wt%: 42% for 38.3 wks LMP: 04-18-24 Age by LMP: 38 w 1 d Age Prior US: 38 w 2 d Age US Today: 36 w 5 d JOE by LMP: 01-23-25 JOE Prior US: 01-22-25 JOE US Today 02/02/25 Gestation: Single position: Cephalic Placental Location: Fundal, left Placental Grade: 3 Heart Rate: 138 bpm Somatic Movement: Yes Cervical Length: 4.3 cm IMPRESSION: 1. Single intrauterine gestation with an estimated ultrasound age of 36 weeks 5 days, currently in cephalic position. 2. Small head circumference and biparietal diameter. 3. Oligohydramnios. Dictated and transcribed 01/11/25dpd This report has been electronically signed and approved by the interpreting radiologist. Normal Not Available US OB LIMITED 1+ FETUSESon 0 12-30-2024 [...] Length: 4.94 cm IMPRESSION: Limited exam for SAHIL and heart rate. measurements not obtained. Dictated and transcribed 12/31/24dpd This report has been electronically signed and approved by the interpreting radiologist. Normal Not Available Amphetamine Screen Ql (U)Ord ered By: HARITHA Cooper on 12-24-2024 Amphetamines Ql (U) Amphetamines screen Negativ e [facility] Appearance of UrineOrdered B y: HARITHA Cooper on 12-24-2024 Appearance (U) Urine appearance Clear [facility] Barbiturates [Presence] in U rine by Screen methodOrdered By: HARITHA Cooper on 12-24-2024 Barbiturates Screen Ql (U) Barbiturates [Presence] in Urine by Screen method Negative [facility] Benzodiazepines Screen Ql (U )Ordered By: HARITHA Cooper on 12-24-2024 Benzodiazepines Ql (U) Benzodiazepines [Presence] in Urine by Screen method Negative [facility] Benzoylecgonine [Presence] i n Urine by Screen methodOrdered By: HARITHA Cooper on 12-24-2024 Benzoylecgonine Screen Ql (U) Benzoylecgonine [Presence] in Urine by Screen method Negative [facility] Bilirubin Test strip Ql (U)O rdered By: HARITHA Coopre on 12-24-2024 Bilirubin Ql (U) Bilirubin.total [Presence] in Urine by Test strip Negative [facility] Color Auto (U)Ordered By: MD MAAME Cooper on 12-24-2024 Color (U) Color of Urine by Auto Yellow [facility] Glucose [Mass/volume] in Uri ne by Test stripOrdered By: HARITHA Cooper on 12-24-2024 Glucose Test strip (U) [Mass/Vol] Glucose [Mass/volume] in Urine by Test strip Normal [facility] Hemoglobin Test strip Ql (U) Ordered By: HARITHA Cooper on 12-24-2024 Hemoglobin Ql (U) Hemoglobin [Presence] in Urine by Test strip Negative [facility] Ketones Test strip Ql (U)Ord ered By: HARITHA Cooper on 12-24-2024 Ketones Ql (U) Ketones [Presence] in Urine by Test strip Negative [facility] Leukocyte esterase [Presence ] in Urine by Test stripOrdered By: HARITHA Cooper on 12-24-2024 Leukocyte esterase Test strip Ql (U) Leukocyte esterase [Presence] in Urine by Test strip Negative [facility] Nitrite Test strip Ql (U)Ord ered By: HARITHA Cooper on 12-24-2024 Nitrite Ql (U) Nitrite [Presence] in Urine by Test strip Negative [facility] OB Urine Drug Screen (NO THC )on 12-24-2024 Amphetamine Screen,Urine Negative Normal Negative [facility] Comment on above: Order Comment: Comme nt s/s of acute impairment Performed By: #### O BUDS, UA #### [facility] [address] [place] [address] [place] Barbiturate Screen,Urine Negative Normal Negative [facility] Comment on above: Order Comment: Comme nt s/s of acute impairment Performed By: #### O BUDS, UA #### [facility] [address] [place] [address] [place] Benzodiazepines Screen,Urine Negative Normal Negative [facility] Comment on above: Order Comment: Comme nt s/s of acute impairment Performed By: #### O BUDS, UA #### [facility] [address] [place] [address] [place] Cocaine Screen,Urine Negative Normal Negative [facility] Comment on above: Order Comment: Comme nt s/s of acute impairment Performed By: #### O BUDS, UA #### [place] [address] [place] Opiate Screen,Urine Negative Normal Negative [facility] Comment on above: Order Comment: Comme nt s/s of acute impairment Performed By: #### O BUDS, UA #### [place] [address] [place] Phencyclidine Screen, Urine Negative Normal Negative [facility] Comment on above: Order Comment: Comme nt s/s of acute impairment Result Comment: Thes e are unconfirmed results and should not be used for legal purposes. Drug Cut-Off Concentration: AMPH 1000 ng/mL NIKOS 200 ng/mL JOSETTE 200 ng/mL COCM 300 ng/mL OP 300 ng/mL PCP 25 ng/mL PERFORMED BY: [place] [address] PATHOLOGIST [employer] PARTNER CECILIA SHORT M.D. Performed By: #### O BUDS, UA #### [place] [address] [place] Opiates [Presence] in Urine by Screen methodOrdered By: HARITHA Cooper on 12-24-2024 Opiates Screen Ql (U) Opiates [Presence] in Urine by Screen method Negative [facility] Phencyclidine Screen Ql (U)O rdered By: HARITHA Cooper on 12-24-2024 Phencyclidine Ql (U) Phencyclidine [Presence] in Urine by Screen method Negative [facility] Comment on above: These are unconfirme d results and should not be used for legal purposes. Drug Cut-Off Concentration: AMPH 1000 ng/mL NIKOS 200 ng/mL JOSETTE 200 ng/mL COCM 300 ng/mL OP 300 ng/mL PCP 25 ng/mL Protein Test strip (U) [Mass /Vol]Ordered By: HARITHA Cooper on 12-24-2024 Protein (U) [Mass/Vol] Protein [Mass/volume] in Urine by Test strip Negative [facility] Specific gravity Test strip (U) [Rel density]Ordered By: HARITHA Cooper on 12-24-2024 Specific gravity (U) [Rel density] Specific gravity of Urine by Test strip 1.001-1.030 [facility] Urinalysison 12-24-2024 Appearance (U) Clear Normal Clear [facility] Comment on above: Order Comment: Comme nt c/o urinary symptoms or increased blood pressure Name Collection Type:: Clean-Voided Midstream Performed By: #### O BUDS, UA #### [place] [address] [place] Bilirubin,Urine Negative Normal Negative [facility] Comment on above: Order Comment: Comme nt c/o urinary symptoms or increased blood pressure Name Collection Type:: Clean-Voided Midstream Performed By: #### O BUDS, UA #### [place] [address] [place] Color (U) Light-Yellow Normal Yellow [facility] Comment on above: Order Comment: Comme nt c/o urinary symptoms or increased blood pressure Name Collection Type:: Clean-Voided Midstream Performed By: #### O BUDS, UA #### [place] [address] [place] Glucose Ql (U) Normal Normal Normal [facility] Comment on above: Order Comment: Comme nt c/o urinary symptoms or increased blood pressure Name Collection Type:: Clean-Voided Midstream Performed By: #### O BUDS, UA #### [address] Ketones Ql (U) Negative Normal Negative [facility] Comment on above: Order Comment: Comme nt c/o urinary symptoms or increased blood pressure Name Collection Type:: Clean-Voided Midstream Performed By: #### O BUDS, UA #### [address] Leukocyte esterase Test strip Ql (U) Negative Normal Negative [facility] Comment on above: Order Comment: Comme nt c/o urinary symptoms or increased blood pressure Name Collection Type:: Clean-Voided Midstream Performed By: #### O BUDS, UA #### [place] [address] [place] Nitrite,Urine Negative Normal Negative [facility] Comment on above: Order Comment: Comme nt c/o urinary symptoms or increased blood pressure Name Collection Type:: Clean-Voided Midstream Performed By: #### O BUDS, UA #### [place] [address] [place] Occult Blood,Urine Negative Normal Negative [facility] Comment on above: Order Comment: Comme nt c/o urinary symptoms or increased blood pressure Name Collection Type:: Clean-Voided Midstream Result Comment: PERF ORMED BY: [place] [address] PATHOLOGIST [employer] PARTNER CECILIA SHORT M.D. Performed By: #### O BUDS, UA #### [address] pH (U) 7.0 [pH] Normal 5.0-9.0 [facility] Comment on above: Order Comment: Comme nt c/o urinary symptoms or increased blood pressure Name Collection Type:: Clean-Voided Midstream Performed By: #### O BUDS, UA #### [place] [address] [place] Protein,Urine Negative Normal Negative [facility] Comment on above: Order Comment: Comme nt c/o urinary symptoms or increased blood pressure Name Collection Type:: Clean-Voided Midstream Performed By: #### O BUDS, UA #### [facility] [address] Specificy [place],Urine 1.007 Normal 1.001-1.030 [facility] Comment on above: Order Comment: Comme nt c/o urinary symptoms or increased blood pressure Name Collection Type:: Clean-Voided Midstream Performed By: #### O BUDS, UA #### [facility] [address] Urobilinogen,Urine Normal Normal Normal [facility] Comment on above: Order Comment: Comme nt c/o urinary symptoms or increased blood pressure Name Collection Type:: Clean-Voided Midstream Performed By: #### O BUDS, UA #### [address] Urobilinogen Test strip (U) [Mass/Vol]Ordered By: HARITHA Cooper on 12-24-2024 Urobilinogen (U) [Mass/Vol] Urobilinogen [Mass/volume] in Urine by Test strip Normal [facility] pH Test strip (U)Ordered By: HARITHA Cooper on 12-24-2024 pH (U) pH of Urine by Test strip 5.0-9.0 [facility] Appearance of UrineOrdered B y: HARITHA Cooper on 12-03-2024 Appearance (U) Urine appearance Abnormal Clear [facility] Bacteria [Presence] in Urine by AutomatedOrdered By: HARITHA Cooper on 12-03-2024 Bacteria Auto Ql (U) Bacteria [Presence] in Urine by Automated None Seen [facility] Bilirubin Test strip Ql (U)O rdered By: HARITHA Cooper on 12-03-2024 Bilirubin Ql (U) Bilirubin.total [Presence] in Urine by Test strip Negative [facility] Color Auto (U)Ordered By: MD MAAME Cooper on 12-03-2024 Color (U) Color of Urine by Auto Yellow [facility] Dipstick and Microscopicon 0 12-03-2024 Appearance (U) Cloudy Critically abnormal Clear [facility] Comment on above: Order Comment: Comme nt c/o urinary symptoms or increased blood pressure Name Collection Type:: Clean-Voided Midstream Performed By: #### C MP, LIPASE, CBC #### [address] Bacteria,Urine Rare Normal None Seen [facility] Comment on above: Order Comment: Comme nt c/o urinary symptoms or increased blood pressure Name Collection Type:: Clean-Voided Midstream Performed By: #### C MP, LIPASE, CBC #### [address] Bilirubin,Urine Negative Normal Negative [facility] Comment on above: Order Comment: Comme nt c/o urinary symptoms or increased blood pressure Name Collection Type:: Clean-Voided Midstream Performed By: #### C MP, LIPASE, CBC #### [address] Color (U) Light-Yellow Normal Yellow [facility] Comment on above: Order Comment: Comme nt c/o urinary symptoms or increased blood pressure Name Collection Type:: Clean-Voided Midstream Performed By: #### C MP, LIPASE, CBC #### [address] Glucose Ql (U) Normal Normal Normal [facility] Comment on above: Order Comment: Comme nt c/o urinary symptoms or increased blood pressure Name Collection Type:: Clean-Voided Midstream Performed By: #### C MP, LIPASE, CBC #### [place] [address] [place] Hyaline Casts,Urine 0-8 Normal 0-8 [facility] Comment on above: Order Comment: Comme nt c/o urinary symptoms or increased blood pressure Name Collection Type:: Clean-Voided Midstream Performed By: #### C MP, LIPASE, CBC #### [address] Ketones Ql (U) Negative Normal Negative [facility] Comment on above: Order Comment: Comme nt c/o urinary symptoms or increased blood pressure Name Collection Type:: Clean-Voided Midstream Performed By: #### C MP, LIPASE, CBC #### [address] Leukocyte esterase Test strip Ql (U) Negative Normal Negative [facility] Comment on above: Order Comment: Comme nt c/o urinary symptoms or increased blood pressure Name Collection Type:: Clean-Voided Midstream Performed By: #### C MP, LIPASE, CBC #### [place] [address] [place] Mucus,Urine Rare Normal [facility] Comment on above: Order Comment: Comme nt c/o urinary symptoms or increased blood pressure Name Collection Type:: Clean-Voided Midstream Result Comment: PERF ORMED BY: [place] [address] PATHOLOGIST [employer] CECILIA SHORT M.D. Performed By: #### C MP, LIPASE, CBC #### [address] Nitrite,Urine Negative Normal Negative [facility] Comment on above: Order Comment: Comme nt c/o urinary symptoms or increased blood pressure Name Collection Type:: Clean-Voided Midstream Performed By: #### C MP, LIPASE, CBC #### [address] Occult Blood,Urine Negative Normal Negative [facility] Comment on above: Order Comment: Comme nt c/o urinary symptoms or increased blood pressure Name Collection Type:: Clean-Voided Midstream Result Comment: PERF ORMED BY: [place] [address] PATHOLOGIST [employer] CECILIA SHORT M.D. Performed By: #### C MP, LIPASE, CBC #### [address] pH (U) 6.5 [pH] Normal 5.0-9.0 [facility] Comment on above: Order Comment: Comme nt c/o urinary symptoms or increased blood pressure Name Collection Type:: Clean-Voided Midstream Performed By: #### C MP, LIPASE, CBC #### [place] [address] [place] Protein,Urine Negative Normal Negative [facility] Comment on above: Order Comment: Comme nt c/o urinary symptoms or increased blood pressure Name Collection Type:: Clean-Voided Midstream Performed By: #### C MP, LIPASE, CBC #### [place] [address] [place] RBC,Urine 1-2 Normal 0-4 [facility] Comment on above: Order Comment: Comme nt c/o urinary symptoms or increased blood pressure Name Collection Type:: Clean-Voided Midstream Performed By: #### C MP, LIPASE, CBC #### [place] [address] [place] Specificy [place],Urine 1.011 Normal 1.001-1.030 [facility] Comment on above: Order Comment: Comme nt c/o urinary symptoms or increased blood pressure Name Collection Type:: Clean-Voided Midstream Performed By: #### C MP, LIPASE, CBC #### [place] [address] [place] Squamous Epithelial Cell,Urine 20-49 High 0-2 [facility] Comment on above: Order Comment: Comme nt c/o urinary symptoms or increased blood pressure Name Collection Type:: Clean-Voided Midstream Performed By: #### C MP, LIPASE, CBC #### [place] [address] [place] Urobilinogen,Urine Normal Normal Normal [facility] Comment on above: Order Comment: Comme nt c/o urinary symptoms or increased blood pressure Name Collection Type:: Clean-Voided Midstream Performed By: #### C MP, LIPASE, CBC #### [place] [address] [place] WBC,Urine 3-4 Normal 0-4 [facility] Comment on above: Order Comment: Comme nt c/o urinary symptoms or increased blood pressure Name Collection Type:: Clean-Voided Midstream Performed By: #### C MP, LIPASE, CBC #### [place] [address] [place] Epithelial cells.squamous [# /area] in Urine sediment by Automated countOrdered By: HARITHA Cooper on 12-03-2024 Epithelial cells.squamous Auto (Urine sed) [#/Area] Epithelial cells.squamous [#/area] in Urine sediment by Automated count High 0-2 [facility] Erythrocytes [#/area] in Uri ne sediment by Automated countOrdered By: HARITHA Cooper on 12-03-2024 RBC Auto (Urine sed) [#/Area] Erythrocytes [#/area] in Urine sediment by Automated count 0-4 [facility] Fibronectinon 12-03-19 25 Fibronectin Negative Normal Negative [facility] Comment on above: Order Comment: Comme nt patients 22 - 34 6/7 weeks prior to vaginal exam Result Comment: PERF ORMED BY: [place] [address] PATHOLOGIST [employer] CECILIA SHORT M.D. Performed By: #### C MP, LIPASE, CBC #### [address] fibronectin measuremen tOrdered By: HARITHA Cooper on 12-03-2024 Fibronectin. (Vag fld) [Mass/Vol] fibronectin Negative [facility] Fibronectin. Ql (Vag fl d)on 12-03-2024 FIBRONECTIN Negative Negative [facility] Comment patients 22 - 34 6/7 weeks prior to vaginal exam [facility] Glucose [Mass/volume] in Uri ne by Test stripOrdered By: HARITHA Cooper on 12-03-2024 Glucose Test strip (U) [Mass/Vol] Glucose [Mass/volume] in Urine by Test strip Normal [facility] Hemoglobin Test strip Ql (U) Ordered By: HARITHA Cooper on 12-03-2024 Hemoglobin Ql (U) Hemoglobin [Presence] in Urine by Test strip Negative [facility] Hyaline casts [#/area] in Ur ine sediment by Automated countOrdered By: HARITHA Cooper on 12-03-2024 Hyaline casts Auto (Urine sed) [#/Area] Hyaline casts [#/area] in Urine sediment by Automated count 0-8 [facility] Ketones Test strip Ql (U)Ord ered By: HARITHA Cooper on 12-03-2024 Ketones Ql (U) Ketones [Presence] in Urine by Test strip Negative [facility] Leukocyte esterase [Presence ] in Urine by Test stripOrdered By: HARITHA Cooper on 12-03-2024 Leukocyte esterase Test strip Ql (U) Leukocyte esterase [Presence] in Urine by Test strip Negative [facility] Leukocytes [#/area] in Urine sediment by Automated countOrdered By: HARITHA Cooper on 12-03-2024 WBC Auto (Urine sed) [#/Area] Leukocytes [#/area] in Urine sediment by Automated count 0-4 [facility] Mucus [Presence] in Urine by AutomatedOrdered By: HARITHA Cooper on 12-03-2024 Mucus Auto Ql (U) Mucus [Presence] in Urine by Automated [facility] Nitrite Test strip Ql (U)Ord ered By: HARITHA Cooper on 12-03-2024 Nitrite Ql (U) Nitrite [Presence] in Urine by Test strip Negative [facility] Protein Test strip (U) [Mass /Vol]Ordered By: HARITHA Cooper on 12-03-2024 Protein (U) [Mass/Vol] Protein [Mass/volume] in Urine by Test strip Negative [facility] Specific gravity Test strip (U) [Rel density]Ordered By: HARITHA Cooper on 12-03-2024 Specific gravity (U) [Rel density] Specific gravity of Urine by Test strip 1.001-1.030 [facility] US OB biophysical profileon 12-03-2024 US OB biophysical profile [facility] [place] [address] Ultrasound Report Signed Patient: Kisha Lora MR#: [id number] 55 : 2005 Acct:[id number] Age/Sex: 19 / F ADM Date: 12/03/24 Loc: Room: [address] [place] [address] Type: REG CLI Attending Dr: Luciano Cooper [...] Craig Hassan M.D.12/03/2024 3:10 PM Dictation Location: [id number] Tech: Ivette Berto Transcribed By: WILLOW 12/03/24 1510 Dictated By: Craig Hassan DO 12/03/24 1509 Signed By: 12/03/24 1510 Normal [facility] US OB biophysical profile [facility] Main [place] [address] [place] [address] Ultrasound Report Signed Patient: Kisha Lora MR#: [id number] 55 : 2005 Acct:[id number] Age/Sex: 19 / F ADM Date: 12/03/24 Loc: Room: [address] [place] [address] Type: REG CLI Attending Dr: Luciano Cooper MD Ordering Provider: HARITHA Burdick Date of Service: 12/03/24 US/US OB biophysical profile: Decreased movement Copies to: HARITHA Burdick Ultrasound obstetrical biophysical profile HISTORY: Decreased movement [...] Craig Hassan M.D.12/03/2024 1:04 PM Dictation Location: [place] [address] Tech: Jennifer David Transcribed By: WILLOW 12/03/24 1304 Dictated By: Craig Hassan DO 12/03/24 1256 Signed By: 12/03/24 1304 Normal [facility] Urinalysis complete panel (U )on 12-03-2024 Appearance (U) Cloudy Critically abnormal Clear [facility] BILIRUBIN,URINE Negative Negative [facility] Color (U) Light-Yellow Yellow [facility] Glucose Ql (U) Normal Normal [facility] Healthcare Interpretation and review of laboratory results Abnormal [facility] Ketones Ql (U) Negative Negative [facility] Leukocyte esterase Test strip Ql (U) Negative Negative [facility] NITRITE,URINE Negative Negative [facility] OCCULT BLOOD,URINE Negative Negative [facility] Healthcare pH (U) 6.5 [pH] 5.0 - 9.0 [facility] PROTEIN,URINE Negative Negative [facility] SPECIFICY GRAVITY,URINE 1.011 1.00 1 - 1.030 [facility] UROBILINOGEN,URINE Normal Normal [facility] Comment c/o urinary symptoms or increased blood pressure Name Collection Type:: Clean-Voided Midstream [facility] Urobilinogen Test strip (U) [Mass/Vol]Ordered By: HARITHA Cooper on 12-03-2024 Urobilinogen (U) [Mass/Vol] Urobilinogen [Mass/volume] in Urine by Test strip Normal [facility] pH Test strip (U)Ordered By: HARITHA Cooper on 12-03-2024 pH (U) pH of Urine by Test strip 5.0-9.0 [facility] US OB FOLLOW UP TRANSABDOMIN AL APPROACHon [...] [Enzymatic activity/volume] in Serum or Plasma 7-52 [facility] Albumin [Mass/volume] in Ser um or Plasma by Bromocresol green (BCG) dye binding methoOrdered By: Rishabh Quinteros on 11-18-2024 Albumin BCG dye [Mass/Vol] Albumin [Mass/volume] in Serum or Plasma by Bromocresol green (BCG) dye binding metho Low 3.5-5.7 [facility] Alkaline phosphatase [Enzyma tic activity/volume] in Serum or PlasmaOrdered By: Rishabh Quinteros on 11-18-2024 ALP [Catalytic activity/Vol] Alkaline phosphatase [Enzymatic activity/volume] in Serum or Plasma 34-104 [facility] Appearance of UrineOrdered B y: Rishabh Quinteros on 11-18-2024 Appearance (U) Urine appearance Abnormal Clear [facility] Aspartate aminotransferase [ Enzymatic activity/volume] in Serum or PlasmaOrdered By: Rishabh Quinteros on 11-18-2024 AST [Catalytic activity/Vol] Aspartate aminotransferase [Enzymatic activity/volume] in Serum or Plasma 13-39 [facility] Bacteria [Presence] in Urine by AutomatedOrdered By: Rishabh Quinteros on 11-18-2024 Bacteria Auto Ql (U) Bacteria [Presence] in Urine by Automated High None Seen [facility] Basophils Auto (Bld) [#/Vol] Ordered By: Rishabh Quinteros on 11-18-2024 Basophils (Bld) [#/Vol] Automated basoph il count 0.0-0.2 [facility] Basophils/100 WBC Auto (Bld) Ordered By: Rishabh Quinteros on 11-18-2024 Basophils/100 WBC (Bld) Automated basoph il % . [facility] Bilirubin Test strip Ql (U)O rdered By: Rishabh Quinteros on 11-18-2024 Bilirubin Ql (U) Bilirubin.total [Presence] in Urine by Test strip Negative [facility] Bilirubin.total [Mass/volume ] in Serum or PlasmaOrdered By: Rishabh Quinteros on 11-18-2024 Bilirubin [Mass/Vol] Bilirubin.total [Mass/volume] in Serum or Plasma 0.3-1.0 [facility] COVID Cepheid NegativeOrdere d By: Rishabh Quinteros on 11-18-2024 SARS-CoV-2 (COVID-19) Ab IA Ql COVID Cepheid Negative [facility] Comment on above: This is a duplicate [...] or Cepheid Disclaimer revoked sooner. PERFORMED BY: [place] [address] PATHOLOGIST [employer] CECILIA SHORT M.D. Normal [facility] Comment on above: Performed By: #### C MP, LIPASE, CBC #### [address] Calcium [Mass/volume] in Ser um or PlasmaOrdered By: Rishabh Quinteros on 11-18-2024 Calcium [Mass/Vol] Calcium [Mass/volume] in Serum or Plasma 8.6-10.3 [facility] Carbon dioxide, total [Moles /volume] in Serum or PlasmaOrdered By: Rishabh Quinteros on 11-18-2024 CO2 [Moles/Vol] Carbon dioxide, total [Moles/volume] in Serum or Plasma 21.0-31.0 [facility] Cepheid COVID PCR Negativeon 11-18-2024 SARS-CoV-2 (COVID-19) RNA ANGELY+probe Ql (Unsp spec) Negative Normal Negative [facility] Comment on above: Result Comment: This is a duplicate Cepheid Xpert Xpress CoV-2/Flu/RSV Plus RNA by RT-PCR result to be used for statistical tracking purpose only. PERFORMED BY: [place] [address] PATHOLOGIST [employer] CECILIA SHORT M.D. Performed By: #### C MP, LIPASE, CBC #### [address] [address] [place] Chloride [Moles/volume] in S sissy or PlasmaOrdered By: Rishabh Quinteros on 11-18-2024 Chloride [Moles/Vol] Chloride [Moles/volume] in Serum or Plasma 98-107 [facility] Color Auto (U)Ordered By: Bipin Quinteros on 11-18-2024 Color (U) Color of Urine by Auto Yellow [facility] Complete Blood Count Auto Di ffon 11-18-2024 Basophils (Bld) [#/Vol] 0.1 10*3/uL Normal 0.0-0.2 [facility] Comment on above: Result Comment: PERF ORMED BY: [place] [address] PATHOLOGIST [employer] CECILIA SHORT M.D. Performed By: #### C MP, LIPASE, CBC #### [facility] [address] [place] [address] [place] Basophils/100 WBC (Bld) 0.7 % Normal . [facility] Comment on above: Performed By: #### C MP, LIPASE, CBC #### [address] [address] [place] Eosinophils (Bld) [#/Vol] 0.3 10*3/uL Normal 0.0-0.45 [facility] Comment on above: Performed By: #### C MP, LIPASE, CBC #### [address] Eosinophils/100 WBC (Bld) 4.4 % Normal . [facility] Comment on above: Performed By: #### C MP, LIPASE, CBC #### [address] Erythrocyte distribution width (RBC) [Ratio] 13.3 % Normal 11.9-15.3 [facility] Comment on above: Performed By: #### C MP, LIPASE, CBC #### [address] Hematocrit (Bld) [Volume fraction] 30.4 % Low 34.0-46.4 [facility] Comment on above: Performed By: #### C MP, LIPASE, CBC #### [address] Hemoglobin (Bld) [Mass/Vol] 10.3 g/dL Low 11.8-15.4 [facility] Comment on above: Performed By: #### C MP, LIPASE, CBC #### [address] Lymphocytes (Bld) [#/Vol] 1.5 10*3/uL Normal 1.00-4.8 [facility] Comment on above: Performed By: #### C MP, LIPASE, CBC #### [address] Lymphocytes/100 WBC (Bld) 19.3 % Normal . [facility] Comment on above: Performed By: #### C MP, LIPASE, CBC #### [address] MCH (RBC) [Entitic mass] 30.7 pg Normal 24.7-34.3 [facility] Comment on above: Performed By: #### C MP, LIPASE, CBC #### [address] MCV (RBC) [Entitic vol] 90.2 fL Normal 80-100 [facility] Comment on above: Performed By: #### C MP, LIPASE, CBC #### [address] Mean Corpuscular HGB Conc 34.0 g/dL Normal 32.0-35.0 [facility] Comment on above: Performed By: #### C MP, LIPASE, CBC #### [address] Monocytes (Bld) [#/Vol] 0.5 10*3/uL Normal 0.0-0.8 [facility] Comment on above: Performed By: #### C MP, LIPASE, CBC #### [address] Monocytes/100 WBC (Bld) 18.40 % Normal 0.00-20.00 [facility] Comment on above: Performed By: #### C MP, LIPASE, CBC #### [address] Monocytes/100 WBC (Bld) 6.1 % Normal . [facility] Comment on above: Performed By: #### C MP, LIPASE, CBC #### [address] Neutrophils (Bld) [#/Vol] 5.4 10*3/uL Normal 1.8-7.7 [facility] Comment on above: Performed By: #### C MP, LIPASE, CBC #### [address] Neutrophils/100 WBC (Bld) 69.5 % Normal . [facility] Comment on above: Performed By: #### C MP, LIPASE, CBC #### [address] NRBC% 0.1 /100{WBC} Normal 0-0.5 [facility] Comment on above: Performed By: #### C MP, LIPASE, CBC #### [address] Platelet mean volume (Bld) [Entitic vol] 8.4 fL Normal 6.3-10.7 [facility] Comment on above: Performed By: #### C MP, LIPASE, CBC #### [address] Platelets (Bld) [#/Vol] 236 10*3/uL Normal 150-450 [facility] Comment on above: Performed By: #### C MP, LIPASE, CBC #### [address] RBC (Bld) [#/Vol] 3.37 10*6/uL Low 3.60-5.00 [facility] Comment on above: Performed By: #### C MP, LIPASE, CBC #### [address] WBC (Bld) [#/Vol] 7.8 10*3/uL Normal 3.8-11.6 [facility] Comment on above: Performed By: #### C MP, LIPASE, CBC #### [address] Comprehensive Metabolic Pane cali 11-18-2024 Albumin [Mass/Vol] 3.4 g/dL Low 3.5-5.7 [facility] Comment on above: Performed By: #### C MP, LIPASE, CBC #### [address] Albumin/Globulin [Mass ratio] 1.2 {ratio} Normal [facility] Comment on above: Performed By: #### C MP, LIPASE, CBC #### [address] ALP [Catalytic activity/Vol] 97 U/L Normal 34-104 [facility] Comment on above: Performed By: #### C MP, LIPASE, CBC #### [address] ALT [Catalytic activity/Vol] 9 U/L Normal 7-52 [facility] Comment on above: Performed By: #### C MP, LIPASE, CBC #### [address] [place] [address] [place] Anion gap [Moles/Vol] 11.3 mmol/L Normal 6.0-15.0 [facility] Comment on above: Performed By: #### C MP, LIPASE, CBC #### [facility] [place] [address] AST [Catalytic activity/Vol] 14 U/L Normal 13-39 [facility] Comment on above: Performed By: #### C MP, LIPASE, CBC #### [facility] [place] [address] Bilirubin [Mass/Vol] 0.4 mg/dL Normal 0.3-1.0 [facility] Comment on above: Performed By: #### C MP, LIPASE, CBC #### [address] Calcium [Mass/Vol] 8.8 mg/dL Normal 8.6-10.3 [facility] Comment on above: Performed By: #### C MP, LIPASE, CBC #### [address] Chloride [Moles/Vol] 105 mmol/L Normal 98-107 [facility] Comment on above: Performed By: #### C MP, LIPASE, CBC #### [address] CO2 [Moles/Vol] 22.1 mmol/L Normal 21.0-31.0 [facility] Comment on above: Performed By: #### C MP, LIPASE, CBC #### [address] Creatinine [Mass/Vol] 0.45 mg/dL Low 0.60-1.20 [facility] Comment on above: Performed By: #### C MP, LIPASE, CBC #### [address] Creatinine Clr Calc Pharmacy 250.81 Normal [facility] Comment on above: Performed By: #### C MP, LIPASE, CBC #### [place] [address] [place] GFR/1.73 sq M.predicted MDRD (S/P/Bld) [Vol rate/Area] mL/min/{1.73_m2} Normal [facility] Comment on above: Performed By: #### C MP, LIPASE, CBC #### [address] Globulin (S) [Mass/Vol] 2.9 g/dL Normal [facility] Comment on above: Performed By: #### C MP, LIPASE, CBC #### [address] Glucose [Mass/Vol] 140 mg/dL High 70-100 [facility] Comment on above: Result Comment: [facility] Glucose Reference Range is dependent on time and content of last meal. Glucose of more than 200 mg/dL in a nonstressed, ambulatory subject supports the diagnosis of Diabetes Mellitus. ADA recommended reference range Performed By: #### C MP, LIPASE, CBC #### [address] Potassium [Moles/Vol] 3.4 mmol/L Low 3.5-5.1 [facility] Comment on above: Performed By: #### C MP, LIPASE, CBC #### [address] Protein [Mass/Vol] 6.3 g/dL Low 6.4-8.9 [facility] Comment on above: Performed By: #### C MP, LIPASE, CBC #### [address] Sodium [Moles/Vol] 135 mmol/L Low 136-145 [facility] Comment on above: Performed By: #### C MP, LIPASE, CBC #### [address] Urea nitrogen [Mass/Vol] 3 mg/dL Low 7-25 [facility] Comment on above: Performed By: #### C MP, LIPASE, CBC #### [place] [address] [place] Creatinine [Mass/volume] in Serum or PlasmaOrdered By: Rishabh Quinteros on 11-18-2024 Creatinine [Mass/Vol] Creatinine [Mass/volume] in Serum or Plasma Low 0.60-1.20 [facility] Dipstick and Microscopicon 0 11-18-2024 Appearance (U) Cloudy Critically abnormal Clear [facility] Comment on above: Order Comment: Name Collection Type:: Clean-Voided Midstream Performed By: #### C MP, LIPASE, CBC #### [facility] [place] [address] Bacteria,Urine 2+ High None Seen [facility] Comment on above: Order Comment: Name Collection Type:: Clean-Voided Midstream Performed By: #### C MP, LIPASE, CBC #### [address] Bilirubin,Urine Negative Normal Negative [facility] Comment on above: Order Comment: Name Collection Type:: Clean-Voided Midstream Performed By: #### C MP, LIPASE, CBC #### [place] [address] [place] Color (U) Light-Yellow Normal Yellow [facility] Comment on above: Order Comment: Name Collection Type:: Clean-Voided Midstream Performed By: #### C MP, LIPASE, CBC #### [place] [address] [place] Glucose Ql (U) 100 mg/dL High Normal [facility] Comment on above: Order Comment: Name Collection Type:: Clean-Voided Midstream Performed By: #### C MP, LIPASE, CBC #### [place] [address] [place] Hyaline Casts,Urine None Normal 0-8 [facility] Comment on above: Order Comment: Name Collection Type:: Clean-Voided Midstream Performed By: #### C MP, LIPASE, CBC #### [place] [address] [place] Ketones Ql (U) Negative Normal Negative [facility] Comment on above: Order Comment: Name Collection Type:: Clean-Voided Midstream Performed By: #### C MP, LIPASE, CBC #### [address] Leukocyte esterase Test strip Ql (U) Negative Normal Negative [facility] Comment on above: Order Comment: Name Collection Type:: Clean-Voided Midstream Performed By: #### C MP, LIPASE, CBC #### [address] Mucus,Urine 1+ Critically abnormal [facility] Comment on above: Order Comment: Name Collection Type:: Clean-Voided Midstream Result Comment: PERF ORMED BY: [place] [address] PATHOLOGIST [employer] CECILIA SHORT M.D. Performed By: #### C MP, LIPASE, CBC #### [place] [address] [place] Nitrite,Urine Negative Normal Negative [facility] Comment on above: Order Comment: Name Collection Type:: Clean-Voided Midstream Performed By: #### C MP, LIPASE, CBC #### [place] [address] [place] Occult Blood,Urine Negative Normal Negative [facility] Comment on above: Order Comment: Name Collection Type:: Clean-Voided Midstream Result Comment: PERF ORMED BY: [place] [address] PATHOLOGIST [employer] CECILIA SHORT M.D. Performed By: #### C MP, LIPASE, CBC #### [place] [address] [place] pH (U) 6.0 [pH] Normal 5.0-9.0 [facility] Comment on above: Order Comment: Name Collection Type:: Clean-Voided Midstream Performed By: #### C MP, LIPASE, CBC #### [place] [address] [place] Protein,Urine Negative Normal Negative [facility] Comment on above: Order Comment: Name Collection Type:: Clean-Voided Midstream Performed By: #### C MP, LIPASE, CBC #### [address] RBC,Urine 1 [HPF] Normal 0-4 [facility] Comment on above: Order Comment: Name Collection Type:: Clean-Voided Midstream Performed By: #### C MP, LIPASE, CBC #### [address] Specificy [place],Urine 1.010 Normal 1.001-1.030 [facility] Comment on above: Order Comment: Name Collection Type:: Clean-Voided Midstream Performed By: #### C MP, LIPASE, CBC #### [address] Squamous Epithelial Cell,Urine 10 [HPF] High 0-2 [facility] Comment on above: Order Comment: Name Collection Type:: Clean-Voided Midstream Performed By: #### C MP, LIPASE, CBC #### [address] Urobilinogen,Urine Normal Normal Normal [facility] Comment on above: Order Comment: Name Collection Type:: Clean-Voided Midstream Performed By: #### C MP, LIPASE, CBC #### [address] WBC,Urine 5 [HPF] High 0-4 [facility] Comment on above: Order Comment: Name Collection Type:: Clean-Voided Midstream Performed By: #### C MP, LIPASE, CBC #### [address] Eosinophils Auto (Bld) [#/Vo l]Ordered By: Rishabh Quinteros on 11-18-2024 Eosinophils (Bld) [#/Vol] Automated eosinophil count 0.0-0.45 [facility] Eosinophils/100 WBC Auto (Bl d)Ordered By: Rishabh Quinteros on 11-18-2024 Eosinophils/100 WBC (Bld) Automated eosinophil % . [facility] Epithelial cells.squamous [# /area] in Urine sediment by Automated countOrdered By: Rishabh Quinteros on 11-18-2024 Epithelial cells.squamous Auto (Urine sed) [#/Area] Epithelial cells.squamous [#/area] in Urine sediment by Automated count High 0-2 [facility] Erythrocyte distribution wid th Auto (RBC) [Ratio]Ordered By: Rishabh Quinteros on 11-18-2024 Erythrocyte distribution width (RBC) [Ratio] Erythrocyte distribution width [Ratio] by Automated count 11.9-15.3 [facility] Erythrocytes [#/area] in Uri ne sediment by Automated countOrdered By: Rishabh Quinteros on 11-18-2024 RBC Auto (Urine sed) [#/Area] Erythrocytes [#/area] in Urine sediment by Automated count 0-4 [facility] Globulin Calc (S) [Mass/Vol] Ordered By: Rishabh Quinteros on 11-18-2024 Globulin (S) [Mass/Vol] Serum globulin measurement by calculation (mass/volume) [facility] Glucose [Mass/volume] in Ser um or PlasmaOrdered By: Rishabh Quinteros 11-18-2024 Glucose [Mass/Vol] Glucose [Mass/volume] in Serum or Plasma High 70-100 [facility] Comment on above: ADA recommended refe rence [...] in Urine by Test strip High Normal [facility] Hematocrit Auto (Bld) [Volum e fraction]Ordered By: Rishabh Quinteros on 11-18-2024 Hematocrit (Bld) [Volume fraction] Hematocrit [Volume Fraction] of Blood by Automated count Low 34.0-46.4 [facility] Hemoglobin Test strip Ql (U) Ordered By: Rishabh Quinteros 11-18-2024 Hemoglobin Ql (U) Hemoglobin [Presence] in Urine by Test strip Negative [facility] Hemoglobin [Mass/volume] in BloodOrdered By: Rishabh Quinteros 11-18-2024 Hemoglobin (Bld) [Mass/Vol] Hemoglobin [Mass/volume] in Blood Low 11.8-15.4 [facility] Hyaline casts [#/area] in Ur ine sediment by Automated countOrdered By: Rishabh Quinteros on 11-18-2024 Hyaline casts Auto (Urine sed) [#/Area] Hyaline casts [#/area] in Urine sediment by Automated count 0-8 [facility] Ketones Test strip Ql (U)Ord ered By: Rishabh Quinteros on 11-18-2024 Ketones Ql (U) Ketones [Presence] in Urine by Test strip Negative [facility] Leukocyte esterase [Presence ] in Urine by Test stripOrdered By: Rishabh Quinteros on 11-18-2024 Leukocyte esterase Test strip Ql (U) Leukocyte esterase [Presence] in Urine by Test strip Negative [facility] Leukocytes [#/area] in Urine sediment by Automated countOrdered By: Rishabh Quinteros on 11-18-2024 WBC Auto (Urine sed) [#/Area] Leukocytes [#/area] in Urine sediment by Automated count High 0-4 [facility] Leukocytes [#/volume] correc alphonso for nucleated erythrocytes in Blood by Automated counOrdered By: Rishabh Quinteros on 11-18-2024 WBC corrected for nucl RBC Auto (Bld) [#/Vol] Leukocytes [#/volume] corrected for nucleated erythrocytes in Blood by Automated coun 3.8-11.6 [facility] Lipaseon 11-18-2024 Lipase [Catalytic activity/Vol] 15.0 U/L Normal 11.0-82.0 [facility] Comment on above: Result Comment: PERF ORMED BY: [place] [address] PATHOLOGIST [employer] CECILIA SHORT M.D. Performed By: #### C MP, LIPASE, CBC #### [address] Lipase [Enzymatic activity/v olume] in Serum or PlasmaOrdered By: Rishabh Quinteros on 11-18-2024 Lipase [Catalytic activity/Vol] Lipase [Enzymatic activity/volume] in Serum or Plasma 11.0-82.0 [facility] Lymphocytes Auto (Bld) [#/Vo l]Ordered By: Rishabh Quinteros on 11-18-2024 Lymphocytes (Bld) [#/Vol] Lymphocytes [#/volume] in Blood by Automated count 1.00-4.8 [facility] Lymphocytes/100 WBC Auto (Bl d)Ordered By: Rishabh Quinteros on 11-18-2024 Lymphocytes/100 WBC (Bld) Lymphocytes/100 leukocytes in Blood by Automated count . [facility] MCH Auto (RBC) [Entitic mass ]Ordered By: Rishabh Quinteros on 11-18-2024 MCH (RBC) [Entitic mass] MCH [Entitic ma ss] by Automated count 24.7-34.3 [facility] MCHC Auto (RBC) [Mass/Vol]Or dered By: Rishabh Quinteros on 11-18-2024 MCHC (RBC) [Mass/Vol] MCHC [Mass/volume] by Automated count 32.0-35.0 [facility] MCV Auto (RBC) [Entitic vol] Ordered By: Rishabh Quinteros on 11-18-2024 MCV (RBC) [Entitic vol] MCV [Entitic volume] by Automated count 80-100 [facility] Monocyte distribution width [Entitic volume] in Blood by AutomatedOrdered By: Rishabh Quinteros on 11-18-2024 Monocyte distribution width Auto (Bld) [Entitic vol] Monocyte distribution width [Entitic volume] in Blood by Automated 0.00-20.00 [facility] Monocytes Auto (Bld) [#/Vol] Ordered By: iRshabh Quinteros on 11-18-2024 Monocytes (Bld) [#/Vol] Automated blood monocyte count 0.0-0.8 [facility] Monocytes/100 WBC Auto (Bld) Ordered By: Rishabh Quinteros on 11-18-2024 Monocytes/100 WBC (Bld) Automated monocy te % . [facility] Mucus [Presence] in Urine by AutomatedOrdered By: Rishabh Quinteros on 11-18-2024 Mucus Auto Ql (U) Mucus [Presence] in Urine by Automated Abnormal [facility] Neutrophils Auto (Bld) [#/Vo l]Ordered By: Rishabh Quinteros on 11-18-2024 Neutrophils (Bld) [#/Vol] Neutrophils [#/volume] in Blood by Automated count 1.8-7.7 [facility] Neutrophils/100 WBC Auto (Bl d)Ordered By: Rishabh Quinteros on 11-18-2024 Neutrophils/100 WBC (Bld) Automated neutrophil % . [facility] Nitrite Test strip Ql (U)Ord ered By: Rishabh Quinteros on 11-18-2024 Nitrite Ql (U) Nitrite [Presence] in Urine by Test strip Negative [facility] No Panel InformationOrdered By: Rishabh Quinteros on 11-18-2024 Estimated GFR (CKD-EPI) > 60.0 mL/Min [facility] Creatinine Clearance (Chem 250.81 [facility] Nucleated erythrocytes [Pres ence] in Blood by Automated countOrdered By: Rishabh Quinteros on 11-18-2024 Nucleated RBC Auto Ql (Bld) Nucleated erythrocytes [Presence] in Blood by Automated count 0-0.5 [facility] Platelet mean volume Auto (B ld) [Entitic vol]Ordered By: Rishabh Quinteros on 11-18-2024 Platelet mean volume (Bld) [Entitic vol] Platelet mean volume [Entitic volume] in Blood by Automated count 6.3-10.7 [facility] Platelets Auto (Bld) [#/Vol] Ordered By: Rishabh Quinteros on 11-18-2024 Platelets (Bld) [#/Vol] Platelets [#/volume] in Blood by Automated count 150-450 [facility] Potassium [Moles/volume] in Serum or PlasmaOrdered By: Rishabh Quinteros on 11-18-2024 Potassium [Moles/Vol] Potassium [Moles/volume] in Serum or Plasma Low 3.5-5.1 [facility] Protein Test strip (U) [Mass /Vol]Ordered By: Rishabh Quinteros on 11-18-2024 Protein (U) [Mass/Vol] Protein [Mass/volume] in Urine by Test strip Negative [facility] Protein [Mass/volume] in Ser um or PlasmaOrdered By: Rishabh Quinteros on 11-18-2024 Protein [Mass/Vol] Protein [Mass/volume] in Serum or Plasma Low 6.4-8.9 [facility] RBC Auto (Bld) [#/Vol]Ordere d By: Rishabh Quinteros on 11-18-2024 RBC (Bld) [#/Vol] Erythrocytes [#/volume] in Blood by Automated count Low 3.60-5.00 [facility] Respiratory specimen influen za A virus, influenza B virus, respiratory syncytical virOrdered By: Rishabh Quinteros on 11-18-2024 SARS-CoV-2 (COVID-19) RNA ANGELY+probe Ql (Unsp spec) Respiratory specimen influenza A virus, influenza B virus, respiratory syncytical vir [facility] SARS-CoV-2 (COVID-19) RNA ANGELY+probe Ql (Unsp spec) Respiratory specimen influenza A virus, influenza B virus, respiratory syncytical vir [facility] Serum or plasma albumin/glob ulin mass ratioOrdered By: Rishabh Quinteros on 11-18-2024 Albumin/Globulin [Mass ratio] Serum or plasma albumin/globulin mass ratio [facility] Serum or plasma anion gap de terminationOrdered By: Rishabh Quinteros on 11-18-2024 Anion gap [Moles/Vol] Serum or plasma anion gap determination 6.0-15.0 [facility] Sodium [Moles/volume] in Ser um or PlasmaOrdered By: Rishabh Quinteros on 11-18-2024 Sodium [Moles/Vol] Sodium [Moles/volume] in Serum or Plasma Low 136-145 [facility] Specific gravity Test strip (U) [Rel density]Ordered By: Rishabh Quinteros on 11-18-2024 Specific gravity (U) [Rel density] Specific gravity of Urine by Test strip 1.001-1.030 [facility] Urea nitrogen [Mass/volume] in Serum or PlasmaOrdered By: Rishabh Quinteros on 11-18-2024 Urea nitrogen [Mass/Vol] Urea nitrogen [Mass/volume] in Serum or Plasma Low 7-25 [facility] Urobilinogen Test strip (U) [Mass/Vol]Ordered By: Rishabh Quinteros on 11-18-2024 Urobilinogen (U) [Mass/Vol] Urobilinogen [Mass/volume] in Urine by Test strip Normal [facility] WBC Auto (Bld) [#/Vol]Ordere d By: Rishabh Quinteros on 11-18-2024 WBC (Bld) [#/Vol] Leukocytes [#/volume] in Blood by Automated count 3.8-11.6 [facility] pH Test strip (U)Ordered By: Rishabh Quinteros on 11-18-2024 pH (U) pH of Urine by Test strip 5.0-9.0 [facility] Appearance of UrineOrdered B y: Vee Trey on 11-08-2024 Appearance (U) Urine appearance Clear [facility] Bilirubin Test strip Ql (U)O rdered By: Vee Trey on 11-08-2024 Bilirubin Ql (U) Bilirubin.total [Presence] in Urine by Test strip Negative [facility] Color Auto (U)Ordered By: Salima casiano Trey on 11-08-2024 Color (U) Color of Urine by Auto Yellow [facility] Glucose [Mass/volume] in Uri ne by Test stripOrdered By: Vee Yang on 11-08-2024 Glucose Test strip (U) [Mass/Vol] Glucose [Mass/volume] in Urine by Test strip Normal [facility] Hemoglobin Test strip Ql (U) Ordered By: Vee Yang on 11-08-2024 Hemoglobin Ql (U) Hemoglobin [Presence] in Urine by Test strip Negative [facility] Ketones Test strip Ql (U)Ord ered By: Vee Yang on 11-08-2024 Ketones Ql (U) Ketones [Presence] in Urine by Test strip Negative [facility] Leukocyte esterase [Presence ] in Urine by Test stripOrdered By: Vee Yang on 11-08-2024 Leukocyte esterase Test strip Ql (U) Leukocyte esterase [Presence] in Urine by Test strip Negative [facility] Nitrite Test strip Ql (U)Ord ered By: Vee Yang on 11-08-2024 Nitrite Ql (U) Nitrite [Presence] in Urine by Test strip Negative [facility] Protein Test strip (U) [Mass /Vol]Ordered By: Vee Yang on 11-08-2024 Protein (U) [Mass/Vol] Protein [Mass/volume] in Urine by Test strip Negative [facility] Specific gravity Test strip (U) [Rel density]Ordered By: Vee Yang on 11-08-2024 Specific gravity (U) [Rel density] Specific gravity of Urine by Test strip 1.001-1.030 [facility] Urinalysison 11-08-2024 Appearance (U) Clear Normal Clear [facility] Comment on above: Order Comment: Name Collection Type:: Voided Performed By: #### C MP, LIPASE, CBC #### [facility] [place] [address] [place] [address] [place] Bilirubin,Urine Negative Normal Negative [facility] Comment on above: Order Comment: Name Collection Type:: Voided Performed By: #### C MP, LIPASE, CBC #### [place] [address] [place] Color (U) Colorless Normal Yellow [facility] Comment on above: Order Comment: Name Collection Type:: Voided Performed By: #### C MP, LIPASE, CBC #### [address] Glucose Ql (U) Normal Normal Normal [facility] Comment on above: Order Comment: Name Collection Type:: Voided Performed By: #### C MP, LIPASE, CBC #### [address] Ketones Ql (U) Negative Normal Negative [facility] Comment on above: Order Comment: Name Collection Type:: Voided Performed By: #### C MP, LIPASE, CBC #### [place] [address] [place] Leukocyte esterase Test strip Ql (U) Negative Normal Negative [facility] Comment on above: Order Comment: Name Collection Type:: Voided Performed By: #### C MP, LIPASE, CBC #### [place] [address] [place] Nitrite,Urine Negative Normal Negative [facility] Comment on above: Order Comment: Name Collection Type:: Voided Performed By: #### C MP, LIPASE, CBC #### [place] [address] [place] Occult Blood,Urine Negative Normal Negative [facility] Comment on above: Order Comment: Name Collection Type:: Voided Result Comment: PERF ORMED BY: [place] [address] PATHOLOGIST [employer] MOHAMED M EL-FAKHARANY M.D. Performed By: #### C MP, LIPASE, CBC #### [facility] [place] [address] pH (U) 7.0 [pH] Normal 5.0-9.0 [facility] Comment on above: Order Comment: Name Collection Type:: Voided Performed By: #### C MP, LIPASE, CBC #### [address] Protein,Urine Negative Normal Negative [facility] Comment on above: Order Comment: Name Collection Type:: Voided Performed By: #### C MP, LIPASE, CBC #### [address] Specificy [place],Urine 1.009 Normal 1.001-1.030 [facility] Comment on above: Order Comment: Name Collection Type:: Voided Performed By: #### C MP, LIPASE, CBC #### [address] Urobilinogen,Urine Normal Normal Normal [facility] Comment on above: Order Comment: Name Collection Type:: Voided Performed By: #### C MP, LIPASE, CBC #### [address] Urinalysis, manual onlyon Appearance (U) Clear Clear [facility] BILIRUBIN,URINE Negative Negative [facility] Color (U) Colorless Yellow [facility] Glucose Ql (U) Normal Normal [facility] Ketones Ql (U) Negative Negative [facility] Leukocyte esterase Test strip Ql (U) Negative Negative [facility] NITRITE,URINE Negative Negative [facility] OCCULT BLOOD,URINE Negative Negative [facility] pH (U) 7 [pH] 5.0 - 9.0 [facility] PROTEIN,URINE Negative Negative [facility] SPECIFICY GRAVITY,URINE 1.009 1.00 1 - 1.030 [facility] UROBILINOGEN,URINE Normal Normal [facility] Name Collection Type:: Voided [facility] Urobilinogen Test strip (U) [Mass/Vol]Ordered By: Vee Yang on 11-08-2024 Urobilinogen (U) [Mass/Vol] Urobilinogen [Mass/volume] in Urine by Test strip Normal [facility] pH Test strip (U)Ordered By: Vee Yang on 11-08-2024 pH (U) pH of Urine by Test strip 5.0-9.0 [facility] Coding Summaryon 10-29-2024 Coding Summary HTMLBase 64 HkfztaxfUXt8nCf+PGh lYWQ+LU1CLWHxN64qvR ExfI0iL0GYEKhFAsrtG RBIEMkVMvWldaPgPW4y aXNjZXJu IC8+XV6dREKgJxwoyCY kd0O6nYN4T25bej4bVV axgQX4PEKgOeAtamfbe 3sqpEc6DBzlRwofVxHb KYTdyU01BKS8cF78Qc9 8hBLjyTDxc4ymtOb0Bg YmDKDqZOO9tUteJDkdb 8RhYPMeN80riEJom6Y1 IGNvbGxhcHNlOyBlbXB 0lP6kABqaqlanh0vhzj eyJzx6vk42eKXku5C5x WR4K1FovkH0RYSfvUWs HpcobYTWvF3nomplk5t lvcqlOzMaIINnFVa0ND q9LIKxcCvpZiMhXI59D OZ3NNKoibFpQ4DaCVMa tHnoIoO5g6Q7Fl8YR0X HNgquQ0QVDRBOYZqggA Q+HU25hf08Q9HhRmnqM nt2EXNxZIV2hTK4pS5m SRUhIZymv8H5cUG7G8A wjiNdsj4rh0ujBJObYK teT67xfSIsh6P5BUAua RB1OWUjiZhtMfKkeY82 Oyc+XDLujSkap2DxZpw xz2xiv5ijpMo5CyxtVV JkjnRziRwtVUR4p4HwY r9jZBTxhGG0iLU7xT8u EeObCaF3XBayW807EaP bdKEvEbczV94jZ4QdkR A+ANBmWdn5BMNndCmrB Y7vE4XbZXZosizmsOEi oTplOF0yXHPmkbduEZN umO9zFAZxE3z6XcObRu Y6DXgzH2YlNNRnrxfxL x79qT6uRwMeZzR7TXay K5LtdmY5NHVflPKkDNe nAAR9E64xy0X4EHGnSK TxHAN4tOD2wH0giSagq jogbGVmdDsgdmVydGlj GVihXXasD835RCFdoVh nPkNvZGluZyBEYXRlOi AgMDEvMTcvMjAyNTwvd GQ+NZWbJYQ6oMtsHDJk jFTaLXhnAq6lqIsstOs rNP4gCHNuukdaOZCjeE 3iSVCoeIUfhBcfMF3zH XNvdqosq447ApEpCSC5 EAGxfUOgX3CxcD7qLzZ jBBVlAPUxC9BmxYUmHL csD778NFpwKdL3JIHoj ePxE4FjYCIyzMddMoN3 f7D5Ix7Po9DsqsuxA7E vwWQnYnYqWtapHTv4F5 RkPjwvdHI+CR06WRTkJ T05BNy9GSI4uZcsUMvd ADXfP9NcxJ4mDyGsYXA kZGRkOyc+PHRhYmxlIH dpZHRoPScxMDAlJyBzd NzyFQ7aCt6uTWLaEJEn iAtruXFuYkJtq9fjLXA uLVojCE6xlKgyN7IosP Y1SYIfr2o4Pd46S75mX 3JvdXA+BDGgtGN2mHE7 gN6bTcCvDxM2JQmqI63 2IaAxwSStAusvn7hqd7 gmsIo0CpS2YTYzcwHep CcuZWN1p8AeBk15S21c IHdpZHRoPSIxNSUiIHZ elGqtsh2laG4iEs5+PG WhwEN8tXU8mY3kZgCbZ lG0SYdrQ753EuLrlAGe Sagxp7fzf1vfwLo4QnS aFAYhhpYhlGobQZP1n1 RjNv45B2PfmNtnv9DcL wt5la73bKDol0Q2yVC1 D0QbYRIdnbzdzFItoFe zMB5uFMCankaaPTHnaD 6hPDZfY7m9VnVrScY9W PvvO6AmpgG9YNKqrBQm XMHtfOJTrK6jhxnys6y xzrxbTjChPQYbXVq7XE j0FGXaiPuoJwOrIHQ9O lS3LLY4eUIttU0vjUdy evdtcS6pFwr+ZTT9eXU gcKEDGY4kTcqwyRC+PH WzVXL5eEkxRNsaWLCij R0lEZRhS0f9BqFnAqA2 HPkoH3EkyyX2PCOsvPN pMJUoxKBCxJ7hyjipc2 jdmwsfAkIsBWMfSFd0W Yj9JYAubGthJqAyYKV1 JhC4XBQ8wCPlhY7awXd kysvurM6pJyj+QmlydG dbWGH8UIi1V0NiBve4B TLraWbkOI3aeJKmAMsy Ug2inHowlZxzZP0kLQV uypejt217VzBwu5liGI RhzATqTMzsDBY6N87yk 3Z0AGHcEHTnHIO6cQR1 rK8mhGxbvssnxKThsYk gdmVydGljYWwtYWxpZ2 91NQEmrZnkQpOwGRw0N 4RvBel1TDIcsUzxKT5o nIHhYIfvYq6viPlmaSb dXP2iEBWuypaao886Uo Hqv0nlSYAmlSPrNUjaS CZ3H38ld3S5SCEvRLOz TQW6hQO8pH1lfUitnug gbGVmdDsgdmVydGljYW fdPNffI393WZQbtQsnP mKgwOg8F1IyOzg2NPFt yKhuAN9uvZLeRAmqFo9 jaImtbZewSG6gEZOkvq pxx378QtPty2vvIHMcm ACoECnjKBA9L43ws8W9 XJVkWZUxDIY3tUA8hC9 hbGlnbjogbGVmdDsgdm MbmZkbXNrhWVmsF562Q HRvcDsnPlBhdGllbnQg FUhpFOg4T6XvHvtbzFD +OK39YBBjWS20eGHjdT Fxf8junYe2EzCjKYMgQ XA2zEonWBbtj2KaVOQg Y04peAXjr2A9NRCckVc gyKYtQuYohYH6jD8cQE wmixoky1vmtwocAsbaq 7srtb61jB05O92lHIyk ZHRoPSIzMCUiIHZhbGl qld9ldI5pZi5+PGNvbC Z7eYG2bU7fKJGaYmQ2N ChsS619NvGyzMPlOuvj i9qpe3dqkJs7QxY5MTC mkgCseNmpJLF5h3QnIf 49U85dYLioFYKaMDEjN RLeOSWgoDxwac6itZ9u Ii8+KIIvwTE7aLG5eR1 hOhYnIdV5NZcgM546Xd MejCOvLcesD97zF6Odo XA+HEOcKzk4TGBiiPrl AR6avWVyAAclGr1jXRL 1KoAoIfCkUEtjS7NtUS YyhzkitgdxxQD7SNPuJ EYyfY13Cy9mkJfcPUXh rJOSbA2jkwcxv5dbyys lDwRlLVBjNIg0FKj6ZE CbgWomWmEdQMP4OzP3H WO2dAUquE1hbSwaftly xR5hY7RuBMDevhbvPp0 5lY8rSaJgHfO9LVenHz c+DPLYMULTXPbsJO4WJ SBMQVJFRTwvdGQ+PHRk XXD2wItlQBjgOWUucI6 bSQUuR5e9AeHiKrI2GD kxZ5GfPFCzzftwVw29v A2aUrEbVoJ2FKsxN6Qq gqS8EMFmbMPkRCnhDUT 1J53xx2D1FZTaXQSlOR Q5fSG2pB7oxGtckcyeo GVmdDsgdmVydGljYWwt FEayW114DBSljItcRzN 2NsN2SbIxLWZ6O7DeQa k5JFFgtHqmGF7qrYXdJ EawUh9twFgofMvwRM8i LKZlocwyGQOblB3pEEP slSCieByhQD1qKSRstw kfb358RzIoCKO9VQNpd QJkN6CmkO6gUcKrESFo BANxR7MubLKmLUkxJ78 1UXcxAqB2HOOymqTrY1 KgXTAnsUjlIdF0o2K0P j0rJULGQGExlgyppUP+ PDBvQAK3dDquEGysDSI pyA3mRWFiG3z9NmXpQi S3WIdmP9MvTQKbbjebV r52aZ2qUzCdCnY7VSkj Y1QmyzE8DJSvrZJuQMr lKOD2O15jv2Y9JNZcDH TdCDM5sNF4mW7xeEmqv jogbGVmdDsgdmVydGlj BStqBOehK689RTLaeCs nPkZFTUFMRTwvdGQ+PH NvCOK9dWzxODfxVJAqu W2iSAZlT6y9TdDkEoX1 BGtjA4XfQCVuhbuyLw5 4oC4jJuKqHoA8TQunR9 BthqF5ILSshTBqOTgbL PI9H93sd8U7MENmNNBi SZZ4fHE0cG4suIgbgqo gbGVmdDsgdmVydGljYW exOFehZ680PLFxmUwkU rJpXWMkXL6auXiyeZW+ JR13eu89T3HuCxzuYwb 8MUYiMWT2yWX9uD5nYF FlPRlig3E6sFA8F0Eby zFlqu6qs9fyKGTmIMjx P06qfVUpd2Q6SOIojAQ 2ZIVznIciAyXgsR57Wn c+ANLkgSrmc7JkBfrbc 0jrr6pcsYu8McVpTWEq cvXvcHtaCKR3o9LsMr9 4X06pQEzmFAKoXSEzSQ BkXXHkcAdkgl5roY7jM i8+WGHnvQI5gSF9uX8x TbHuHlX7MAsoH635ChP seLRuBwvbx4wep8yseP i8BpWyRPQfowBrhAtaV XU1j7EzGp44U7IhhOiq n7PfTxq2jq61qQHom4T 1gOC2M4WfXQIhhjbmvY CmsXhpPU4yIPJmvlijO CWrdP9vYDMaX0b0WdUw PwG8OJdfX0RkscO9ORW zgUMyKXYflHZZnH3pal gvx6wfupucYvNqWNSmW Tf8QUs0MUVbzMmjNmJf WHZ2HuW4MRT9uEYggM5 iaDfmyujhgM4eAzj+UG m7i5kwiRRaWK1hzGL4X T13EE94pAIqr6V6bJD2 A9GwIONhajopuzqkuTA 5UPAtZZQesJ41Jo1nvE qvOi0sVCMkWIV8JCUos SHyJ9DkjH8rJpQiTPWa WDVuL5LjlNYxFHyvT58 4FKimXeZ7JPOrwjKnP4 RyNRVuwBsnQhH0d3P4P u5QSG15JC15FH07iWEh u2B3dUU7E2XmWCJqygo dqlnzuGG0FXYkRXWyxW 29Pp5fsHmcLg5fSTDyC GE6AEZvbDYgB1ExmD3b IhIeNPQmHJGyV6NpfIA zMBokQ911PXwqZmH1MV VdhoUiS7YcMARyiIykP lG0f9I9Pl4MTv84YP57 MQ47nJKoh8A1lAJ7F8T tJNKrdqnyirksiOW1HI RpQNKfkJ38Oz0zmRkjD z8vUEAqQFQ2WCEvsLQb J4WxtI3zSaOgCJRhFMA wC3ApbJNcXZekN632AM wiNzL9HCPobdKbX2WyP ZYuuGmaAxV7e5P8Lu8M BEecqju4D2ZuZlmtyCK +CA94HTXyRV08tJSomC Zzd6xtxUs3WgCkTQAkL BX2uLuuHDofq2BtMJJw Y29 (more content not included)... [facility] Consent Formson 10-18-2024 Consent Forms [id number] [facility] ED Clinical Summaryon 2024 ED Clinical Summary [facility] - Emergency Department [address] [place] [address] ED Clinical Summary PERSON INFORMATION Name: KISHA LORA Age: 19 Years Sex: FEMALE : 2005 MRN: Acct#: Visit Reason: Decreased movement; 26 X WEEKS BABY NOT MOVING Arrival: 10/17/2024 13:42:40 Discharge: 10/17/2024 15:10:00 LOS: 000 01:28 Check In: 10/17/2024 13:42:40 Checkout:10/17/2024 15:10:00 Address: [address] [place] [address] PCP: Provider, None PROVIDER INFORMATION Provider Role Assigned Unassigned Ailyn Murrell MD ED Provider 10/17/2024 13:45:25 Erika Hernández RN ED Nurse 10/17/2024 13:46:23 VITALS INFORMATION Vital [...] Instructions: Follow-Up: With: Address: When: None Provider [address] [place] [address] Within 3 to 5 days DIAGNOSIS: 1:Decreased movement in Patient Understands: Yes - Patient/family/healthcare specialist verbalizes understanding of instructions given Comment: [facility] ED Note-Nursingon 10-17-2024 ED Note-Nursing Patient does not want to wait for transport to be here at 5pm, pt requesting to drive herself to [facility]. Dr. Murrell aware. [facility] ED Note-Nursing [facility] was contacted in regards to transfer for decreased movement. Patients provider is Edith. Dr. Murrell spoke with her and the transfer was accepted. Arranging for transport currently. [facility] ED Patient Education Noteon 10-17-2024 ED Patient Education Note Education Materials [facility] ED Patient Summaryon 025 ED Patient Summary [facility] - Emergency Department [address] [place] [id number] PATIENT DISCHARGE INSTRUCTIONS Patient Information Name: KISHA LORA Age: 19 Years Date of : 2005 Reason For Visit: Decreased movement; 26 X WEEKS BABY NOT MOVING Arrival Time: 10/17/2024 13:42:40 Primary Care Physician: Provider, None Attending Physician: Ailyn Murrell MD Comment: Visit Diagnosis: Diagnoses This Visit Decreased movement ([id number]) Decreased movement in (O36.8190) The Pharmacy at [facility] is open Friday through Friday from 9A [...] addiction problems; contact the [facility] 05/05 Crisis Hotline -Text 6UIEO bo 901939. If you received any narcotics, sedation, or [...] legal documents With: Address: When: None Provider [address] [place] [address] Within 3 to 5 days Medication Information: The exam and treatment you received today in the [facility] Emergency Department were for an urgent problem and are not intended as complete care. It is important for you to follow up with a doctor, nurse practitioner, or physician?s department assistant for ongoing care. If your symptoms [...] so we can reach you if necessary. [facility] Emergency Department has provided you with a complete list of medications post discharge. 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 Dr. Mortensen is available to see pt 1511 pt [facility] [Electronically Signed on: 10/17/2024 15:46 EST] __ Michaela Venegas ER Hassan Cler [Verified on: 10/17/2024 15:46 EST] __ Michaela Venegas ER Hassan Cler [facility] US OB 14+ WEEKS ANATOMY SCAN on [...] on 08-28-2024 Appearance (U) Urine appearance Clear [facility] Bacteria [Presence] in Urine by AutomatedOrdered By: Felisha Briones on 08-28-2024 Bacteria Auto Ql (U) Bacteria [Presence] in Urine by Automated None Seen [facility] Bilirubin Test strip Ql (U)O rdered By: Felisha Birones on 08-28-2024 Bilirubin Ql (U) Bilirubin.total [Presence] in Urine by Test strip Negative [facility] Chlamydia trachomatis DNA [P resence] in Specimen by ANGELY with probe detectionOrdered By: Felisha Briones on 08-28-2024 C. trachomatis DNA ANGELY+probe Ql (Unsp spec) Chlamydia trachomatis DNA [Presence] in Specimen by ANGELY with probe detection Negative [facility] Chlamydia/GC/Trich NAAon Chlamydia Trachomotis, ANGELY Negative Normal Negative [facility] Comment on above: Order Comment: SOURC E OF SPECIMEN: self swab Performed By: #### F S #### [address] #### GCCHLAMTRI #### [facility] , Neisseria Gonorrhoeae, ANGELY Negative Normal Negative [facility] Comment on above: Order Comment: SOURC E OF SPECIMEN: self swab Performed By: #### F S #### [address] #### GCCHLAMTRI #### [facility] , Trichomonas ANGELY Negative Normal Negative [facility] Comment on above: Order Comment: SOURC E OF SPECIMEN: self swab Result Comment: Perf ormed at: =G - [facility] 68 [address] [id number] Smokehouse Worker: Evie Luther MD, Phone: [phone] PERFORMED BY: [place] [address] PATHOLOGIST [employer] PARTNER CECILIA SHORT M.D. Performed By: #### F S #### [address] #### GCCHLAMTRI #### [facility] , Color Auto (U)Ordered By: Samia Briones on 08-28-2024 Color (U) Color of Urine by Auto Yellow [facility] Dipstick and Microscopicon 1 10-28-2023 Appearance (U) Clear Normal Clear [facility] Comment on above: Order Comment: Name Collection Type:: Clean-Voided Midstream Performed By: #### A DDONUAPLUS #### [address] Bacteria,Urine Rare Normal None Seen [facility] Comment on above: Order Comment: Name Collection Type:: Clean-Voided Midstream Performed By: #### A DDONUAPLUS #### [place] [address] [place] Bilirubin,Urine Negative Normal Negative [facility] Comment on above: Order Comment: Name Collection Type:: Clean-Voided Midstream Performed By: #### A DDONUAPLUS #### [place] [address] [place] Color (U) Light-Yellow Normal Yellow [facility] Comment on above: Order Comment: Name Collection Type:: Clean-Voided Midstream Performed By: #### A DDONUAPLUS #### [place] [address] [place] Glucose Ql (U) 200 mg/dL High Normal [facility] Comment on above: Order Comment: Name Collection Type:: Clean-Voided Midstream Performed By: #### A DDONUAPLUS #### [place] [address] [place] Hyaline Casts,Urine None Normal 0-8 [facility] Comment on above: Order Comment: Name Collection Type:: Clean-Voided Midstream Performed By: #### A DDONUAPLUS #### [place] [address] [place] Ketones Ql (U) Negative Normal Negative [facility] Comment on above: Order Comment: Name Collection Type:: Clean-Voided Midstream Performed By: #### A DDONUAPLUS #### [place] [address] [place] Leukocyte esterase Test strip Ql (U) 1+ High Negative [facility] Comment on above: Order Comment: Name Collection Type:: Clean-Voided Midstream Performed By: #### A DDONUAPLUS #### [place] [address] [place] Mucus,Urine 1+ Critically abnormal [facility] Comment on above: Order Comment: Name Collection Type:: Clean-Voided Midstream Result Comment: PERF ORMED BY: [place] [address] PATHOLOGIST H[employer] PARTNER CECILIA SHORT M.D. Performed By: #### A DDONUAPLUS #### [address] [place] [address] [place] Nitrite,Urine Negative Normal Negative [facility] Comment on above: Order Comment: Name Collection Type:: Clean-Voided Midstream Performed By: #### A DDONUAPLUS #### [address] Occult Blood,Urine Negative Normal Negative [facility] Comment on above: Order Comment: Name Collection Type:: Clean-Voided Midstream Result Comment: PERF ORMED BY: [place] [address] PATHOLOGIST [employer] PARTNER CECILIA SHORT M.D. Performed By: #### A DDONUAPLUS #### [address] pH (U) 6.0 [pH] Normal 5.0-9.0 [facility] Comment on above: Order Comment: Name Collection Type:: Clean-Voided Midstream Performed By: #### A DDONUAPLUS #### [place] [address] [place] Protein,Urine Negative Normal Negative [facility] Comment on above: Order Comment: Name Collection Type:: Clean-Voided Midstream Performed By: #### A DDONUAPLUS #### [address] RBC,Urine 1 [HPF] Normal 0-4 [facility] Comment on above: Order Comment: Name Collection Type:: Clean-Voided Midstream Performed By: #### A DDONUAPLUS #### [place] [address] [place] Specificy [place],Urine 1.013 Normal 1.001-1.030 [facility] Comment on above: Order Comment: Name Collection Type:: Clean-Voided Midstream Performed By: #### A DDONUAPLUS #### [place] [address] [place] Squamous Epithelial Cell,Urine 5 [HPF] High 0-2 [facility] Comment on above: Order Comment: Name Collection Type:: Clean-Voided Midstream Performed By: #### A DDONUAPLUS #### [facility] [address] [place] [address] Urobilinogen,Urine Normal Normal Normal [facility] Comment on above: Order Comment: Name Collection Type:: Clean-Voided Midstream Performed By: #### A DDONUAPLUS #### [address] WBC,Urine 3 [HPF] Normal 0-4 [facility] Comment on above: Order Comment: Name Collection Type:: Clean-Voided Midstream Performed By: #### A DDONUAPLUS #### [facility] [address] [place] [address] Epithelial cells.squamous [# /area] in Urine sediment by Automated countOrdered By: Felisha Starksore on 08-28-2024 Epithelial cells.squamous Auto (Urine sed) [#/Area] Epithelial cells.squamous [#/area] in Urine sediment by Automated count High 0-2 [facility] Erythrocytes [#/area] in Uri ne sediment by Automated countOrdered By: Felisha Aguirreimore on 08-28-2024 RBC Auto (Urine sed) [#/Area] Erythrocytes [#/area] in Urine sediment by Automated count 0-4 [facility] Fungal Smearon 08-28-2024 Fungal Smear Fungus Smear Results No Fungal Like Elements Seen Trichomonas Screen No Trichomonas Seen Trich Reference Reference range = None Seen PERFORMED BY: [place] [address] PATHOLOGIST [employer] PARTNER CECILIA SHORT M.D. Normal [facility] Comment on above: Performed By: #### F S #### [address] #### GCCHLAMTRI #### [facility] , Fungal smearOrdered By: Russel Briones on 08-28-2024 Fungus identified Fungus stain Nom (Unsp spec) Fungal smear [facility] Glucose [Mass/volume] in Uri ne by Test stripOrdered By: Felisha Briones on 08-28-2024 Glucose Test strip (U) [Mass/Vol] Glucose [Mass/volume] in Urine by Test strip High Normal [facility] Hemoglobin Test strip Ql (U) Ordered By: Felisha Briones on 08-28-2024 Hemoglobin Ql (U) Hemoglobin [Presence] in Urine by Test strip Negative [facility] Hyaline casts [#/area] in Ur ine sediment by Automated countOrdered By: Felisha Aguirrevannaore on 08-28-2024 Hyaline casts Auto (Urine sed) [#/Area] Hyaline casts [#/area] in Urine sediment by Automated count 0-8 [facility] Ketones Test strip Ql (U)Ord ered By: Felisha Briones on 08-28-2024 Ketones Ql (U) Ketones [Presence] in Urine by Test strip Negative [facility] Leukocyte esterase [Presence ] in Urine by Test stripOrdered By: Felisha Briones on 08-28-2024 Leukocyte esterase Test strip Ql (U) Leukocyte esterase [Presence] in Urine by Test strip High Negative [facility] Leukocytes [#/area] in Urine sediment by Automated countOrdered By: Felisha Starksore on 08-28-2024 WBC Auto (Urine sed) [#/Area] Leukocytes [#/area] in Urine sediment by Automated count 0-4 [facility] Mucus [Presence] in Urine by AutomatedOrdered By: Felisha Briones on 08-28-2024 Mucus Auto Ql (U) Mucus [Presence] in Urine by Automated Abnormal [facility] Neisseria gonorrhoeae DNA [P resence] in Specimen by ANGELY with probe detectionOrdered By: Felisha Briones on 08-28-2024 N. gonorrhoeae DNA ANGELY+probe Ql (Unsp spec) Neisseria gonorrhoeae DNA [Presence] in Specimen by ANGELY with probe detection Negative [facility] Nitrite Test strip Ql (U)Ord ered By: Felisha Starksore on 08-28-2024 Nitrite Ql (U) Nitrite [Presence] in Urine by Test strip Negative [facility] Protein Test strip (U) [Mass /Vol]Ordered By: Felisha Briones on 08-28-2024 Protein (U) [Mass/Vol] Protein [Mass/volume] in Urine by Test strip Negative [facility] Specific gravity Test strip (U) [Rel density]Ordered By: Felisha Briones on 08-28-2024 Specific gravity (U) [Rel density] Specific gravity of Urine by Test strip 1.001-1.030 [facility] Trichomonas vaginalis DNA [P resence] in Specimen by ANGELY with probe detectionOrdered By: Felisha Briones on 08-28-2024 T. vaginalis DNA ANGELY+probe Ql (Unsp spec) Trichomonas vaginalis DNA [Presence] in Specimen by ANGELY with probe detection Negative [facility] Comment on above: Performed at: =[address] [id number] Director: Evie Luther MD, Phone: [phone] Trichomonas vaginalis detect ion by wet preparationOrdered By: Felisha Briones on 08-28-2024 T. vaginalis Wet prep Ql (Unsp spec) Trichomonas vaginalis detection by wet preparation [facility] Urobilinogen Test strip (U) [Mass/Vol]Ordered By: Felisha Briones on 08-28-2024 Urobilinogen (U) [Mass/Vol] Urobilinogen [Mass/volume] in Urine by Test strip Normal [facility] pH Test strip (U)Ordered By: Felisha Briones on 08-28-2024 pH (U) pH of Urine by Test strip 5.0-9.0 [facility] Appearance of UrineOrdered B y: Rishabh Quinteros on 08-24-2024 Appearance (U) Urine appearance Clear [facility] Bilirubin Test strip Ql (U)O rdered By: Rishabh Quinteros on 08-24-2024 Bilirubin Ql (U) Bilirubin.total [Presence] in Urine by Test strip Negative [facility] Color Auto (U)Ordered By: Bipin Quinteros on 08-24-2024 Color (U) Color of Urine by Auto Yellow [facility] Glucose [Mass/volume] in Uri ne by Test stripOrdered By: Rishabh Quinteros on 08-24-2024 Glucose Test strip (U) [Mass/Vol] Glucose [Mass/volume] in Urine by Test strip High Normal [facility] Hemoglobin Test strip Ql (U) Ordered By: Rishabh Quinteros on 08-24-2024 Hemoglobin Ql (U) Hemoglobin [Presence] in Urine by Test strip Negative [facility] Ketones Test strip Ql (U)Ord ered By: Rishabh Quinteros on 08-24-2024 Ketones Ql (U) Ketones [Presence] in Urine by Test strip Negative [facility] Leukocyte esterase [Presence ] in Urine by Test stripOrdered By: Rishabh Quinteros on 08-24-2024 Leukocyte esterase Test strip Ql (U) Leukocyte esterase [Presence] in Urine by Test strip Negative [facility] Nitrite Test strip Ql (U)Ord ered By: Rishabh Quinteros on 08-24-2024 Nitrite Ql (U) Nitrite [Presence] in Urine by Test strip Negative [facility] Protein Test strip (U) [Mass /Vol]Ordered By: Rishabh Quinteros on 08-24-2024 Protein (U) [Mass/Vol] Protein [Mass/volume] in Urine by Test strip Negative [facility] Specific gravity Test strip (U) [Rel density]Ordered By: Rishabh Quinteros on 08-24-2024 Specific gravity (U) [Rel density] Specific gravity of Urine by Test strip 1.001-1.030 [facility] Urinalysison 08-24-2024 Appearance (U) Clear Normal Clear [facility] Comment on above: Order Comment: Name Collection Type:: Clean-Voided Midstream Performed By: #### U A #### [facility] [address] [place] [address] [place] Bilirubin,Urine Negative Normal Negative [facility] Comment on above: Order Comment: Name Collection Type:: Clean-Voided Midstream Performed By: #### U A #### [facility] [address] [place] [address] [place] Color (U) Light-Yellow Normal Yellow [facility] Comment on above: Order Comment: Name Collection Type:: Clean-Voided Midstream Performed By: #### U A #### [address] Glucose Ql (U) 200 mg/dL High Normal [facility] Comment on above: Order Comment: Name Collection Type:: Clean-Voided Midstream Performed By: #### U A #### [address] Ketones Ql (U) Negative Normal Negative [facility] Comment on above: Order Comment: Name Collection Type:: Clean-Voided Midstream Performed By: #### U A #### [address] Leukocyte esterase Test strip Ql (U) Negative Normal Negative [facility] Comment on above: Order Comment: Name Collection Type:: Clean-Voided Midstream Performed By: #### U A #### [address] Nitrite,Urine Negative Normal Negative [facility] Comment on above: Order Comment: Name Collection Type:: Clean-Voided Midstream Performed By: #### U A #### [address] Occult Blood,Urine Negative Normal Negative [facility] Comment on above: Order Comment: Name Collection Type:: Clean-Voided Midstream Result Comment: PERF ORMED BY: [place] [address] PATHOLOGIST HUM[employer] PARTNER DALE DUMONT M.D. Performed By: #### U A #### [address] pH (U) 6.0 [pH] Normal 5.0-9.0 [facility] Comment on above: Order Comment: Name Collection Type:: Clean-Voided Midstream Performed By: #### U A #### [address] Protein,Urine Negative Normal Negative [facility] Comment on above: Order Comment: Name Collection Type:: Clean-Voided Midstream Performed By: #### U A #### [address] Specificy [place],Urine 1.015 Normal 1.001-1.030 [facility] Comment on above: Order Comment: Name Collection Type:: Clean-Voided Midstream Performed By: #### U A #### [facility] [address] Urobilinogen,Urine Normal Normal Normal [facility] Comment on above: Order Comment: Name Collection Type:: Clean-Voided Midstream Performed By: #### U A #### [facility] [address] Urobilinogen Test strip (U) [Mass/Vol]Ordered By: Rishabh Quinteros on 08-24-2024 Urobilinogen (U) [Mass/Vol] Urobilinogen [Mass/volume] in Urine by Test strip Normal [facility] pH Test strip (U)Ordered By: Rishabh Quinteros on 08-24-2024 pH (U) pH of Urine by Test strip 5.0-9.0 [facility] HCG ( test) Ql (U)o n 06-30-2024 Beta HCG ( test) Ql (U) Positive Abnormal NEG [facility] Comment on above: Performed By: #### 2 106-3 #### [facility] ([id number]) [address] [place] [address] URN MACROSCOPIC NURon 2023 BILIRUBIN MICHAEL Negative Normal NEG [facility] Comment on above: Performed By: #### N UM #### [facility] ([id number]) [address] [place] [address] BLOOD/HGB MICHAEL Negative Normal NEG [facility] Comment on above: Performed By: #### N UM #### [facility] ([id number]) [address] [place] [address] GLUCOSE MICHAEL Negative Normal NEG [facility] Comment on above: Performed By: #### N UM #### [facility] ([id number]) [address] [place] [address] KETONES MICHAEL Negative Normal NEG [facility] Comment on above: Performed By: #### N UM #### [facility] ([id number]) [address] [place] [address] LEUKOCYTE ESTERASE MICHAEL Negative Normal NEG [facility] Comment on above: Performed By: #### N UM #### [facility] ([id number]) [address] [place] [address] NITRITE MICHAEL Negative Normal NEG [facility] Comment on above: Performed By: #### N UM #### [facility] ([id number]) [address] [place] [address] PH MICHAEL 7.0 Normal 5.0-8.5 [facility] Comment on above: Performed By: #### N UM #### [facility] ([id number]) [address] [place] [address] PROTEIN MICHAEL Negative Normal NEG [facility] Comment on above: Performed By: #### N UM #### [facility] ([id number]) [address] [place] [address] SPECIFIC GRAVITY MICHAEL 1.020 Normal 1.003-1.035 [facility] Comment on above: Performed By: #### N UM #### [facility] ([id number]) [address] [place] [address] UROBILINOGEN MICHAEL 0.2 eu/dL Normal <1.1 [facility] Comment on above: Performed By: #### N UM #### [facility] ([id number]) [address] [place] [address]284 US OB < 14 WEEKS EARLYon US [...] Coding Summaryon 06-03-2024 Coding Summary HTMLBase 64 IcdeqxjtXGr8cZm+PGh lYWQ+SO1EXHZcZ52zlF OfoF5sO8ROJZtDYnsbM DZUNSwPAoUrxrYvTY2p aXNjZXJu IC8+II9aMVFtUyuktTJ dc0J7zFO2F10ogl6oXO mrrJD5CRXyNzOgsfmpz 0oshAy8BMsuYjidQnPq AZRvkM54QTI3iH79Qf2 7oGDmhSZln5qumQy6Ur TrFCLsEVR6jDnvGUxou 5TyXSTzV79avAToh4Q3 IGNvbGxhcHNlOyBlbXB 1kX1gMLliooykh9onmy enLuy6xt78vOTna3E1p RY8Q4BdzcN9RQLjlAOq YhyklCHNfI1bniuyw0k bquhhQdHxGESfGEb5RB r4TCIubFtaEwNrLC62U RH2HIQwsyYfH8JeXMIc qCorOcO6t7D9Rw1JT5J NLrqzA9IFKUDBEMpkeN Q+ZG68tu83N4UjGasuK va5EXDdYBT0kPE2xX9t KYGoWUlyw6B3wGF0H3V qpfKuwy5js0yzYAUgLK plE50zfJIjq3Y8IFRuy HN8TEBreFwjOeNxbD99 Oyc+OZIzcUxcj2DiUmk ry5ijn4thhIp2WljhRK ZezkZtnTltBCJ1e0HgB x9gYIWbcTW2iAG9kB2x SkFgUbY7UIylV683WpM koMXsUydsA65aE8BrmF A+QBFiPxi6HHZukKxxY X6yK1PaHMBsxnovoNZw eUalDJ7hPIKmyukoFVR hgK2eZQVyT2f6MtYrOp X5EJorG8UdJGWgmgclE n15xP7lNqOaEaC3MCse G6MoetT5URSnxDCgWPh iOWJ3I32tb9T7RBMcWH KiGXH7hWR9mG8osFpxi jogbGVmdDsgdmVydGlj AZfoPCrrG400EFRmmPo nPkNvZGluZyBEYXRlOi AgMDgvMjIvMjAyNDwvd GQ+PYKpJZZ9kGnmPKBr nQTcAIifMl5upFhtyLd pQB9gMTVapsusYPQnhZ 8eFVUszFHmcWbaIF7oR ULoayvzp234RnBnEQD3 WXZmeJFxH5HzsN4bXoO bCZLePTEbU9GcsOEdEA plL319PSgrRzJ6KOXmq oDwV5PzHANjtQuiPnH6 l8Q9Fv4Od7KmhgvkY9C rxEOnScWgJpcnCQm4Q5 RkPjwvdHI+VS67MNFhD J48VVx7MYN2eRnsDQzj QPDpO9CcgZ1iMvZiPKZ kZGRkOyc+PHRhYmxlIH dpZHRoPScxMDAlJyBzd WwdSK6bGo8wSYDgQRFq iLatvAQaOpPni1npTGD oGFlmSF8ylOtgT2MpkK I0UPJsd7c0Qv32U65jZ 3JvdXA+ARNlyXJ8yGZ0 yA0pRsDvAyR2QYwpU67 8YlStpKIuUcgse4red3 ssjBf6RlD9HZSlpgGer PwvQHK1h1LwLp21P54y IHdpZHRoPSIxNSUiIHZ srOtlui7hiB5tAh4+PG FpwPM2jDB8mV8xEgNqG fA3HGfiW369JqHnsYXv Wrsmh3okz6dzsQt0KoT rAXUdvhHynCkrHCU6g6 JiIr16R7HzpIdta8YeV dh6gv62tRTfx7K8nJP9 A4VbOZGxedccbEQjwAq hEZ8xFBUxiecwXFVrzZ 7tHWXgT1l4CmUxMkQ8Y SkrV4IqegQ2ZFTupKYv ZDAvxQIRiI1fuygvx8e qrqybKnYaJILoZKd2FI d9NTAsfGgtBzVsCIJ4D oJ7LPK1xOKztU2piGip mdyzfF5xRwh+IRH7cHO ciSEEZW2rMuamqRY+PH FiKXC3sOgjCPtaSEWcl W5tEUZaB1u3RtVcSiQ1 LObgG0AkedO8KPTfhTA zDDKipSAAxP3wyoihr2 ywaucfHyOdVVUuIUn3R Jo1ZKDqoIlzRlBiUMC5 OmV1GRU9hWLxtL5muPt rvqwggH7sNto+QmlydG ibIIH3XPj9L4NsXhw0F VLxkPidOD4waSOkOJwn Om8tpGahkUpoEA1kRZT awbwjm502ZeRyi6xpDQ GxgPJyBDmxJJI7L98qx 8T3ZNTbVHXnVNL3jPM5 wT0dmWwnrkyogVZrjKu gdmVydGljYWwtYWxpZ2 20GUNaeYngTrMxBPb9Z 3AxEvs8JRBnmMiqQH3c sUPcKAtbDn1wjGxfkNo kQT7hRNNoqttqk009Oa Zqu9liYRQxvNJjNYoeH WH4T73ln0V7HCLvXSPj AUJ0qUZ5oV3qhKopcph gbGVmdDsgdmVydGljYW fmEIfgW642LWMbxCdfP qUesPl0P0LdQgg6CKQu vEprAN5zhHPkTZahRw0 mkHvtlYdeJS2cXELbpl owf814BeZwo1atNYTan RGpNUfnCFV8H67mj0B1 HTOzBATpIXX0eSN2oI5 hbGlnbjogbGVmdDsgdm UocCkiJKnsNZlkK675Q HRvcDsnPlBhdGllbnQg XBjfHKw8N1RzArolhJK +VJ69UWTuAG23sYBjlF Qpx9bfjNp0LqLvKILkF QN6iRniTMjzx1TwRSNb I83jfHHsq2D4KJFjjXo ekSZvMiMtiAL7lL0wRE zsrimqq2hdksjePoemt 4ukbj50bG06C83iOQzr ZHRoPSIzMCUiIHZhbGl wao8pjT5rNz4+PGNvbC K8xVJ5dP7hXCMyJfQ3U KxwM222NkWcqSIrTroe q1hhf1sctIu6TfF0PNF kdiErdAerCEH6b0ZrWr 94K35pUIymCQAeJMKmX PJpAVEbcByljl8gyI8p Ii8+AJMueRU9uQR4kI6 fMeLeOgM0BRkeF476Iq CecTFsQuarP26cJ4Ktd XA+JLUiYja5BGJfbEow QW4npCGbIFniOt6vUFU 1HeGxTaEaFKxjN2EwIO BewfcckokqaGS6CXTyF YRaiD85Is4lvJxrEGKa hJFIdJ9rluqau8jrzgi pWzGvOPIeLBa2XPv8JL EtkPyxAiVlDOW2JnE3Q VP9lMUwbS5gyOjmbynl eG5nL1EtLAXkdnzwMe9 5uE6oVgPnAhU9DZxfEp c+KDDAMKDLEQypWS6AD SBMQVJFRTwvdGQ+PHRk CPA8oPmtXDqmEDNmfN5 aFHTaP8r1NrAmSgX5CE flJ3XpCEZgsfooJb38e A6qKtSlJrT2DPqnQ2Uc xvY5PDVojHYvALxxISS 5B42qr6Z0SGMnCEPvQE L7tDL7kO1meQxpknugj GVmdDsgdmVydGljYWwt POhoI299DFNqzUxlQrT 7BlM2AoRgIBO9C9ZyWy u1OBJzpUtaAV1uxTHxP KwcDq8rgOdzrXcpVX7x CHUkuylaCJGfjU3mEOI vmMAapWwbMO0uZLBggn kqc398RrKdEGB9RMFny EKiX9LsuR5uUwJaZHLj LRKzR5DzvYKmAGssQ27 7HAtfYqW2MAWsmgGrR5 WiJQOkpTfeQgD9n4G7O b4jVFOZRKYmzrsryMA+ JKZqFNS6pHksOFnyPOX zfP3mCSWoA3y7HnUfFi S8QTudD5VvIXUujvsdD c58tT2fJuHvBoO5HVbw C7OhgoA4IOGiiYBxAJt eJEP4F21px5Y6UBEoZU AfCWW4fYH6nF3qkZrrl jogbGVmdDsgdmVydGlj GHoqQCkjU343QRExnTe nPkZFTUFMRTwvdGQ+PH ZpGXM7qOqrXMbvTJYkv H5fRJVjU4c5DnElFcZ8 JOfhA1UoZSRrcogtPe5 0aA7aIvHfXiH7CMjkJ2 ChosT5KOXflRSpQIfqU XZ0S79mn7H1OEEjVQSp BIC7nMV8kA2hbHounas gbGVmdDsgdmVydGljYW krJKzpA305PQAaqQiwK nZoKFYwPE8vgYituJD+ GG85ms37A9NnVsrwPji 7AOAtNAQ0yBA5jM8iOY TzZSffo2S0oCF1Y6Uid lCweo6vn5clWEIkMSrx C97eoBEtr5V2CBJvtGG 8OFSvcGjzRmByjX30Kk c+FUOyeUnzp6DbGivvp 7civ0mnkJj5CxMjVPOp baTphEkaLPW7y2GdDm6 7S63xBUyzAVWxBZZyBN NyPLSzsZqoyp9stO4dZ i8+IAHjgRG0pMR0vA7a YoPeGxA1NJpyN822QqC ruVKvQorom2llp9gefQ z5ErDkXDUmboQhqScpJ RY8d4BiSu45U0FafUtb o0ChLdp1tj66wLKey5H 2uZZ0O3HaAKLovcbhzI CziUgyBA9uCEWdoqndD STmuF7lBYGuK6h6CmXn MwW1DGreS5JzzqQ5HRU gfEZhYKVdlVWZwI6jsc rco3aipteyEtCqZWOfV Sn7NRa6TLAxyKdrIcNg POX8EsF8QVW2zNLekY7 unWbrvwqkyG7mEcr+UG e9h0vxePBpHO4kaKP0G U82XQ20jFVay2U2mID3 W2HxLCHpnxecrhwigQK 5RIBlTLPmdM15Lo0ynT tzWc1mRFLoFCU7TWDtq DVkJ6ZweP0pDnAwDFHr SYSbD9BnoKCvTUeyE66 5JNavIsB5ELVurfUjF9 MgPGMzqKiwAmF2n1O5X n8VJW71EN19MT05iJKl d1N4uAF2E9EpQGBgguc jvkcpaAN1MEKiNWCvyH 49Em6gzCjuGd8kNYArA LM2AFHoqWSvG3XfbL2y TgAkWNUjQJByG0VuqAO oPVdxF198RZzjZyH2CO ModgXtB2VqFZLfoUikX fA3k0L7Qn2BYr05XV56 UL94aAXsg7G1xMZ3A3Z gUKQiqkokmvtayUG7JR YnSNDsnD85Lb5gkBrdP e9wUVCuOXY5CHLezHQc G0VsxJ8jAmYbZOHiIYG gL2WupODpMDyjE654DQ pbEuB8YHCwzmJqT1PiT WNwiKzbUzN7e0H5Rn6Y WMgdahv8J6IvZxopgPF +ML04ZBRoBY47yRVxoP Ubo5bozQc2MfIxNEMqB BU6lYtlRChdu1IvNYAf Y29 (more content not included)... Normal [facility] CBC AND AUTO DIFFon 05-31-20 24 ABSOLUTE BASOPHIL 0.0 X10E9/L Normal 0.0-0.2 [facility] Comment on above: Performed By: #### C REENA, [id number] #### [facility] ([id number]) [address] [place] [address] 65912 ABSOLUTE NEUTROPHIL 5.1 X10E9/L Normal 1.5-6.6 [facility] Comment on above: Performed By: #### C REENA, [id number] #### [facility] ([id number]) [address] [place] [address] 01034 Basophils/100 WBC (Bld) 0.6 % Normal [facility] Comment on above: Performed By: #### C REENA, [id number] #### [facility] ([id number]) [address] [place] [address] 63181 Eosinophils (Bld) [#/Vol] 0.2 10*3/uL Normal 0.0-0.4 [facility] Comment on above: Performed By: #### Valentín VALLES, #### [facility] ([id number]) [address] [place] [address] 35283 Eosinophils/100 WBC (Bld) 2.0 % Normal [facility] Comment on above: Performed By: #### Valentín VALLES, #### [facility] ([id number]) [address] [place] [address] 60055 Erythrocyte distribution width (RBC) [Ratio] 12.3 % Normal 11.5-15.0 [facility] Comment on above: Performed By: #### Valentín VALLES, #### [facility] ([id number]) [address] [place] [address] 96793 Hematocrit (Bld) [Volume fraction] 39.2 % Normal 35-47 [facility] Comment on above: Performed By: #### Valentín VALLES, #### [facility] ([id number]) [address] [place] [address] 88342 Hemoglobin (Bld) [Mass/Vol] 13.8 g/dL Normal 11.7-15.5 [facility] Comment on above: Performed By: #### Valentín VALLES, #### [facility] ([id number]) [address] [place] [address] 22493 Lymphocytes (Bld) [#/Vol] 2.0 10*3/uL Normal 1.0-3.5 [facility] Comment on above: Performed By: #### Valentín VALLES, #### [facility] ([id number]) [address] [place] [address] 02351 Lymphocytes/100 WBC (Bld) 25.9 % Normal [facility] Comment on above: Performed By: #### Valentín VALLES, #### [facility] ([id number]) [address] [place] [address] 61660 MCH (RBC) [Entitic mass] 32.6 pg Normal 27-34 [facility] Comment on above: Performed By: #### Valentín VALLES, #### [facility] ([id number]) [address] [place] [address] 56600 MCHC (RBC) [Mass/Vol] 35.3 g/dL Normal 32-36 [facility] Comment on above: Performed By: #### Valentín VALLES, #### [facility] ([id number]) [address] [place] [address] 29536 MCV (RBC) [Entitic vol] 93 fL Normal 80-100 [facility] Comment on above: Performed By: #### Valentín VALLES, #### [facility] ([id number]) [address] [place] [address] 81920 Monocytes (Bld) [#/Vol] 0.5 10*3/uL Normal 0-0.9 [facility] Comment on above: Performed By: #### Valentín VALLES, #### [facility] ([id number]) [address] [place] [address] 23675 Monocytes/100 WBC (Bld) 6.0 % Normal [facility] Comment on above: Performed By: #### Valentín VALLES, #### [facility] ([id number]) [address] [place] [address] 02703 Neutrophils/100 WBC (Bld) 65.5 % Normal [facility] Comment on above: Performed By: #### Valentín VALLES, #### [facility] ([id number]) [address] [place] [address] 20100 Platelet mean volume (Bld) [Entitic vol] 8.1 fL Normal 7-12 [facility] Comment on above: Performed By: #### Valentín VALLES, #### [facility] ([id number]) [address] [place] [address] 87762 Platelets (Bld) [#/Vol] 304 10*3/uL Normal 150-450 [facility] Comment on above: Performed By: #### Valentín VALLES, #### [facility] ([id number]) [address] [place] [address] 91854 RBC COUNT 4.23 X10E12/L Normal 3.80-5.20 [facility] Comment on above: Performed By: #### Valentín VALLES, #### [facility] ([id number]) [address] [place] [address] 29192 WBC (Bld) [#/Vol] 7.8 10*3/uL Normal 4.0-11.0 [facility] Comment on above: Performed By: #### Valentín VALLES, #### [facility] ([id number]) [address] [place] [address] 92211 HCG.beta subunit IA 3rd IS Q non 05-31-2024 [place] [address] m[IU]/mL Normal [facility] Comment on above: Result Comment: NEW REFERENCE [...] or nontrophoblastic neoplasms. Performed By: #### C BCA, [id number] #### [facility] ([id number]) [address] [facility], [place] [address] US PREG LESS THAN 14 WKS WIT H TRANSVAGINALon 05-31-2024 US PREG LESS THAN 14 WKS WITH TRANSVAGINAL US PREG LESS THAN 14 WKS WITH TRANSVAGINAL US PREG LESS THAN 14 WKS WITH TRANSVAGINAL CLINICAL INDICATION: Vaginal bleeding FINDINGS: Transvaginal and limited transabdominal ultrasound of the pelvis. UTERUS AND GESTATIONAL SAC: Intrauterine gestation: Single. Gestational sac: Intrauterine. Yolk sac: 0.3 cm Wheeler-rump length (CRL): 0.4 cm heart motion: 125 [...] Rojas on 05/31/2024 3:24 PM Normal [facility] Chlamydia/GC Amplificationon 05-29-2024 Chlamydia Trachomotis, ANGELY Negative Normal Negative [facility] Comment on above: Order Comment: SOURC E OF SPECIMEN: Genital Performed By: #### C MP, LIPASE, CBC #### [facility] [address] [place] [address] [facility] Neisseria Gonorrhoeae, ANGELY Negative Normal Negative [facility] Comment on above: Order Comment: SOURC E OF SPECIMEN: Genital Result Comment: Perf ormed at: =G - [facility] [address] [id number] Smokehouse Worker: Evie Luther MD, Phone: [phone] PERFORMED BY: [place] [address] PATHOLOGIST [employer] PARTNER DALE DUMONT M.D. Performed By: #### C MP, LIPASE, CBC #### [place] [id number] [facility] Fungal Smearon 05-29-2024 Fungal Smear Fungus Smear Results No Yeast Like Elements Seen Trichomonas Screen No Trichomonas Seen Trich Reference Reference range = None Seen PERFORMED BY: [place] [address] PATHOLOGIST [employer] PARTNER DALE DUMONT M.D. Normal [facility] Comment on above: Performed By: #### C MP, LIPASE, CBC #### [address] Genital Cultureon 05-29-2024 Genital Culture Genital Results Light Normal Urogenital Kassidy 2 Days No More GC Specimen not tested for Neisseria gonorrheae PERFORMED BY: [place] [address] PATHOLOGIST [employer] PARTNER DALE DUMONT M.D. Normal [facility] Comment on above: Performed By: #### C MP, LIPASE, CBC #### [address] Trichomonas vaginalis detect ion by wet preparationOrdered By: Oj Navarrete on 05-29-2024 T. vaginalis Wet prep Ql (Unsp spec) [facility] US OB transvaginalon 024 US OB transvaginal [facility] [place] [address] [place] [address] Ultrasound Report Signed Patient: Kisha Lora MR#: [id number] 57 : 2005 Acct:[id number] Age/Sex: 19 / F ADM Date: 05/28/24 Loc: ER Room: Type: [facility] ER Attending Dr: Ordering Provider: Oj Navarrete DO Date of Service: 05/28/24 US/US OB <= 14 weeks fetus: OB/Uterine Contractions ([id number]) US/US OB transvaginal: spotting Copies to: Oj [...] Blake Montague M.D.05/29/2024 6:48 PM Dictation Location: [place] [address] Tech: Emily Kessler Transcribed By: WILLOW 05/29/241847 Dictated By: Blake Montague II, MD 05/29/241845 Signed By: 05/29/241847 Normal [facility] Bacteria [Presence] in Urine by AutomatedOrdered By: Oj Navarrete on 05-28-2024 Bacteria Auto Ql (U) Rare [HPF] None Seen [facility] Bilirubin Test strip Ql (U)O rdered By: Oj Navarrete on 05-28-2024 Bilirubin Ql (U) Negative Negative [facility] Choriogonadotropin.beta subu nit [Units/volume] in Serum or PlasmaOrdered By: Oj Navarrete on 05-28-2024 [place] [address].00 m[IU]/mL [facility] Comment on above: Approximate Approxim ate hCG Gestational Age Range (mIU/ml) (weeks)0.2-1 5-50 1-2 50-500 2-3 100-5,000 3-4 500-10,000 4-5 1,000-50,000 5-6 10,000-100,000 6-8 15,000-200,000 8-12 10,000-100,000 Color of Urine by AutoOrdere d By: Oj Navarrete on 05-28-2024 Color (U) Colorless Normal Yellow [facility] Comment on above: Order Comment: Name Collection Type:: Clean-Voided Midstream Performed By: #### A DDONUAPLUS #### [place] [address] [place] Dipstick and Microscopicon 0 05-28-2024 Bacteria,Urine Rare Normal None Seen [facility] Comment on above: Order Comment: Name Collection Type:: Clean-Voided Midstream Performed By: #### A DDONUAPLUS #### [facility] [address] [place] [address] [place] Bilirubin,Urine Negative Normal Negative [facility] Comment on above: Order Comment: Name Collection Type:: Clean-Voided Midstream Performed By: #### A DDONUAPLUS #### [facility] [address] [place] [id number] [place] Glucose Ql (U) Normal Normal Normal [facility] Comment on above: Order Comment: Name Collection Type:: Clean-Voided Midstream Performed By: #### A DDONUAPLUS #### [facility] [address] [place] [id number] [place] Hyaline Casts,Urine None Normal 0-8 [facility] Comment on above: Order Comment: Name Collection Type:: Clean-Voided Midstream Performed By: #### A DDONUAPLUS #### [facility] [address] [place] [id number] [place] Mucus,Urine Rare Normal [facility] Comment on above: Order Comment: Name Collection Type:: Clean-Voided Midstream Result Comment: PERF ORMED BY: [place] [address] PATHOLOGIST [employer] PARTNER DALE DUMONT M.D. Performed By: #### A DDONUAPLUS #### [place] [address] [place] Nitrite,Urine Negative Normal Negative [facility] Comment on above: Order Comment: Name Collection Type:: Clean-Voided Midstream Performed By: #### A DDONUAPLUS #### [place] [address] [place] Occult Blood,Urine 2+ High Negative [facility] Comment on above: Order Comment: Name Collection Type:: Clean-Voided Midstream Result Comment: PERF ORMED BY: [place] [address] PATHOLOGIST [employer] PARTNER DALE DUMONT M.D. Performed By: #### A DDONUAPLUS #### [place] [address] [place] Protein,Urine Negative Normal Negative [facility] Comment on above: Order Comment: Name Collection Type:: Clean-Voided Midstream Performed By: #### A DDONUAPLUS #### [place] [address] [place] RBC,Urine 3-4 Normal 0-4 [facility] Comment on above: Order Comment: Name Collection Type:: Clean-Voided Midstream Performed By: #### A DDONUAPLUS #### [place] [address] [place] Specificy [place],Urine 1.009 Normal 1.001-1.030 [facility] Comment on above: Order Comment: Name Collection Type:: Clean-Voided Midstream Performed By: #### A DDONUAPLUS #### [place] [address] [place] Squamous Epithelial Cell,Urine 1-2 Normal 0-2 [facility] Comment on above: Order Comment: Name Collection Type:: Clean-Voided Midstream Performed By: #### A DDONUAPLUS #### [facility] [address] Urobilinogen,Urine Normal Normal Normal [facility] Comment on above: Order Comment: Name Collection Type:: Clean-Voided Midstream Performed By: #### A DDONUAPLUS #### [facility] [address] [place] [address] [place] WBC,Urine 1-2 Normal 0-4 [facility] Comment on above: Order Comment: Name Collection Type:: Clean-Voided Midstream Performed By: #### A DDONUAPLUS #### [facility] [address] [place] [address] Epithelial cells.squamous [# /area] in Urine sediment by Automated countOrdered By: Oj Navarrete on 05-28-2024 Epithelial cells.squamous Auto (Urine sed) [#/Area] 1-2 [HPF] 0-2 [facility] Erythrocytes [#/area] in Uri ne sediment by Automated countOrdered By: Oj Navarrete on 05-28-2024 RBC Auto (Urine sed) [#/Area] 3-4 [HPF] 0-4 [facility] Glucose [Mass/volume] in Uri ne by Test stripOrdered By: Oj Navarrete on 05-28-2024 Glucose Test strip (U) [Mass/Vol] Normal mg/dL Normal [facility] HCG,Quantitativeon HCG,Quantitative 38337.00 m[iU]/mL Normal [facility] Comment on above: Result Comment: Appr oximate Approximate hCG Gestational Age Range (mIU/ml) (weeks) 0.2-1 5-50 1-2 50-500 2-3 100-5,000 3-4 500-10,000 4-5 1,000-50,000 5-6 10,000-100,000 6-8 15,000-200,000 8-12 10,000-100,000 PERFORMED BY: [place] [address] PATHOLOGIST [employer] PARTNER DALE DUMONT M.D. Performed By: #### C MP, LIPASE, CBC #### [facility] [address] [place] [address] Hemoglobin Test strip Ql (U) Ordered By: Oj Navarrete on 05-28-2024 Hemoglobin Ql (U) 2+ High Negative [facility] Hyaline casts [#/area] in Ur ine sediment by Automated countOrdered By: Oj Navarrete on 05-28-2024 Hyaline casts Auto (Urine sed) [#/Area] None [LPF] 0-8 [facility] Ketones [Presence] in Urine by Test stripOrdered By: Oj Navarrete on 05-28-2024 Ketones Ql (U) Trace High Negative [facility] Comment on above: Order Comment: Name Collection Type:: Clean-Voided Midstream Performed By: #### A DDONUAPLUS #### [facility] [address] [place] [address] Leukocyte esterase [Presence ] in Urine by Test stripOrdered By: Oj Navarrete on 05-28-2024 Leukocyte esterase Test strip Ql (U) Negative Normal Negative [facility] Comment on above: Order Comment: Name Collection Type:: Clean-Voided Midstream Performed By: #### A DDONUAPLUS #### [address] Leukocytes [#/area] in Urine sediment by Automated countOrdered By: Oj Navarrete on 05-28-2024 WBC Auto (Urine sed) [#/Area] 1-2 [HPF] 0-4 [facility] Mucus [Presence] in Urine by AutomatedOrdered By: Oj Navarrete on 05-28-2024 Mucus Auto Ql (U) Rare [LPF] [facility] Nitrite Test strip Ql (U)Ord ered By: Oj Navarrete on 05-28-2024 Nitrite Ql (U) Negative Negative [facility] Protein Test strip (U) [Mass /Vol]Ordered By: Oj Navarrete on 05-28-2024 Protein (U) [Mass/Vol] Negative Negative [facility] Specific gravity Test strip (U) [Rel density]Ordered By: Oj Navarrete on 05-28-2024 Specific gravity (U) [Rel density] 1.009 1.001-1.030 [facility] Urine appearanceOrdered By: Oj Delgadodaniel on 05-28-2024 Appearance (U) Clear Normal Clear [facility] Comment on above: Order Comment: Name Collection Type:: Clean-Voided Midstream Performed By: #### A DDONUAPLUS #### [address] Urobilinogen Test strip (U) [Mass/Vol]Ordered By: Oj Navarrete on 05-28-2024 Urobilinogen (U) [Mass/Vol] Normal mg/dL Normal [facility] pH of Urine by Test stripOrd ered By: Oj Landon on 05-28-2024 pH (U) 5.5 [pH] Normal 5.0-9.0 [facility] Comment on above: Order Comment: Name Collection Type:: Clean-Voided Midstream Performed By: #### A DDONUAPLUS #### [place] [id number] [place] ABORhon 05-27-2024 ABO and Rh group Nom (Bld) Hx Check: Not Found Anti-A: 0 Anti-B: 0 Anti-D: 4+ DCon: NT A1: 4+ B: 4+ ABORh Interp: O POS Invalid Interpretation Code [facility] Comment on above: Performed By: #### 1 [id number], [id number], [id number] ####[facility] (DEFAULT)[address] [place] [address] ABORh Retypeon 05-27-2024 ABO and Rh group Nom (Bld) Ordered by Discern. Anti-A: 0 Anti-B: 0 Anti-D: 4+ DCon: NT A1: 4+ B: 4+ ABORh Retype: O POS Invalid Interpretation Code [facility] Comment on above: Performed By: #### 1 [id number], [id number], [id number] ####[facility] (DEFAULT)[address] [place] [address] Discharge Noteon 05-27-2024 Discharge Note Patient given discharge instructions and verbalized understanding. Pt informed to call BEHAVIORAL SERVICES TECH regarding repeat labs. Pt ambulated out of unit. [Electronically Signed on: 05/27/2024 01:54 EDT] __ Asia Martinez RN [Verified on: 05/27/2024 01:54 EDT] __ Asia Martinez RN [facility] ED Clinical Summaryon 2023 ED Clinical Summary [facility] - Emergency Department [address] [place], [place] [id number] ED Clinical Summary PERSON INFORMATION Name: KISHA LORA Age: 19 Years Sex: FEMALE : 2005 MRN: Acct#: Visit Reason: Vaginal bleeding - < 20 wks ; VAGINAL BLEEDING/6 WEEKS PREGNAT Arrival: 05/27/2024 00:19:45 Discharge: 05/27/2024 01:52:00 LOS: 000 01:33 Check In: 05/27/2024 00:19:45 Checkout:05/27/2024 01:52:00 Address: [address] [place] [address] PCP: Provider, None PROVIDER INFORMATION Provider Role [...] to 5 days Comments: Follow-up with your BEHAVIORAL SERVICES TECH for repeat quantitative beta hCG and further evaluation of your threatened miscarriage DIAGNOSIS: 1:Threatened miscarriage Patient Understands: Yes - Patient/family/healthcare specialist verbalizes understanding of instructions given Comment: Normal [facility] ED Patient Summaryon 024 ED Patient Summary [facility] - Emergency Department [address] [place], [place] [id number] PATIENT DISCHARGE INSTRUCTIONS Patient Information Name: KISHA LORA Age: 19 Years Date of : 2005 Reason For Visit: Vaginal bleeding - < 20 wks ; VAGINAL BLEEDING/6 WEEKS PREGNAT Arrival Time: 05/27/2024 00:19:45 Primary Care Physician: Provider, None Attending Physician: Monty Lee MD Comment: Visit Diagnosis: Diagnoses This Visit Threatened miscarriage (O20.0) Vaginal bleeding - < 20 wks ([id number]) The Pharmacy at [facility] is open Friday through Friday from 9A [...] alcohol and/or drug addiction problems; contact the [facility] 05/05 Crisis Hotline -Text 6QIIL vc [phone]. If you received any narcotics, sedation, or [...] to 5 days Comments: Follow-up with your BEHAVIORAL SERVICES TECH for repeat quantitative beta hCG and further evaluation of your threatened miscarriage Medication Information: The exam and treatment you received today in the [facility] Emergency Department were for an urgent problem and are not intended as complete care. It is important for you to follow up with a doctor, nurse practitioner, or physician?s department assistant for ongoing care. If your symptoms [...] so we can reach you if necessary. [facility] Emergency Department has provided you with a complete list of medications post discharge. 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 [...] ? Pelvic exams. (more content not included)... [facility] Extra Ehsan 05-27-2024 Tube Collected Yes Invalid Interpretation Code [facility] Comment on above: Performed By: #### 1 [id number], [id number] ####[facility] (DEFAULT)[address] [place] [address] Test Urine 1on U Preg Positive [facility] Comment on above: Performed By: #### 3 [id number] #### [facility] (DEFAULT) [address] [place] [address] U Preg Internal Control Pass [facility] Comment on above: Performed By: #### 3 [id number] #### [facility] (DEFAULT) [address] [place] [address] RhIG.on 05-27-2024 RhIG. No. Vials RhI RhIG Candidate?: No Date to Give: [id number] RhIG Status: NA [facility] Comment on above: Performed By: #### 1 [id number], [id number], [id number] ####[facility] (DEFAULT)[address] [place] [address] UA Smoda7gx 05-27-2024 UA Amorph. Few [facility] Comment on above: Order Comment: Urina lysis Microscopic order added on by [employer]aze [employer] Expert Rules system. Performed By: #### 1 [id number], [id number] ####[facility] (DEFAULT)[address] [place] [address]25[address] UA Bacteria None [facility] Comment on above: Order Comment: Urina lysis Microscopic order added on by [employer] Expert Rules system. Performed By: #### 1 [id number], [id number] ####[facility] (DEFAULT)[address] [place] [address] 68922 UA Mucous Trace [facility] Comment on above: Order Comment: Urina lysis Microscopic order added on by Discern Expert Rules system. Performed By: #### 1 [id number], [id number] ####[facility] (DEFAULT)[address] [place] [address] UA RBC None Seen [facility] Comment on above: Order Comment: Urina lysis Microscopic order added on by Discern Expert Rules system. Performed By: #### 1 [id number], [id number] ####[facility] (DEFAULT)[address] [place] [address] UA Squam Epi Few [facility] Comment on above: Order Comment: Urina lysis Microscopic order added on by Discern Expert Rules system. Performed By: #### 1 [id number], [id number] ####[facility] (DEFAULT)[address] [place] [address] UA WBC 0-2 [facility] Comment on above: Order Comment: Urina lysis Microscopic order added on by Discern Expert Rules system. Performed By: #### 1 [id number], [id number] ####[facility] (DEFAULT)[address] [place] [address] UA w Culture if Ind Standard on 05-27-2024 Breakpoint UA [facility] Comment on above: Performed By: #### 1 [id number], [id number] ####[facility] (DEFAULT)[address] [place] [address] Color (U) Yellow [facility] Comment on above: Performed By: #### 1 [id number], [id number] ####[facility] (DEFAULT)[address] [place] [address] Culture? Not Indicated Invalid Interpretation Code [facility] Comment on above: Result Comment: Resu lt created by rule GL_MAGR_ADD_UA_CULT Result created by rule GL_MAGR_ADD_UA_CULT Result created by rule GL_MAGR_ADD_UA_CULT1 Performed By: #### 1 [id number], [id number] ####[facility] (DEFAULT)[address] [place] [address] Glucose (U) [Mass/Vol] Negative Normal [facility] Comment on above: Performed By: #### 1 [id number], [id number] ####[facility] (DEFAULT)[address] [place] [address] Ketones Ql (U) Negative Normal [facility] Comment on above: Performed By: #### 1 [id number], [id number] ####[facility] (DEFAULT)[address] [place] [address] Micro? Indicated Invalid Interpretation Code [facility] Comment on above: Result Comment: Resu lt created by rule GL_MAGR_ADD_UA_MICRO Performed By: #### 1 [id number], [id number] ####[facility] (DEFAULT)[address] [place] [address] UA Bilirubin Negative Normal [facility] Comment on above: Performed By: #### 1 [id number], [id number] ####[facility] (DEFAULT)[address] [place] [address] UA Blood Negative Normal NEGATIVE [facility] Comment on above: Performed By: #### 1 [id number], [id number] ####[facility] (DEFAULT)[address] [place] [address] UA Clarity SL CLOUDY Abnormal CLEAR [facility] Comment on above: Performed By: #### 1 [id number], [id number] ####[facility] (DEFAULT)[address] [place] [address] UA Leuk Est Negative Normal NEGATIVE [facility] Comment on above: Performed By: #### 1 [id number], [id number] ####[facility] (DEFAULT)[address] [place] [address] UA Nitrite Negative Normal NEGATIVE [facility] Comment on above: Performed By: #### 1 [id number], [id number] ####[facility] (DEFAULT)[address] [place] [address]1867 UA pH 7.0 Normal 5-8 [facility] Comment on above: Performed By: #### 1 [id number], [id number] ####[facility] (DEFAULT)[address] [place] [address] UA Protein Negative Normal NEGATIVE [facility] Comment on above: Performed By: #### 1 [id number], [id number] ####[facility] (DEFAULT)[address] [place] [address]27 UA Spec Grav 1.020 Normal 1.001-1.035 [facility] Comment on above: Performed By: #### 1 [id number], [id number] ####[facility] (DEFAULT)[address] [place] [address] UA Urobilinogen 0.2 mg/dL Normal 0.2-1.0 [facility] Comment on above: Performed By: #### 1 [id number], [id number] ####[facility] (DEFAULT)[address] [place] [address]270 Urine Source Clean Catch Normal [facility] Comment on above: Performed By: #### 1 [id number], [id number] ####[facility] (DEFAULT)[address] [place] [address] hCG Quantitativeon 4 hCG Quantitative 33024.0 mIU/mL High 0.0-0.6 [facility] Comment on above: Result Comment: Post -Menopausal Reference Range is: 0.1-11.6 mIU/mL Performed By: #### 1 [id number], [id number] ####[facility] (DEFAULT)[address] [place] [address]282 Bilirubin Test strip Ql (U)O rdered By: PROVIDER TEMP on 05-26-2024 Bilirubin Ql (U) Negative Negative [facility] Color of Urine by AutoOrdere d By: PROVIDER TEMP on 05-26-2024 Color (U) Colorless Normal Yellow [facility] Comment on above: Order Comment: Name Collection Type:: Clean-Voided Midstream Performed By: #### C MP, LIPASE, CBC #### [address] Glucose [Mass/volume] in Uri ne by Test stripOrdered By: PROVIDER TEMP on 05-26-2024 Glucose Test strip (U) [Mass/Vol] Normal mg/dL Normal [facility] HCG ( test) IA.rapi d Ql (U)Ordered By: PROVIDER TEMP on 05-26-2024 HCG ( test) Ql (U) Positive High [facility] HCG,Urineon 05-26-2024 Beta HCG ( test) Ql (U) Positive High [facility] Comment on above: Order Comment: Name Collection Type:: Clean-Voided Midstream Result Comment: PERF ORMED BY: [place] [address] PATHOLOGIST [employer] DALE DUMONT M.D. Performed By: #### C MP, LIPASE, CBC #### [facility] [address] [place] [address] Hemoglobin Test strip Ql (U) Ordered By: PROVIDER TEMP on 05-26-2024 Hemoglobin Ql (U) Negative Negative [facility] Ketones [Presence] in Urine by Test stripOrdered By: PROVIDER TEMP on 05-26-2024 Ketones Ql (U) Negative Normal Negative [facility] Comment on above: Order Comment: Name Collection Type:: Clean-Voided Midstream Performed By: #### C MP, LIPASE, CBC #### [facility] [address] [place] [address] Leukocyte esterase [Presence ] in Urine by Test stripOrdered By: PROVIDER TEMP on 05-26-2024 Leukocyte esterase Test strip Ql (U) Negative Normal Negative [facility] Comment on above: Order Comment: Name Collection Type:: Clean-Voided Midstream Performed By: #### C MP, LIPASE, CBC #### [facility] [address] [place] [address] [place] Nitrite Test strip Ql (U)Ord ered By: PROVIDER TEMP on 05-26-2024 Nitrite Ql (U) Negative Negative [facility] Protein Test strip (U) [Mass /Vol]Ordered By: PROVIDER TEMP on 05-26-2024 Protein (U) [Mass/Vol] Negative Negative [facility] Specific gravity Test strip (U) [Rel density]Ordered By: PROVIDER TEMP on 05-26-2024 Specific gravity (U) [Rel density] 1.005 1.001-1.030 [facility] Urinalysison 05-26-2024 Bilirubin,Urine Negative Normal Negative [facility] Comment on above: Order Comment: Name Collection Type:: Clean-Voided Midstream Performed By: #### C MP, LIPASE, CBC #### [address] Glucose Ql (U) Normal Normal Normal [facility] Comment on above: Order Comment: Name Collection Type:: Clean-Voided Midstream Performed By: #### C MP, LIPASE, CBC #### [address] Nitrite,Urine Negative Normal Negative [facility] Comment on above: Order Comment: Name Collection Type:: Clean-Voided Midstream Performed By: #### C MP, LIPASE, CBC #### [address] Occult Blood,Urine Negative Normal Negative [facility] Comment on above: Order Comment: Name Collection Type:: Clean-Voided Midstream Performed By: #### C MP, LIPASE, CBC #### [address] Protein,Urine Negative Normal Negative [facility] Comment on above: Order Comment: Name Collection Type:: Clean-Voided Midstream Performed By: #### C MP, LIPASE, CBC #### [address] Specificy [place],Urine 1.005 Normal 1.001-1.030 [facility] Comment on above: Order Comment: Name Collection Type:: Clean-Voided Midstream Performed By: #### C MP, LIPASE, CBC #### [address] Urobilinogen,Urine Normal Normal Normal [facility] Comment on above: Order Comment: Name Collection Type:: Clean-Voided Midstream Performed By: #### C MP, LIPASE, CBC #### [place] [id number] [facility] Urine appearanceOrdered By: PROVIDER TEMP on 05-26-2024 Appearance (U) Clear Normal Clear [facility] Comment on above: Order Comment: Name Collection Type:: Clean-Voided Midstream Performed By: #### C MP, LIPASE, CBC #### [facility] [address] Urobilinogen Test strip (U) [Mass/Vol]Ordered By: PROVIDER TEMP on 05-26-2024 Urobilinogen (U) [Mass/Vol] Normal mg/dL Normal [facility] pH of Urine by Test stripOrd ered By: PROVIDER TEMP on 05-26-2024 pH (U) 5.5 [pH] Normal 5.0-9.0 [facility] Comment on above: Order Comment: Name Collection Type:: Clean-Voided Midstream Performed By: #### C MP, LIPASE, CBC #### [facility] [address] Automated erythrocytes count in urine sediment (number/area)Ordered By: Felisha Briones on 06-05-2023 RBC Auto (Urine sed) [#/Area] 0-1 [HPF] 0-4 [facility] Automated leukocytes count i n urine sediment (number/area)Ordered By: Felisha Briones on 06-05-2023 WBC Auto (Urine sed) [#/Area] 5-9 [HPF] 0-4 [facility] Automated urine hyaline cast s count (number/volume)Ordered By: Felisha Briones on 06-05-2023 Hyaline casts Auto (U) [#/Vol] None seen [LPF] 0-1 [facility] Bilirubin Test strip Ql (U)O rdered By: Felisha Briones on 06-05-2023 Bilirubin Ql (U) Negative Negative [facility] Casts typing in urine sedime nt by light microscopyOrdered By: Felisha Briones on 06-05-2023 Casts LM Nom (Urine sed) None seen [LPF] None S een [facility] Color Auto (U)Ordered By: Samia Briones on 06-05-2023 Color (U) Yellow Yellow [facility] Fungal cultureOrdered By: Samia Briones on 06-05-2023 Fungus identified Cx Nom (Unsp spec) [facility] HCG ( test) IA.rapi d Ql (U)Ordered By: Felisha Briones on 06-05-2023 HCG ( test) Ql (U) Negative [facility] Ketones Auto test strip (U) [Mass/Vol]Ordered By: Felisha Briones on 06-05-2023 Ketones (U) [Mass/Vol] Trace Negative [facility] Nitrite Test strip Ql (U)Ord ered By: Felisha Briones on 06-05-2023 Nitrite Ql (U) Negative Negative [facility] Protein Auto test strip (U) [Mass/Vol]Ordered By: Felisha Briones on 06-05-2023 Protein (U) [Mass/Vol] 30 mg/dL Negative [facility] Specific gravity Auto test s trip (U) [Rel density]Ordered By: Felisha Briones on 06-05-2023 Specific gravity (U) [Rel density] 1.030 1.001-1.030 [facility] Squamous epithelial cells de tection in urine sediment by light microscopyOrdered By: Felisha Briones on 06-05-2023 Epithelial cells.squamous LM Ql (Urine sed) 10-19 [HPF] 0-2 [facility] Trichomonas vaginalis detect ion by wet preparationOrdered By: Felisha Briones on 06-05-2023 T. vaginalis Wet prep Ql (Unsp spec) [facility] Urine bacteria detection by automated methodOrdered By: Felisha Briones on 06-05-2023 Bacteria Auto Ql (U) 1+ None Seen [facility] Urine clarity by refractomet ry automatedOrdered By: Felisha Briones on 06-05-2023 Clarity Refractometry automated (U) Cloudy Clear [facility] Urine glucose measurement by automated test strip (mass/volume)Ordered By: Felisha Briones on 06-05-2023 Glucose Auto test strip (U) [Mass/Vol] Normal mg/dL Normal [facility] Urine hemoglobin detection b y automated test stripOrdered By: Felisha Briones on 06-05-2023 Hemoglobin Auto test strip Ql (U) Negative Negative [facility] Urine leukocyte esterase det ection by automated test stripOrdered By: Felisha Briones on 06-05-2023 Leukocyte esterase Auto test strip Ql (U) Negative Negative [facility] Urobilinogen Auto test strip (U) [Mass/Vol]Ordered By: Felisha Aguirreimore on 06-05-2023 Urobilinogen (U) [Mass/Vol] Normal mg/dL Normal [facility] pH Auto test strip (U)Ordere d By: Felisha Starksore on 06-05-2023 pH (U) 6.0 [pH] 5.0-9.0 [facility] Consultation Noteon 05-31-20 Consultation Note [id number] E#1.00CD:127 [facility] Formson 11-03-2020 Forms [id number]#1.00CD:127 [facility] Consenton 10-26-2020 Consent [id number]#1.00CD:127 [facility] Registrationon 10-26-2020 Registration [id number]#1.00CD:127 [facility] ED Note-Physicianon 08-24-20 ED Note-Physician [id number]#1.00CD:127 [facility] Form[facility] 07-21-2020 Forms [id number]#1.00CD:127 [facility] 06-09-2020 Consent [id number]#1.00CD:127 [facility] Family Medicine Office/Clini c Noteon 06-09-2020 [...] In 1 [address] [place] [address]- Additional Instructions: Problem List/Past Medical History Ongoing Well child check Historical No qualifying data Medications No active medications Allergies No Known Allergies Social History Alcohol - Denies Alcohol Use, 06/28/2019 Substance Abuse - Denies Substance Abuse, 06/28/2019 Tobacco Never (less than 100 in lifetime) Tobacco Use:. Never Smokeless Tobacco Use:., 06/28/2019 Family History Family history is negative Normal [facility] Comment on above: Result Comment: Elec tronically Signed By: Soto MARINELLI DO.angelica\Date and Time Signed: 06/09/20 11:23 EDT Vital Signs Date Time Vital Sign Value Performing Clinician Facility 01-11-2025 18:32-0400 Respiratory rate 16 /min PHYSICIAN [facility] 01-11-2025 18:31-0400 Diastolic blood pressure 69 mm[Hg] PHYSICIAN [facility] 01-11-2025 18:31-0400 Heart rate 75 /min PHYSICIAN [facility] 01-11-2025 18:31-0400 Systolic blood pressure 123 mm[Hg] PHYSICIAN [facility] 01-11-2025 17:36-0400 Body height 172.72 cm PHYSICIAN [facility] 01-11-2025 17:36-0400 Body weight 108.86 kg PHYSICIAN [facility] 01-11-2025 17:33-0400 Body temperature 97.9 [degF] PHYSICIAN [facility] 01-10-2025 16:19-0400 Body mass index (BMI) [Ratio] 37.99 kg/m2 Edie Josselino CN Work Phone: [facility] 01-10-2025 16:19-0400 Body weight 112.49 kg Edie Floro CN Work Phone: [facility] 01-10-2025 16:19-0400 Diastolic blood pressure 100 mm[Hg] Edie Floro CN Work Phone: [facility] Comment on above: repeat 156/102 01-10-2025 16:19-0400 Systolic blood pressure 150 mm[Hg] Edie Floro CNM Work Phone: [facility] Comment on above: repeat 156/102 01-03-2025 13:13-0400 Body mass index (BMI) [Ratio] 37.22 kg/m2 [facility] 01-03-2025 13:13-0400 Body weight 110.22 kg Edie Mays CNM Work Phone: [facility] 01-03-2025 13:13-0400 Diastolic blood pressure 80 mm[Hg] Edie Mays CNM Work Phone: [facility] 01-03-2025 13:13-0400 Systolic blood pressure 118 mm[Hg] Edie Mays CNM Work Phone: [facility] 12-24-2024 15:18-0400 Respiratory rate 18 /min PHYSICIAN NO [facility] 12-24-2024 14:48-0400 Diastolic blood pressure 60 mm[Hg] PHYSICIAN NO [facility] 12-24-2024 14:48-0400 Heart rate 79 /min PHYSICIAN NO [facility] 12-24-2024 14:48-0400 Systolic blood pressure 123 mm[Hg] PHYSICIAN NO [facility] 12-24-2024 14:47-0400 SaO2% (BldA) [Mass fraction] 97 % PHYSICIAN NO [facility] 12-24-2024 14:08-0400 Body temperature 97.2 [degF] PHYSICIAN NO [facility] 12-24-2024 14:06-0400 Body height 172.72 cm PHYSICIAN NO [facility] 12-24-2024 14:06-0400 Body weight 102.51 kg PHYSICIAN NO [facility] 12-03-2024 15:24-0500 Diastolic blood pressure 60 mm[Hg] PHYSICIAN NO [facility] 12-03-2024 15:24-0500 Systolic blood pressure 125 mm[Hg] PHYSICIAN NO [facility] 12-03-2024 10:45-0500 Body temperature 97.6 [degF] PHYSICIAN NO [facility] 12-03-2024 10:45-0500 Respiratory rate 16 /min PHYSICIAN NO [facility] 12-03-2024 10:10-0500 Body height 172.72 cm PHYSICIAN NO [facility] 12-03-2024 10:10-0500 Body weight 90.71 kg PHYSICIAN NO [facility] 11-25-2024 13:24-0500 Body mass index (BMI) [Ratio] 35.54 kg/m2 Edie Mays CNM Work Phone: [facility] 11-25-2024 13:24-0500 Body weight 105.23 kg Edie Mays CNM Work Phone: [facility] 11-25-2024 13:24-0500 Diastolic blood pressure 80 mm[Hg] Edie Mays CNM Work Phone: [facility] 11-25-2024 13:24-0500 Systolic blood pressure 120 mm[Hg] Edie Mays CNM Work Phone: [facility] 11-18-2024 15:54-0500 Diastolic blood pressure 57 mm[Hg] PHYSICIAN [facility] 11-18-2024 15:54-0500 Heart rate 94 /min PHYSICIAN [facility] 11-18-2024 15:54-0500 Respiratory rate 18 /min PHYSICIAN [facility] 11-18-2024 15:54-0500 SaO2% (BldA) [Mass fraction] 99 % PHYSICIAN NO [facility] 11-18-2024 15:54-0500 Systolic blood pressure 121 mm[Hg] PHYSICIAN [facility] 11-18-2024 14:18-0500 Body height 172.72 cm PHYSICIAN [facility] 11-18-2024 14:18-0500 Body temperature 97.7 [degF] PHYSICIAN [facility] 11-18-2024 14:18-0500 Body weight 105 kg PHYSICIAN [facility] 11-08-2024 15:35-0500 Diastolic blood pressure 61 mm[Hg] PHYSICIAN NO [facility] 11-08-2024 15:35-0500 Heart rate 91 /min PHYSICIAN [facility] 11-08-2024 15:35-0500 Respiratory rate 16 /min PHYSICIAN [facility] 11-08-2024 15:35-0500 SaO2% (BldA) [Mass fraction] 97 % PHYSICIAN [facility] 11-08-2024 15:35-0500 Systolic blood pressure 131 mm[Hg] PHYSICIAN NO [facility] 11-08-2024 15:08-0500 Body height 172.72 cm PHYSICIAN NO [facility] 11-08-2024 15:08-0500 Body weight 99.79 kg PHYSICIAN NO [facility] 10-28-2024 13:41-0500 Body mass index (BMI) [Ratio] 33.7 kg/m2 Edie Mays CN Work Phone: [facility] 10-28-2024 13:41-0500 Body weight 99.79 kg [facility] 10-28-2024 13:41-0500 Diastolic blood pressure 80 mm[Hg] Edie Mays CNM Work Phone: [facility] 10-28-2024 13:41-0500 Systolic blood pressure 120 mm[Hg] Edie Mays CN Work Phone: [facility] 10-07-2024 12:29-0500 Body height 172.72 cm PHYSICIAN NO [facility] 10-07-2024 12:29-0500 Body weight 93.44 kg PHYSICIAN NO [facility] 10-07-2024 12:27-0500 Body temperature 97.2 [degF] PHYSICIAN NO [facility] 10-07-2024 12:27-0500 Diastolic blood pressure 75 mm[Hg] PHYSICIAN NO [facility] 10-07-2024 12:27-0500 Heart rate 97 /min PHYSICIAN NO [facility] 10-07-2024 12:27-0500 Respiratory rate 18 /min PHYSICIAN NO [facility] 10-07-2024 12:27-0500 SaO2% (BldA) [Mass fraction] 98 % PHYSICIAN NO [facility] 10-07-2024 12:27-0500 Systolic blood pressure 134 mm[Hg] PHYSICIAN NO [facility] 10-04-2024 17:00-0500 Body height 172.72 cm PHYSICIAN NO [facility] 10-04-2024 17:00-0500 Body weight 93.44 kg PHYSICIAN NO [facility] 10-04-2024 16:30-0500 Body temperature 97.3 [degF] PHYSICIAN NO [facility] 10-04-2024 16:30-0500 Respiratory rate 18 /min PHYSICIAN NO [facility] 10-04-2024 16:30-0500 SaO2% (BldA) [Mass fraction] 96 % PHYSICIAN NO [facility] 09-30-2024 13:10-0500 Body mass index (BMI) [Ratio] 31.4 kg/m2 Edie Tayloro CNM Work Phone: [facility] 09-30-2024 13:10-0500 Body weight 92.99 kg Edieraisa Tayloro CNM Work Phone: [facility] 09-30-2024 13:10-0500 Diastolic blood pressure 70 mm[Hg] Edie Josselino CNM Work Phone: [facility] 09-30-2024 13:10-0500 Systolic blood pressure 120 mm[Hg] Edie Josselino CNM Work Phone: [facility] 09-08-2024 10:48-0500 Diastolic blood pressure 80 mm[Hg] Edie Josselino CNM Work Phone: [facility] 09-08-2024 10:48-0500 Systolic blood pressure 120 mm[Hg] Edie Josselino CNM Work Phone: [facility] 08-28-2024 15:12-0500 Body height 20.32 cm PHYSICIAN NO [facility] 08-28-2024 15:12-0500 Body temperature 98.3 [degF] PHYSICIAN [facility] 08-28-2024 15:12-0500 Body weight 88.85 kg PHYSICIAN NO [facility] 08-28-2024 15:12-0500 Diastolic blood pressure 75 mm[Hg] PHYSICIAN NO [facility] 08-28-2024 15:12-0500 Heart rate 89 /min PHYSICIAN NO [facility] 08-28-2024 15:12-0500 Respiratory rate 20 /min PHYSICIAN [facility] 08-28-2024 15:12-0500 SaO2% (BldA) [Mass fraction] 98 % PHYSICIAN NO [facility] 08-28-2024 15:12-0500 Systolic blood pressure 136 mm[Hg] PHYSICIAN NO [facility] 08-24-2024 16:47-0500 Body height 172.72 cm PHYSICIAN [facility] 08-24-2024 16:47-0500 Body temperature 98.4 [degF] PHYSICIAN NO [facility] 08-24-2024 16:47-0500 Body weight 87 kg PHYSICIAN [facility] 08-24-2024 16:47-0500 Diastolic blood pressure 78 mm[Hg] PHYSICIAN [facility] 08-24-2024 16:47-0500 Heart rate 92 /min PHYSICIAN [facility] 08-24-2024 16:47-0500 Respiratory rate 16 /min PHYSICIAN [facility] 08-24-2024 16:47-0500 SaO2% (BldA) [Mass fraction] 98 % PHYSICIAN NO [facility] 08-24-2024 16:47-0500 Systolic blood pressure 140 mm[Hg] PHYSICIAN [facility] 08-12-2024 09:49-0400 Body mass index (BMI) [Ratio] 28.03 kg/m2 Edieraisa Mays [facility] Work Phone: [facility] 08-12-2024 09:49-0400 Body weight 83.01 kg Edie Mays CN Work Phone: [facility] 08-12-2024 09:49-0400 Diastolic blood pressure 80 mm[Hg] [facility] Work [facility]: [facility] 08-12-2024 09:49-0400 Systolic blood pressure 120 mm[Hg] Edie Tayloro CN Work Phone: [facility] 07-13-2024 09:32-0400 Body mass index (BMI) [Ratio] 27.26 kg/m2 [facility] 07-13-2024 09:32-0400 Body weight 80.74 kg Edie Floro CNM Work Phone: [facility] 07-13-2024 09:32-0400 Diastolic blood pressure 70 mm[Hg] Edie Floro CNM Work Phone: [facility] 07-13-2024 09:32-0400 Systolic blood pressure 112 mm[Hg] Edie Floro CNM Work Phone: [facility] 06-15-2024 09:29-0400 Body mass index (BMI) [Ratio] 27.57 kg/m2 Edie Floro CNM Work Phone: [facility] 06-15-2024 09:29-0400 Body weight 81.65 kg Edie Floro CNM Work Phone: [facility] 06-15-2024 09:29-0400 Diastolic blood pressure 70 mm[Hg] Edie Floro CNM Work Phone: [facility] 06-15-2024 09:29-0400 Systolic blood pressure 112 mm[Hg] Edie Floro CNM Work Phone: [facility] 06-01-2024 14:09-0400 Body mass index (BMI) [Ratio] 26.81 kg/m2 Edie Floro CNM Work Phone: [facility] 06-01-2024 14:09-0400 Body weight 79.38 kg Edie Floro CNM Work Phone: [facility] 06-01-2024 14:09-0400 Diastolic blood pressure 80 mm[Hg] Edie Floro CNM Work Phone: [facility] 06-01-2024 14:09-0400 Systolic blood pressure 120 mm[Hg] Edie Floro CNM Work Phone: [facility] 05-29-2024 02:39-0400 Diastolic blood pressure 57 mm[Hg] PHYSICIAN [facility] 05-29-2024 02:39-0400 Heart rate 70 /min PHYSICIAN NO [facility] 05-29-2024 02:39-0400 Respiratory rate 18 /min PHYSICIAN NO [facility] 05-29-2024 02:39-0400 SaO2% (BldA) [Mass fraction] 98 % PHYSICIAN NO [facility] 05-29-2024 02:39-0400 Systolic blood pressure 107 mm[Hg] PHYSICIAN NO [facility] 05-28-2024 21:43-0400 Body temperature 98.8 [degF] PHYSICIAN NO [facility] 05-28-2024 21:38-0400 Body height 172.72 cm PHYSICIAN NO [facility] 05-28-2024 21:38-0400 Body weight 80 kg PHYSICIAN NO [facility] 05-26-2024 21:36-0400 Body height 172.72 cm PHYSICIAN NO [facility] 05-26-2024 21:36-0400 Body temperature 99 [degF] PHYSICIAN NO [facility] 05-26-2024 21:36-0400 Body weight 81.5 kg PHYSICIAN NO [facility] 05-26-2024 21:36-0400 Diastolic blood pressure 81 mm[Hg] PHYSICIAN NO [facility] 05-26-2024 21:36-0400 Heart rate 86 /min PHYSICIAN NO [facility] 05-26-2024 21:36-0400 Respiratory rate 18 /min PHYSICIAN NO [facility] 05-26-2024 21:36-0400 SaO2% (BldA) [Mass fraction] 99 % PHYSICIAN NO [facility] 05-26-2024 21:36-0400 Systolic blood pressure 135 mm[Hg] PHYSICIAN NO [facility] 11-02-2023 11:12-0500 Body mass index (BMI) [Ratio] 27.3 kg/m2 Maria Luisa Naranjo [employer] Work Phone: [facility] 11-02-2023 11:12-0500 Body temperature 97.39 [degF] Maria Luisa Naranjo [employer] Work Phone: [facility] 11-02-2023 11:12-0500 Body weight 80.83 kg Maria Luisa Kiepert [employer] Work Phone: [facility] 11-02-2023 11:12-0500 Diastolic blood pressure 68 mm[Hg] Maria Luisa Kiepert [employer] Work Phone: [facility] 11-02-2023 11:12-0500 Heart rate 86 /min Maria Luisa Kiepert [employer] Work Phone: [facility] 11-02-2023 11:12-0500 Respiratory rate 18 /min Maria Luisa Kiepert [employer] Work Phone: [facility] 11-02-2023 11:12-0500 SaO2% (BldA) [Mass fraction] 98 % Maria Luisa Kiepert [employer] Work Phone: [facility] 11-02-2023 11:12-0500 Systolic blood pressure 112 mm[Hg] Maria Luisa Kiepert [employer] Work Phone: [facility] 06-05-2023 13:27-0400 Body height 175.26 cm PHYSICIAN NO [facility] 06-05-2023 13:27-0400 Body temperature 98.2 [degF] PHYSICIAN [facility] 06-05-2023 13:27-0400 Body weight 78.4 kg PHYSICIAN [facility] 06-05-2023 13:27-0400 Diastolic blood pressure 77 mm[Hg] PHYSICIAN [facility] 06-05-2023 13:27-0400 Heart rate 73 /min PHYSICIAN [facility] 06-05-2023 13:27-0400 Respiratory rate 18 /min PHYSICIAN NO [facility] 06-05-2023 13:27-0400 SaO2% (BldA) [Mass fraction] 97 % PHYSICIAN [facility] 06-05-2023 13:27-0400 Systolic blood pressure 124 mm[Hg] PHYSICIAN [facility] 11-12-2022 10:49-0500 Body height 172.72 cm PHYSICIAN NO [facility] 11-12-2022 10:49-0500 Body temperature 98.3 [degF] PHYSICIAN NO [facility] 11-12-2022 10:49-0500 Body weight 76.2 kg PHYSICIAN NO [facility] 11-12-2022 10:49-0500 Diastolic blood pressure 98 mm[Hg] PHYSICIAN NO [facility] 11-12-2022 10:49-0500 Heart rate 85 /min PHYSICIAN NO [facility] 11-12-2022 10:49-0500 Respiratory rate 18 /min PHYSICIAN NO [facility] 11-12-2022 10:49-0500 SaO2% (BldA) [Mass fraction] 99 % PHYSICIAN NO [facility] 11-12-2022 10:49-0500 Systolic blood pressure 144 mm[Hg] PHYSICIAN NO [facility] Encounters Encounter Date Encounter Type Care Provider Facility Start: 01-12-2025 End: 01-12-2025 Bamboo flowsheet Edie Clarissa Floro CNM Work Phone: [facility] Start: 01-12-2025 End: 01-12-2025 Bamboo flowsheet Edie Clarissa Tayloro CNM Work Phone: [facility] Start: 01-11-2025 End: 01-11-2025 ambulatory PHYSICIAN [facility] Work Phone: Start: 01-11-2025 End: 01-11-2025 Patient encounter procedure PHYSICIAN [facility] - [facility]/P Start: 01-11-2025 End: 01-11-2025 External Result Encounter Tirso Mancilla MD Work Phone: [facility] Unsolicited Start: 01-11-2025 End: 01-11-2025 External Result Encounter Tirso Mancilla MD Work Phone: [facility] Unsolicited Start: 01-10-2025 ambulatory EDIE TAYLORO Not Marisa ilable Start: 01-10-2025 End: 01-10-2025 Office outpatient visit 15 minutes Edie L Floro CNM Work Phone: [facility] Comment on above: related co ndition in third trimester (Primary Dx); Elevated blood pressure affecting in third trimester, antepartum Start: 01-10-2025 ambulatory EDIE L FLORO Not Marisa ilable Start: 01-10-2025 End: 01-10-2025 Bamboo flowsheet Edie L Floro CNM Work Phone: [facility] Start: 01-10-2025 End: 01-10-2025 Bamboo flowsheet Edie L Floro CNM Work Phone: [facility] Start: 01-10-2025 End: 01-10-2025 Clinisync Result Encounter Edie L Floro CNM Work Phone: [facility] Unsolicited Start: 01-03-2025 End: 01-03-2025 Office outpatient visit [...] End: 12-24-2024 Patient encounter procedure PHYSICIAN NO [facility] - [facility]P Start: 12-24-2024 End: 12-24-2024 ambulatory PHYSICIAN [facility] Work Phone: Start: 12-09-2024 End: 12-09-2024 [...] End: 12-03-2024 Patient encounter procedure PHYSICIAN NO [facility] - O/P Start: 12-03-2024 End: 12-03-2024 ambulatory PHYSICIAN NO [facility] Work Phone: Start: 11-25-2024 End: 11-25-2024 [...] 11-18-2024 Emergency department patient visit PHYSICIAN NO [facility] Work Phone: Start: 11-08-2024 End: 11-08-2024 Patient encounter procedure PHYSICIAN NO [facility] - O/P Start: 11-08-2024 End: 11-08-2024 ambulatory PHYSICIAN NO [facility] Work Phone: Start: 11-08-2024 End: 11-08-2024 External Result Encounter Vee Yang DO Work Phone: [facility] Unsolicited Start: 11-08-2024 End: 11-08-2024 External Result Encounter Vee Yang DO Work Phone: [facility] Unsolicited Start: 11-03-2024 End: 11-03-2024 Telephone encounter Edie L Floro CNM Work Phone: [facility] Start: 10-29-2024 End: 10-29-2024 Telephone encounter Noms Provider Unallocated MD Work Phone: [facility] Start: 10-28-2024 [...] 10-17-2024 Emergency department patient visit Ailyn Murrell Facility:[facility] Start: 10-07-2024 End: 10-07-2024 ambulatory Tirso Mancilla Facility:[facility] Start: 10-07-2024 End: 10-07-2024 Patient encounter procedure PHYSICIAN NO [facility] - O/P Start: 10-04-2024 End: 10-04-2024 Patient encounter procedure PHYSICIAN NO [facility] - O/P Start: 10-04-2024 End: 10-04-2024 ambulatory Vee Trey Facility:[facility] Start: 09-30-2024 End: 09-30-2024 Bamboo flowsheet Edie [...] 08-28-2024 Emergency department patient visit PHYSICIAN NO [facility] Work Phone: Start: 08-24-2024 End: 08-24-2024 Emergency department patient visit PHYSICIAN NO [facility] Work Phone: Start: 08-19-2024 End: [...] department patient visit NO PCP NO PCP [facility] Start: 06-15-2024 End: 06-15-2024 Office outpatient visit [...] 06-01-2024 Office outpatient visit 15 minutes Edie Clarissa Tayloro CNM Work Phone: [facility] Comment on above: GA: [id number] Start: 06-01-2024 End: 06-01-2024 ambulatory EDIE TAYLORO Not Available Start: 05-31-2024 End: 06-01-2024 Emergency department patient visit JOS LANDIS [facility] Start: 05-28-2024 End: 05-29-2024 Emergency department patient visit PHYSICIAN NO [facility]Emergency Room Work Phone: Start: 05-27-2024 End: 05-27-2024 Emergency department patient visit [facility] Start: 05-26-2024 End: 05-26-2024 Emergency department patient visit PHYSICIAN NO [facility] Work Phone: Start: 05-25-2024 ambulatory [facility] Start: 05-21-2024 End: 05-21-2024 Emergency department patient visit MOUNIKA WyattCadence RICE [facility] Start: 04-01-2024 End: 04-01-2024 ambulatory EDIE MAYS Not Available Start: 11-02-2023 End: 11-02-2023 Office outpatient visit 25 minutes Maria Luisa Naranjo THUMB SEWER Work Phone: [facility] Comment on above: Impacted cerumen of right ear (Primary Dx) Start: 06-05-2023 End: 06-05-2023 Emergency department patient visit PHYSICIAN NO [facility]gency [facility] Work Phone: Start: 11-12-2022 End: 11-12-2022 Emergency department patient visit PHYSICIAN NO [facility] Work Phone: Procedures Date Procedure Procedure Detail Performing Clinician Start: 01-11-2025 Urnls dip stick/tabl et rgnt non-auto w/o micrscp Tirso Mancilla MD Work Phone: Start: 01-10-2025 ALL CBC WITH AUTO DIFF Edie Mays CNM Work Phone: Start: 12-03-2024 Ultrasonography for antepartum monitoring of [...] Treatment Date Care Activity Detail Author Start: 06-13-2025 Influenza vaccination Influenz a Vaccine (Season Ended) [facility] Start: 01-17-2025 End: 01-17-2025 Patient encounter procedure 01/17/2025 2:30 PM EDT Routine [facility] [address] [place] [address] Edie Mays CNM [address] [place] [address] [facility] Start: 01-12-2025 End: 01-12-2025 Patient encounter procedure 01/12/2025 1:30 PM EDT Routine [facility] [address] [place] [address] Edie Mays, CNM [address] [place] [address] [facility] Start: 01-11-2025 [facility] Start: 01-10-2025 End: 01-10-2025 Patient encounter procedure [facility] Comment on above: Arrived Start: 01-10-2025 End: 01-10-2026 US for [facility] Work Phone: Comment on above: Expected: 01/10/2025 , Expires: 01/10/2026 Start: 12-30-2024 End: 12-30-2024 Patient encounter procedure 12/30/2024 1:30 PM EDT Routine [facility] [address] [place] [phone] Edie Mays, CNM [address] [place] [address] Arrived [facility] Comment on above: Arrived Start: 12-24-2024 [facility] Start: 12-24-2024 [facility] Start: 12-24-2024 [facility] Start: 12-09-2024 End: 12-09-2024 Patient encounter procedure 12/09/2024 1:30 PM EST Routine [facility] [address] [facility] [place] [phone] Edie Mays, CNM [address] [place] [address] [facility] Start: 12-03-2024 [facility] admission [facility] Start: 11-25-2024 End: 11-25-2024 Professional / ancillary services management 11/25/2024 2:00 PM EST Ancillary Procedure [facility] [address] [place] [address] [facility] Start: 11-25-2024 End: 11-25-2024 Patient encounter procedure [facility] Comment on above: Arrived Start: 11-08-2024 [facility] Start: 11-08-2024 Hospital admission [facility] Start: 10-28-2024 End: 10-28-2025 CBC panel - Blood by Automated count CBC Lab Routine Screening for iron deficiency anemia Expected: 10/28/2024 (Approximate), Expires: 10/28/2025 [facility] Comment on above: Expected: 10/28/2024 (Approximate), Expires: 10/28/2025 Start: 10-28-2024 End: 10-28-2025 GLUCOSE, GESTATIONAL SCREEN (50G)-135 CUTOFF GLUCOSE, GESTATIONAL SCREEN (50G)-135 CUTOFF Lab Routine Screening for diabetes mellitus (DM) Expected: 10/28/2024 (Approximate), Expires: 10/28/2025 [facility] Work Phone: Comment on above: Expected: 10/28/2024 (Approximate), Expires: 10/28/2025 Start: 10-28-2024 End: 10-28-2025 US for US OB follow up transabdominal approach Imaging Routine related condition in third trimester Expected: 10/28/2024, Expires: 10/28/2025 [facility] Healthcare Comment on above: Expected: 10/28/2024 , Expires: 10/28/2025 Start: 10-28-2024 End: 10-28-2024 Patient encounter procedure 10/28/2024 1:30 PM EST Routine [facility] [address] [place] [address] Edie Mays, CN [address] [place], [place] [id number] [facility] Start: 10-07-2024 [facility] Start: 10-04-2024 [facility] Start: 10-04-2024 Hospital admission [facility] Start: 09-30-2024 End: 09-30-2024 Patient encounter procedure 09/30/2024 1:30 PM EST Routine [facility] [address] [place] [address] Edie Mays, DI [address] [facility] [place] [address] Arrived [facility] Comment on above: Arrived Start: 09-08-2024 End: 09-08-2024 Patient encounter procedure 09/08/2024 10:30 AM EST Routine [facility] [address] [facility] [place] [phone] Edie Mays, ARTEMIOM [address] [facility] [place] [address] [facility] Start: 09-08-2024 End: 09-08-2024 Professional / ancillary services management 09/08/2024 10:00 AM EST Ancillary Procedure [facility] [address] [place] [phone] [facility] Start: 08-28-2024 [facility] Start: 08-12-2024 End: 08-12-2025 US for US OB 14+ weeks anatomy scan Imaging Routine related condition in second trimester Expected: 08/12/2024, Expires: 08/12/2025 [facility] Work Phone: Comment on above: Expected: 08/12/2024 , Expires: 08/12/2025 Start: 08-12-2024 End: 08-12-2024 Patient encounter procedure 08/12/2024 9:45 AM EDT Routine [facility] [address] [facility] [place] [phone] Edie Mays, ARTEMIOM [address] [facility] [place] [address] Arrived [facility] Comment on above: Arrived Start: 07-13-2024 End: 07-13-2024 Patient encounter procedure 07/13/2024 9:30 AM EDT Routine [facility] [address] [place] [phone] Edie Mays CNM [address] [facility] [place] [facility] [place] [address] [facility] Start: 07-06-2024 End: 07-06-2024 Patient encounter procedure 07/06/2024 1:30 PM EDT Office Visit [facility] [place] [address] [place] [phone] Josselinsavita Edie L, CN [address] [facility] [place] [address] [facility] Start: 06-15-2024 End: 06-15-2025 Bacteria identified in Urine by Culture Urine culture Microbiology Routine Encounter for care of first , first trimester Expected: 06/15/2024 (Approximate), Expires: 06/15/2025 [facility] Healthcare Comment on above: Expected: 06/15/2024 (Approximate), Expires: 06/15/2025 Start: 06-15-2024 End: 06-15-2025 DRUG TOX MONITORIGN 6 W/ CONF,URINE DRUG TOX MONITORIGN 6 W/ CONF,URINE Lab Routine Encounter for care of first , first trimester Expected: 06/15/2024 (Approximate), Expires: 06/15/2025 [facility] Healthcare Comment on above: Expected: 06/15/2024 (Approximate), Expires: 06/15/2025 Start: 06-15-2024 End: 06-15-2025 Neisseria gonorrhoeae DNA [Presence] in Cervical mucus by ANGELY with probe detection C. trachomatis / N. gonorrhoeae, DNA probe Lab Routine Encounter for care of first , first trimester Expected: 06/15/2024 (Approximate), Expires: 06/15/2025 [facility] Healthcare Comment on above: Expected: 06/15/2024 (Approximate), Expires: 06/15/2025 Start: 06-15-2024 End: 06-15-2025 TSH W/REFLEX TO FT4 TSH W/REFLEX TO FT4 Lab Routine Encounter for care of first , first trimester Expected: 06/15/2024 (Approximate), Expires: 06/15/2025 [facility] Healthcare Comment on above: Expected: 06/15/2024 (Approximate), Expires: 06/15/2025 Start: 06-15-2024 End: 06-15-2025 URINALYSIS MICROSCOPIC URINALYSIS MICROSCOPIC Lab Routine Encounter for care of first , first trimester Expected: 06/15/2024 (Approximate), Expires: 06/15/2025 [facility] Comment on above: Expected: 06/15/2024 (Approximate), Expires: 06/15/2025 Start: 06-15-2024 End: 06-15-2024 Professional / ancillary services management 06/15/2024 9:45 AM EDT Ancillary Procedure [facility] [address] [phone] [facility] Start: 06-15-2024 End: 06-15-2024 ambulatory 06/15/2024 9:30 AM EDT Initial [facility] [address] [place] [phone] Edie Mays, [facility] [address] [place] [address] [facility] Start: 06-13-2024 Influenza vaccination Influenza Vacc ine (#1) [facility] Start: 06-01-2024 End: 06-01-2024 ambulatory 06/01/2024 2:00 PM EDT Initial [facility] [address] [place] [phone] Edie Mays, [facility] [address] [place] [address] Arrived [facility] Comment on above: Arrived Start: 05-29-2024 Genital Culture Genital Culture [facility] Start: 05-29-2024 [facility] Start: 05-28-2024 Diagnostic ultrasoun d of gravid uterus [facility] Start: 05-28-2024 Transvaginal obstetr ic ultrasonography [facility] Start: 05-26-2024 [facility] Start: 11-27-2023 End: 11-27-2023 Patient encounter procedure 11/27/2023 10:15 AM EST Office Visit [facility] [address] [place] [address] Luciano Cooper MD [address] [place] [address] [facility] Start: 06-13-2023 Influenza vaccination Influenza Vacc ine (#1) [facility] Start: 06-05-2023 [facility] ABO/Rh ABO/Rh Lab Routi ne Encounter for care of first , first trimester Ordered: 06/15/2024 [facility] Comment on above: Ordered: 06/15/2024 Anion gap measurement [facility] Antibody screen Antibody screen Lab Routine Encounter for care of first , first trimester Ordered: 06/15/2024 [facility] Comment on above: Ordered: 06/15/2024 Bacteria identified in Genital specimen by Aerobe culture [facility] Basophils [#/volume] in Blood by Automated count [facility] Basophils/100 leukoc ytes in Blood by Automated count [facility] CBC panel - Blood by Automated count CBC Lab Routine Encounter for care of first , first trimester Ordered: 06/15/2024 [facility] Comment on above: Ordered: 06/15/2024 Chlamydia trachomati s DNA [Presence] in Unspecified specimen by ANGELY with probe detection [facility] Ear cerumen removal Ear cerumen removal Procedures Routine Impacted cerumen of right ear Ordered: 11/02/2023 [facility] Work Phone: Comment on above: Ordered: 11/02/2023 Eosinophils/100 leukocytes in Blood by Automated count [facility] Erythrocyte distribu tion width [Ratio] by Automated count [facility] Erythrocytes [#/volu me] in Blood [facility] Hematocrit [Volume Fraction] of Blood [facility] Hemoglobin [Mass/vol ume] in Blood [facility] Hemoglobin A1c/Hemoglobin.total in Blood Hemoglobin A1c Lab Routine Encounter for care of first , first trimester Ordered: 06/15/2024 [facility] Comment on above: Ordered: 06/15/2024 Hepatitis B virus burch rface Ag [Presence] in Serum or Plasma by Immunoassay Hepatitis B surface antigen Lab Routine Encounter for care of first , first trimester Ordered: 06/15/2024 [facility] [employer] Work Phone: Comment on above: Ordered: 06/15/2024 Hepatitis C virus Ab [Presence] in Serum or Plasma by Immunoassay Hepatitis C antibody Lab Routine Encounter for care of first , first trimester Ordered: 06/15/2024 [facility] Comment on above: Ordered: 06/15/2024 HIV-1/HIV-2 antigen/antibody combination immunoassay HIV-1 and HIV-2 antibodies Lab Routine Encounter for care of first , first trimester Ordered: 06/15/2024 [facility] Comment on above: Ordered: 06/15/2024 Leukocytes [#/volume ] corrected for nucleated erythrocytes in Blood by Automated coun [facility] Leukocytes [#/volume ] in Blood [facility] Lymphocytes [#/volum e] in Blood by Automated count [facility] Lymphocytes/100 leukocytes in Blood by Automated count [facility] MCH [Entitic mass] b y Automated count [facility] MCHC [Mass/volume] b y Automated count [facility] MCV [Entitic volume] by Automated count [facility] Monocytes [#/volume] in Blood by Automated count [facility] Monocytes/100 leukoc ytes in Blood by Automated count [facility] Neisseria gonorrhoea e DNA [Presence] in Unspecified specimen by ANGELY with probe detection [facility] Neutrophils [#/volum e] in Blood by Automated count [facility] Neutrophils/100 leukocytes in Blood by Automated count [facility] Nucleated erythrocyt es [Presence] in Blood by Automated count [facility] Patient Education [facility] Work Phone: Patient referral [facility] Work Phone: Platelet mean volume [Entitic volume] in Blood by Automated count [facility] Platelets [#/volume] in Blood [facility] Reagin Ab [Presence] in Serum by RPR RPR Lab Routine Encounter for care of first , first trimester Ordered: 06/15/2024 [facility] Comment on above: Ordered: 06/15/2024 Rubella antibody, IgG Rubella an tibody, IgG Lab Routine Encounter for care of first , first trimester Ordered: 06/15/2024 [facility] Comment on above: Ordered: 06/15/2024 Trichomonas vaginali s DNA [Presence] in Unspecified specimen by ANGELY with probe detection [facility] Payers Date Payer Category Payer Self-pay [id number] 2023 Medicaid [employer] [place] [id number] 2023-Present [address] [place] [id number] 2023 Medicaid (Managed Care) [employer] [id number] 2023 Medicaid [id number] 2022 Medicaid [id number] 2003 Unknown [id number] 2..840.1.372007.3.579.2. 1285 2003 Unknown [id number] 2.840.1.632742.3.579.2. 1285 2003 Unknown [id number] 2.840.1.829398.3.579.2. 1285 2003 Unknown [id number] 2.16.840.1.458831.3.579.2. 1286 2003 Unknown [id number] 2.16.840.1.590190.3.579.2. 1285 2003 Unknown [id number] 2.16.840.1.820202.3.579.2. 2003 Unknown [id number] 2.16.840.1.963318.3.579.2. 2003 Unknown [id number] 2.16.840.1.953096.3.579.2. 1258 2003 Unknown [id number] 2.16.840.1.624821.3.579.2. 1258 2003 Unknown [id number] 2.840.1.151381.3.579.2. 1258 2003 Unknown [id number] 2.840.1.209156.3.579.2. 1258 2003 Unknown [id number] 2.840.1.175505.3.579.2. 1258 2003 Unknown [id number] 2..840.1.879537.3.579.2. 1258 2003 Unknown [id number] 2.16.840.1.511619.3.579.2. 1258 2003 Unknown [id number] 2.840.1.741969.3.579.2. 1258 2003 Unknown [id number] 2.16.840.1.722910.3.579.2. 1258 2003 Unknown [id number] 2.16.840.1.660184.3.579.2. 1258 2003 Unknown [id number] 2.16.840.1.700578.3.579.2. 1258 2003 Unknown [id number] 2.16.840.1.395512.3.579.2. 1258 2003 Unknown [id number] 2.0.1.420447.3.579.2. 1259 2003 Unknown [id number] 2.840.1.992541.3.579.2. 1258 2003 Unknown [id number] 2.0.1.417886.3.579.2. 1258 2003 Unknown [id number] 2.0.1.819703.3.579.2. 1258 2003 Unknown [id number] 2.0.1.389539.3.579.2. 1259 Medicaid [id number] [place] [id number] Medicaid [facility] [id number] Unknown MMO [id number] Unknown [place] BC/BS [id number] Unknown Safe Program [id number] Unknown [id number] 11.28.830.1.512282.3.579.2. 531 Unknown [id number] .1.253935.3.579.2. 531 Unknown [id number] 840.1.704838.3.579.2. 531 Unknown [id number] 840.1.821062.3.579.2. 531 Unknown [id number] 2.840.1.200069.3.579.2. 531 Unknown [id number] 840.1.121139.3.579.2. 531 Unknown [id number] 2.16.840.1.231161.3.579.2. 531 Unknown [id number] 2.16.840.1.343873.3.579.2. 531 Unknown [id number] 2.16.840.1.176508.3.579.2. 531 Unknown [id number] 2.16.840.1.720398.3.579.2. 531 Social History Date Type Detail Facility Start: 11-12-2022 End: 05-28-2024 Tobacco smoking status NHIS Smoker (finding) [facility] Start: 2003 Sex Assigned At Female F [facility] Start: 11-02-2023 End: 08-24-2024 Tobacco smoking status WIIS Never smoked tobacco [facility] Start: 11-02-2023 Tobacco use and exposure Smokeless tobacco non-user [facility] Start: 11-02-2023 End: 04-01-2024 Alcohol intake Lifetime non-drinker (finding) [facility] Start: 11-02-2023 End: 01-03-2025 History of Social function [facility] Start: 11-02-2023 End: 01-03-2025 Tobacco use panel [facility] Start: 2003 Sex Assigned At Not on file [facility] Start: 05-03-2024 [facility] Start: 06-01-2024 End: 06-15-2024 Alcoholic beverage intake Ex-drinker (finding) [facility] Start: 04-01-2024 Alcohol Comment caffeine: 3-4 cups caffine [facility] Start: 08-24-2024 End: 01-11-2025 Sex Female (finding) [facility] Start: 08-28-2024 End: 11-18-2024 Tobacco smoking status WIIS Ex-smoker (finding) [facility] Goals Date Patient Goal Desired Activity /State [...] a routine visit. documented in this encounter [facility] 01-03-2025 History of Presen t illness Narrative [...] bleeding Patient doing well, she went to [facility] and [facility] one time each for contractions and she [...] a routine visit. documented in this encounter [facility] 12-03-2024 Radiology Diagnostic study note [facility] [place] [address] Ultrasound Report Signed Patient: Kisha Lora MR#: [id number] : 2005 Acct:[id number] Age/Sex: 19 / F ADM Date: 5 Loc: Room: [address] [place] [address] Type: REG CLI Attending Dr: Luciano Cooper MD Ordering Provider[facility] Date of Service: 12/03/24 US/US OB biophysical profile: 32 wks, decreased fetalmovement Copies to: Luc[facility]~ Ultrasound of surgical biophysical profile HISTORY: Decreased [...] [place] Hassan M.D.12/03/2024 3:10 PM Dictation Location: [employer] Tech: Ivette Thomson Transcribed By: WILLOW 12/03/24 1510 Dictated By: [place] Hassan DO 12/03/24 1509 Signed By: 12/03/24 1510 [facility] 12-03-2024 Radiology Diagnostic study note [facility] [place] [address] Ultrasound Report Signed Patient: Kisha Lora MR#: [id number] : 2005 Acct:[id number] Age/Sex: 19 / F ADM Date: 5 Loc: Room: [address] [place] [address] Type: REG CLI Attending Dr: Luciano Cooper [...] [place] Hassan M.D.12/03/2024 1:04 PM Dictation Location: [employer] Tech: Jennifer David Transcribed By: WILLOW 12/03/24 1304 Dictated By: [place] Hassan DO 12/03/24 1256 Signed By: 12/03/24 1304 [facility] 11-25-2024 History of Presen t illness Narrative [...] a routine visit. documented in this encounter [facility] 11-03-2024 Telephone encounter Note Pt had a 1hour glucose test about a week ago and still has questions, please return call to [phone] [facility] 11-03-2024 Miscellaneous Notes Pt had a 1hour glucose test about a week ago and still has questions, please return call to [phone] documented in this encounter [facility] 10-29-2024 Telephone encounter Note Patient called and inquired about the lab results. Please give her a call back. [facility] 10-29-2024 Miscellaneous Notes Patient called and inquired about the lab results. Please give her a call back. documented in this encounter [facility] 10-28-2024 History of Presen t illness Narrative [...] a routine visit. documented in this encounter [facility] 09-30-2024 History of Presen t illness Narrative [...] a routine visit. documented in this encounter [facility] 09-08-2024 History of Presen t illness Narrative [...] a routine visit. documented in this encounter [facility] 08-19-2024 Telephone encounter Note Yesterday patient started [...] She hasn't had any bleeding or anything. [phone] [facility] 08-19-2024 Miscellaneous Notes Yesterday patient started to [...] She hasn't had any bleeding or anything. [phone] documented in this encounter [facility] 08-12-2024 History of Presen t illness Narrative [...] a routine visit. documented in this encounter [facility] 07-13-2024 History of Presen t illness Narrative [...] a routine visit. documented in this encounter [facility] 06-15-2024 History of Presen t illness Narrative [...] a routine visit. documented in this encounter [facility] 06-01-2024 History of Presen t illness Narrative Subjective Kisha Lora is a 19 y.o. at 6w1d with a working estimated date of delivery of 01/24/2025, by Last Menstrual Period who presents for an initial visit. This is planned. Patient Care Team: [facility] Provider MD Kerry as PCP - General (Family Medicine) Jose A Moralez DO as PCP - [facility] OB History Para Term AB Living 2 [...] and labs . documented in this encounter [facility] 05-27-2024 Note Education Materials Obstetrics and Gynecology Vaginal Bleeding During , First Trimester Follow-up with your BEHAVIORAL SERVICES TECH for further evaluation of your threatened miscarriage. [...] your regular activities. General instructions ? Take [id number] and prescription medicines only as told by [...] provider. Document Revised: 06/21/2021 Document Reviewed: 06/21/2021 [employer] Patient Education ? 2022 [facility] History of Presen t illness [...] Pt tolerated well. documented in this encounter [facility] Evaluation note No assessment inform ation available [facility] Work Phone: Evaluation note Diagnosis Impacted cerumen of right ear- Primary Impacted cerumen documented in this encounter [facility] HealthcareEvaluation note* Diagnosis Encounter for care of first , second trimester- Primary related condition in second trimester documented in this encounter [facility] HealthcareEvaluation note* Diagnosis Encounter for care of first , first trimester- Primary documented in this encounter [facility] HealthcareEvaluation note* Diagnosis Threatened in first trimester- [...] second trimester- Primary documented in this encounter [facility] HealthcareEvaluation note* Diagnosis Encounter for care of [...] in this encounter [facility]* Diagnosis related condition in third [...] after for 5 days you may call [phone] for results No sexual activity for 2 weeks Always use a condom Follow-up with the [facility] Work Phone: Hospital Discharge instructions Additional Instructions Apply the miconazole every night for 7 nights for the vaginal itching If your cultures come back positive we will call you to arrange treatment Follow-up with your BEHAVIORAL SERVICES TECH Return to the ER for abdominal pain cramping bleeding or any other concerns [facility] Work Phone: Summary Purpose Family [...] Complaint Admit Date 24 wks decreased movement Dominic 23rd, 2024 3:59pm 26 wks, fell on stomach [...] 35 weeks iup, cramping, nausea December 1:49pm Chief Complaint Admit Date 29 weeks preg November 08, 2024 2 :37pm vomiting, 30 wks preg November 18, 2024 2:14pm IUP (Intrauterine ) December 032024 9:48am 35 weeks iup, cramping, nausea December 1:49pm 38 weeks iup, blurred vision January 11, 2025 5:13pm Additional Source Comments INFORMATION SOURCE (unrecogn ized section and content) DATE CREATED AUTHOR 06/02/2021 [facility] DATE CREATED AUTHOR AUTHOR'S ORGANIZ ATION 05/26/2024 [facility] DATE CREATED AUTHOR AUTHOR'S ORGANIZ ATION 07/01/2024 [facility] DATE CREATED AUTHOR AUTHOR'S ORGANIZ ATION 11/01/2024 [facility] DATE CREATED AUTHOR AUTHOR'S ORGANIZ ATION 01/01/2025 [facility] DATE CREATED AUTHOR AUTHOR'S ORGANIZ ATION 01/11/2025 [facility] EPIC Care Teams (unrecognized sec tion and content) Team Status: Inactive Member Role Status Dates PHYSICIAN NO FAMILY Primary Care Provider Active . SERGO Emergency Provider Active Team Status: Active Member Role Status Dates PHYSICIAN NO FAMILY Primary Care Provider Active Team Status: Inactive Member Role Status Dates PHYSICIAN NO FAMILY Primary Care Provider Active Felisha Briones , SENIOR SOFTWARE MANAGER- Emergency Provider Active Fence Installer Relationship Specialty Start Date End Date Jose A Moralez DO [address] [place] [address] PCP - [facility] 04/12/23 Team Status: Inactive Member Role Status [...] May 28, 2024 End: May 29, 2024 Fence Installer Relationship Specialty Start Date End Date Jose A Moralez DO [address] [address] [address] PCP - [facility] 04/12/23 Unallocated, Rosy Prince MD [address] [place] [address] [place] [address] PCP - General Family Medicine 11/27/23 Fence Installer Relationship Specialty Start Date End Date Jose A Moralez DO [address] [address] [place] [address] PCP - [facility] 04/12/23 Unallocated, Rosy Prince MD [address] [place] [address] PCP - General Family Medicine 11/27/23 Fence Installer Relationship Specialty Start Date End Date Jose A Moralez DO [address] [address] PCP - [facility] 04/12/23 Unallocated, Rosy Prince MD [address] [place] [address] PCP - General Family Medicine 11/27/23 Fence Installer Relationship Specialty Start Date End Date Jose A Moralez DO [address] [place] [address] [place] [address] PCP - [facility] 04/12/23 Unallocated, Rosy ProviderMD [address] [place] [address] PCP - General Family Medicine 11/27/23 Team [...] 2024 End: August 28, 2024 Felisha Briones [facility] Emergency Provider Active Start: August 28, 2024 End: August 28, 2024 Fence Installer Relationship Specialty Start Date End Date Jose A Moralez DO [address] [place] [address] [place] [address] PCP - [facility] 04/12/23 Unallocated, Rosy ProviderMD [address] [place] [address] PCP - General Family Medicine 11/27/23 Fence Installer Relationship Specialty Start Date End Date Jose A Moralez DO [address] [facility] [address], [place] [address] PCP - [facility] 04/12/23 Unallocated, Rosy Prince MD [address] [place] [address] PCP - General Family Medicine 11/27/23 Fence Installer Relationship Specialty Start Date End Date Jose A Moralez DO [address] [facility] [address] [place] [address] PCP - [facility] 04/12/23 Unallocated, Rosy ProviderMD [address] [place] [id number] PCP - General Family Medicine 11/27/23 Fence Installer Relationship Specialty Start Date End Date Jose A Moralez DO [address] [facility] [address] [place] [address] PCP - [facility] 04/12/23 Unallocated, Rosy ProviderMD [address] [place], [place] [address] [address] PCP - General Family Medicine 11/27/23 Fence Installer Relationship Specialty Start Date End Date Jose A Moralez DO [address] [facility] [address] [place] [address] PCP - [facility] 04/12/23 Unallocated, Rosy ProviderMD [address] [place] [address] PCP - General Family Medicine 11/27/23 Fence Installer Relationship Specialty Start Date End Date Jose A Moralez DO [address] [facility] [address] [address] PCP - [facility] 04/12/23 Unallocated, Rosy ProviderMD [address] [place] [address] PCP - General Family Medicine 11/27/23 Fence Installer Relationship Specialty Start Date End Date Jose A Moralez DO [address] [facility] [address] [place] [address] PCP - [facility] 04/12/23 Unallocated, Rosy Prince MD [address] [place] [address] PCP - General Family Medicine 11/27/23 Team [...] November 18, 2024 End: November 18, 2024 Fence Installer Relationship Specialty Start Date End Date Jose A Moralez DO [address] [place] [address] PCP - [facility] 04/12/23 Unallocated, Rosy Prince MD [address] [place] [address] PCP - General Family Medicine 11/27/23 Fence Installer Relationship Specialty Start Date End Date Jose A Moralez DO [address] [place] [address] PCP - [facility] 04/12/23 Unallocated, Rosy Prince MD [address] [place] [address] PCP - General Family Medicine 11/27/23 Team [...] December 24, 2024 End: December 24, 2024 Fence Installer Relationship Specialty Start Date End Date Jose A Moralez DO [address] [place] [address] PCP - [facility] 04/12/23 Unallocated, N[place] ProviderMD [address] [place] [address] PCP - General Family Medicine 11/27/23 Fence Installer Relationship Specialty Start Date End Date Jose A Moralez DO [address] [address] [place] [address] PCP - [facility] 04/12/23 Unallocated, N[place] ProviderMD [address] [place] [address] PCP - General Family Medicine 11/27/23 Team Status: Inactive Member Role Status Dates PHYSICIAN NO FAMILY Primary Care Provider Active Start: January 11, 2025 End: January 11, 2025 Tirso Mancilla MD Attending Provider Active Star t: January 11, 2025 End: January 11, 2025 Goals (unrecognized section and content) Goals may [...] BE BASED ON THE PRIMARY CLINICAL RECORDS. [facility]. provides no warranty or guarantee of the accuracy or completeness of information in this document.
[2025-01-12 17:54] LABS: Basophils Absolute Auto 0.1 10^3/uL (0.0-0.1); Basophils Percent Auto 0.7 % (0.2-2.0); Eosinophils Absolute Auto 0.3 10^3/uL (0.0-0.7); Eosinophils Percent Auto 3.3 % (0.9-7.0); Hematocrit 32.7 % (36.0-48.0); Hemoglobin 11.1 g/dL (12.0-16.0); Immature Granulocytes Abs Auto 0.04 10^3/uL (0.00-0.03); Immature Granulocytes Pct Auto 0.5 % (0.0-0.5); Lymphocytes Absolute Auto 1.5 10^3/uL (1.2-3.8); Mean Corpuscular HGB Conc 33.9 g/dL (29.9-35.2); Mean Corpuscular Hemoglobin 29.7 pg (26.7-34.0); Mean Corpuscular Volume 87.4 fL (81.0-99.0); Mean Platelet Volume 11.1 fL (9.5-13.5); Monocytes Absolute Auto 0.5 10^3/uL (0.3-0.8); Monocytes Percent Auto 5.8 % (1.7-12.0); Neutrophils Absolute Auto 6.4 10^3/uL (1.4-6.5); Neutrophils Percent Auto 72.7 % (43.0-75.0); Platelet Count 227 10^3/uL (150-450); Red Blood Count 3.74 10^6/uL (4.20-5.40); White Blood Count 8.8 10^3/uL (4.0-11.0)
[2025-01-12 18:10] LABS: Creatinine Urine Random 44.09 mg/dL (20.00-300.00); Protein Creatinine Ratio Urine 0.14; Total Protein Urine Random <6.0 mg/dL (<=11.9)
[2025-01-12 18:12] LABS: Alanine Aminotransferase 12 U/L (14-59); Albumin Globulin Ratio 0.6; Albumin Level 2.3 g/dL (3.4-5.0); Alkaline Phosphatase 140 U/L (46-116); Aspartate Amino Transferase 19 U/L (15-37); Bilirubin Total 0.4 mg/dL (0.2-1.0); Calcium 8.9 mg/dL (8.5-10.1); Carbon Dioxide 23.3 mmol/L (21.0-32.0); Chloride 103 mmol/L (98-107); Estimated GFR (African America >60 (>=60 mL/min/1.73m^2); Estimated GFR (Non-African Ame >60 (>=60 mL/min/1.73m^2); Globulin 3.8 g/dL; Glucose 130 mg/dL (74-106); Lactate Dehydrogenase 155 U/L (81-234); Potassium 3.3 mmol/L (3.5-5.1); Sodium 139 mmol/L (136-145); Total Protein 6.1 g/dL (6.4-8.2); Uric Acid 5.2 mg/dL (2.6-6.0)
== END 2025-01-12 19:00 | disposition home or self-care (01) ==
PROVIDERS: Admitting Provider Midwife; Visit Provider Midwife
DX: O16.3 Unspecified maternal hypertension, third trimester (principal); Z3A.38 38 weeks gestation of pregnancy
CPT/HCPCS: 36415; 80053; 82570; 83615; 84156; 84550; 85025; 86850; 86900; 86901; G0378; G0379

== ENCOUNTER 2025-01-17 18:45 | Inpatient (IN) | payer OTHER, SELFPAY ==
[2025-01-17] VITALS (13 sets, daily range): BP systolic 119–140; BP diastolic 59–84; PULSE 67–81; TEMP 36.6
[2025-01-17 20:04] LABS: Hematocrit 35.3 % (36.0-48.0); Hemoglobin 11.8 g/dL (12.0-16.0); Mean Corpuscular HGB Conc 33.4 g/dL (29.9-35.2); Mean Corpuscular Hemoglobin 29.1 pg (26.7-34.0); Mean Corpuscular Volume 86.9 fL (81.0-99.0); Mean Platelet Volume 11.7 fL (9.5-13.5); Platelet Count 249 10^3/uL (150-450); Red Blood Count 4.06 10^6/uL (4.20-5.40); Red Cell Distribution Width 15.1 % (11.0-15.0); White Blood Count 9.7 10^3/uL (4.0-11.0)
[2025-01-17 20:12] LABS: Amphetamine Screen Urine NEGATIVE (NEGATIVE); Barbiturates Screen Urine NEGATIVE (NEGATIVE); Benzodiazepines Screen Urine NEGATIVE (NEGATIVE); Buprenorphine Screen Urine NEGATIVE (NEGATIVE); Cannabinoid Screen Urine NEGATIVE (NEGATIVE); Cocaine Screen Urine NEGATIVE (NEGATIVE); Methadone Screen Urine NEGATIVE (NEGATIVE); Methamphetamines Screen Urine NEGATIVE (NEGATIVE); Opiate Screen Urine NEGATIVE (NEGATIVE); Oxycodone Screen Urine NEGATIVE (NEGATIVE); Phencyclidine Screen Urine NEGATIVE (NEGATIVE); Tricyclic Antidepressant Urine NEGATIVE (NEGATIVE)
[2025-01-17] MEDS: DINOPROSTONE 10 MG VAG INSERT.ER VAGINAL (20:22)
[2025-01-18] VITALS (77 sets, daily range): BP systolic 110–219; BP diastolic 55–161; PULSE 69–157; TEMP 36.3–37.6; O2SAT 88–100
[2025-01-18] MEDS: ZOLPIDEM TARTRATE 5 MG TABLET PO (00:23)
[2025-01-18] MEDS: OXYTOCIN/0.9 % SODIUM CHLORIDE 10 UNITS/500 ML PLAST..BAG 6 UNIT IV (07:18)
[2025-01-18] MEDS: LACTATED RINGER'S SOLUTION 1,000 ML 125 ML IV ×2 (07:18→11:56)
[2025-01-18] MEDS: NALBUPHINE HCL 10 MG/ML AMPULE 20 MG IM (09:04)
[2025-01-18] MEDS: ROPIVACAINE HCL/PF 400 MG/200 ML PREMIX 10 MG EPIDURAL (11:44)
[2025-01-18] MEDS: MAGNESIUM-BOLUS FROM THE BAG- 40 GM/1,000 ML IV.SOLN IV (14:02)
[2025-01-18] MEDS: 0.9 % SODIUM CHLORIDE 1,000 ML 50 ML IV (14:02)
[2025-01-18] MEDS: MAGNESIUM SULFATE IN WATER 40 GM/1,000 ML IV.SOLN IV (14:29)
--- NOTE | 2025-01-18 14:31 | PM.OBHP ---
OB - H&P: HPI History of Present Illness Chief complaint: induction : 1 Para: 0 Gestational age based on last menstrual period: 39.1 History of Present Dating criteria: LMP confirmed by 1st trimester US care: good care Ultrasounds: normal 1st trimester US and normal mid trimester US complications comment: frequent hospital visits, had elevated blood pressures, pre-eclampsia neg Medical complications OB: none Labs Blood type: O (+) positive Rubella: immune RPR/VDLR: nonreactive GBS status: negative HBsAG: negative Review of Systems ROS Status of ROS: 10 or more systems reviewed and unremarkable except as noted in history and below [facility] Social History (Updated 01/17/25 @ 20:08 by Richard Ruiz) Within the past year, how often did you have a drink containing alcohol: never Within the past year, how often did you have six or more drinks on one occasion: never Score interpretation: A score less than 3 is consistent with normal alcohol consumption. Smoking status: Never smoker Non-prescribed substance use: denies use In a typical week, how many times do you talk on the telephone with family, friends, or neighbors: 3 or more times per week How often do you get together with friends or relatives: 3 or more times per week How often do you attend mandaeism or adventist services: never Little interest or pleasure in doing things: not at all Feeling down, depressed, or hopeless: not at all Feel stressed/tense/nervous/anxious/difficulty sleeping: not at all Do you think of yourself as: straight/heterosexual Gender Identity: female Meds Home Medications and Allergies Home Medications ?Medication ?Instructions ?Recorded ?Confirmed ?Type docusate sodium 100 mg capsule 100 mg PO DAILY 01/12/25 01/18/25 History ferrous sulfate 220 mg (44 mg 44 mg PO DAILY 01/12/25 01/18/25 History iron)/5 mL oral solution Allergies Allergy/AdvReac Type Severity Reaction Status Date / Time No Known Drug Allergies Allergy Verified 01/17/25 19:40 Exam Constitutional Vital Signs, click to edit/add: Last Vital Signs Temp 98.2 F 01/18/25 09:39 Pulse 118 H 01/18/25 14:26 Resp 16 01/18/25 05:34 BP 141/107 H 01/18/25 14:26 O2 Del Method Room Air 01/17/25 20:25 Documenting provider has reviewed patient's vital signs: yes Common normals: no apparent distress General appearance: cooperative, comfortable and well kempt Nutritional appearance: obese and other (70+ lb weight gain during ) Orientation/consciousness: Yes awake, Yes oriented to person, Yes oriented to place and Yes oriented to time HENMT Common normals: normocephalic Eye Common normals: EOMs intact bilaterally Neck & C-Spine Common normals: full ROM General: normal visual inspection Lymph Lymphatic: no lymphadenopathy noted Chest Common normals: inspection of chest normal Respiratory Common normals: normal respiratory effort, no retractions, no use of accessory muscles and clear to auscultation bilaterally Effort & inspection: able to speak in complete sentences Auscultation: clear to auscultation bilaterally Cardio Common normals: regular rate and regular rhythm Rate: regular rate Rhythm: regular rhythm GI Common normals: Normal to inspection, nondistended, normoactive bowel sounds present and non-tender Inspection: normal to inspection Auscultation: normoactive bowel sounds Palpation: soft Common normals: no CVA tenderness Back & Pelvis Common normals: no CVA tenderness Extremity Common normals: normal to inspection and full ROM Neuro Common normals: oriented x3 Sensorium/orientation: awake, alert, oriented to person, oriented to place and oriented to time Psych Common normals: mental status grossly normal, thought process normal, cooperative, affect normal, speech normal, activity/motor behavior normal, denies hallucinations, denies homicidal ideation and denies suicidal ideation Appearance: grossly normal Attitude: calm Activity/motor behavior: appropriate eye contact Speech: normal speech Thought process: normal thought process Thought content: normal thought content Results Labs Labs: Short CBC 01/17/25 Range/Units 19:50 WBC 9.7 (4.0-11.0) 10^3/uL Hgb 11.8 L (12.0-16.0) g/dL Hct 35.3 L (36.0-48.0) % Plt Count 249 (150-450) 10^3/uL OB - A/P Assessment and Plan (1) Term : (2) Elevated blood pressure affecting in third trimester, antepartum: Urinary Catheter Management Urinary Catheter Management Urethral: Cath placed during this visit: no Urethral indwelling: Yes Reason for continuing: prolonged immobilization
[2025-01-18] MEDS: LABETALOL HCL 20 MG/4 ML SYRINGE IVP (16:34)
[2025-01-18] MEDS: LIDOCAINE HCL 1% 200 MG/20 ML MDV INJ (17:00)
[2025-01-18] MEDS: LIDOCAINE VISCOUS 2% 15 ML SOLUTION 5 ML TOPICAL (17:00)
[2025-01-18] MEDS: OXYTOCIN/0.9 % SODIUM CHLORIDE 20 UNITS/1,000 ML PLAST..BAG 125 UNIT IV (17:23)
[2025-01-18] MEDS: CARBOPROST TROMETHAMINE 250 MCG/ML 1 ML VIAL IM (17:28)
[2025-01-18] MEDS: MISOPROSTOL 100 MCG TABLET 1000 MCG PR (17:34)
[2025-01-18] MEDS: KETOROLAC TROMETHAMINE 30 MG/ML VIAL IVP (17:37)
--- NOTE | 2025-01-18 17:58 | PM.OBPRCVD ---
Procedure Procedure: Induction method: other (cervidil ) Delivery augmentation: rupture of membranes and pitocin Delivery monitor: external FHT and external uterine Route of delivery: Episiotomy Description: right mediolateral L&D Laceration Description: perineal - 2nd degree and vaginal - 2nd degree Estimated blood loss (mL): 800 Anesthesia type: Epidural Delivery date: 01/18/25 Gender: male presentation: vertex Placental delivery description: Spontaneous cord description: 3 Vessels heart rate - 1 minute: 100 bpm or Greater respiratory effort - 1 minute: Slow Respiration/Weak Cry muscle tone - 1 minute: Minimal Flexion/Extension reflex response - 1 minute: Minimal Response color - 1 minute: Bluish Hands or Feet total score - 1 minute: 6 heart rate - 5 minute: 100 bpm or Greater respiratory effort - 5 minute: Spontaneous/Strong Cry muscle tone - 5 minute: Active Movement reflex response - 5 minute: Prompt Response color - 5 minute: Bluish Hands or Feet total score - 5 minute: 9
[2025-01-18] MEDS: 0.9 % SODIUM CHLORIDE 1,000 ML 75 ML IV (18:35)
--- NOTE | 2025-01-18 20:14 | PC.NURSE ---
Noted right hand swollen around IV site upon arrival to PACU. MICHAEL Coleman had already noted and had infusion stopped. Removed the IV and was able to take some fluid from area with light pressure applied. Elevated extremity. No complaints of site from the patient. No redness noted.
[2025-01-18] MEDS: LABETALOL HCL 100 MG TABLET 200 MG PO (20:22)
[2025-01-18] MEDS: OXYCODONE HCL/ACETAMINOPHEN 5MG/325MG 1 TAB PO (22:22)
[2025-01-19] VITALS (8 sets, daily range): BP systolic 126–144; BP diastolic 55–87; PULSE 82–110; TEMP 36.4–37.7
[2025-01-19] MEDS: BENZOCAINE/MENTHOL 85 GRAM SPRAY BOTTLE 1 APPLIC TOPICAL (00:20)
[2025-01-19] MEDS: GLYCERIN/WITCH HAZEL PADS 1 PAD TOPICAL (00:20)
[2025-01-19] MEDS: IBUPROFEN 400 MG TABLET 800 MG PO ×3 (00:20→15:57)
[2025-01-19] MEDS: OXYCODONE HCL/ACETAMINOPHEN 5MG/325MG 1 TAB PO (03:48)
[2025-01-19 06:48] LABS: Basophils Percent Auto 0.1 % (0.2-2.0); Eosinophils Percent Auto 0.1 % (0.9-7.0); Hemoglobin 7.9 g/dL (12.0-16.0); Immature Granulocytes Abs Auto 0.12 10^3/uL (0.00-0.03); Immature Granulocytes Pct Auto 0.7 % (0.0-0.5); Lymphocytes Absolute Auto 1.7 10^3/uL (1.2-3.8); Lymphocytes Percent Auto 9.8 % (20.5-60.0); Mean Corpuscular HGB Conc 32.9 g/dL (29.9-35.2); Mean Corpuscular Volume 88.2 fL (81.0-99.0); Mean Platelet Volume 11.2 fL (9.5-13.5); Monocytes Absolute Auto 1.3 10^3/uL (0.3-0.8); Monocytes Percent Auto 7.9 % (1.7-12.0); Neutrophils Absolute Auto 13.8 10^3/uL (1.4-6.5); Neutrophils Percent Auto 81.4 % (43.0-75.0); Platelet Count 233 10^3/uL (150-450); Red Blood Count 2.72 10^6/uL (4.20-5.40); Red Cell Distribution Width 15.9 % (11.0-15.0); White Blood Count 16.9 10^3/uL (4.0-11.0)
[2025-01-19] MEDS: LABETALOL HCL 100 MG TABLET 200 MG PO ×2 (08:13→21:06)
[2025-01-19] MEDS: MAGNESIUM SULFATE IN WATER 40 GM/1,000 ML IV.SOLN IV (09:24)
[2025-01-19] MEDS: 0.9 % SODIUM CHLORIDE 1,000 ML 50 ML IV (09:24)
--- NOTE | 2025-01-19 09:42 | PM.OBPN ---
OB - PN: Subj Subjective Patient comments: no complaints and pain well controlled status: doing well Exam Constitutional Vital Signs, click to edit/add: Last Vital Signs Temp 99.1 F 01/19/25 08:21 Pulse 96 H 01/19/25 08:13 Resp 14 01/19/25 03:47 BP 135/69 01/19/25 08:13 Pulse Ox 100 01/18/25 19:45 O2 Del Method Room Air 01/19/25 08:10 Documenting provider has reviewed patient's vital signs: yes Common normals: no apparent distress Respiratory Common normals: normal respiratory effort and clear to auscultation bilaterally Cardio Common normals: regular rate and regular rhythm GI Common normals: Normal to inspection, nondistended, normoactive bowel sounds present Extremity Common normals: no clubbing, cyanosis or edema and no calf tenderness Results Labs Labs: Short CBC 01/19/25 Range/Units 06:29 WBC 16.9 H (4.0-11.0) 10^3/uL Hgb 7.9 L (12.0-16.0) g/dL Hct 24.0 L (36.0-48.0) % Plt Count 233 (150-450) 10^3/uL Urinary Catheter Management Urinary Catheter Management Urethral: Cath placed during this visit: no Urethral indwelling: Yes Straight: Cath placed during this visit: yes, but has since been removed by the nurse Removal date: 01/18/25 Removal time: 19:47 OB - PN: A/P Assessment and Plan (1) Term : (2) Elevated blood pressure affecting in third trimester, antepartum: Plan - Vaginal Delivery day: 1 Plan: routine care Time Spent with Patient Time: Total time spent is greater than 50% in coordination of care (as documented) at patient's floor/unit and/or counseling patient: Total time spent with greater than 50% in coordination of care (as documented) at patient's floor/unit and/or counseling patient: less than 15 minutes
[2025-01-19] MEDS: ACETAMINOPHEN 500 MG TABLET 1000 MG PO ×2 (11:19→21:06)
[2025-01-19] MEDS: DOCUSATE SODIUM 100 MG CAPSULE PO (11:20)
[2025-01-19] MEDS: FERROUS SULFATE 325 MG TABLET PO (21:05)
[2025-01-20 01:10] VITALS: BP 134/59; PULSE 105; TEMP 36.9
[2025-01-20] MEDS: IBUPROFEN 400 MG TABLET 800 MG PO ×2 (04:50→13:22)
[2025-01-20 09:02] VITALS: BP 138/90; PULSE 82; TEMP 36.6
[2025-01-20] MEDS: ACETAMINOPHEN 500 MG TABLET 1000 MG PO (09:03)
[2025-01-20] MEDS: FERROUS SULFATE 325 MG TABLET PO (09:03)
[2025-01-20] MEDS: LABETALOL HCL 100 MG TABLET 200 MG PO (09:04)
--- NOTE | 2025-01-20 11:23 | PM.OBPN ---
OB - PN: Subj Subjective Patient comments: no complaints and tolerating diet [place] infant status: well feeding status: breast and bottle feeding Exam Constitutional Vital Signs, click to edit/add: Last Vital Signs Temp 97.9 F 01/20/25 09:02 Pulse 82 01/20/25 09:02 Resp 18 01/20/25 09:02 BP 138/90 01/20/25 09:02 Pulse Ox 100 01/18/25 19:45 O2 Del Method Room Air 01/20/25 01:00 Common normals: no apparent distress and oriented x3 Respiratory Common normals: normal respiratory effort GI Common normals: Normal to inspection, nondistended, normoactive bowel sounds present Bimanual exam- vagina & uterus: uterus non-tender Extremity Common normals: normal to inspection and no calf tenderness General: edema (Pedal) Neuro Common normals: oriented x3 Psych Common normals: mental status grossly normal, cooperative and affect normal Urinary Catheter Management Urinary Catheter Management Urethral: Cath placed during this visit: no Urethral indwelling: Yes Straight: Cath placed during this visit: yes, but has since been removed by the nurse Removal date: 01/18/25 Removal time: 19:47 OB - PN: A/P Assessment and Plan (1) Term : (2) Elevated blood pressure affecting in third trimester, antepartum: (3) anemia: (4) Maternal obesity syndrome in third trimester: (5) Pre-eclampsia during in third trimester, antepartum: Plan - Vaginal Delivery day: 2 Plan: discharge home and other (Follow up 1 week for blood pressures check and 6 weeks) Time Spent with Patient Time: Total time spent is greater than 50% in coordination of care (as documented) at patient's floor/unit and/or counseling patient: Total time spent with greater than 50% in coordination of care (as documented) at patient's floor/unit and/or counseling patient: 25 - 35 minutes
--- NOTE | 2025-01-20 11:31 | P.DS_ITS ---
DS: Providers Provider Date of admission: 01/17/25 18:45 Primary care physician: Non-Staff Physician, Admitting clinician: Babar Mortensen Attending physician on admission: Babar Mortensen Attending physician on discharge: Mitra Bird Discharging clinician: Mitra Bird Anticipated date of discharge: 01/20/25 DS: Diagnosis Discharge Diagnosis (1) Pre-eclampsia during in third trimester, antepartum: (2) anemia: (3) Maternal obesity syndrome in third trimester: Plan Labetalol 200 mg BID Ferrous Sulfate 325 mg BID OB - DS: Summary Hospital Course Hospital Course: 19 y/o admitted for induction of labor. Developed elevated blood blood pressures and placed on Magnesium Sulfate. Normal delivery and post period. Placed on Labetalol 200 mg BID. Time spent discussing smoking cessation with patient: more than 10 minutes Peripartum Data - Procedures: Procedures Operation Date: 01/18/25 18:30 Actual Procedure Side Surgeon p Vagina Repair Not Applicable Babar Mortensen DO Peripartum Data - Vaginal Delivery Procedures: Procedures Operation Date: 01/18/25 18:30 Actual Procedure Side Surgeon p Vagina Repair Not Applicable Babar Mortensen DO Delivery method: spontaneous vaginal delivery Gender: male Discharge plan: home A Delivery method: elective vaginal delivery Gender: male Discharge plan: home Status at Discharge Functional status at discharge: independent ambulation Time Spent with Patient Time attestation: Total time spent providing and/or coordinating discharge services: Time spent: less than 30 minutes Specific discharge activities: Nothing in the vagina for 6 weeks Exam Constitutional Vital Signs, click to edit/add: Last Vital Signs Temp 97.9 F 01/20/25 09:02 Pulse 82 01/20/25 09:02 Resp 18 01/20/25 09:02 BP 138/90 01/20/25 09:02 Pulse Ox 100 01/18/25 19:45 O2 Del Method Room Air 01/20/25 01:00 Discharge Plan Discharge Disposition: Home, Self-Care Condition: Good Discharge Medications: New labetalol 100 mg Tablet 200 mg PO BID Qty: 120 0RF ferrous sulfate 325 mg (65 mg iron) tablet 325 mg PO BID Qty: 60 1RF Rx Instructions: take 1 tablet twice daily Continued docusate sodium 100 mg capsule 100 mg PO DAILY No Action ferrous sulfate 220 mg (44 mg iron)/5 mL solution 44 mg PO DAILY Diet: regular diet Print Language: Croatian Patient Instructions: Preeclampsia and Eclampsia After Delivery (GEN) Forms: Portal Instructions
[2025-01-20] MEDS: ADACEL DIPH,PERTUSS(ACELL),TET VAC/PF 0.5 ML ADULT SYRINGE IM (13:22)
== END 2025-01-20 15:35 | disposition home or self-care (01) | DRG 560 ==
PROVIDERS: Obstetrics & Gynecology; Admitting Provider Midwife; Visit Provider Midwife
PROC: 0KQM0ZZ Repair Perineum Muscle, Open Approach (ICD-10-PCS; principal; 2025-01-18 18:30)
DX: O14.04 Mild to moderate pre-eclampsia, complicating childbirth (principal); O70.1 Second degree perineal laceration during delivery; O99.214 Obesity complicating childbirth; O90.81 Anemia of the puerperium; Z3A.39 39 weeks gestation of pregnancy; Z37.0 Single live birth
CPT/HCPCS: 36415; 51702; 59050; 59410; 80307; 85025; 85027; 86850; 86900; 86901; 90715; J0690; J1100; J1885; J1920; J2300; J2405; J2704; J2795; J3010; J3475